=== PATIENT | female | born 1940 | race Caucasian/White ===

== ENCOUNTER 2016-05-02 15:01 | Outpatient (CLI) | payer MEDICARE, OTHER | END 2016-05-02 15:02 | disposition home or self-care (01) | DX: I73.9 Peripheral vascular disease, unspecified (principal); Z72.0 Tobacco use ==

== ENCOUNTER 2016-10-08 11:02 | Outpatient (CLI) | payer MEDICARE, OTHER | END 2016-10-08 11:03 | disposition critical access hospital (66) | LOC: EMS 11:02 | PROVIDERS: ATTEND Surgery | DX: S79.911A Unspecified injury of right hip, initial encounter (principal); W06.XXXA Fall from bed, initial encounter | CPT/HCPCS: A0425; A0429 ==

== ENCOUNTER 2016-10-08 11:20 | Inpatient (IN) | payer MEDICARE, OTHER ==
[2016-10-08] MEDS ORDERED: ACETAMINOPHEN 325 MG TABLET PO STA (11:45)
[2016-10-08] MEDS ORDERED: ACETAMINOPHEN 325 MG TABLET PO ONE (11:54)
--- NOTE | 2016-10-08 12:51 | CT Preliminary Report ---
Exam: CT Cervical Spine W/O IMPRESSION cervical spine CT: 1. No cervical spine fracture. 2. Moderate degenerative changes. 3. Stable 1.1 cm dense densely calcified left thyroid nodule. Impression head CT: No intracranial hemorrhage or depressed calvarial fracture. Age-related cortical atrophy. Prominent chronic white matter microangiopathy. [facility] SITE ID: [id number]
--- NOTE | 2016-10-08 12:54 | CT Report ---
REVISED: THIS REPORT WAS ORIGINALLY SIGNED ON 09/29/2016 @ 1047. ORDERS LINKED ON 10/19/2016. EXAM: CT HEAD EXAM DATE: 10/08/2016 12:18 PM. CLINICAL HISTORY: Fall. Confused. Hip injury cannot clear. COMPARISON: None. TECHNIQUE: Multiaxial CT images were obtained from the foramen magnum to the vertex. IV contrast: None. Reformats: Coronal. Asymmetric positioning within scanning gantry. In accordance with CT protocol optimization, one or more of the following dose reduction techniques were utilized for this exam: automated exposure control, adjustment of mA and/or KV based on patient size, or use of iterative reconstructive technique. FINDINGS: Parenchyma: No intraparenchymal hemorrhage. No evidence of mass, midline shift, or CT findings of acute infarction. Gatica-white differentiation is distinct. Extraaxial Spaces: Normal for age. No subdural or epidural collections identified. Ventricles: The ventricles and cortical sulci are enlarged, consistent with age- related tissue loss. Sinuses: Imaged paranasal sinuses, orbits, and mastoids show no significant abnormality. Bones: No evidence of fracture or calvarial defect. Other: Diffuse prominent chronic microangiopathic white matter changes are evident. IMPRESSION Head CT: 1. Generalized age-related cortical atrophic changes without evidence of acute intracranial abnormality. 2. No evidence for intracranial hemorrhage or depressed calvarial fracture. CT CERVICAL SPINE WITHOUT CONTRAST COMPARISONS: Cervical spine CT 09/10/2015. TECHNIQUE: Thin-section axial images were acquired of the cervical spine without contrast. Post-processing: Coronal and sagittal reformats. Other: None. In accordance with CT protocol optimization, one or more of the following dose reduction techniques were utilized for this exam: automated exposure control, adjustment of mA and/or KV based on patient size, or use of iterative reconstructive technique. FINDINGS: Alignment: Normal. No scoliosis or spondylolisthesis. Bones: No fracture or bone lesion. Interspace Levels/Facets: C1-C2: Narrowing of C1 and C2 reticulation with ossified formation from degenerative change. C2-C3: Unremarkable. C3-C4: Right facet hypertrophy. C4-C5: Moderate loss of disk space height. Moderate bilateral neural foraminal narrowing due to bilateral uncovertebral joint hypertrophy and right-sided facet hypertrophy. Congenitally narrow spinal canal. Effacement of ventral thecal sac by a broad posterior disk osteophyte complex. AP dimension of spinal canal is approximate 7 mm on sagittal series. C5-C6: Mild to moderate right neural foraminal narrowing due to uncovertebral joint hypertrophy. C6-C7: Moderate left and mild right neural foraminal narrowing due to uncovertebral joint hypertrophy. C7-T1: Unremarkable. Musculature: Normal. No fatty atrophy. Other: The paravertebral and prevertebral soft tissues are normal. The lung apices demonstrate probable biapical pleural-parenchymal scarring. 1.1 cm densely calcified left thyroid nodule, stable. IMPRESSION cervical spine CT: 1. No cervical spine fracture. 2. Moderate degenerative changes. 3. Stable 1.1 cm dense densely calcified left thyroid nodule. [facility] Referring Provider Line: [phone] SITE ID: [id number]
--- NOTE | 2016-10-08 12:59 | XRAY Preliminary Report ---
Exam: XR Hip w/Pelvis 2-3V RT IMPRESSION: Acute right femoral neck fracture with questionable intertrochanteric extension. No displ acement. [facility] SITE ID: [id number]
--- NOTE | 2016-10-08 13:00 | XRAY Preliminary Report ---
Exam: XR Femur 2V RT IMPRESSION: Nondisplaced right femoral neck fracture. [facility] SITE ID: [id number]
--- NOTE | 2016-10-08 13:01 | XRAY Report ---
EXAM: RIGHT HIP AND PELVIS RADIOGRAPHY EXAM DATE: 10/08/2016 12:29 PM. HISTORY: Fall, hip pain. COMPARISONS: 09/10/2015. TECHNIQUE: 1 view of the pelvis and 1 view of the hip. FINDINGS: Bones: Acute right femoral neck fracture with questionable intertrochanteric extension. No displacem ent. Joints: Mild bilateral hip joint space narrowing. Soft Tissues: Normal. No soft tissue swelling. IMPRESSION: Acute right femoral neck fracture with questionable intertrochanteric extension. No displ acement. [facility] Referring Provider Line: [phone] SITE ID: [id number]
--- NOTE | 2016-10-08 13:02 | XRAY Report ---
EXAM: RIGHT FEMUR RADIOGRAPHY EXAM DATE: 10/08/2016 12:29 PM. CLINICAL HISTORY: Fall femur. COMPARISON: Correlation with right hip series same day. TECHNIQUE: 2 views. FINDINGS: Bones: Nondisplaced right femoral neck fracture. Joints: The visualized hip and knee joints are normal. No effusions. Soft Tissues: Normal. No soft tissue swelling. IMPRESSION: Nondisplaced right femoral neck fracture. [facility] Referring Provider Line: [phone] SITE ID: [id number]
[2016-10-08] MEDS ORDERED: MORPHINE 2 MG/ML SYRINGE IVP STA (13:26)
--- NOTE | 2016-10-08 13:34 | ED Physician Documentation ---
History of Present Illness - Stated complaint Stated Complaint: FALL - Chief complaint Chief Complaint: General - Additonal information Additional information: hx from pt and EMS 76 female slipped out of bed onto bottom / right hip not sure if hit head but some mild neck pain and confused (hx dementia per EMR) per pt and EMS report no recent fever cough NVD urinary sx Review of Systems Constitutional: denies: Fever, Chills Cardiac: denies: Chest pain / pressure Respiratory: denies: Dyspnea, Cough GI: denies: Abdominal Pain, Vomiting, Diarrhea : denies: Dysuria Musculoskeletal: reports: Neck pain, Extremity pain, Joint pain Neurologic: denies: Headache Endocrine: denies: Easy bruising / bleeding Immunocompromised: denies: Immunocompromised PD PAST MEDICAL HISTORY - Past Medical History Past Medical History: Yes Cardiovascular: Hypertension Respiratory: COPD Neuro: Alzhiemer's, Dementia, Headache/migraine Endocrine/Autoimmune: None GI: GERD : None HEENT: None Psych: None Musculoskeletal: Osteoarthritis Derm: None - Past Surgical History Past Surgical History: Yes /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: Hysterectomy HEENT: Cataracts - Present Medications Home Medications: Ambulatory Orders Medication Instructions Recorded Confirmed Amitriptyline HCl 50 mg PO HS 03/13/13 10/08/16 Bupropion HCl [Wellbutrin Sr] 150 mg PO BID 03/13/13 10/08/16 Carbidopa/Levodopa [Carbidopa-Levo 1 each PO TID 03/14/13 10/08/16 ER 25-100 Tab] Donepezil [Aricept] 10 mg PO DAILY 03/14/13 10/08/16 Simvastatin 40 mg PO DAILY 03/14/13 09/10/15 Ibuprofen [Motrin] 1 tab PO TID PRN 09/10/15 10/08/16 Metoprolol Tartrate 1 tab PO DAILY 09/10/15 10/08/16 - Allergies Allergies/Adverse Reactions: Allergies Allergy/AdvReac Type Severity Reaction Status Date / Time No Known Drug Allergies Allergy Verified 09/10/15 12:17 - Social History Does the pt smoke?: Yes Smoking Status: Current every day smoker Does the pt drink ETOH?: No Does the pt have substance abuse?: No - Immunizations Immunizations are current?: Yes - POLST Patient has POLST: Yes PD ED PE NORMAL - Vitals Vital signs reviewed: Yes - General General: No: Alert and oriented X 3 (mldly confused A&O x 2) - HEENT HEENT: Atraumatic - Neck Neck: No bony TTP (mild diffuse no step off) - Cardiac Cardiac: RRR - Respiratory Respiratory: No respiratory distress, Clear bilaterally - Abdomen Abdomen: Soft, Non tender - Extremities Extremities: Other (RLE not short or roated but pain to hip and thigh with any ROM, MSV intact, skin intact) - Neuro Neuro: No motor deficit, No sensory deficit. No: Alert and oriented X 3 Results - Vitals Vitals: Vital Signs - 24 hr 10/08/16 10/08/16 10/08/16 11:10 13:10 16:37 Temperature 36.9 C 36.8 C Heart Rate 81 72 76 Respiratory 18 16 18 Rate Blood Pressure 213/108 H 187/93 H O2 Saturation 94 95 94 Oxygen O2 Source [] Nasal cannula O2 Source Room air - Labs Labs: Laboratory Tests 10/08/16 10/08/16 10/08/16 13:25 13:25 14:25 WBC 9.6 RBC 5.02 Hgb 15.5 Hct 45.5 MCV 90.5 MCH 30.8 MCHC 34.0 RDW 14.1 Plt Count 295 MPV 8.2 Neut # 6.4 Lymph # 1.6 [place] # 1.0 Eos # 0.4 Baso # 0.1 Absolute Nucleated RBC 0.01 Nucleated RBCs 0.1 Sodium 142 Potassium 3.9 Chloride 104 Carbon Dioxide 30 Anion Gap 8.0 BUN 15 Creatinine 0.8 Estimated GFR (MDRD) 69 L Glucose 98 Calcium 9.3 Urine Color YELLOW Urine Clarity HAZY Urine pH 6.0 Ur Specific [place] 1.020 Urine Protein TRACE Urine Glucose (UA) NEGATIVE Urine Ketones NEGATIVE Urine Occult Blood NEGATIVE Urine Nitrite POSITIVE H Urine Bilirubin NEGATIVE Urine Urobilinogen 1 (NORMAL) Ur Leukocyte Esterase NEGATIVE Urine RBC 0-5 Urine WBC 0-3 Ur Squamous Epith Cells RARE Squamous Urine Bacteria Many H Urine Casts 11-25 Hyaline Casts Ur Microscopic Review INDICATED Urine Culture Comments INDICATED - Rads (name of study) [facility]CS Radiology: See rad report (no fx, degen changes, 1.1 cm L thyroid nodule) CTH Radiology: See rad report (no skull fx or ICH, age related atrophy and chronic white matter microangiopathy) hip / femur Radiology: See rad report (acute right femoral neck fx with questionable intertrock extension) PD MEDICAL DECISION MAKING - ED course ED course: last ate 7 AM david bai Departure - Departure Disposition: ED Transfer to [facility] Clinical Impression: Thyroid nodule Hip fracture Qualifiers: Encounter type: initial encounter Fracture type: closed Laterality: right Qualified Code(s): S72.001A - Fracture of unspecified part of neck of right femur, initial encounter for closed fracture Condition: Fair
[2016-10-08] MEDS ORDERED: MORPHINE 2 MG/ML SYRINGE ONE (13:35)
[2016-10-08 13:41] LABS: BASOPHILS # (AUTO) 0.1 10^3/uL (0.0-0.1); BASOPHILS % (AUTO) 1.3 %; EOSINOPHILS # (AUTO) 0.4 10^3/uL (0.0-0.7); EOSINOPHILS % (AUTO) 4.6 %; HCT - HEMATOCRIT 45.5 % (37.0-47.0); HGB - HEMOGLOBIN 15.5 g/dL (12.0-16.0); LYMPHOCYTES # (AUTO) 1.6 10^3/uL (1.5-3.5); LYMPHOCYTES % (AUTO) 16.9 %; MEAN CORPUSCULAR HEMOGLOBIN 30.8 pg (27.0-31.0); MEAN CORPUSCULAR VOLUME 90.5 fL (81.0-99.0); MEAN PLATELET VOLUME 8.2 fL (7.9-10.8); MONOCYTES % (AUTO) 10.4 %; NEUTROPHILS # (AUTO) 6.4 10^3/uL (1.5-6.6); NEUTROPHILS % (AUTO) 66.8 %; NUCLEATED RED BLOOD CELLS AUTO 0.1 /100WBC; RED BLOOD COUNT 5.02 10^6/uL (4.20-5.40); RED CELL DISTRIBUTION WIDTH 14.1 % (12.0-15.0); UNCORRECTED WHITE BLOOD COUNT 9.6 x10^3/uL; WHITE BLOOD COUNT 9.6 x10^3/uL (4.8-10.8)
[2016-10-08 13:52] LABS: CALCIUM 9.3 mg/dL (8.5-10.3); CREATININE 0.8 mg/dL (0.4-1.0); POTASSIUM 3.9 mmol/L (3.5-5.0)
[2016-10-08 14:40] LABS: BILIRUBIN,URINE NEGATIVE (NEGATIVE)
[2016-10-08 14:41] LABS: UA w/ MICROSCOPIC CHARGE YES
[2016-10-08 14:50] LABS: UR CULTURE IF IND INDICATED; WBC,URINE 0-3 /HPF (0-5)
--- NOTE | 2016-10-08 15:04 | HISTORY & PHYSICAL EXAMINATION ---
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 Of note she was in the ED 09/10/2015 for a ground level fall. She denies any prodrome prior to this, specifically no SOB, CP, lightheadedness , diaphoresis or nausea. She does not use an assistive device at this time per . She did not really hit her head but had some neck pain. She could not get up and on presenting to the ED with hip pain was found on hip film to have a Right femoral neck fracture with possible Intertrochanteric extension, but no displacement. ED contacted Dr. Hernandez who plans to take her to the OR ~ 4:30 today and requests medical consultation for risk assessment. Mary confimred this med list: metoprolol (unclear if succinate or tatrtrate 25 mg po daily, carbidopa/levodopa 25/100 tid w/ meals. donezipil 10 mg po daily, simvastatin 40 mg po daily, amitryptilline 25 mg 1-3 qhs for headache prn, nexium 20 mg po q am, vitamid D 2000 u/ po daily Review of Systems - Constitutional Constitutional: reports: Other (Does not normally use cane/walker/nor other assistive device). denies: Fatigue, Fever, Malaise, Weakness - Eyes Eyes: denies: Blurred vision, Field loss, Vision loss - Ears, Nose & Throat Ears, Nose & Throat: reports: Dentures (upper and lower) - Cardiovascular Cariovascular: reports: Syncope (history of syncope years ago when she grabbed the bathroom handle of the shower which fell off and she fell, non recent). denies: Irregular heart rate, Palpitations, Chest pain, Edema, Lightheadedness, Decr. exercise tolerance - Respiratory Respiratory: reports: Wheezing (she denies wheezing, cough or shortness of breath, denies being on inhalers or nebulizers). denies: Cough - Gastrointestinal Gastrointestinal: denies: Abdominal pain, Abdominal distention, Constipation, Diarrhea, Change in bowel habits, Rectal bleeding, Bloody stools, Nausea, Vomiting - Genitourinary Genitourinary: denies: Dysuria, Frequency, Urgency, Incontinence - Musculoskeletal Musculoskeletal: reports: Other (hip pain currently not bad). denies: Muscle pain - Integumentary Integumentary: denies: Rash - Neurological Neurological: reports: Memory problems, Other (She denies Parkinsons tremor, rigiditiy per he manages her medications she no longer drives says she gets "tingling in her right foot to her knee" sometimes.) - Psychiatric Psychiatric: reports: Depression ("used to have depression") - Endocrine Endocrine: denies: Polyuria, Polydypsia, Intolerance to cold - Hematologic/Lymphatic Hematologic/Lymphatic: denies: Bruising History - Past Medical History Cardiovascular: reports: Hypertension Respiratory: reports: COPD (listed in her medical history; she denies (is not on inhalers, no home 02. Has had PFTs) Neuro: reports: Alzhiemer's, Dementia (baseline ; can feed, dress herself, attends [employer] luncheon, manages pills, doesnt drive), Headache/migraine , Parkinson's (3 yrs ago was told she had Parkinsons and was on Sinemet, but that was stopped by another Dr that told her she did NOT have parkinsons), Other ([place] Palsy, left facial droop) Endocrine/Autoimmune: reports: None GI: reports: GERD : reports: None HEENT: reports: None Psych: reports: Depression (history of per patient but controlled) Musculoskeletal: reports: Osteoarthritis Derm: reports: None MRSA Hx?: No - Past Surgical History Ortho: reports: Other (hx of broken arm 10-15 yrs ago) /[employer]: reports: Hysterectomy Cardiovascular: reports: Other (Denies CAD, dysrhthmia, valvular probelsm) HEENT: reports: Cataracts - Family & Social History Family History: Mother: CAD (mom of [place] age 94/ dad [place] at 78), Father: CAD Living arrangement: At home, Other (with ) Living Situation: With spouse/s.o. - Substance History Use: Uses substance without health or social issues: Tobacco (smokes 6-7 cigarettes / day "smokes if I can"), Alcohol (rare drink of alcohol "at the club" every 2-3 wks) - POLST Patient has POLST: Yes Meds/Allgy - Home Medications Home Medications: Ambulatory Orders Medication Instructions Recorded Confirmed Amitriptyline HCl 25 mg PO HS 03/13/13 10/08/16 Bupropion HCl [Wellbutrin Sr] 150 mg PO BID 03/13/13 09/10/15 Carbidopa/Levodopa [Carbidopa-Levo 1 each PO TID 03/14/13 10/08/16 ER 25-100 Tab] Donepezil [Aricept] 10 mg PO DAILY 03/14/13 10/08/16 Simvastatin 40 mg PO DAILY 03/14/13 09/10/15 Ibuprofen [Motrin] 1 tab PO TID PRN 09/10/15 10/08/16 Metoprolol Tartrate 1 tab PO DAILY 09/10/15 10/08/16 - Allergies Allergies/Adverse Reactions: Allergies Allergy/AdvReac Type Severity Reaction Status Date / Time No Known Drug Allergies Allergy Verified 09/10/15 12:17 Exam - Vital Signs Reviewed Vital Signs: Yes Vital Signs: Vital Signs x48h Temp Pulse Resp BP Pulse Ox 10/08/16 13:10 72 16 187/93 H 95 10/08/16 11:10 36.9 C 81 18 213/108 H 94 - Physical Exam General Appearance: positive: No acute distress, Other (Lying on stretcher in ED , alert, in no apparent pain, surprisingly lying with affected R leg crossed over the left. Not oriented to year (1976), but oriented to Month, time of the month, situation, and president. cant recall name of PCP but recalls when tells her) Eyes Bilateral: positive: PERRL, EOMI, Other (very slight droop of left eye lid) ENT: positive: No signs of dehydration (slightly dry tongue), Other (slight droop left mouth (old hx [place] Palsy upper and lower dentures) Neck: positive: Nml inspection. negative: Thyroid nml (not felt on exam, but thyroid nodule on) Cardiovascular: positive: Regular rate & rhythm, No murmur, No gallop. negative : Extrasystoles, Tachycardia Peripheral Pulses: positive: 2+ (radial) Abdomen: positive: Non-tender, No organomegaly, Nml bowel sounds, No distention , Tenderness Skin: positive: No rash, Warm Extremities: positive: No pedal edema (R lower ext not externally rotated, non shortened, no echymosis, no edema), Other Neurologic/Psychiatric: positive: CN's nml (2-12) (x slight left mouth corner droop and left eye lid ptosis minor (old bells)), Disoriented to person, Disoriented to place, Disoriented to time (keeps getting the year wrong), Other (no tremor). negative: Depressed mood/affect (animated in conversation) Conclusion/Plan - Problem List (1) Hip fracture Conclusion/Plan: 1) L Femoral Neck Fracture s/p Mechanical Fall no prodrome prior to fall requiring work up looking comfortable right now (even crossing legs) Post op management, VTE prophylaxis an mobility/PT per Dr. Hernandez 2) Perioperative Risk assessment No Hx of CAD, AK, CHF, valvular dysfunction, no Hx of activity intolerance, SOB, Chest pain, no hx stroke (patient initially called a syncopal event /fall a stroke, then corrects self and adamantly denies she had a sttroke. . No hx of renal disease , CR not over 2 (normal at 0.8) and no DM nor insulin use. EKG with no ischemic changes, By RCRI risk score 0.04% risk of major cardiac event (AK, PE, Vfib, heart block ) Not on anticoagulation (does take up to 2 excedrin per day no chronic wheeze, 02 use, Re pulmonary risk, 2013 there are records of acute hypoxemic respiratory failure w/ a COPD exacerbation; at that time she was on 02 no longer on 02, rare scattered wheeze currently, unlabored resps lying flat, no shortness of breath with activity (does continue to smoke 6-7 cigs / day) HC03 sl elevated 30; ? chronic compensation no PFT's available, no indication for ABG currently do not suspect difficult extubation given current exam and recent hx Will add post op duonebs prn SOB or wheeze Qualifiers: Encounter type: initial encounter Fracture type: closed Laterality: right Qualified Code(s): S72.001A - Fracture of unspecified part of neck of right femur, initial encounter for closed fracture (2) Hypertension Conclusion/Plan: 213/108 on presentation, 187/93 1pm will call me with her med list Likely elevated currently She denies being on metoprolol currently (as does he but he will call w/ list) Anesthesia aware, expect BP will not be problem will resume home meds as bp warrants post op (3) COPD (chronic obstructive pulmonary disease) Conclusion/Plan: 04/2013 d/c summary notes acute respiratory failure, 1-2 L home 02 and C02 retainer She is no longer on 02, satting 95% on RA lying flat, no recent exacerbation, no on inhalers continues to smoke, CT chest 2013 notable only for apical scarring, No indication for CXR given current resp exam will add duonebs prn post op Advise smoking cessation (4) Dementia Conclusion/Plan: early dementia, still quite functional, relatively low risk for post op delerium continue donzepil if she is on ( will bring med list (5) Thyroid nodule Conclusion/Plan: calcified outpatient f/u will check TSH (6) Migraine Conclusion/Plan: none currently w/ daily excedrine use, will monitor for rebound TOMAS CODE status; will confirm post op (if intraoperative complication would do intervention) She states full cor at the moment (7) Parkinsons disease Conclusion/Plan: Patient denies that she has PD, howeverhas been on Sinemet (confirmed when called re: home meds PD could contribute to delerium afer anesthesia (although she does not have significantly advanced disease) REsume Sinemet post op - Lab Results Lab results reviewed: Yes Fish Bones: 10/08/16 19:09 10/08/16 13:25 - Diagnostic Imaging Results Diagnostic Imaging Results: positive: Final report reviewed Diagnostic Imaging Results Comments: C spine; no Cspine Fx, incidental calcified L thyroid nodule Hip film R ; fem neck Fx, ? IT extension, nondisplaced Echo 04/2013; NL LV size an fxn, w/ mild concentric LVH, grade II diastolic dysfunction, hperdynamic LV. 70% EF no WMA. Tr-mild MR, mild TR, small pericardial effusion - EKG Results EKG Interpreted Independently: Yes EKG Comparison: Other (no comparison nsr, low amplitude, normal axis, Sl flat t' s) Issues/Core Measures - Anticipated LOS Anticipated Stay Length: 2 or more midnights - DVT/VTE - Prophylaxis VTE/DVT Device ordered at admit?: No Not Ordered - Medical Reason: Not indicated (patient will be taken to OR in a few hours; VTE prophylaxis s/p hip repair to be ordered post op) VTE/DVT Prophylaxis med ordered at admit?: No Not Ordered - Medical Reason: Not indicated (see above)
--- NOTE | 2016-10-08 16:32 | PROVIDER PROGRESS NOTE ---
Subjective - Prog Note Date Prog Note Date: 10/08/16 Prog Note Time: 16:30 - Subjective Subjective: Painful right hip after a fall at home this AM Objective - Vital Signs/Intake & Output Vital Signs: Vital Signs x48h Temp Pulse Resp BP Pulse Ox 10/08/16 13:10 72 16 187/93 H 95 10/08/16 11:10 36.9 C 81 18 213/108 H 94 - Lab Results Fish Bones: 10/08/16 13:25 10/08/16 13:25 Other Labs: Lab Results x24hrs 10/08/16 10/08/16 10/08/16 Range/Units 14:25 13:25 13:25 WBC 9.6 (4.8-10.8) x10^3/uL RBC 5.02 (4.20-5.40) 10^6/uL Hgb 15.5 (12.0-16.0) g/dL Hct 45.5 (37.0-47.0) % MCV 90.5 (81.0-99.0) fL MCH 30.8 (27.0-31.0) pg MCHC 34.0 (32.0-36.0) g/dL RDW 14.1 (12.0-15.0) % Plt Count 295 (130-450) 10^3/uL MPV 8.2 (7.9-10.8) fL Neut # 6.4 (1.5-6.6) 10^3/uL Lymph # 1.6 (1.5-3.5) 10^3/uL [place] # 1.0 (0.0-1.0) 10^3/uL Eos # 0.4 (0.0-0.7) 10^3/uL Baso # 0.1 (0.0-0.1) 10^3/uL Absolute Nucleated RBC 0.01 x10^3/uL Nucleated RBCs 0.1 /100WBC Sodium 142 (135-145) mmol/L Potassium 3.9 (3.5-5.0) mmol/L Chloride 104 (101-111) mmol/L Carbon Dioxide 30 (21-32) mmol/L Anion Gap 8.0 (6-13) BUN 15 (6-20) mg/dL Creatinine 0.8 (0.4-1.0) mg/dL Estimated GFR (MDRD) 69 L (>89) Glucose 98 (70-100) mg/dL Calcium 9.3 (8.5-10.3) mg/dL Urine Color YELLOW Urine Clarity HAZY (CLEAR) Urine pH 6.0 (5.0-7.5) PH Ur Specific [place] 1.020 (1.002-1.030) Urine Protein TRACE (NEGATIVE) mg/dL Urine Glucose (UA) NEGATIVE (NEGATIVE) mg/dL Urine Ketones NEGATIVE (NEGATIVE) mg/dL Urine Occult Blood NEGATIVE (NEGATIVE) Urine Nitrite POSITIVE H (NEGATIVE) Urine Bilirubin NEGATIVE (NEGATIVE) Urine Urobilinogen 1 (NORMAL) (NORMAL) E.U./dL Ur Leukocyte Esterase NEGATIVE (NEGATIVE) Urine RBC 0-5 (0-5) /HPF Urine WBC 0-3 (0-5) /HPF Ur Squamous Epith Cells RARE Squamous (<= Few) Urine Bacteria Many H (None Seen) /HPF Urine Casts 11-25 Hyaline Casts /LPF Ur Microscopic Review INDICATED Urine Culture Comments INDICATED - Diagnostic Imaging Diagnostic Imaging Comments: XR show an impacted, valgus oriented right subcapital hip fracture - Other Results/Comments Other Results/Comments: EXAM: painful right hip rotation. Minimal leg shortening. Moves toes well. Sensation intact. Good cap filling Assessment/Plan - Problem List (1) Hip fracture Impression: Closed right subcapital hip fracture - ompacted and valgus orientation Qualifiers: Encounter type: initial encounter Fracture type: closed Laterality: right Qualified Code(s): S72.001A - Fracture of unspecified part of neck of right femur, initial encounter for closed fracture
[2016-10-08] MEDS ORDERED: ceFAZolin 2 GM/50 ML 50 ML IV SCH (17:00)
--- NOTE | 2016-10-08 17:29 | CONSULTATION NOTE ---
DATE OF CONSULTATION: 10/08/2016 00:00:00 REQUESTING PROVIDER: Emergency room physician, Daphnie Diallo M.D. of the emergency room [facility]. CHIEF COMPLAINT: "My right hip hurts.". HISTORY OF PRESENT ILLNESS: The patient is a 76-year-old female, mildly demented with a his tory of COPD and hypertension who apparently slipped off her 's bed this morning and landed on her right side on the floor in their bedroom. Noted immediate pain in her hip, was unable to stand o r weightbear on her leg. She was taken to the emergency room here at [facility], where x-ray showed an impacted valgus oriented subcapital hip fracture on the right side. She had no prior hip fractures. Denied any distal weakness or numbness in the lower extremity. No loss of consciousnes s or other injuries. Last ate food at about 7:30 this morning. PHYSICAL EXAMINATION GENERAL: An elderly woman lying in bed in mild amount of distress. VITAL SIGNS: Blood pressure was 187/93, pulse of 72, respirations 16, afebrile. EXTREMITIES: The patient has minimal shortening of her right leg. Does have some mild pain with hip r otation. Moves her toes and ankles on command without much problem. Sensation is grossly intact and s ymmetrical in the lower extremity. Good capillary filling noted of the toes. X-RAYS: X-rays show an impacted right subcapital hip fracture. There is a valgus orientation of the f racture. ASSESSMENT AND PLAN 1. Closed impacted valgus oriented right subcapital hip fracture. 2. Dementia. 3. History of chronic obstructive pulmonary disease. 4. History of hypertension. PLAN: The patient would do best if we can surgically stabilize her fracture and try to mobilize her a s best we can. This was discussed with the by the emergency room staff. He was in favor of pr oceeding with surgery. I attempted to contact him by phone, but he was not available at his home. Has no cell phone. Because of his wish to have the surgery done and this is my recommendation, we have p roceeded to have the consent form signed by the emergency room attending physician, Dr. Diallo, who h ad heard the and his willingness to have his proceed with surgery later today. Will atte mpt to contact the patient's prior to surgery, but we should proceed as planned. JOB #: [id number] EXT JOB #:[id number]
[2016-10-08] MEDS ORDERED: ceFAZolin 1 GM VIAL IV ONE (18:00)
[2016-10-08] MEDS ORDERED: LIDOCAINE-MPF 2% 5 ML VIAL IM ONE (18:00)
[2016-10-08] MEDS ORDERED: fentaNYL 100 MCG/2 ML VIAL IVP ONE (18:00)
[2016-10-08] MEDS ORDERED: PROPOFOL 200 MG/20 ML VIAL IVP ONE (18:00)
[2016-10-08] MEDS ORDERED: LACTATED RINGERS 1,000 ML IV ONE (18:08)
[2016-10-08] MEDS ORDERED: BUPIVACAINE 0.25%-EPI 1:200000 PF 30 ML VIAL SUBQ ONE (18:08)
[2016-10-08] MEDS ORDERED: PROCHLORPERAZINE 10 MG/2 ML VIAL IVP PRN (18:42)
[2016-10-08] MEDS ORDERED: ONDANSETRON 4 MG/2 ML VIAL IVP PRN (18:42)
[2016-10-08] MEDS ORDERED: SODIUM CHLORIDE FLUSH 0.9% 10 ML SYRINGE IVP PRN (18:42)
[2016-10-08] MEDS ORDERED: ACETAMINOPHEN 1,000 MG/100 ML 100 ML IV PRN (18:42)
--- NOTE | 2016-10-08 18:50 | OPERATIVE REPORT ---
Operative Report - General Procedure Date: 10/08/16 Planned Procedure: Closed reduction and multiple cannulated screw fixation right hip fracture Pre-Op Diagnosis: Right subcapital hip fracture Post Op Diagnosis: Same - Procedure Note Primary Surgeon: Artur Hernandez Anesthesia Provider: Kimi Uriarte Anesthesia Technique: Spinal Estimated Blood Loss (in cc): 50 Complications: None
[2016-10-08 19:16] LABS: HGB - HEMOGLOBIN 14.7 g/dL (12.0-16.0)
--- NOTE | 2016-10-08 19:31 | OPERATIVE REPORT ---
DATE OF SURGERY: 10/08/2016 00:00:00 PREOPERATIVE DIAGNOSIS: Right subcapital hip fracture. POSTOPERATIVE DIAGNOSIS: Right subcapital hip fracture. NAME OF PROCEDURE: Closed reduction and multiple cannulated screw fixation of right hip fracture. SURGEON: Artur Hernandez MD BAKER DOUGHNUT: None. ANESTHESIA: Spinal. NURSE MAINTENANCE SUPERVISOR: Kimi Uriarte DESCRIPTION OF PROCEDURE: The patient was taken to the operating room the September where she was placed under spinal anesthetic without any complications. She was then positioned supine on the fracture table. Her left un-fractured extremity was then flexed at the hip and widely abducted and he ld in a well leg clifton. Her right fractured extremity was then placed in a longitudinal traction wit h the leg internally rotated about 30 degrees. Fluoroscopic images of the right hip showed a good red uction of the fracture in both AP and lateral projection. We then prepped and draped the lateral aspe ct of the right hip in the usual fashion for our procedure. A small skin incision measuring about 2 c m was then made over the lateral aspect of the hip. This is extended down to the lateral femoral pradeep ex of the proximal femur. We then proceeded to insert 3 parallel threaded tipped guide pins from the [employer]ynthes 7.3 mm cannulated screw set up through the proximal femur through the femoral neck and into t he femoral head to within a few millimeters of the subchondral bone in both AP and lateral projection s. Satisfied with the placement of pins were then used the direct measuring guide and determined we w ould use one 90 mm and two 95 mm short threaded 7.3 mm cannulated screws. We then used the cannulated drill to perforate the lateral femoral cortex. We then inserted our selected cannulated screws over our guide pins. The most inferior anterior screw, we also applied a washer prior to inserting the scr ew. Fluoroscopic views in AP and lateral projections showed good position of our hardware as well as a good reduction of our fracture. We obtained a good inner fragmental compression from our screws as well. We then removed our guide pins. We irrigated the wound out thoroughly with saline. I then close d the wound in layers using several simple interrupted stitches of 0 Vicryl to close the fascia scott layer; several interrupted simple stitches of 2-0 Vicryl to close the subcutaneous tissues. Finally, skin amadou used to approximate the skin edge. We then dressed the wound and transferred the patient off the fracture table and onto her bed. She was taken to recovery room in satisfactory condition. ESTIMATED BLOOD LOSS: 50 mL. REPLACEMENT: 800 mL crystalloid. INTRAOPERATIVE COMPLICATIONS: None. PLAN: The patient may be weightbearing as tolerated on this extremity. We will be ambulatory with a w alker if her mental status allows. JOB #: [id number] EXT JOB #:[id number]
--- NOTE | 2016-10-08 19:59 | XRAY Preliminary Report ---
Exam: XR Hip w/Pelvis 2-3V RT IMPRESSION: Femoral neck fracture fixation. Fluoroscopy time 29 seconds. RADIA SITE ID: [id number]
--- NOTE | 2016-10-08 20:02 | XRAY Report ---
EXAM: RIGHT HIP RADIOGRAPHY EXAM DATE: 10/08/2016 04:18 PM. CLINICAL HISTORY: RIGHT HIP PINNING IN OR. COMPARISON: Today at 1151. TECHNIQUE: 1 spot view. FINDINGS: Single spot view documents placement of screws across a femoral neck fracture. IMPRESSION: Femoral neck fracture fixation. Fluoroscopy time 29 seconds. CLARITZA Referring Provider Line: [phone] SITE ID: [id number]
[2016-10-08] MEDS ORDERED: AMITRIPTYLINE 25 MG TABLET PO PRN (21:00)
[2016-10-08] MEDS: ceFAZolin 2 GM/50 ML 50 ML IV SCH (21:29)
[2016-10-08] MEDS: MORPHINE 2 MG/ML SYRINGE IVP PRN (21:30)
[2016-10-08] MEDS: SODIUM CHLORIDE 0.9% 1,000 ML IV SCH (21:33)
[2016-10-08] MEDS: SODIUM CHLORIDE FLUSH 0.9% 10 ML SYRINGE IVP SCH (21:34)
[2016-10-08] MEDS: CARBIDOPA/LEVODOPA ER 25 MG/100 MG TABLET PO SCH (22:08)
[2016-10-08] MEDS: DONEPEZIL 5 MG TABLET PO SCH (22:48)
[2016-10-08] MEDS: oxyCOD/ACETAMIN 5 MG/325 MG TABLET PO PRN (22:53)
[2016-10-09] MEDS: MORPHINE 2 MG/ML SYRINGE IVP PRN ×2 (01:25→04:58)
[2016-10-09] MEDS: SODIUM CHLORIDE 0.9% 1,000 ML IV SCH (05:13)
[2016-10-09] MEDS: ceFAZolin 2 GM/50 ML 50 ML IV SCH (05:25)
[2016-10-09] MEDS: CARBIDOPA/LEVODOPA ER 25 MG/100 MG TABLET PO SCH ×3 (06:51→22:09)
[2016-10-09] MEDS: PANTOPRAZOLE 40 MG TABLET PO SCH (06:51)
[2016-10-09] MEDS: SODIUM CHLORIDE FLUSH 0.9% 10 ML SYRINGE IVP SCH ×3 (06:51→22:11)
--- NOTE | 2016-10-09 08:54 | PROVIDER PROGRESS NOTE ---
Subjective - Prog Note Date Prog Note Date: 10/09/16 Prog Note Time: 08:54 - Subjective Subjective: Doesnt really remember me from yesterday, doesnt recall why here (still confused from anesthesia, surgery) Denies pain, no shortness of breath, in in afternoon w/ son, she recognizes them, still cant say who I am or why here Current Medications - Current Medications Current Medications: Active Medications Generic Name Dose Route Start Last Admin Trade Name Freq PRN Reason Stop Dose Admin Acetaminophen 650 - 975 mg 10/08/16 18:42 Tylenol PO Q4HR PRN PAIN Amitriptyline HCl 25 mg 10/08/16 21:00 Elavil PO QPM PRN HEADACHE Aspirin 325 mg 10/09/16 08:00 Kate PO BIDWM ALLIE Carbidopa/Levodopa 1 tab 10/08/16 22:00 10/09/16 06:51 Sinemet Cr 25 Mg/100 Mg PO 1 tab TID ALLIE Administration Docusate Sodium 100 mg 10/08/16 18:42 Colace 100mg Capsule PO BID PRN Constipation Donepezil HCl 10 mg 10/08/16 21:00 10/08/16 22:48 Aricept PO 10 mg QPM ALLIE Administration Sodium Chloride 1,000 mls @ 100 mls/hr 10/08/16 19:00 10/09/16 05:13 Normal Saline 0.9% IV 100 mls/hr .Q10H ALLIE Administration Acetaminophen 100 mls @ 400 mls/hr 10/08/16 18:42 Ofirmev IV Q6HR PRN PAIN Metoprolol Succinate 25 mg 10/09/16 09:00 Toprol Xl PO DAILY ALLIE Morphine Sulfate 2 mg 10/08/16 18:42 10/09/16 04:58 Morphine IVP 2 mg Q2HR PRN Administration Breakthrough Pain Ondansetron HCl 4 mg 10/08/16 18:42 10/09/16 04:58 Zofran Inj IVP 4 mg Q6HR PRN Administration Nausea / Vomiting Oxycodone/Acetaminophen 1 tab 10/08/16 18:42 10/08/16 22:53 Percocet 5 Mg/325 Mg PO 1 tab Q4HR PRN Administration PAIN Pantoprazole Sodium 40 mg 10/09/16 07:00 10/09/16 06:51 Protonix PO 40 mg QDAC ALLIE Administration Prochlorperazine Edisylate 10 mg 10/08/16 18:42 Compazine Inj IVP Q6HR PRN Nausea / Vomiting Senna 17.2 mg 10/08/16 18:42 Senokot PO Q12H PRN Constipation Sodium Chloride 10 ml 10/08/16 18:42 Normal Saline Flush 0.9% IVP PRN PRN NEEDED PER PROVIDER ORDERS Sodium Chloride 10 ml 10/08/16 22:00 10/09/16 06:51 Normal Saline Flush 0.9% IVP Not Given Q8HR ALLIE Amitriptyline HCl 25 mg PO HS 03/13/13 Bupropion HCl [Wellbutrin Sr] 150 mg PO BID 03/13/13 Carbidopa/Levodopa [Carbidopa-Levo ER 25-100 Tab] 1 each PO TID 03/14/13 Donepezil [Aricept] 10 mg PO DAILY 03/14/13 Simvastatin 40 mg PO DAILY 03/14/13 Ibuprofen [Motrin] 1 tab PO TID PRN 09/10/15 Metoprolol Tartrate 1 tab PO DAILY 09/10/15 Objective - Vital Signs/Intake & Output Reviewed Vital Signs: Yes Vital Signs: Vital Signs x48h Temp Pulse Resp BP Pulse Ox 10/09/16 05:32 37.4 C 84 18 170/96 H 96 10/09/16 01:52 37.2 C 75 20 170/90 H 92 Intake & Output: Intake & Output 10/06/16 10/07/16 10/08/16 10/09/16 23:59 23:59 23:59 23:59 Intake Total 775 Output Total 100 450 Balance -100 325 - Objective General Appearance: positive: No acute distress, Other (pleasantly confused, very drowsy this morning, alert later in day, but not oriented to time or situation. knows family) Eyes Bilateral: positive: PERRL, EOMI, Other (sl ptosis on L, sl droop left ( old [place])) Respiratory: positive: No respiratory distress, Breath sounds nml, Other ( unlabred resps low 02 requirement (havent checked off yet 2 L 94-97%) Cardiovascular: positive: Regular rate & rhythm, No murmur Abdomen: positive: Nml bowel sounds, No distention, Other (no escalante). negative : Tenderness Skin: positive: Warm, Dry Extremities: positive: Other (no significant swelling Left hip or distal to operative site. I didnot appreciate significant hematoma). negative: Pedal edema Neurologic/Psychiatric: positive: Disoriented to person. negative: Disoriented to place, Disoriented to time - Lab Results Fish Bones: 10/08/16 19:09 10/08/16 13:25 Other Labs: Lab Results x24hrs 10/08/16 Range/Units 19:09 Hgb 14.7 (12.0-16.0) g/dL Hct 45.0 (37.0-47.0) % Assessment/Plan - Problem List (1) Hip fracture Impression: Day 1 s/p pinning w/ cannulated screws, EBL [address] Hernandez mild post op hematoma (he had Dr. Murrieta look at it last night, and no increase today Per Dr. Hernandez, up with WBAT VTE prophylaxis w/ foot pumps/plexipulses PT/OT already ordered recheck hgb in am Qualifiers: Encounter type: initial encounter Fracture type: closed Laterality: right Qualified Code(s): S72.001A - Fracture of unspecified part of neck of right femur, initial encounter for closed fracture (2) Hypertension Impression: has been elevated since presentation I suspect this represents more than pain - is getting her home toprol, still getting IVFat 100/hr if still elevated w/ dc ivf, if still elevated after d/c of ivf will consider start low dose amlodipine w/ further titration as outpt (3) COPD (chronic obstructive pulmonary disease) Impression: stable, not on inhalers at home wean off 02, start IS (4) Postoperative delirium Impression: mild, no entirely unexpected with dementia and early PD (patient denies PD but on sinemet) supportive management; boris already out reorient. will d/c IVF/d/c tehter to IVpole (hasnt eaten yet, but has gotten adequate volume and hemodynamically stable d/c'd prn compazine to avoid sedation if she gets manage pain (she didnt have much pre op) (offer tylenol first frather than the oxycodone0 (5) Dementia Impression: fairly functional at home, STM deficit on donzepil manages pills continue Donzepil hopefully her mild post op delerum clears quickly (6) Thyroid nodule Impression: outpatient work up will include on d/c summary (7) Migraine Impression: no c/o barroso, takes amitrypityline at HS per for prevention prn aspirin (8) Tobacco abuse Impression: smokes 6-7 cigs/day sabino does not need patch will ask her when alert advise cessation given COPD hx (used to have home 02)
[2016-10-09] MEDS: oxyCOD/ACETAMIN 5 MG/325 MG TABLET PO PRN ×3 (10:15→19:20)
[2016-10-09] MEDS: ASPIRIN 325 MG TABLET PO SCH ×2 (10:15→17:04)
[2016-10-09] MEDS: METOPROLOL SUCCINATE 25 MG TABLET PO SCH (10:15)
--- NOTE | 2016-10-09 12:45 | PROVIDER PROGRESS NOTE ---
Subjective - Prog Note Date Prog Note Date: 10/09/16 Prog Note Time: 12:43 - Subjective Pt reports feeling: Improved (Less right hip pain) Objective - Vital Signs/Intake & Output Vital Signs: Vital Signs x48h Temp Pulse Resp BP Pulse Ox 10/09/16 10:00 37.3 C 75 20 174/80 H 97 10/09/16 05:32 37.4 C 84 18 170/96 H 96 Intake & Output: Intake & Output 10/06/16 10/07/16 10/08/16 10/09/16 23:59 23:59 23:59 23:59 Intake Total 775 Output Total 100 450 Balance -100 325 - Lab Results Fish Bones: 10/08/16 19:09 10/08/16 13:25 Other Labs: Lab Results x24hrs 10/08/16 Range/Units 19:09 Hgb 14.7 (12.0-16.0) g/dL Hct 45.0 (37.0-47.0) % - Other Results/Comments Other Results/Comments: Exam: Hematoma about incision site-stable. Nontender hip. Less pain with hip motion. N/V ok distally. Assessment/Plan - Problem List (1) Hip fracture Impression: Satisfactory postop PLAN: UP ad saqib. Walker ambulate - WBAT on right. To [facility] Mon or Tues for rehab Qualifiers: Qualified Code(s): S72.001A - Fracture of unspecified part of neck of right femur, initial encounter for closed fracture
[2016-10-09] MEDS ORDERED: amLODIPine 5 MG TABLET PO SCH (13:00)
[2016-10-09] MEDS: DONEPEZIL 5 MG TABLET PO SCH (20:26)
[2016-10-10] MEDS: oxyCOD/ACETAMIN 5 MG/325 MG TABLET PO PRN ×4 (02:36→16:53)
[2016-10-10] MEDS: MORPHINE 2 MG/ML SYRINGE IVP PRN ×2 (04:05→19:56)
[2016-10-10 04:53] LABS: HCT - HEMATOCRIT 33.4 % (37.0-47.0); HGB - HEMOGLOBIN 11.4 g/dL (12.0-16.0); MEAN CORPUSCULAR HEMOGLOBIN 30.7 pg (27.0-31.0); MEAN CORPUSCULAR HGB CONC 34.1 g/dL (32.0-36.0); MEAN PLATELET VOLUME 7.9 fL (7.9-10.8); RED BLOOD COUNT 3.71 10^6/uL (4.20-5.40); RED CELL DISTRIBUTION WIDTH 13.7 % (12.0-15.0); WHITE BLOOD COUNT 9.9 x10^3/uL (4.8-10.8)
[2016-10-10 05:01] LABS: CALCIUM 8.8 mg/dL (8.5-10.3); CREATININE 0.7 mg/dL (0.4-1.0); POTASSIUM 3.7 mmol/L (3.5-5.0)
[2016-10-10] MEDS: SODIUM CHLORIDE FLUSH 0.9% 10 ML SYRINGE IVP SCH ×3 (05:55→22:54)
[2016-10-10] MEDS: ACETAMINOPHEN 325 MG TABLET PO PRN (05:55)
[2016-10-10] MEDS: PANTOPRAZOLE 40 MG TABLET PO SCH (05:55)
[2016-10-10] MEDS: CARBIDOPA/LEVODOPA ER 25 MG/100 MG TABLET PO SCH ×3 (05:55→21:01)
--- NOTE | 2016-10-10 07:20 | PROVIDER PROGRESS NOTE ---
Subjective - Prog Note Date Prog Note Date: 10/10/16 Prog Note Time: 07:19 - Subjective Subjective: What I have is a headache I dont eat eggs, I wouldnt eat oatmeal The hip is sore (first said it doesnt hurt) later in day was able to say she fell off the bed and is in the hospital TOMAS resolved Current Medications - Current Medications Current Medications: Active Medications Generic Name Dose Route Start Last Admin Trade Name Freq PRN Reason Stop Dose Admin Acetaminophen 650 - 975 mg 10/08/16 18:42 10/10/16 05:55 Tylenol PO 650 mg Q4HR PRN Administration PAIN Amitriptyline HCl 25 mg 10/08/16 21:00 Elavil PO QPM PRN HEADACHE Aspirin 325 mg 10/09/16 08:00 10/09/16 17:04 Kate PO 325 mg BIDWM ALLIE Administration Carbidopa/Levodopa 1 tab 10/08/16 22:00 10/10/16 05:55 Sinemet Cr 25 Mg/100 Mg PO 1 tab TID ALLIE Administration Docusate Sodium 100 mg 10/08/16 18:42 Colace 100mg Capsule PO BID PRN Constipation Donepezil HCl 10 mg 10/08/16 21:00 10/09/16 20:26 Aricept PO 10 mg QPM ALLIE Administration Acetaminophen 100 mls @ 400 mls/hr 10/08/16 18:42 Ofirmev IV Q6HR PRN PAIN Metoprolol Succinate 25 mg 10/09/16 09:00 10/09/16 10:15 Toprol Xl PO 25 mg DAILY ALLIE Administration Morphine Sulfate 2 mg 10/08/16 18:42 10/10/16 04:05 Morphine IVP 2 mg Q2HR PRN Administration Breakthrough Pain Ondansetron HCl 4 mg 10/08/16 18:42 10/09/16 04:58 Zofran Inj IVP 4 mg Q6HR PRN Administration Nausea / Vomiting Oxycodone/Acetaminophen 1 tab 10/08/16 18:42 10/10/16 02:36 Percocet 5 Mg/325 Mg PO 1 tab Q4HR PRN Administration PAIN Pantoprazole Sodium 40 mg 10/09/16 07:00 10/10/16 05:55 Protonix PO 40 mg QDAC ALLIE Administration Senna 17.2 mg 10/08/16 18:42 Senokot PO Q12H PRN Constipation Sodium Chloride 10 ml 10/08/16 18:42 10/10/16 04:06 Normal Saline Flush 0.9% IVP 10 ml PRN PRN Administration NEEDED PER PROVIDER ORDERS Sodium Chloride 10 ml 10/08/16 22:00 10/10/16 05:55 Normal Saline Flush 0.9% IVP 10 ml Q8HR ALLIE Administration Amitriptyline HCl 25 mg PO HS 03/13/13 Bupropion HCl [Wellbutrin Sr] 150 mg PO BID 03/13/13 Carbidopa/Levodopa [Carbidopa-Levo ER 25-100 Tab] 1 each PO TID 03/14/13 Donepezil [Aricept] 10 mg PO DAILY 03/14/13 Simvastatin 40 mg PO DAILY 03/14/13 Ibuprofen [Motrin] 1 tab PO TID PRN 09/10/15 Metoprolol Tartrate 1 tab PO DAILY 09/10/15 Objective - Vital Signs/Intake & Output Reviewed Vital Signs: Yes Vital Signs: Vital Signs x48h Temp Pulse Resp BP Pulse Ox 10/10/16 02:49 140/70 H 10/10/16 01:13 36.3 C L 75 16 184/91 H 97 Intake & Output: Intake & Output 10/07/16 10/08/16 10/09/16 10/10/16 23:59 23:59 23:59 23:59 Intake Total 1992 Output Total 100 450 Balance -100 1543 - Objective General Appearance: positive: No acute distress, Other (sitting in bed somewhat drowsy, does not feed self, no acute distress) Eyes Bilateral: positive: EOMI, Other (L ptosis (old [place])) Respiratory: positive: No respiratory distress, Breath sounds nml Cardiovascular: positive: Regular rate & rhythm, No murmur Abdomen: positive: Nml bowel sounds, No distention, Other (did not feed self this am). negative: Tenderness Skin: positive: Dry, Cyanosis, Other (splotchy ecchymosis around hip wound ~ hand sized , "sore " this morning) Extremities: positive: Other (plexipulses Bilat, no LE edema) Neurologic/Psychiatric: positive: Disoriented to person. negative: Disoriented to place (in the after noon she was oriented to hospital and situation, not to month), Disoriented to time - Lab Results Fish Bones: 10/10/16 04:39 10/10/16 04:39 Other Labs: Lab Results x24hrs 10/10/16 10/10/16 Range/Units 04:39 04:39 WBC 9.9 (4.8-10.8) x10^3/uL RBC 3.71 L (4.20-5.40) 10^6/uL Hgb 11.4 L (12.0-16.0) g/dL Hct 33.4 L (37.0-47.0) % MCV 90.0 (81.0-99.0) fL MCH 30.7 (27.0-31.0) pg MCHC 34.1 (32.0-36.0) g/dL RDW 13.7 (12.0-15.0) % Plt Count 243 (130-450) 10^3/uL MPV 7.9 (7.9-10.8) fL Sodium 138 (135-145) mmol/L Potassium 3.7 (3.5-5.0) mmol/L Chloride 103 (101-111) mmol/L Carbon Dioxide 29 (21-32) mmol/L Anion Gap 6.0 (6-13) BUN 13 (6-20) mg/dL Creatinine 0.7 (0.4-1.0) mg/dL Estimated GFR (MDRD) 81 L (>89) Glucose 107 H (70-100) mg/dL Calcium 8.8 (8.5-10.3) mg/dL Assessment/Plan - Problem List (1) Hip fracture Impression: Day 2 s/p pinning w/ cannulated screws, EBL [address] Hernandez mild post op hematoma , Hgb/Hct only mild decrease post op Per Dr. Hernandez note today: >>"PLAN: Mobilize as tolerated. Walker ambulate - WBAT on right. May go to SNF for post op rehab. Follow up in orthopedic clinic in 2 weeks for staple removal and XR. ASA bid per DR Hernandez for vTE prophylaxis VTE prophylaxis w/ foot pumps/plexipulses PT/OT : I had spoken w/ PT yesterday am that could wait for later in day since patient very somnulent still first thing in am; appears to have been misconstrued as instruction not to see patient; PT eval today has gotten up to chair likely CAReage tomorrow (2) Hypertension Impression: improved w/ d/c IVF continue home metoprolol/ no indication to add new agent or increase dose (3) COPD (chronic obstructive pulmonary disease) Impression: stable, not on inhalers at home wean off 02, IS (4) Postoperative delirium Impression: slowly improving this afternoon she can say she is in the hospital since slid off the bed (better than this AM already) Still a little slow 18mild, no entirely unexpected with dementia and early PD (patient denies PD but on sinemet) supportive management; escalante already out reorient. will d/c IVF/d/c tehter to IVpole (hasnt eaten yet, but has gotten adequate volume and hemodynamically stable d/c'd prn compazine to avoid sedation if she gets manage pain (she didnt have much pre op) (offer tylenol first frather than the oxycodone0 (5) Dementia Impression: fairly functional at home, STM deficit on donzepil manages pills continue Donzepil (6) Thyroid nodule Impression: outpatient work up will include on d/c summary (7) Migraine Impression: takes amitryp qhs for prevention takes excedrine TOMAS ~ 2x / day had TOMAS this am; gave sumatriptan dose in case the TOMAS was contributing to her delerium; better this afternoon (8) Tobacco abuse Impression: smokes 6-7 cigs/day sabino does not need patch will ask her when alert advise cessation given COPD hx (used to have home 02) Qualifiers: Encounter type: initial encounter Fracture type: closed Laterality: right Qualified Code(s): S72.001A - Fracture of unspecified part of neck of right femur, initial encounter for closed fracture
[2016-10-10] MEDS: ASPIRIN 325 MG TABLET PO SCH ×2 (08:22→16:51)
[2016-10-10] MEDS: METOPROLOL SUCCINATE 25 MG TABLET PO SCH (08:23)
[2016-10-10] MEDS ORDERED: SUMAtriptan 25 MG TABLET PO ONE (08:30)
--- NOTE | 2016-10-10 10:26 | PROVIDER PROGRESS NOTE ---
Subjective - Prog Note Date Prog Note Date: 10/10/16 Prog Note Time: 10:22 - Subjective Pt reports feeling: Improved (Seems less confused. Sitting in chair in no distress) Objective - Vital Signs/Intake & Output Vital Signs: Vital Signs x48h Temp Pulse Resp BP Pulse Ox 10/10/16 08:00 37.2 C 74 18 142/76 H 94 10/10/16 04:00 36.8 C 72 18 138/67 H 92 10/10/16 02:49 140/70 H Intake & Output: Intake & Output 10/07/16 10/08/16 10/09/16 10/10/16 23:59 23:59 23:59 23:59 Intake Total 1993 610 Output Total 100 450 Balance -100 1543 610 - Lab Results Fish Bones: 10/10/16 04:39 10/10/16 04:39 Other Labs: Lab Results x24hrs 10/10/16 10/10/16 Range/Units 04:39 04:39 WBC 9.9 (4.8-10.8) x10^3/uL RBC 3.71 L (4.20-5.40) 10^6/uL Hgb 11.4 L (12.0-16.0) g/dL Hct 33.4 L (37.0-47.0) % MCV 90.0 (81.0-99.0) fL MCH 30.7 (27.0-31.0) pg MCHC 34.1 (32.0-36.0) g/dL RDW 13.7 (12.0-15.0) % Plt Count 243 (130-450) 10^3/uL MPV 7.9 (7.9-10.8) fL Sodium 138 (135-145) mmol/L Potassium 3.7 (3.5-5.0) mmol/L Chloride 103 (101-111) mmol/L Carbon Dioxide 29 (21-32) mmol/L Anion Gap 6.0 (6-13) BUN 13 (6-20) mg/dL Creatinine 0.7 (0.4-1.0) mg/dL Estimated GFR (MDRD) 81 L (>89) Glucose 107 H (70-100) mg/dL Calcium 8.8 (8.5-10.3) mg/dL - Other Results/Comments Other Results/Comments: EXAM: Sitting in chair in no distress. Dressing intact. Minimally tender over incision. Minimal pain with hip motion. N/V ok distally Assessment/Plan - Problem List (1) Hip fracture Impression: Satisfactory post op PLAN: Mobilize as tolerated. Walker ambulate - WBAT on right. May go to SNF for post op rehab. Follow up in orthopedic clinic in 2 weeks for staple removal and XR. Qualifiers: Encounter type: initial encounter Fracture type: closed Laterality: right Qualified Code(s): S72.001A - Fracture of unspecified part of neck of right femur, initial encounter for closed fracture
[2016-10-10] MEDS: KETOROLAC 30 MG/ML VIAL IVP PRN ×2 (13:14→20:04)
[2016-10-10] MEDS: DONEPEZIL 5 MG TABLET PO SCH (20:52)
[2016-10-10] MEDS: DOCUSATE SODIUM 100 MG CAPSULE PO PRN (20:53)
[2016-10-10] MEDS: SENNA 8.6 MG TABLET PO PRN (20:53)
[2016-10-10] MEDS: ATORVASTATIN 10 MG TABLET PO SCH (21:06)
[2016-10-11] MEDS: SODIUM CHLORIDE FLUSH 0.9% 10 ML SYRINGE IVP SCH ×3 (06:21→23:33)
[2016-10-11] MEDS: PANTOPRAZOLE 40 MG TABLET PO SCH (09:54)
[2016-10-11] MEDS: ASPIRIN 325 MG TABLET PO SCH ×2 (09:54→17:01)
[2016-10-11] MEDS: CARBIDOPA/LEVODOPA ER 25 MG/100 MG TABLET PO SCH ×3 (09:55→21:23)
[2016-10-11] MEDS: METOPROLOL SUCCINATE 25 MG TABLET PO SCH (09:55)
[2016-10-11] MEDS ORDERED: cefTRIAXone 1 GM in SODIUM CHLORIDE 0.9% MINIBAG 100 ML IV SCH (10:00)
[2016-10-11 10:30] LABS: BILIRUBIN,URINE NEGATIVE (NEGATIVE)
[2016-10-11 10:37] LABS: UR CULTURE IF IND NOT INDICATED; WBC,URINE 0-3 /HPF (0-5)
--- NOTE | 2016-10-11 11:18 | PROVIDER PROGRESS NOTE ---
Subjective - Prog Note Date Prog Note Date: 10/11/16 Prog Note Time: 11:15 - Subjective Subjective: pt is alert, oriented herself only Current Medications - Current Medications Current Medications: pt had slight elevated BP, and put back her home BP meds Norvasc 10 mg daily Objective - Vital Signs/Intake & Output Vital Signs: Vital Signs x48h Temp Pulse Resp BP Pulse Ox 10/11/16 09:00 37.0 C 70 19 160/88 H 100 10/11/16 04:00 36.8 C 70 16 165/84 H 100 Intake & Output: Intake & Output 10/08/16 10/09/16 10/10/16 10/11/16 23:59 23:59 23:59 23:59 Intake Total 1992 1170 Output Total 100 450 Balance -100 1543 1170 - Objective General Appearance: positive: No acute distress, Alert Eyes Bilateral: positive: Normal inspection, PERRL ENT: positive: ENT inspection nml Neck: positive: Nml inspection Respiratory: positive: Chest non-tender, Breath sounds nml Cardiovascular: positive: Regular rate & rhythm, No murmur Peripheral Pulses: 2+ Radial (R), 2+ Radial (L), 2+ Dorsalis pedis (R), 2+ Dorsalis pedis (L) Abdomen: positive: Non-tender, Nml bowel sounds, No distention Back: positive: Nml inspection Skin: positive: Color nml, Warm Extremities: positive: Non-tender Neurologic/Psychiatric: positive: Disoriented to place, Disoriented to time Reflexes: Knee (R): 2+, Knee (L): 2+ - Lab Results Fish Bones: 10/12/16 05:33 10/12/16 05:33 Other Labs: Lab Results x24hrs 10/11/16 Range/Units 10:27 Urine Color DARK YELLOW Urine Clarity CLEAR (CLEAR) Urine pH 6.0 (5.0-7.5) PH Ur Specific [place] 1.010 (1.002-1.030) Urine Protein NEGATIVE (NEGATIVE) mg/dL Urine Glucose (UA) NEGATIVE (NEGATIVE) mg/dL Urine Ketones NEGATIVE (NEGATIVE) mg/dL Urine Occult Blood NEGATIVE (NEGATIVE) Urine Nitrite NEGATIVE (NEGATIVE) Urine Bilirubin NEGATIVE (NEGATIVE) Urine Urobilinogen 0.2 (NORMAL) (NORMAL) E.U./dL Ur Leukocyte Esterase NEGATIVE (NEGATIVE) Urine RBC 0-5 (0-5) /HPF Urine WBC 0-3 (0-5) /HPF Ur Squamous Epith Cells RARE Squamous (<= Few) Urine Bacteria Rare (None Seen) /HPF Urine Culture Comments NOT INDICATED Assessment/Plan - Problem List (1) Confused Impression: acute confuse/delirium: put home BP meds norvasc, as pt had elevated BP straight cath came out 400 ml urine, sent for UA. UA back negative UTI, hold rocephin. IVF NS75. per nurse report pt did not drink much fluid and urine is mild to moderate dark yellowish. would CT of head if pt continue confused/delirium after procedure, to R/O lesion /stroke urinate incontinence. Nurse report pt's urine output was small. Straight cath in the morning was 400 ml, will continue closely monitoring (1) Hip fracture Impression: Day 2 s/p pinning w/ cannulated screws, EBL [address] Hernandez mild post op hematoma , Hgb/Hct only mild decrease post op Per Dr. Hernandez note today: >>"PLAN: Mobilize as tolerated. Walker ambulate - WBAT on right. May go to SNF for post op rehab. Follow up in orthopedic clinic in 2 weeks for staple removal and XR. ASA bid per DR Hernandez for vTE prophylaxis VTE prophylaxis w/ foot pumps/plexipulses PT/OT : I had spoken w/ PT yesterday am that could wait for later in day since patient very somnulent still first thing in am; appears to have been misconstrued as instruction not to see patient; PT eval today has gotten up to chair likely CAReage tomorrow (2) Hypertension Impression: improved w/ d/c IVF continue home metoprolol/ no indication to add new agent or increase dose (3) COPD (chronic obstructive pulmonary disease) Impression: stable, not on inhalers at home wean off , IS (4) Postoperative delirium Impression: slowly improving this afternoon she can say she is in the hospital since slid off the bed (better than this AM already) Still a little slow 18mild, no entirely unexpected with dementia and early PD (patient denies PD but on sinemet) supportive management; escalante already out reorient. will d/c IVF/d/c tehter to IVpole (hasnt eaten yet, but has gotten adequate volume and hemodynamically stable d/c'd prn compazine to avoid sedation if she gets manage pain (she didnt have much pre op) (offer tylenol first frather than the oxycodone0 (5) Dementia Impression: fairly functional at home, STM deficit on donzepil manages pills continue Donzepil (6) Thyroid nodule Impression: outpatient work up will include on d/c summary (7) Migraine Impression: takes amitryp qhs for prevention takes excedrine TOMAS ~ 2x / day had TOMAS this am; gave sumatriptan dose in case the TOMAS was contributing to her delerium; better this afternoon (8) Tobacco abuse Impression: smokes 6-7 cigs/day johndeirdre does not need patch will ask her when alert advise cessation given COPD hx (used to have home 02)
[2016-10-11] MEDS: SODIUM CHLORIDE 0.9% 1,000 ML IV SCH (12:12)
[2016-10-11] MEDS: amLODIPine 5 MG TABLET PO SCH (13:16)
--- NOTE | 2016-10-11 15:23 | PROVIDER PROGRESS NOTE ---
Subjective - Prog Note Date Prog Note Date: 10/11/16 Prog Note Time: 15:21 - Subjective Pt reports feeling: Improved (No new complaints) Objective - Vital Signs/Intake & Output Vital Signs: Vital Signs x48h Temp Pulse Resp BP Pulse Ox 10/11/16 11:39 37.7 C H 71 18 145/77 H 97 10/11/16 09:00 37.0 C 70 19 160/88 H 100 Intake & Output: Intake & Output 10/08/16 10/09/16 10/10/16 10/11/16 23:59 23:59 23:59 23:59 Intake Total 1992 1170 Output Total 100 450 400 Balance -100 1543 1170 -400 - Lab Results Fish Bones: 10/10/16 04:39 10/10/16 04:39 Other Labs: Lab Results x24hrs 10/11/16 Range/Units 10:27 Urine Color DARK YELLOW Urine Clarity CLEAR (CLEAR) Urine pH 6.0 (5.0-7.5) PH Ur Specific [place] 1.010 (1.002-1.030) Urine Protein NEGATIVE (NEGATIVE) mg/dL Urine Glucose (UA) NEGATIVE (NEGATIVE) mg/dL Urine Ketones NEGATIVE (NEGATIVE) mg/dL Urine Occult Blood NEGATIVE (NEGATIVE) Urine Nitrite NEGATIVE (NEGATIVE) Urine Bilirubin NEGATIVE (NEGATIVE) Urine Urobilinogen 0.2 (NORMAL) (NORMAL) E.U./dL Ur Leukocyte Esterase NEGATIVE (NEGATIVE) Urine RBC 0-5 (0-5) /HPF Urine WBC 0-3 (0-5) /HPF Ur Squamous Epith Cells RARE Squamous (<= Few) Urine Bacteria Rare (None Seen) /HPF Urine Culture Comments NOT INDICATED - Other Results/Comments Other Results/Comments: EXAM: Non tender right hip. Incision ok with some ecchymosis. Minimal pain with hip motion. N/V ok distally Assessment/Plan - Problem List (1) Hip fracture Impression: Satis post op PLAN: Mobilize as tolerate. Walker ambulate - WBAT on right. Follow up in Orthopedic clinic in 2 weeks for staple removal and new XR. Qualifiers: Encounter type: initial encounter Fracture type: closed Laterality: right Qualified Code(s): S72.001A - Fracture of unspecified part of neck of right femur, initial encounter for closed fracture
[2016-10-11] MEDS: DONEPEZIL 5 MG TABLET PO SCH (20:56)
[2016-10-11] MEDS: ATORVASTATIN 10 MG TABLET PO SCH (20:58)
--- NOTE | 2016-10-11 21:43 | CT Preliminary Report ---
Exam: CT Head W/O IMPRESSION: Generalized age-related cortical atrophic changes without evidence of acute intracranial abnormality. [facility] SITE ID: [id number]
--- NOTE | 2016-10-11 21:46 | CT Report ---
EXAM: CT HEAD EXAM DATE: 10/11/2016 09:21 PM. CLINICAL HISTORY: Right facial droop. Stroke. COMPARISON: 09/10/2015. TECHNIQUE: Multiaxial CT images were obtained from the foramen magnum to the vertex. IV contrast: Non e. Reformats: Coronal. In accordance with CT protocol optimization, one or more of the following dose reduction techniques w ere utilized for this exam: automated exposure control, adjustment of mA and/or KV based on patient s ize, or use of iterative reconstructive technique. FINDINGS: Parenchyma: No intraparenchymal hemorrhage. Resolution of previous intracranial hemorrhage. No eviden ce of mass, midline shift, or CT findings of acute infarction. Gatica-white differentiation is distinct . Extraaxial Spaces: Normal for age. No subdural or epidural collections identified. Ventricles: The ventricles and cortical sulci are prominent, consistent with age-related tissue loss. Sinuses: Imaged paranasal sinuses, orbits, and mastoids show no significant abnormality. Bones: No evidence of fracture or calvarial defect. Other: Stable chronic microangiopathic white matter changes are evident. IMPRESSION: Generalized age-related cortical atrophic changes without evidence of acute intracranial abnormality. [facility] Referring Provider Line: [phone] SITE ID: [id number]
[2016-10-11] MEDS: ACETAMINOPHEN 325 MG TABLET PO PRN (22:14)
[2016-10-12] MEDS: SODIUM CHLORIDE FLUSH 0.9% 10 ML SYRINGE IVP SCH ×2 (05:46→14:38)
[2016-10-12] MEDS: SODIUM CHLORIDE 0.9% 1,000 ML IV SCH (05:46)
[2016-10-12] MEDS: CARBIDOPA/LEVODOPA ER 25 MG/100 MG TABLET PO SCH ×2 (05:54→14:42)
[2016-10-12] MEDS: PANTOPRAZOLE 40 MG TABLET PO SCH (05:54)
[2016-10-12 05:59] LABS: HCT - HEMATOCRIT 32.6 % (37.0-47.0); MEAN CORPUSCULAR HEMOGLOBIN 31.4 pg (27.0-31.0); MEAN CORPUSCULAR HGB CONC 33.9 g/dL (32.0-36.0); MEAN CORPUSCULAR VOLUME 92.6 fL (81.0-99.0); MEAN PLATELET VOLUME 8.2 fL (7.9-10.8); RED BLOOD COUNT 3.51 10^6/uL (4.20-5.40); RED CELL DISTRIBUTION WIDTH 13.7 % (12.0-15.0); WHITE BLOOD COUNT 7.3 x10^3/uL (4.8-10.8)
[2016-10-12 06:16] LABS: ALBUMIN/GLOBULIN RATIO 1.1 (1.0-2.2); BILIRUBIN,TOTAL 0.8 mg/dL (0.2-1.0); BUN - BLOOD UREA NITROGEN 18 mg/dL (6-20); CALCIUM 8.8 mg/dL (8.5-10.3); CARBON DIOXIDE - CO2 31 mmol/L (21-32); CHLORIDE 106 mmol/L (101-111); CREATININE 0.7 mg/dL (0.4-1.0); GFR - MDRD 81 (>89); GLUCOSE 95 mg/dL (70-100); POTASSIUM 3.8 mmol/L (3.5-5.0); SODIUM 142 mmol/L (135-145); TOTAL PROTEIN 5.3 g/dL (6.7-8.2)
[2016-10-12] MEDS: oxyCOD/ACETAMIN 5 MG/325 MG TABLET PO PRN (08:40)
[2016-10-12] MEDS: SENNA 8.6 MG TABLET PO PRN (08:40)
[2016-10-12] MEDS: METOPROLOL SUCCINATE 25 MG TABLET PO SCH (08:41)
[2016-10-12] MEDS: ASPIRIN 325 MG TABLET PO SCH (08:41)
[2016-10-12] MEDS: DOCUSATE SODIUM 100 MG CAPSULE PO PRN (08:41)
[2016-10-12] MEDS: amLODIPine 5 MG TABLET PO SCH (08:41)
--- NOTE | 2016-10-12 14:54 | Discharge Plan ---
Discharge Plan Disposition: 01 Home, Self Care Condition: Fair Diet: Regular Activity Restrictions: Wt Bearing as Tolerated Shower Restrictions: No Driving Restrictions: Yes Weight Bearing: Partial Weight Instruction Topics: Aspirin ASA oral tablets, Hip Safety Master Daily Tasks, Hip Safety Into and Out Bed, Fx Hip Surg Home Recovery Additional Instructions or Follow Up instructions: On the CT scans a nodule was seen in your thyroid - please follow up with your PCP for further evaluation follow up your PCP and Orthopedics Dr Artur Hernandez's office in one week Follow-Up Care: Home Health - PT (home health RN with out Pt PT) No Smoking: If you smoke, Please STOP! Call for help. Follow-up with: Layne Godinez DO [Primary Care Provider] -
[2016-10-12 17:09] VITALS: BP 123/74
--- NOTE | 2016-10-18 05:29 | DISCHARGE SUMMARY ---
DATE OF ADMISSION: 10/08/2016 DATE OF DISCHARGE: 10/12/2016 PRIMARY CARE PHYSICIAN: Layne Godinez D.O. CHIEF COMPLAINT: Hip fracture. ADMISSION DIAGNOSES 1. Hip fracture. History of: 2. Hypertension. 3. Chronic obstructive pulmonary disease. 4. Dementia. 5. Parkinson's. 6. Thyroid nodule. 7. Migraine. DISCHARGE DIAGNOSES 1. Patient's hip fracture, surgery by Dr. Hernandez. Patient's chronic conditions of 2. Hypertension. 3. Chronic obstructive pulmonary disease. 4. Dementia. 5. Thyroid nodule. 6. Migraine. 7. Parkinson's, will be controlled with medications and home medications. CONSULTATIONS: With Dr. James Hernandez, Orthopedics. SURGERY/PROCEDURE: On 10/08/2016, closed right subcapital hip fracture. IMAGING: Patient also followed up, had a CT of the head, showed generalized age related cortical atro phic changes without acute intracranial abnormalities. DISCHARGE PLANNING: Will be followed up by PCP, Dr Godinez, and surgeon, Dr. Hernandez, in 1 week. Also, nichole huff will be followed up by PCP for monitoring of her thyroid nodule shown on the CT. DISCHARGE DISPOSITION: To home, with home health RN with PT. HOSPITAL COURSE: In discharge, patient expressed she wanted to go home. On discharge patient was more orientated, clearly expressing she wanted to be discharged and go home. Patient with [facility], , agreeing with discharge planning and understand all discharge planning and followup plann ing. No further questions at discharge at the time. ALLERGIES: NO KNOWN ALLERGIES. DISCHARGE MEDICATIONS: Please refer home medications. Patient reported she did not want to take any p ain medications, did not have any pain at the end of the discharge time. Also, patient was reviewed m edications in the hospital, she did not take pain medications, she does not have pain. DISCHARGE ACTIVITY: Will be referral and continue education plan. DISCHARGE DIET: Regular diet. DISCHARGE TIME SPENT: 50 minutes JOB #: [id number] EXT JOB #:[id number]
--- NOTE | 2016-11-10 14:23 | XRAY Report ---
[facility]: Fluoroscopy time only, no images submitted for interpretation. Fluoroscopy time 0 minutes, 29 seconds. HAWKD
== END 2016-10-12 16:10 | disposition home or self-care (01) | DRG 481 ==
LOC: EDUNIT# → ED 11:20 → MS 16:20 → SDS 16:20 → UNDOADMIN 18:42 → MS 18:42 → UNDODISIN 10-12 16:10
PROVIDERS: ADMIT Nurse Practitioner; ATTEND Nurse Practitioner Gerontology
PROC: 0QS634Z Reposition Right Upper Femur with Internal Fixation Device, Percutaneous Approach (ICD-10-PCS; principal; 2016-10-08 17:00)
DX: S72.001A Fracture of unspecified part of neck of right femur, initial encounter for closed fracture (principal); S72.011A Unspecified intracapsular fracture of right femur, initial encounter for closed fracture; L76.32 Postprocedural hematoma of skin and subcutaneous tissue following other procedure; I10 Essential (primary) hypertension; F05 Delirium due to known physiological condition; W06.XXXA Fall from bed, initial encounter; Y92.003 Bedroom of unspecified non-institutional (private) residence as the place of occurrence of the external cause; Y83.8 Other surgical procedures as the cause of abnormal reaction of the patient, or of later complication, without mention of misadventure at the time of the procedure; F17.200 Nicotine dependence, unspecified, uncomplicated; Y92.234 Operating room of hospital as the place of occurrence of the external cause; Z91.81 History of falling; I11.9 Hypertensive heart disease without heart failure; J44.9 Chronic obstructive pulmonary disease, unspecified; G20 Parkinson's disease; G30.9 Alzheimer's disease, unspecified; F02.80 Dementia in other diseases classified elsewhere, unspecified severity, without behavioral disturbance, psychotic disturbance, mood disturbance, and anxiety; E04.1 Nontoxic single thyroid nodule; G43.909 Migraine, unspecified, not intractable, without status migrainosus; K21.9 Gastro-esophageal reflux disease without esophagitis; Z86.59 Personal history of other mental and behavioral disorders; Z72.0 Tobacco use; Z79.1 Long term (current) use of non-steroidal anti-inflammatories (NSAID)
CPT/HCPCS: 36415; 51701; 51702; 70450; 72125; 80048; 80053; 81001; 81003; 85014; 85018; 85025; 87077; 87086; 93005; 93010; 96374; 99284

== ENCOUNTER 2016-11-04 14:11 | Emergency (ER) | payer MEDICARE, OTHER ==
[2016-11-04 14:20] VITALS: BP 179/94
--- NOTE | 2016-11-04 16:56 | Ultrasound Preliminary Report ---
Exam: US Duplex Ext Veins Right IMPRESSION: No evidence for deep venous thrombosis. [facility] SITE ID: [id number]
--- NOTE | 2016-11-04 17:04 | ED Physician Documentation ---
PD HPI LOWER EXT INJURY - Stated complaint Stated Complaint: RT SWOLLEN FOOT - Chief complaint Chief Complaint: Ext Problem - History obtained from History obtained from: Patient, Family - History of Present Illness PD HPI LOW EXT INJURY LOCATION: Left, Lower leg Type of injury: Other (More walking than usual) Where injury occurred: Home Timing - onset: Yesterday Timing - duration: Days (1) Timing - details: Gradual onset, Still present Improved by: Rest Worsened by: Moving, Palpating Associated symptoms: Swelling, Discolored Contributing factors: No: Anticoagulated Similar symptoms before: Has not had sx before Recently seen: Surgery - Additional information Additional information: 76-year-old female had a hip replacement for hip fracture done about 4 weeks ago. She is at home using a walker and she has been walking a little bit more than usual and has now developed some swelling in the right foot. She also sits most of the day with the foot in the dependant position. She is concerned about the possibility of DVT and is come to the emergency department for evaluation. She has some pain and swelling to the right lower extremity. Review of Systems Constitutional: denies: Fever, Chills Eyes: denies: Decreased vision Ears: denies: Ear pain Nose: denies: Congestion Throat: denies: Sore throat Cardiac: denies: Chest pain / pressure, Palpitations Respiratory: denies: Dyspnea, Cough GI: denies: Vomiting Musculoskeletal: reports: Extremity pain, Joint pain, Extremity swelling, Joint swelling, Pain with weight bearing. 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 Cardiovascular: Other HEENT: Cataracts - Present Medications Home Medications: Ambulatory Orders Medication Instructions Recorded Confirmed Amitriptyline HCl 25 - 75 mg PO QPM PRN 03/13/13 10/12/16 Simvastatin 40 mg PO QPM 03/14/13 10/10/16 Carbidopa/Levodopa 1 tab PO TIDWM 10/12/16 10/12/16 [Carbidopa-Levodopa 25-100 Tab] Cholecalciferol (Vitamin D3) 2,000 units PO DAILY 10/12/16 10/12/16 [Vitamin D3] Donepezil HCl 10 mg PO DAILY 10/12/16 10/12/16 Esomeprazole Magnesium [Nexium] 20 mg PO DAILY 10/12/16 10/12/16 Metoprolol Succinate 25 mg PO DAILY 10/12/16 10/12/16 - Allergies Allergies/Adverse Reactions: Allergies Allergy/AdvReac Type Severity Reaction Status Date / Time No Known Drug Allergies Allergy Verified 11/04/16 14:20 - Social History Does the pt smoke?: Yes Smoking Status: Never smoker Does the pt drink ETOH?: No Does the pt have substance abuse?: No - Immunizations Immunizations are current?: Yes - POLST Patient has POLST: Yes PD ED PE NORMAL - Vitals Vital signs reviewed: Yes (hypesrtensive) - General General: No acute distress, Well developed/nourished - HEENT HEENT: Atraumatic, PERRL - Respiratory Respiratory: No respiratory distress - Derm Derm: Normal color, Warm and dry, No rash - Extremities Extremities: No deformity, Other (There is swelling and point tenderness to the right foot and ankle with some tenderness to the posterior calf as well. The swelling is present but not dramatic. ) - Neuro Neuro: No motor deficit, No sensory deficit - Psych Psych: Normal mood, Normal affect Results - Vitals Vitals: Vital Signs - 24 hr 11/04/16 14:14 Temperature 36.6 C Heart Rate 84 Respiratory 16 Rate Blood Pressure 179/94 H O2 Saturation 100 Oxygen O2 Source [Without Activity] Nasal cannula O2 Source Room air - Rads (name of study) duplex ultrasound Radiology: Prelim report reviewed (Impression: No evidence for deep venous thrombosis.), EMP read indepedently, See rad report PD MEDICAL DECISION MAKING - ED course Complexity details: reviewed results, re-evaluated patient, considered differential, d/w patient, d/w family ED course: 76-year-old female with recent hip replacement has increased swelling on the right lower extremity this is apparently dependent edema she has some pain associated with this but no evidence of DVT. She is reassured. Departure - Departure Disposition: 01 Home, Self Care Clinical Impression: Dependent edema Pain in extremity Qualifiers: Extremity pain location: lower extremity Laterality: right Qualified Code(s): M79.604 - Pain in right leg Condition: Stable Instructions: ED Leg Swelling Unilateral Follow-Up: Layne Godinez DO [Primary Care Provider] - Comments: Today the swelling in her ankle does not appear to be related to DVT. This is likely related to using it more than usual. It is important to put your feet up at the end of the day to allow the edema to resolve.Do not sleep with your leg in the down position.
--- NOTE | 2016-11-04 18:09 | Ultrasound Report ---
EXAM: RIGHT LOWER EXTREMITY VENOUS ULTRASOUND EXAM DATE: 11/04/2016 04:07 PM. CLINICAL HISTORY: Right hip pain 2 weeks ago. Right foot edema and right leg tenderness since that ti me. No history of prior deep venous thrombosis. COMPARISON: None. TECHNIQUE: Real-time sonographic vascular imaging was performed by the back pad inspector through the lower extremity utilizing both color-flow and Doppler spectral analysis. Multiple dairy supplies sales representative static ravin ges were saved for review. FINDINGS: Common Femoral Vein (CFV): Normal. CFV-GSV Junction: Normal. Profunda Femoral Vein (PFV): Normal. Femoral Vein (FV) Prox: Normal. Femoral Vein (FV) Mid: Normal. Femoral Vein (FV) Dist: Normal. Popliteal Vein: Normal. Posterior Tibial Veins: Normal. Peroneal Veins: Normal. Contralateral Side CFV: Normal. Other: None. IMPRESSION: No evidence for deep venous thrombosis. [facility] Referring Provider Line: [phone] SITE ID: [id number]
== END 2016-11-04 17:13 | disposition home or self-care (01) ==
LOC: ED 14:11
DX: R60.9 Edema, unspecified (principal); M79.604 Pain in right leg; Z96.649 Presence of unspecified artificial hip joint; I10 Essential (primary) hypertension; J44.9 Chronic obstructive pulmonary disease, unspecified; F03.90 Unspecified dementia, unspecified severity, without behavioral disturbance, psychotic disturbance, mood disturbance, and anxiety; K21.9 Gastro-esophageal reflux disease without esophagitis; M19.90 Unspecified osteoarthritis, unspecified site
CPT/HCPCS: 99282; 99283

== ENCOUNTER 2016-11-06 22:55 | Outpatient (CLI) | payer MEDICARE, OTHER | END 2016-11-06 22:56 | disposition critical access hospital (66) | LOC: EMS 22:55 | PROVIDERS: ATTEND Surgery | DX: M25.551 Pain in right hip (principal) | CPT/HCPCS: A0425; A0429 ==

== ENCOUNTER 2016-11-06 23:13 | Emergency (ER) | payer MEDICARE, OTHER ==
--- NOTE | 2016-11-07 01:55 | XRAY Preliminary Report ---
Exam: XR Hip w/Pelvis 2-3V RT IMPRESSION: Status post pinning of a prior right femoral fracture. No acute bony abnormality. [facility] SITE ID: [id number]
--- NOTE | 2016-11-07 01:58 | XRAY Report ---
EXAM: RIGHT HIP AND PELVIS RADIOGRAPHY EXAM DATE: 11/07/2016 01:26 AM. HISTORY: Right hip pain, COMPARISONS: 10/08/2016 TECHNIQUE: 1 view of the pelvis and 2 view of the hip. FINDINGS: Bones: No displaced fracture. There are 3 cannulated screws within the right femur, utilized for fixa tion of a prior right femoral fracture. No definite acute bony abnormality. Joints: Moderate left-sided degenerative joint disease. Moderate to severe multilevel degenerative ch anges within the spine. Multiple bilateral pelvic calcifications, most suggestive of phleboliths. Soft Tissues: Skin amadou project over the right lateral upper thigh. IMPRESSION: Status post pinning of a prior right femoral fracture. No acute bony abnormality. [facility] Referring Provider Line: [phone] SITE ID: [id number]
--- NOTE | 2016-11-07 02:07 | ED Physician Documentation ---
History of Present Illness - Stated complaint Stated Complaint: HIP PN - Chief complaint Chief Complaint: Back Pain - History obtained from History obtained from: Patient - Additonal information Additional information: The patient is a 76-year-old female who is 6 weeks status post ORIF of right femoral neck fracture, and who presents tonight after she experienced a sharp pain in her right hip just prior to arrival. It was a fleeting pain that occurred while she was standing at her bedside. She reports having pain in her hip ever since the operation, and her current pain is at baseline. She was seen here 2 days ago with swelling of her right foot. An ultrasound of her right lower extremity at that time was negative for DVT. She has a history of CVAs, and uses a walker when ambulating. Review of Systems Constitutional: denies: Fever Ears: denies: Tinnitus/ringing Nose: denies: Congestion Throat: denies: Sore throat Cardiac: denies: Chest pain / pressure Respiratory: denies: Dyspnea, Cough GI: denies: Abdominal Pain, Nausea, Vomiting : reports: Frequency. denies: Dysuria Skin: denies: Rash Musculoskeletal: reports: Joint pain (right hip), Extremity swelling (right lower extremity more than left) Neurologic: reports: Generalized weakness. 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 Cardiovascular: Other HEENT: Cataracts - Present Medications Home Medications: Ambulatory Orders Medication Instructions Recorded Confirmed Amitriptyline HCl 25 - 75 mg PO QPM PRN 03/13/13 10/12/16 Simvastatin 40 mg PO QPM 03/14/13 10/10/16 Carbidopa/Levodopa 1 tab PO TIDWM 10/12/16 10/12/16 [Carbidopa-Levodopa 25-100 Tab] Cholecalciferol (Vitamin D3) 2,000 units PO DAILY 10/12/16 10/12/16 [Vitamin D3] Donepezil HCl 10 mg PO DAILY 10/12/16 10/12/16 Esomeprazole Magnesium [Nexium] 20 mg PO DAILY 10/12/16 10/12/16 Metoprolol Succinate 25 mg PO DAILY 10/12/16 10/12/16 Nitrofurantoin [Macrobid] 100 mg PO BID #10 capsule 11/07/16 - Allergies Allergies/Adverse Reactions: Allergies Allergy/AdvReac Type Severity Reaction Status Date / Time No Known Drug Allergies Allergy Unverified 11/06/16 23:18 - Social History Does the pt smoke?: Yes Smoking Status: Current every day smoker Does the pt drink ETOH?: Yes Does the pt have substance abuse?: No - Immunizations Immunizations are current?: Yes - POLST Patient has POLST: Yes PD ED PE NORMAL - Vitals Vital signs reviewed: Yes (hypertensive) - General General: Alert and oriented X 3, Well developed/nourished - HEENT HEENT: Atraumatic - Neck Neck: No bony TTP - Cardiac Cardiac: RRR, No murmur - Respiratory Respiratory: No respiratory distress, Clear bilaterally - Abdomen Abdomen: Soft, Non tender - Back Back: No spinal TTP - Derm Derm: No rash - Extremities Extremities: No tenderness to palpate (Surgical wound over the lateral aspect of the right hip, intact with amadou. There is no warmth or erythema, and no drainage from the wound. The patient tolerates flexion and extension of the hip as well as internal and external rotation, without significant discomfort. Distal neurovascular is intact.), No calf tenderness / cord, Other (Trace pedal edema bilaterally, without calf tenderness.) - Neuro Neuro: Alert and oriented X 3, No motor deficit, No sensory deficit Results - Vitals Vitals: Vital Signs - 24 hr 11/06/16 11/07/16 11/07/16 23:13 03:54 06:20 Temperature 36.8 C Heart Rate 74 75 100 Respiratory 18 14 15 Rate Blood Pressure 193/83 H 197/98 H 173/93 H O2 Saturation 99 95 94 Oxygen O2 Source [] Nasal cannula O2 Source Room air - Labs Labs: Microbiology 11/07/16 03:20 Urine Culture - Preliminary Urine,Random Laboratory Tests 11/07/16 03:20 Urine Color YELLOW Urine Clarity HAZY Urine pH 7.0 Ur Specific [place] 1.010 Urine Protein NEGATIVE Urine Glucose (UA) NEGATIVE Urine Ketones NEGATIVE Urine Occult Blood NEGATIVE Urine Nitrite POSITIVE H Urine Bilirubin NEGATIVE Urine Urobilinogen 0.2 (NORMAL) Ur Leukocyte Esterase MODERATE H Urine RBC 0-5 Urine WBC 11-25 H Ur Epithelial Cells RARE Renal Tubular Ur Squamous Epith Cells FEW Squamous Urine Bacteria Moderate H Ur Microscopic Review INDICATED Urine Culture Comments INDICATED - Rads (name of study) right hip Radiology: Prelim report reviewed, EMP read contemporaneously, See rad report ( Status post pinning of a prior right femoral fracture. No acute bony abnormality.) PD MEDICAL DECISION MAKING - ED course Complexity details: reviewed old records, reviewed results, re-evaluated patient , considered differential, d/w patient ED course: The patient's presentation is significant for urinary tract infection, with pyuria and bacteriuria. Her presentation does not suggest pyelonephritis or sepsis. The pain in her right hip is consistent with postoperative hip pain. There is no evidence of recurrent acute bony abnormality, wound infection, or hip dislocation. Treatment in the emergency department included administration of Macrobid 100 mg orally. I discussed with her antibiotic treatment, outpatient follow-up, as well as potentially worrisome signs or symptoms that should prompt reevaluation in the emergency department. Departure - Departure Disposition: 01 Home, Self Care Clinical Impression: Postoperative pain, acute, hip Qualifiers: Laterality: right Qualified Code(s): M25.551 - Pain in right hip UTI (urinary tract infection) Qualifiers: Urinary tract infection type: acute cystitis Hematuria presence: without hematuria Qualified Code(s): N30.00 - Acute cystitis without hematuria Condition: Stable Instructions: ED UTI Cystitis Female, ED Post Op Pain Follow-Up: Layne Godinez DO [Primary Care Provider] - Prescriptions: Nitrofurantoin [Macrobid] 100 mg PO BID #10 capsule Comments: Drink plenty of fluids, including cranberry juice. Take Macrobid twice daily as prescribed. You can use Tylenol or ibuprofen as needed for discomfort. Follow up with your primary physician within one to 2 weeks. Call to schedule an appointment. Return to the emergency department if you develop increasing pain, fever with shaking chills, persistent vomiting, or otherwise worsening symptoms. Discharge Date/Time: 11/07/16 06:20
[2016-11-07 03:38] LABS: BILIRUBIN,URINE NEGATIVE (NEGATIVE)
[2016-11-07 03:50] LABS: UA w/ MICROSCOPIC CHARGE YES; UR CULTURE IF IND INDICATED
[2016-11-07] MEDS ORDERED: NITROFURANTOIN MACRO 100 MG CAPSULE PO STA (04:05)
[2016-11-07] MEDS ORDERED: NITROFURANTOIN MACRO 100 MG CAPSULE PO ONE (04:14)
[2016-11-07 06:25] VITALS: BP 173/93
== END 2016-11-07 06:20 | disposition home or self-care (01) ==
LOC: EDUNIT# → SUPCPDRO 23:13 → ED 23:13
DX: M25.551 Pain in right hip (principal); N30.00 Acute cystitis without hematuria; I10 Essential (primary) hypertension; K21.9 Gastro-esophageal reflux disease without esophagitis; F03.90 Unspecified dementia, unspecified severity, without behavioral disturbance, psychotic disturbance, mood disturbance, and anxiety; F17.200 Nicotine dependence, unspecified, uncomplicated; Z86.73 Personal history of transient ischemic attack (TIA), and cerebral infarction without residual deficits; Z90.710 Acquired absence of both cervix and uterus
CPT/HCPCS: 73502; 81001; 87077; 87086; 87181; 99283; A9270; 81003

== ENCOUNTER 2017-05-01 13:02 | Emergency (ER) | payer MEDICARE, OTHER ==
--- NOTE | 2017-05-01 14:42 | ED Physician Documentation ---
PD HPI Fall - Stated complaint Stated Complaint: GLF/R HIP PX - Chief complaint Chief Complaint: General - History obtained from History obtained from: Patient - History of Present Illness Mechanism of injury: Other (fell from bed, awoke when she landed onto the floor. Denies striking head.) Fall distance: From bed Where injury occurred: Home Timing - onset: Last night Injury(ies) location: Right Lower Extremity (lateral hip.). No: Head, Neck, Chest, Abdomen Worsens with: Palpation. No: Movement Contributing factors: No: Anticoagulated, Intoxicated Recently seen: Not recently seen Review of Systems Constitutional: denies: Fever, Chills Throat: denies: Sore throat Cardiac: denies: Chest pain / pressure Respiratory: denies: Cough GI: denies: Abdominal Pain, Nausea, Vomiting, Diarrhea Skin: denies: Abrasion (s), Laceration (s) Neurologic: denies: Focal weakness, Numbness PD PAST MEDICAL HISTORY - Past Medical History Cardiovascular: Hypertension Respiratory: COPD Neuro: Dementia, CVA Endocrine/Autoimmune: None GI: GERD : None HEENT: None Psych: Depression Musculoskeletal: Osteoarthritis Derm: None - Past Surgical History Past Surgical History: Yes 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 Cardiovascular: Other HEENT: Cataracts - Present Medications Home Medications: Ambulatory Orders Medication Instructions Recorded Confirmed Amitriptyline HCl 25 - 75 mg PO QPM PRN 03/13/13 10/12/16 Simvastatin 40 mg PO QPM 03/14/13 10/10/16 Carbidopa/Levodopa 1 tab PO TIDWM 10/12/16 10/12/16 [Carbidopa-Levodopa 25-100 Tab] Cholecalciferol (Vitamin D3) 2,000 units PO DAILY 10/12/16 10/12/16 [Vitamin D3] Donepezil HCl 10 mg PO DAILY 10/12/16 10/12/16 Esomeprazole Magnesium [Nexium] 20 mg PO DAILY 10/12/16 10/12/16 Metoprolol Succinate 25 mg PO DAILY 10/12/16 10/12/16 Nitrofurantoin [Macrobid] 100 mg PO BID #10 capsule 11/07/16 Naproxen 375 mg PO BID #20 tablet 05/01/17 - Allergies Allergies/Adverse Reactions: Allergies Allergy/AdvReac Type Severity Reaction Status Date / Time No Known Drug Allergies Allergy Unverified 05/01/17 13:40 - Social History Does the pt smoke?: Yes Smoking Status: Current every day smoker Does the pt drink ETOH?: Yes Does the pt have substance abuse?: No - Immunizations Immunizations are current?: Yes - POLST Patient has POLST: Yes PD ED PE NORMAL - Vitals Vital signs reviewed: Yes - General General: Alert and oriented X 3, No acute distress, Well developed/nourished - HEENT HEENT: Atraumatic - Neck Neck: Supple, no meningeal sign, No bony TTP, No adenopathy - Respiratory Respiratory: Clear bilaterally, Other (no chestwall tenderness) - Abdomen Abdomen: Soft, Non tender - Back Back: No CVA TTP, No spinal TTP - Derm Derm: Normal color, Warm and dry - Extremities Extremities: Other (right lateral hip with some mild tenderness. No pain with passive ROM. Old scar noted lateral trochanteric area. ) - Neuro Neuro: Alert and oriented X 3, No motor deficit, No sensory deficit Results - Vitals Vitals: Oxygen O2 Source [Without Activity] Nasal cannula O2 Source Room air - Rads (name of study) hip Radiology: Prelim report reviewed (no fractures. Prior surgical screws noted. ) PD MEDICAL DECISION MAKING - ED course Complexity details: reviewed results, considered differential (able to walk with her walker, but friends encouraged her to get checked. ), d/w patient Departure - Departure Disposition: 01 Home, Self Care Clinical Impression: Fall from bed Qualifiers: Encounter type: initial encounter Qualified Code(s): W06.XXXA - Fall from bed, initial encounter Contusion, hip Qualifiers: Encounter type: initial encounter Laterality: right Qualified Code(s): S70.01XA - Contusion of right hip, initial encounter Condition: Stable Record reviewed to determine appropriate education?: Yes Instructions: ED Contusion Lower Ext Follow-Up: Layne Godinez DO [Primary Care Provider] - Prescriptions: Naproxen 375 mg PO BID #20 tablet Comments: Your x-ray appears okay with normal position of the prior fracture repair. He will be sore likely for several days and then hopefully back to the baseline. Use naproxen twice daily for the next 7-10 days with food. Add Tylenol if needed for pains. Follow-up with your primary care if not better over the next week. Discharge Date/Time: 05/01/17 15:58
--- NOTE | 2017-05-01 15:04 | XRAY Preliminary Report ---
Exam: XR HIP W/PELVIS 2-3V RT IMPRESSION: 1. No acute bony abnormality. 2. Increasing bony reactive changes along the ischium suggesting chronic mechanical stress versus int erval healing of an occult acetabular fracture. [facility] SITE ID: [id number]
[2017-05-01] MEDS ORDERED: NAPROXEN 250 MG TABLET PO STA (15:10)
[2017-05-01] MEDS ORDERED: traMADol 50 MG TABLET PO STA (15:10)
--- NOTE | 2017-05-01 15:16 | XRAY Report ---
EXAM: RIGHT HIP AND PELVIS RADIOGRAPHY EXAM DATE: 05/01/2017 02:36 PM. HISTORY: Remote right hip surgery. Right hip pain since a fall last night. COMPARISONS: 12/08/2016. TECHNIQUE: 1 view of the pelvis and 1 view of the hip. FINDINGS: Bones: Trabecular and cortical patterns are intact. Increasing uniform bony or periosteal thickening right ischium/acetabulum. Remote ORIF right intertro chanteric fracture. Joints: The bilateral hip, pubis symphysis, and sacroiliac joints are preserved. Soft Tissues: Normal. No soft tissue swelling. IMPRESSION: 1. No acute bony abnormality. 2. Increasing bony reactive changes along the ischium suggesting chronic mechanical stress versus int erval healing of an occult acetabular fracture. [facility] Referring Provider Line: [phone] SITE ID: [id number]
[2017-05-01 15:38] VITALS: BP 209/108
== END 2017-05-01 15:58 | disposition home or self-care (01) ==
LOC: ED 13:02
DX: S70.01XA Contusion of right hip, initial encounter (principal); W06.XXXA Fall from bed, initial encounter; Y92.009 Unspecified place in unspecified non-institutional (private) residence as the place of occurrence of the external cause; I10 Essential (primary) hypertension; Z86.73 Personal history of transient ischemic attack (TIA), and cerebral infarction without residual deficits; F17.200 Nicotine dependence, unspecified, uncomplicated
CPT/HCPCS: 73502; 99283; A9270

== ENCOUNTER 2017-07-15 08:38 | Outpatient (CLI) | payer MEDICARE, OTHER | END 2017-07-15 08:39 | disposition home or self-care (01) | LOC: EMS 08:38 | PROVIDERS: ATTEND Surgery | DX: Z03.89 Encounter for observation for other suspected diseases and conditions ruled out (principal) ==

== ENCOUNTER 2018-04-12 12:27 | Outpatient (CLI) | payer MEDICARE, OTHER ==
[2018-04-12] MEDS ORDERED: IOVERSOL 320 100 ML VIAL IVP ONE ×2 (12:52→14:33)
[2018-04-12] MEDS ORDERED: IOVERSOL 320 50 ML VIAL ONE (12:52)
[2018-04-12] MEDS ORDERED: IOVERSOL 320 50 ML VIAL PO ONE (14:33)
--- NOTE | 2018-04-12 22:14 | CT Report ---
Reason: ABDOMINAL PAIN Procedure Date: 04/12/2018 Accession Number: [id number] / [id number] Procedure: CT - Abdomen/Pelvis W/ CPT Code: FULL RESULT: EXAM: CT ABDOMEN AND PELVIS WITH CONTRAST. EXAM DATE: 04/12/2018 02:27 PM. CLINICAL HISTORY: Abdominal pain. COMPARISONS: Abdomen and pelvis without 05/03/2013 1:18 AM. TECHNIQUE: Routine helical CT imaging was performed through the abdomen and pelvis. IV contrast: Yes . Enteric contrast: Yes. Reconstructions: Coronal and sagittal. In accordance with CT protocol optimization, one or more of the following dose reduction techniques were utilized for this exam: automated exposure control, adjustment of mA and/or KV based on patient size, or use of iterative reconstructive technique. FINDINGS: Lung Bases: Unremarkable. Liver: Unremarkable. No suspicious masses. Gallbladder/Bile Ducts: Unremarkable. Spleen: Unremarkable. Pancreas: Unremarkable. Adrenal Glands: Unremarkable. Kidneys: Unremarkable. No suspicious masses or hydronephrosis. Peritoneal Cavity/Bowel: No bowel obstruction or inflammatory process seen. No free air or significant free fluid. No masses or adenopathy. The appendix is normal. Moderate stool burden and colonic diverticulosis. Pelvic Organs: Post hysterectomy with no adnexal masses seen. The bladder appears within normal limits. Vasculature: Moderate atherosclerotic disease of the aorta and branches. No aneurysm seen. Bones: No significant abnormality with note of proximal right femur previous surgery. Other: None. IMPRESSION: 1. No acute inflammatory or obstructive process seen in the abdomen or pelvis. 2. Moderate stool burden and colonic diverticulosis. 3. Post hysterectomy. 4. Moderate atherosclerotic disease of the aorta and branches. [facility]
== END 2018-04-12 12:28 | disposition home or self-care (01) ==
LOC: DI 12:27
PROVIDERS: ATTEND Family Medicine
DX: R10.9 Unspecified abdominal pain (principal); K57.30 Diverticulosis of large intestine without perforation or abscess without bleeding; I70.0 Atherosclerosis of aorta
CPT/HCPCS: 74177; Q9967

== ENCOUNTER 2018-05-13 11:28 | Outpatient (CLI) | payer MEDICARE, OTHER | END 2018-05-13 11:29 | disposition critical access hospital (66) | LOC: EMS 11:28 | PROVIDERS: ATTEND Surgery | DX: R11.2 Nausea with vomiting, unspecified (principal); W01.0XXA Fall on same level from slipping, tripping and stumbling without subsequent striking against object, initial encounter; Y92.009 Unspecified place in unspecified non-institutional (private) residence as the place of occurrence of the external cause | CPT/HCPCS: A0425; A0427 ==

== ENCOUNTER 2018-05-13 11:46 | Emergency (ER) | payer MEDICARE, OTHER ==
[2018-05-13] MEDS ORDERED: MAGNESIUM CITRATE 296 ML BOTTLE PO STA (13:23)
[2018-05-13] MEDS ORDERED: ONDANSETRON 4 MG/2 ML VIAL IVP STA (13:23)
--- NOTE | 2018-05-13 13:25 | ED Physician Documentation ---
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 She vomited several times after breakfast today. She had some lower abdominal pain which is now gone. Then she slipped in the vomit and fell. She has a little scrape on the left elbow but it does not really hurt her. She denies any abdominal pain at this juncture. She has a history of chronic constipation and had a CT done about 3 weeks ago showing moderate stool load. For this the daughter gives her Colace and prune juice daily. 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 Cardiovascular: Other HEENT: Cataracts - Present Medications Home Medications: Ambulatory Orders Medication Instructions Recorded Confirmed Amitriptyline HCl 25 - 75 mg PO QPM PRN 03/13/13 10/12/16 Simvastatin 40 mg PO QPM 03/14/13 10/10/16 Carbidopa/Levodopa 1 tab PO TIDWM 10/12/16 10/12/16 [Carbidopa-Levodopa 25-100 Tab] Cholecalciferol (Vitamin D3) 2,000 units PO DAILY 10/12/16 10/12/16 [Vitamin D3] Donepezil HCl 10 mg PO DAILY 10/12/16 10/12/16 Esomeprazole Magnesium [Nexium] 20 mg PO DAILY 10/12/16 10/12/16 Metoprolol Succinate 25 mg PO DAILY 10/12/16 10/12/16 Nitrofurantoin [Macrobid] 100 mg PO BID #10 capsule 11/07/16 Naproxen 375 mg PO BID #20 tablet 05/01/17 Ondansetron Odt [Zofran] 4 mg TL Q6H PRN #10 tablet 05/13/18 - Allergies Allergies/Adverse Reactions: Allergies Allergy/AdvReac Type Severity Reaction Status Date / Time No Known Drug Allergies Allergy Verified 05/13/18 11:52 - Social History Does the pt smoke?: Yes Smoking Status: Current every day smoker Does the pt drink ETOH?: Yes Does the pt have substance abuse?: No - Immunizations Immunizations are current?: Yes - POLST Patient has POLST: Yes PD ED PE NORMAL - Vitals Vital signs reviewed: Yes - General General: Other (She is alert and oriented to person and place but not time) - HEENT HEENT: Other (Mild left facial droop from old CVA) - Neck Neck: Supple, no meningeal sign, No bony TTP - Cardiac Cardiac: RRR, No murmur - Respiratory Respiratory: No respiratory distress, Clear bilaterally - Abdomen Abdomen: Normal bowel sounds, Soft, Non tender - Back Back: No CVA TTP, No spinal TTP - Derm Derm: Normal color, Warm and dry - Extremities Extremities: No edema, No calf tenderness / cord - Neuro Neuro: corsetier 2-12 intact Eye Opening: Spontaneous Motor: Obeys Commands Verbal: Confused (slight, poor short term memory) GCS Score: 14 - Psych Psych: Normal mood, Normal affect Results - Vitals Vitals: Vital Signs - 24 hr 05/13/18 05/13/18 11:48 14:17 Temperature 35.8 C L Heart Rate 91 68 Respiratory 14 16 Rate Blood Pressure 112/68 111/57 L O2 Saturation 100 98 Oxygen O2 Source [Without Activity] Nasal cannula O2 Source Room air - Labs Labs: Laboratory Tests 05/13/18 05/13/18 05/13/18 13:22 13:22 13:22 WBC 6.9 RBC 4.26 Hgb 13.9 Hct 39.8 MCV 93.3 MCH 32.6 H MCHC 35.0 RDW 14.3 Plt Count 316 MPV 7.3 L Neut # (Auto) 5.1 Lymph # (Auto) 0.8 L Riley # (Auto) 0.7 Eos # (Auto) 0.2 Baso # (Auto) 0.1 Absolute Nucleated RBC 0.00 Nucleated RBC % 0.0 Sodium 137 Potassium 4.0 Chloride 103 Carbon Dioxide 29 Anion Gap 5.0 L BUN 15 Creatinine 0.8 Estimated GFR (MDRD) 69 L Glucose 91 Calcium 8.9 Total Bilirubin 0.6 AST 15 ALT < 10 L Alkaline Phosphatase 66 Troponin I < 0.04 Total Protein 6.3 L Albumin 3.9 Globulin 2.4 Albumin/Globulin Ratio 1.6 Lipase 52 H Urine Color Urine Clarity Urine pH Ur Specific [place] Urine Protein Urine Glucose (UA) Urine Ketones Urine Occult Blood Urine Nitrite Urine Bilirubin Urine Urobilinogen Ur Leukocyte Esterase Urine RBC Urine WBC Ur Squamous Epith Cells Amorphous Sediment Urine Bacteria Urine Casts Ur Microscopic Review Urine Culture Comments 05/13/18 13:40 WBC RBC Hgb Hct MCV MCH MCHC RDW Plt Count MPV Neut # (Auto) Lymph # (Auto) Riley # (Auto) Eos # (Auto) Baso # (Auto) Absolute Nucleated RBC Nucleated RBC % Sodium Potassium Chloride Carbon Dioxide Anion Gap BUN Creatinine Estimated GFR (MDRD) Glucose Calcium Total Bilirubin AST ALT Alkaline Phosphatase Troponin I Total Protein Albumin Globulin Albumin/Globulin Ratio Lipase Urine Color YELLOW Urine Clarity HAZY Urine pH 6.0 Ur Specific [place] 1.025 Urine Protein NEGATIVE Urine Glucose (UA) NEGATIVE Urine Ketones TRACE Urine Occult Blood NEGATIVE Urine Nitrite NEGATIVE Urine Bilirubin NEGATIVE Urine Urobilinogen 0.2 (NORMAL) Ur Leukocyte Esterase TRACE H Urine RBC 0-5 Urine WBC 4-5 Ur Squamous Epith Cells MANY Squamous H Amorphous Sediment Moderate Urine Bacteria Many H Urine Casts 6-10 Hyaline Casts Ur Microscopic Review INDICATED Urine Culture Comments NOT INDICATED PD MEDICAL DECISION MAKING - ED course ED course: Is an 78-year-old woman who presents with a few episodes of vomiting, now with a fall because she slipped in the vomit. Her exam is benign as are her labs. Suspect this is an exacerbation of chronic constipation but clinically she is not obstructed. She did well after IV fluids and Zofran here. Departure - Departure Disposition: 01 Home, Self Care Clinical Impression: Vomiting Qualifiers: Vomiting type: unspecified Vomiting Intractability: non-intractable Nausea presence: with nausea Qualified Code(s): R11.2 - Nausea with vomiting, unspecified Dementia Qualifiers: Dementia type: Alzheimer's disease Alzheimer's disease onset: unspecified onset Dementia behavioral disturbance: without behavioral disturbance Qualified Code(s): G30.9 - Alzheimer's disease, unspecified; F02.80 - Dementia in other diseases classified elsewhere without behavioral disturbance Fall Qualifiers: Encounter type: initial encounter Qualified Code(s): W19.XXXA - Unspecified fall, initial encounter Condition: Good Record reviewed to determine appropriate education?: Yes Instructions: ED Nausea Vomiting Prescriptions: Ondansetron Odt [Zofran] 4 mg TL Q6H PRN #10 tablet PRN Reason: Nausea / Vomiting Comments: Return in 12 hours if not better, anytime if worse or if new symptoms develop.
[2018-05-13 14:03] LABS: BASOPHILS # (AUTO) 0.1 10^3/uL (0.0-0.1); BASOPHILS % (AUTO) 0.9 %; EOSINOPHILS # (AUTO) 0.2 10^3/uL (0.0-0.7); EOSINOPHILS % (AUTO) 3.3 %; HGB - HEMOGLOBIN 13.9 g/dL (12.0-16.0); LYMPHOCYTES # (AUTO) 0.8 10^3/uL (1.5-3.5); LYMPHOCYTES % (AUTO) 11.8 %; MEAN CORPUSCULAR HEMOGLOBIN 32.6 pg (27.0-31.0); MEAN CORPUSCULAR VOLUME 93.3 fL (81.0-99.0); MEAN PLATELET VOLUME 7.3 fL (7.9-10.8); MONOCYTES # (AUTO) 0.7 10^3/uL (0.0-1.0); MONOCYTES % (AUTO) 9.9 %; NEUTROPHILS # (AUTO) 5.1 10^3/uL (1.5-6.6); NEUTROPHILS % (AUTO) 74.1 %; PLT - PLATELET COUNT 316 10^3/uL (130-450); RED BLOOD COUNT 4.26 10^6/uL (4.20-5.40); RED CELL DISTRIBUTION WIDTH 14.3 % (12.0-15.0); WHITE BLOOD COUNT 6.9 x10^3/uL (4.8-10.8)
[2018-05-13 14:03] LABS: BILIRUBIN,URINE NEGATIVE (NEGATIVE); GLUCOSE, URINE (UA) NEGATIVE (NEGATIVE); KETONES,URINE (UA) TRACE mg/dL (NEGATIVE); LEUKOCYTE ESTERASE, URINE TRACE (NEGATIVE); NITRITE,URINE NEGATIVE (NEGATIVE); OCCULT BLOOD,URINE NEGATIVE (NEGATIVE); PROTEIN,URINE NEGATIVE (NEGATIVE); UROBILINOGEN,URINE 0.2 (NORMAL) E.U./dL (NORMAL)
[2018-05-13 14:04] LABS: CLARITY,URINE HAZY (CLEAR)
[2018-05-13 14:11] LABS: ALBUMIN 3.9 g/dL (3.2-5.5); ALBUMIN/GLOBULIN RATIO 1.6 (1.0-2.2); ALKALINE PHOSPHATASE 66 IU/L (42-121); ALT ALANINE AMINOTRANSFERASE < 10 IU/L (10-60); AST ASPARTATE AMINOTRANSFERASE 15 IU/L (10-42); BILIRUBIN,TOTAL 0.6 mg/dL (0.2-1.0); BUN - BLOOD UREA NITROGEN 15 mg/dL (6-20); CALCIUM 8.9 mg/dL (8.5-10.3); CARBON DIOXIDE - CO2 29 mmol/L (21-32); CHLORIDE 103 mmol/L (101-111); CREATININE 0.8 mg/dL (0.4-1.0); GFR - MDRD 69 (>89); GLUCOSE 91 mg/dL (70-100); LIPASE 52 U/L (22-51); SODIUM 137 mmol/L (135-145); TOTAL PROTEIN 6.3 g/dL (6.7-8.2)
[2018-05-13 14:14] LABS: BACTERIA,URINE Many /HPF (None Seen); RBC,URINE 0-5 /HPF (0-5); SQUAMOUS EPITHELIAL CELL,UR MANY Squamous (<= Few)
[2018-05-13 14:15] LABS: AMORPHOUS SEDIMENT,UR Moderate /LPF
[2018-05-13 14:18] VITALS: BP 111/57
== END 2018-05-13 14:54 | disposition home or self-care (01) ==
LOC: EDUNIT# → ED 11:46
DX: R11.2 Nausea with vomiting, unspecified (principal); G20 Parkinson's disease; G30.9 Alzheimer's disease, unspecified; F02.80 Dementia in other diseases classified elsewhere, unspecified severity, without behavioral disturbance, psychotic disturbance, mood disturbance, and anxiety; I10 Essential (primary) hypertension; S50.312A Abrasion of left elbow, initial encounter; W01.0XXA Fall on same level from slipping, tripping and stumbling without subsequent striking against object, initial encounter; Y93.01 Activity, walking, marching and hiking; Z91.81 History of falling; I69.392 Facial weakness following cerebral infarction; K59.00 Constipation, unspecified; F17.200 Nicotine dependence, unspecified, uncomplicated
CPT/HCPCS: 36415; 80053; 81001; 83690; 84484; 85025; 96374; 99283; A9270; 81003; 87086

== ENCOUNTER 2018-05-31 17:47 | Emergency (ER) | payer MEDICARE, OTHER ==
--- NOTE | 2018-05-31 18:20 | CT Report ---
Reason: headache, AMS Procedure Date: 05/31/2018 Accession Number: [id number] / [id number] Procedure: CT - Head W/O CPT Code: FULL RESULT: EXAM: CT HEAD EXAM DATE: 05/31/2018 CLINICAL HISTORY: Headache. Altered mental status COMPARISON: CT head 10/11/2016. TECHNIQUE: Multiaxial CT images were obtained from the foramen magnum to the vertex. Reformats: Coronal. IV contrast: None. In accordance with CT protocol optimization, one or more of the following dose reduction techniques were utilized for this exam: automated exposure control, adjustment of mA and/or KV based on patient size, or use of iterative reconstructive technique. FINDINGS: The degree of ventricular prominence, particularly in the lateral ventricle bilaterally, is at the upper limits of normal relative to sulcal prominence No extra-axial fluid collection is seen. [place] white matter differentiation is preserved. Confluent low attenuation are seen throughout the cerebral hemisphere white matter. This is stable A remote lacunar infarct is again seen in the left thalamus and is stable No intracranial mass or hemorrhage is present. The calvarium is intact. IMPRESSION: 1. No acute intracranial process is identified by noncontrast head CT. 2. Areas of low attenuation in the cerebral hemisphere white matter are nonspecific. Commonly, these are secondary to small vessel ischemic change. A remote lacunar infarct is again seen in the left thalamus 3. Ventricles are at the upper limits of normal relative to sulcal prominence. This could be due to central volume loss or NPH.
[2018-05-31 18:37] LABS: BASOPHILS % (AUTO) 0.5 %; EOSINOPHILS % (AUTO) 1.8 %; HGB - HEMOGLOBIN 14.5 g/dL (12.0-16.0); LYMPHOCYTES % (AUTO) 3.1 %; MEAN CORPUSCULAR HEMOGLOBIN 32.4 pg (27.0-31.0); MEAN CORPUSCULAR HGB CONC 33.7 g/dL (32.0-36.0); MEAN CORPUSCULAR VOLUME 96.1 fL (81.0-99.0); MEAN PLATELET VOLUME 7.9 fL (7.9-10.8); MONOCYTES % (AUTO) 9.4 %; NEUTROPHILS % (AUTO) 85.2 %; PLT - PLATELET COUNT 330 10^3/uL (130-450); RED BLOOD COUNT 4.48 10^6/uL (4.20-5.40); RED CELL DISTRIBUTION WIDTH 14.3 % (12.0-15.0); WHITE BLOOD COUNT 19.1 x10^3/uL (4.8-10.8)
[2018-05-31] MEDS ORDERED: SUMAtriptan 6 MG/0.5 ML VIAL SUBQ STA (18:38)
[2018-05-31 18:39] LABS: ABNORMAL LYMPHS % (MANUAL) 0 %
[2018-05-31] MEDS ORDERED: diphenhydrAMINE INJ 50 MG/ML VIAL IVP STA (18:39)
[2018-05-31] MEDS ORDERED: PROCHLORPERAZINE 10 MG/2 ML VIAL IVP STA (18:39)
[2018-05-31] MEDS ORDERED: IPRATROPIUM/ALBUTEROL 3 ML NEB INH STA (18:40)
--- NOTE | 2018-05-31 18:41 | ED Physician Documentation ---
PD HPI ALTERED MENTAL STATUS - Stated complaint Stated Complaint: AMS - Chief complaint Chief Complaint: Neuro - History obtained from History obtained from: Patient - History of Present Illness Timing - onset: How many days ago (3) Timing - duration: Days (3) Timing - details: Gradual onset Quality / character: Confused, Disoriented, Other (has dementia, not significantly different from baseline) Associated symptoms: Headache (chronic headaches, not relieved with tylenol) Contributing factors: Known dementia. 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 Cardiovascular: Other HEENT: Cataracts - Present Medications Home Medications: Ambulatory Orders Medication Instructions Recorded Confirmed Amitriptyline HCl 25 - 75 mg PO QPM PRN 03/13/13 10/12/16 Simvastatin 40 mg PO QPM 03/14/13 10/10/16 Carbidopa/Levodopa 1 tab PO TIDWM 10/12/16 10/12/16 [Carbidopa-Levodopa 25-100 Tab] Cholecalciferol (Vitamin D3) 2,000 units PO DAILY 10/12/16 10/12/16 [Vitamin D3] Donepezil HCl 10 mg PO DAILY 10/12/16 10/12/16 Esomeprazole Magnesium [Nexium] 20 mg PO DAILY 10/12/16 10/12/16 Metoprolol Succinate 25 mg PO DAILY 10/12/16 10/12/16 Nitrofurantoin [Macrobid] 100 mg PO BID #10 capsule 11/07/16 Naproxen 375 mg PO BID #20 tablet 05/01/17 Ondansetron Odt [Zofran] 4 mg TL Q6H PRN #10 tablet 05/13/18 - Allergies Allergies/Adverse Reactions: Allergies Allergy/AdvReac Type Severity Reaction Status Date / Time No Known Drug Allergies Allergy Verified 05/31/18 17:54 - Social History Does the pt smoke?: Yes Smoking Status: Current every day smoker Does the pt drink ETOH?: Yes Does the pt have substance abuse?: No - Immunizations Immunizations are current?: Yes - POLST Patient has POLST: Yes PD ED PE NORMAL - Vitals Vital signs reviewed: Yes - General General: No acute distress, Well developed/nourished, Other (alert, oriented to person and place.) - HEENT HEENT: Atraumatic, PERRL, Ears normal, Moist mucous membranes, Pharynx benign - Neck Neck: Supple, no meningeal sign, No bony TTP - Cardiac Cardiac: RRR - Respiratory Respiratory: Other (Wheezing and rhonchi bilaterally) - Abdomen Abdomen: Soft, Non tender, Non distended - Back Back: No CVA TTP, No spinal TTP - Derm Derm: Warm and dry, No rash - Extremities Extremities: No calf tenderness / cord - Neuro Neuro: settlement agent 2-12 intact, Other (Alert) Results - Vitals Vitals: Vital Signs - 24 hr 05/31/18 05/31/18 05/31/18 17:51 18:24 18:30 Temperature 36.7 C Heart Rate 91 81 78 Respiratory 30 H 20 20 Rate Blood Pressure 112/55 L 135/73 H 136/76 H O2 Saturation 85 L 96 96 05/31/18 05/31/18 05/31/18 18:58 19:00 19:30 Temperature Heart Rate 79 88 84 Respiratory 18 21 21 Rate Blood Pressure 108/57 L 110/88 H O2 Saturation 95 94 05/31/18 05/31/18 05/31/18 20:00 20:30 21:00 Temperature Heart Rate 82 74 76 Respiratory 22 16 15 Rate Blood Pressure 122/64 91/57 L 91/57 L O2 Saturation 100 96 98 05/31/18 05/31/18 05/31/18 21:30 22:00 22:30 Temperature 37.2 C Heart Rate 78 77 78 Respiratory 20 17 16 Rate Blood Pressure 129/56 L 119/66 120/63 O2 Saturation 98 98 98 05/31/18 23:21 Temperature Heart Rate 76 Respiratory 16 Rate Blood Pressure 102/60 O2 Saturation 94 Oxygen O2 Source [Without Activity] Nasal cannula O2 Source Room air Oxygen Flow Rate 3 - EKG (time done) 1817 Rate: Rate (enter#) (80) Rhythm: NSR [place]: Normal Intervals: Normal DC QRS: Normal Ischemia: Normal ST segments (limited by artifact.) - Labs Labs: Laboratory Tests 05/31/18 05/31/18 05/31/18 17:58 18:17 18:17 WBC 19.1 H RBC 4.48 Hgb 14.5 Hct 43.1 MCV 96.1 MCH 32.4 H MCHC 33.7 RDW 14.3 Plt Count 330 MPV 7.9 Neut # (Auto) Not Reportable Lymph # (Auto) Not Reportable [place] # (Auto) Not Reportable Eos # (Auto) Not Reportable Baso # (Auto) Not Reportable Absolute Nucleated RBC Not Reportable Total Counted 100 Band Neuts % (Manual) 4 Abnorm Lymph % (Manual) 0 Nucleated RBC % Not Reportable Neutrophils # (Manual) 17.0 H Lymphocytes # (Manual) 0.4 L Monocytes # (Manual) 1.3 H Eosinophils # (Manual) 0.4 Basophils # (Manual) 0.0 Differential Comment MANUAL DIFFERENTIAL Manual Slide Review Indicated WBC Morphology NORMAL APPEARANCE Platelet Estimate NORMAL (130-450,000) Platelet Morphology NORMAL APPEARANCE RBC Morph Micro Appear NORMAL APPEARANCE Sodium 141 Potassium 4.0 Chloride 105 Carbon Dioxide 26 Anion Gap 10.0 BUN 19 Creatinine 0.8 Estimated GFR (MDRD) 69 L Glucose 131 H POC Whole Bld Glucose 133 H Calcium 9.9 Total Bilirubin 0.8 AST 17 ALT < 10 L Alkaline Phosphatase 78 Troponin I Total Protein 7.2 Albumin 4.2 Globulin 3.0 Albumin/Globulin Ratio 1.4 Lipase 40 Urine Color Urine Clarity Urine pH Ur Specific [place] Urine Protein Urine Glucose (UA) Urine Ketones Urine Occult Blood Urine Nitrite Urine Bilirubin Urine Urobilinogen Ur Leukocyte Esterase Ur Microscopic Review Urine Culture Comments 05/31/18 05/31/18 05/31/18 18:17 18:30 22:45 WBC RBC Hgb Hct MCV MCH MCHC RDW Plt Count MPV Neut # (Auto) Lymph # (Auto) [place] # (Auto) Eos # (Auto) Baso # (Auto) Absolute Nucleated RBC Total Counted Band Neuts % (Manual) Abnorm Lymph % (Manual) Nucleated RBC % Neutrophils # (Manual) Lymphocytes # (Manual) Monocytes # (Manual) Eosinophils # (Manual) Basophils # (Manual) Differential Comment Manual Slide Review WBC Morphology Platelet Estimate Platelet Morphology RBC Morph Micro Appear Sodium Potassium Chloride Carbon Dioxide Anion Gap BUN Creatinine Estimated GFR (MDRD) Glucose POC Whole Bld Glucose 128 H Calcium Total Bilirubin AST ALT Alkaline Phosphatase Troponin I < 0.04 Total Protein Albumin Globulin Albumin/Globulin Ratio Lipase Urine Color YELLOW Urine Clarity CLEAR Urine pH 5.0 Ur Specific [place] >=1.030 H Urine Protein NEGATIVE Urine Glucose (UA) NEGATIVE Urine Ketones NEGATIVE Urine Occult Blood NEGATIVE Urine Nitrite NEGATIVE Urine Bilirubin NEGATIVE Urine Urobilinogen 0.2 (NORMAL) Ur Leukocyte Esterase NEGATIVE Ur Microscopic Review NOT INDICATED Urine Culture Comments NOT INDICATED - Rads (name of study) cxr Radiology: Prelim report reviewed, EMP read contemporaneously, See rad report (no acute disease) head CT Radiology: Prelim report reviewed, EMP read contemporaneously, See rad report (No acute intracranial process is identified by noncontrast head CT. 2. Areas of low attenuation in the cerebral hemisphere white matter are nonspecific. Commonly, these are secondary to small vessel ischemic change. A remote lacunar infarct is again seen in the left thalamus 3. Ventricles are at the upper limits of normal relative to sulcal prominence. This could be due to central volume loss or NPH. ) PD MEDICAL DECISION MAKING - ED course Complexity details: reviewed results, re-evaluated patient, considered diff erential, d/w patient, d/w family ED course: 78-year-old female presents with an ongoing headache. Her mental status is not significantly different from normal but does seem to be having significant pain. Was given Imitrex, Compazine and Benadryl. Symptoms resolved. Feels much better. She did have a leukocytosis, possibly secondary to pain? Possibly secondary to vomiting earlier? No evidence of acute bacterial infection that would necessitate antibiotics. We will have her recheck this with her doctor. No further hypoxia after nebulizer treatment. Patient requesting to go home at this time. Patient and family counseled regarding signs and symptoms for which I believe and urgent re-evaluation would be necessary. Patient with good understanding of and agreement to plan and is comfortable going home at this time This document was made in part using voice recognition software. While efforts are made to proofread this document, sound alike and grammatical errors may occur. Departure - Departure Disposition: 01 Home, Self Care Clinical Impression: Headache COPD (chronic obstructive pulmonary disease) Qualifiers: COPD type: unspecified COPD Qualified Code(s): J44.9 - Chronic obstructive pulmonary disease, unspecified Leukocytosis Qualifiers: Leukocytosis type: unspecified Qualified Code(s): D72.829 - Elevated white blood cell count, unspecified Condition: Good Instructions: ED Cephalgia Unspecified Follow-Up: Layne Godinez DO [Primary Care Provider] - Within 1 week Comments: Return if you worsen. Drink plenty of fluids at home. you should have your white blood cell count rechecked with your doctor in 1 week. Discharge Date/Time: 05/31/18 23:45
[2018-05-31 18:52] LABS: ALBUMIN 4.2 g/dL (3.2-5.5); ALBUMIN/GLOBULIN RATIO 1.4 (1.0-2.2); ALKALINE PHOSPHATASE 78 IU/L (42-121); ALT ALANINE AMINOTRANSFERASE < 10 IU/L (10-60); AST ASPARTATE AMINOTRANSFERASE 17 IU/L (10-42); BAND NEUTROPHILS % (MANUAL) 4 %; BILIRUBIN,TOTAL 0.8 mg/dL (0.2-1.0); BUN - BLOOD UREA NITROGEN 19 mg/dL (6-20); CALCIUM 9.9 mg/dL (8.5-10.3); CARBON DIOXIDE - CO2 26 mmol/L (21-32); CHLORIDE 105 mmol/L (101-111); CREATININE 0.8 mg/dL (0.4-1.0); DIFFERENTIAL COMMENT MANUAL DIFFERENTIAL; EOSINOPHILS # (MANUAL) 0.4 10^3/uL (0-0.7); GFR - MDRD 69 (>89); GLUCOSE 131 mg/dL (70-100); LIPASE 40 U/L (22-51); LYMPHOCYTES # (MANUAL) 0.4 10^3/uL (1.5-3.5); LYMPHOCYTES % (MANUAL) 2 %; MONOCYTES # (MANUAL) 1.3 10^3/uL (0.0-1.0); NEUTROPHILS % (MANUAL) 85 %; PLATELET ESTIMATE, MANUAL NORMAL (130-450,000) (NORMAL); PLATELET MORPHOLOGY NORMAL APPEARANCE (NORMAL); RBC MORPHOLOGY (MULTIPLE) NORMAL APPEARANCE (NORMAL); SODIUM 141 mmol/L (135-145); TOTAL PROTEIN 7.2 g/dL (6.7-8.2)
--- NOTE | 2018-05-31 19:17 | XRAY Report ---
Reason: Chest Pain Procedure Date: 05/31/2018 Accession Number: [id number] / [id number] Procedure: XR - Chest 1 View X-Ray CPT Code: 63579 FULL RESULT: EXAM: CHEST RADIOGRAPHY EXAM DATE: 05/31/2018 06:50 PM. CLINICAL HISTORY: Chest Pain. COMPARISON: 05/03/2013. TECHNIQUE: 1 view. FINDINGS: Lungs/Pleura: No focal opacities evident. No pleural effusion. No pneumothorax. Mediastinum: Within exam limitations, the cardiomediastinal contour is normal. Other: None. IMPRESSION: Normal single view chest. RADIA
[2018-05-31 23:10] LABS: BILIRUBIN,URINE NEGATIVE (NEGATIVE); GLUCOSE, URINE (UA) NEGATIVE (NEGATIVE); KETONES,URINE (UA) NEGATIVE (NEGATIVE); LEUKOCYTE ESTERASE, URINE NEGATIVE (NEGATIVE); NITRITE,URINE NEGATIVE (NEGATIVE); OCCULT BLOOD,URINE NEGATIVE (NEGATIVE); PROTEIN,URINE NEGATIVE (NEGATIVE); UROBILINOGEN,URINE 0.2 (NORMAL) E.U./dL (NORMAL)
[2018-05-31 23:11] LABS: CLARITY,URINE CLEAR (CLEAR)
[2018-05-31 23:22] VITALS: BP 102/60
== END 2018-05-31 23:45 | disposition home or self-care (01) ==
LOC: ED 17:47
DX: R51 Headache (principal); J44.9 Chronic obstructive pulmonary disease, unspecified; I10 Essential (primary) hypertension; Z86.73 Personal history of transient ischemic attack (TIA), and cerebral infarction without residual deficits; F17.200 Nicotine dependence, unspecified, uncomplicated
CPT/HCPCS: 36415; 70450; 71045; 80053; 81003; 83690; 84484; 85025; 93005; 94640; 96372; 96374; 96375; 99283; 99285; J1200; 81001; 87086

== ENCOUNTER 2018-06-12 13:30 | Outpatient (CLI) | payer MEDICARE, OTHER ==
[2018-06-12 19:32] LABS: BASOPHILS # (AUTO) 0.3 10^3/uL (0.0-0.1); BASOPHILS % (AUTO) 4.5 %; EOSINOPHILS # (AUTO) 0.3 10^3/uL (0.0-0.7); EOSINOPHILS % (AUTO) 3.5 %; LYMPHOCYTES # (AUTO) 0.9 10^3/uL (1.5-3.5); LYMPHOCYTES % (AUTO) 11.6 %; MEAN CORPUSCULAR HEMOGLOBIN 32.1 pg (27.0-31.0); MEAN CORPUSCULAR HGB CONC 30.9 g/dL (32.0-36.0); MEAN CORPUSCULAR VOLUME 103.9 fL (81.0-99.0); MONOCYTES # (AUTO) 0.7 10^3/uL (0.0-1.0); MONOCYTES % (AUTO) 8.7 %; NEUTROPHILS # (AUTO) 5.4 10^3/uL (1.5-6.6); NEUTROPHILS % (AUTO) 71.7 %; PLT - PLATELET COUNT 481 10^3/uL (130-450); RED BLOOD COUNT 4.36 10^6/uL (4.20-5.40); RED CELL DISTRIBUTION WIDTH 14.9 % (12.0-15.0); WHITE BLOOD COUNT 7.6 x10^3/uL (4.8-10.8)
== END 2018-06-12 13:31 | disposition home or self-care (01) ==
LOC: LAB.WCP 13:30
PROVIDERS: ATTEND Family Medicine
DX: D72.829 Elevated white blood cell count, unspecified (principal)
CPT/HCPCS: 36415; 85025

== ENCOUNTER 2018-06-17 22:14 | Outpatient (CLI) | payer MEDICARE, OTHER | END 2018-06-17 22:15 | disposition critical access hospital (66) | LOC: EMS 22:14 | PROVIDERS: ATTEND Surgery | DX: R51 Headache (principal); R53.1 Weakness | CPT/HCPCS: A0425; A0429 ==

== ENCOUNTER 2018-06-17 22:28 | Observation (INO) | payer MEDICARE, OTHER ==
--- NOTE | 2018-06-17 22:43 | ED Physician Documentation ---
PD HPI FOCAL NEURO - Stated complaint Stated Complaint: L SIDE WEAKNESS - Chief complaint Chief Complaint: Neuro - History obtained from History obtained from: Patient, Family, EMS - History of Present Illness Timing - onset: Enter time (2129), Today Timing - duration: Hours Timing - details: Abrupt onset, Still present Severity of deficit: Severe Weakness: Face, Left Associated symptoms: Headache Contributing factors: negative: Anticoagulated Baseline status: positive: Walker Similar symptoms before: Diagnosis (CVA) Recently seen: Emergency Dept - Additional information Additional information: 78-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 The patient complained of a headache and complained of her brain buzzing. She is transported to the hospital with altered level of consciousness able only to speak 1-2 words. She has a baseline left facial droop and symmetric upper extremity strength and an antalgic gait. She requires a walker for ambulation. The patient has had a headache and similar incident 3 weeks ago. She recovered from this with treatment of the headache. 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 Cardiovascular: Other HEENT: Cataracts - Present Medications Home Medications: Ambulatory Orders Medication Instructions Recorded Confirmed Carbidopa/Levodopa 1 tab PO TIDWM 10/12/16 10/12/16 [Carbidopa-Levodopa 25-100 Tab] Donepezil HCl 10 mg PO DAILY 10/12/16 10/12/16 Acetaminophen 1 - 2 tab PO PRN PRN MDD 3000mg 06/17/18 06/17/18 Lisinopril 20 mg PO DAILY 06/17/18 06/17/18 Melatonin 10 mg PO DAILY PM 06/17/18 06/17/18 amLODIPine [Norvasc] 10 mg PO DAILY 06/17/18 06/17/18 - Allergies Allergies/Adverse Reactions: Allergies Allergy/AdvReac Type Severity Reaction Status Date / Time No Known Drug Allergies Allergy Verified 06/17/18 22:36 - Social History Does the pt smoke?: Yes Smoking Status: Current every day smoker Does the pt drink ETOH?: Yes Does the pt have substance abuse?: No - Immunizations Immunizations are current?: Yes - POLST Patient has POLST: Yes PD ED PE NORMAL - Vitals Vital signs reviewed: Yes (hypertensive ) - General General: No acute distress, Well developed/nourished, Other (78 y/o female with a mild left facial droop is able to get out one word at a time with a lot of effort. Masked facies of parkinsons is present.) - HEENT HEENT: Atraumatic, PERRL, EOMI - Neck Neck: Supple, no meningeal sign, No bony TTP - Cardiac Cardiac: RRR, No murmur - Respiratory Respiratory: No respiratory distress, Clear bilaterally - Abdomen Abdomen: Soft, Non tender - Back Back: No CVA TTP, No spinal TTP - Derm Derm: Normal color, Warm and dry, No rash - Extremities Extremities: No deformity, No edema - Neuro Neuro: Other (There is an obvious aphasia with dysarthria as well and a mild left facial droop. There is general weakness to both upper and lower ext. ) Eye Opening: Spontaneous Motor: Obeys Commands Verbal: Confused GCS Score: 14 - Psych Psych: Normal mood, Other (affect is flat) NIHSS - Time Time: 22:35 - Level of Consciousness Level of consciousness: (0) Alert, Keenly responsive LOC Questions: (1) Answers one Q correctly LOC Commands: (0) Performs both correctly - Gaze Best Gaze: (0) Normal - Visual Visual: (0) No loss - Facial Palsy Facial Palsy: (1) Minor paralysis - Motor Arms (both separate) Motor Arm (right): (0) No drift Motor Arm (left): (0) No drift - Motor Legs (both separate) Motor Leg (right): (2) Some effort against gravity Motor Leg (left): (2) Some effort against gravity - Limb Ataxia Limb Ataxia: (2) Present in 2 limbs - Sensory Sensory: (0) Normal - Best Language Best Language: (2) Severe aphasia - Dysarthria Dysarthria: (2) Severe dysarthria - Extinction and Inattention (formally neg Extinction and inattention: (1) Visual,tactile,auditory,spatial, or personal inattention - Total Score/Results Total Score/Result: 13 Results - Vitals Vitals: Vital Signs - 24 hr 06/17/18 06/17/18 06/17/18 22:31 22:36 23:06 Temperature 36 C L Heart Rate 74 73 71 Respiratory 13 17 19 Rate Blood Pressure 152/87 H 153/87 H 114/65 O2 Saturation 99 100 97 06/17/18 06/18/18 06/18/18 23:30 00:00 00:30 Temperature Heart Rate 70 72 76 Respiratory 18 19 15 Rate Blood Pressure 125/62 132/74 H 124/68 O2 Saturation 96 100 98 06/18/18 06/18/18 06/18/18 01:06 01:30 02:00 Temperature Heart Rate 72 66 70 Respiratory 19 15 17 Rate Blood Pressure 122/68 119/60 130/72 O2 Saturation 96 95 95 06/18/18 06/18/18 02:30 03:00 Temperature Heart Rate 71 69 Respiratory 18 14 Rate Blood Pressure 117/63 126/80 O2 Saturation 95 95 Oxygen O2 Source [] Nasal cannula O2 Source Room air - Labs Labs: Laboratory Tests 06/17/18 06/17/18 06/17/18 22:57 22:57 22:57 WBC 9.5 RBC 4.24 Hgb 13.9 Hct 40.0 MCV 94.5 MCH 32.8 H MCHC 34.7 RDW 13.6 Plt Count 437 MPV 7.5 L Neut # (Auto) 6.8 H Lymph # (Auto) 1.3 L [place] # (Auto) 1.0 Eos # (Auto) 0.3 Baso # (Auto) 0.1 Absolute Nucleated RBC 0.00 Nucleated RBC % 0.0 Sodium 141 Potassium 3.9 Chloride 104 Carbon Dioxide 29 Anion Gap 8.0 BUN 24 H Creatinine 0.7 Estimated GFR (MDRD) 81 L Glucose 112 H Lactic Acid Calcium 9.4 Total Bilirubin 0.8 AST 13 ALT < 10 L Alkaline Phosphatase 70 Troponin I < 0.04 Total Protein 6.6 L Albumin 3.7 Globulin 2.9 Albumin/Globulin Ratio 1.3 Lipase 44 Urine Color Urine Clarity Urine pH Ur Specific [place] Urine Protein Urine Glucose (UA) Urine Ketones Urine Occult Blood Urine Nitrite Urine Bilirubin Urine Urobilinogen Ur Leukocyte Esterase Urine RBC Urine WBC Ur Epithelial Cells Ur Squamous Epith Cells Urine Bacteria Ur Microscopic Review Urine Culture Comments 06/17/18 06/18/18 22:57 02:20 WBC RBC Hgb Hct MCV MCH MCHC RDW Plt Count MPV Neut # (Auto) Lymph # (Auto) [place] # (Auto) Eos # (Auto) Baso # (Auto) Absolute Nucleated RBC Nucleated RBC % Sodium Potassium Chloride Carbon Dioxide Anion Gap BUN Creatinine Estimated GFR (MDRD) Glucose Lactic Acid 1.0 Calcium Total Bilirubin AST ALT Alkaline Phosphatase Troponin I Total Protein Albumin Globulin Albumin/Globulin Ratio Lipase Urine Color YELLOW Urine Clarity HAZY Urine pH 6.0 Ur Specific [place] 1.025 Urine Protein NEGATIVE Urine Glucose (UA) NEGATIVE Urine Ketones NEGATIVE Urine Occult Blood TRACE-INTA Urine Nitrite POSITIVE H Urine Bilirubin NEGATIVE Urine Urobilinogen 0.2 (NORMAL) Ur Leukocyte Esterase TRACE H Urine RBC 6-10 H Urine WBC 11-25 H Ur Epithelial Cells FEW Transitional Ur Squamous Epith Cells FEW Squamous Urine Bacteria Many H Ur Microscopic Review INDICATED Urine Culture Comments INDICATED - Rads (name of study) CT head without Radiology: Prelim report reviewed (Impression: Unchanged head CT with severe white matter changes.), EMP read indepedently, See rad report PD MEDICAL DECISION MAKING - ED course Complexity details: reviewed results, re-evaluated patient, considered differential, d/w patient, d/w family ED course: 78-year-old female arrives to the emergency department unable to speak with a known prior history of hemorrhagic CVA and a chief complaint of headache. CT scan of the head is without of evidence of hemorrhage and on return from the CT scan the patient appears to have recovered some of her speech. She is administered saline and recovers fully. She is found to have urinary tract infection. Dr. Yen is consulted in the case and will evaluate the patient in the emergency department and admit to the hospital for treatment. Departure - Departure Disposition: [facility] DC/Xfer Clinical Impression: TIA (transient ischemic attack), Dehydration UTI (urinary tract infection) Qualifiers: Urinary tract infection type: acute cystitis Hematuria presence: without hematuria Qualified Code(s): N30.00 - Acute cystitis without hematuria Condition: Stable
[2018-06-17 23:11] LABS: BASOPHILS # (AUTO) 0.1 10^3/uL (0.0-0.1); BASOPHILS % (AUTO) 1.1 %; EOSINOPHILS # (AUTO) 0.3 10^3/uL (0.0-0.7); EOSINOPHILS % (AUTO) 3.6 %; HGB - HEMOGLOBIN 13.9 g/dL (12.0-16.0); LYMPHOCYTES # (AUTO) 1.3 10^3/uL (1.5-3.5); LYMPHOCYTES % (AUTO) 13.3 %; MEAN CORPUSCULAR HEMOGLOBIN 32.8 pg (27.0-31.0); MEAN CORPUSCULAR HGB CONC 34.7 g/dL (32.0-36.0); MEAN CORPUSCULAR VOLUME 94.5 fL (81.0-99.0); MEAN PLATELET VOLUME 7.5 fL (7.9-10.8); MONOCYTES % (AUTO) 10.4 %; NEUTROPHILS # (AUTO) 6.8 10^3/uL (1.5-6.6); NEUTROPHILS % (AUTO) 71.6 %; PLT - PLATELET COUNT 437 10^3/uL (130-450); RED BLOOD COUNT 4.24 10^6/uL (4.20-5.40); RED CELL DISTRIBUTION WIDTH 13.6 % (12.0-15.0); WHITE BLOOD COUNT 9.5 x10^3/uL (4.8-10.8)
--- NOTE | 2018-06-17 23:19 | CT Report ---
Reason: Left sided weakness aphasia Procedure Date: 06/17/2018 Accession Number: [id number] / [id number] Procedure: CT - HEAD WO CPT Code: FULL RESULT: EXAM: CT HEAD EXAM DATE: 06/17/2018 10:53 PM. CLINICAL HISTORY: Left sided weakness aphasia. COMPARISON: Head CT 05/31/2018. TECHNIQUE: Multiaxial CT images were obtained from the foramen magnum to the vertex. Reformats: Sagittal and coronal. IV contrast: None. In accordance with CT protocol optimization, one or more of the following dose reduction techniques were utilized for this exam: automated exposure control, adjustment of mA and/or KV based on patient size, or use of iterative reconstructive technique. FINDINGS: Parenchyma: No intraparenchymal hemorrhage. No evidence of mass, midline shift, or CT findings of infarction. No confluent areas of low density involving white matter bilateral cerebral hemispheres. There is a remote left thalamic lacunar infarct. Extraaxial Spaces: Normal for age. No subdural or epidural collections identified. Ventricles: Normal in size and position. Sinuses and Orbits: Imaged paranasal sinuses, orbits, and mastoids show no significant abnormality. Bones: No evidence of fracture or calvarial defect. Other: None. IMPRESSION: Unchanged head CT with severe white matter changes. RADIA
[2018-06-17 23:26] LABS: ALBUMIN 3.7 g/dL (3.2-5.5); ALBUMIN/GLOBULIN RATIO 1.3 (1.0-2.2); ALKALINE PHOSPHATASE 70 IU/L (42-121); ALT ALANINE AMINOTRANSFERASE < 10 IU/L (10-60); AST ASPARTATE AMINOTRANSFERASE 13 IU/L (10-42); BILIRUBIN,TOTAL 0.8 mg/dL (0.2-1.0); BUN - BLOOD UREA NITROGEN 24 mg/dL (6-20); CALCIUM 9.4 mg/dL (8.5-10.3); CARBON DIOXIDE - CO2 29 mmol/L (21-32); CHLORIDE 104 mmol/L (101-111); CREATININE 0.7 mg/dL (0.4-1.0); GFR - MDRD 81 (>89); GLUCOSE 112 mg/dL (70-100); LIPASE 44 U/L (22-51); SODIUM 141 mmol/L (135-145); TOTAL PROTEIN 6.6 g/dL (6.7-8.2)
[2018-06-18] MEDS ORDERED: SODIUM CHLORIDE 0.9% 1,000 ML IV ONE (01:03)
[2018-06-18 02:30] LABS: BILIRUBIN,URINE NEGATIVE (NEGATIVE); GLUCOSE, URINE (UA) NEGATIVE (NEGATIVE); KETONES,URINE (UA) NEGATIVE (NEGATIVE); LEUKOCYTE ESTERASE, URINE TRACE (NEGATIVE); NITRITE,URINE POSITIVE (NEGATIVE); OCCULT BLOOD,URINE TRACE-INTA (NEGATIVE); PROTEIN,URINE NEGATIVE (NEGATIVE); UROBILINOGEN,URINE 0.2 (NORMAL) E.U./dL (NORMAL)
[2018-06-18 02:37] LABS: CLARITY,URINE HAZY (CLEAR)
[2018-06-18 02:38] LABS: BACTERIA,URINE Many /HPF (None Seen); EPITHELIAL CELLS,UR FEW Transitional /HPF (<= Few); SQUAMOUS EPITHELIAL CELL,UR FEW Squamous (<= Few)
[2018-06-18] MEDS ORDERED: HYDROcod/ACETAM 5/325 MG TABLET PO PRN (03:33)
[2018-06-18] MEDS ORDERED: SODIUM CHLORIDE FLUSH 0.9% 10 ML SYRINGE IVP PRN (03:33)
[2018-06-18] MEDS ORDERED: ONDANSETRON 4 MG/2 ML VIAL IVP PRN (03:33)
[2018-06-18] MEDS ORDERED: ONDANSETRON ODT 4 MG TABLET TL PRN (03:33)
--- NOTE | 2018-06-18 03:50 | HISTORY & PHYSICAL EXAMINATION ---
Chief Complaint - Chief Complaint Chief Complaint: Speech difficulties with BLLE weakness L>R Stroke/TIA/Neuro Template - Admitted From Admitted from: ED - History Obtained From Records Reviewed: RN notes reviewed, Old records reviewed History obtained from: Patient, Family Exam limitations: Other (dementia with Parkinsons/Alzheimers prior stroke) - History of Present Illness Symptom Quality: reports: Facial droop, Slurred speech, Expressive aphasia Context- Symptoms started w/: reports: Unknown Timing: reports: Gradual onset Worsened by: reports: Nothing Associated symptoms: reports: General Weakness HPI Comment/Other: 78-year-old female with a 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 The patient complained of a headache and complained of her brain buzzing. She is transported to the hospital with altered level of consciousness able only to speak 1-2 words. She has a baseline left facial droop (hx brunner's palsy) and symmetric upper extremity strength and an antalgic gait with some residual left sided weakness from prior presumed right hemorrhagic stroke for which she is not on any anti-platelet tx. She requires a walker for ambulation. The patient has had a headache and similar incident 3 weeks ago. She recovered from this with treatment of the headache. On the initial exam patient had imporved word finding and expressive aphasia with almost complete resolution with existing left sided weakness. VSS with no fevers and labs showed CBC and BMP normal with prior ecg on 05/31 showing NSR withlateral ischemia and T-wave abn, trop x1 neg, CT head showed severe encephalomalacia with BL small vessel ischemia along with a remote "old" left thalamic stroke. Patient's initial GCS was 14. Patient's UA showed pyuria with LE+/Nit+ w/o any other symptoms. PMH/PSH - Past Medical History Cardiovascular: positive: Hypertension Respiratory: positive: COPD Neuro: positive: Alzhiemer's, Dementia, CVA, Headaches, Migraines, Parkinson's Endocrine/Autoimmune: positive: None GI: positive: GERD : positive: None HEENT: positive: None Psych: positive: Depression Musculoskeletal: positive: Osteoarthritis Derm: positive: None MRSA Hx?: No - Past Surgical History Ortho: positive: Other /SUTURE WINDER HAND: positive: Hysterectomy Cardiovascular: positive: Other HEENT: positive: Cataracts Social & Family Hx - Social History Does the pt smoke?: Yes Smoking Status: Current every day smoker Does the pt drink ETOH?: Yes Does the pt have substance abuse?: No - POLST Patient has POLST: Yes POLST Status: Full Code (POLST was updated in [place] when she had hemorrhagic CVA in 09/06) Meds/Allgy - Home Medications Home Medications: Ambulatory Orders Medication Instructions Recorded Confirmed Carbidopa/Levodopa 1 tab PO TIDWM 10/12/16 10/12/16 [Carbidopa-Levodopa 25-100 Tab] Donepezil HCl 10 mg PO DAILY 10/12/16 10/12/16 Acetaminophen 1 - 2 tab PO PRN PRN MDD 3000mg 06/17/18 06/17/18 Lisinopril 20 mg PO DAILY 06/17/18 06/17/18 Melatonin 10 mg PO DAILY PM 06/17/18 06/17/18 amLODIPine [Norvasc] 10 mg PO DAILY 06/17/18 06/17/18 - Allergies Allergies/Adverse Reactions: Allergies Allergy/AdvReac Type Severity Reaction Status Date / Time No Known Drug Allergies Allergy Verified 06/17/18 22:36 Review of Systems - Constitutional Constitutional: reports: Weakness - Eyes Eyes: denies: Blurred vision - Ears, Nose & Throat Ears, Nose & Throat: denies: Tinnitus, Vertigo - Cardiovascular Cariovascular: reports: Lightheadedness, Syncope, Decr. exercise tolerance. denies: Irregular heart rate, Palpitations, Chest pain, Edema, Exertional dyspnea, Orthopnea - Respiratory Respiratory: denies: Cough, Sputum production, SOB at rest, SOB with exertion - Gastrointestinal Gastrointestinal: denies: Abdominal pain, Abdominal distention, Constipation, Diarrhea, Nausea, Vomiting, Rogelio blood emesis, Coffee grounds emesis, Reflux/h eartburn, Poor appetite - Genitourinary Genitourinary: reports: Frequency, Urgency, Nocturia. denies: Dysuria, Incontinence, Flank pain - Musculoskeletal Musculoskeletal: denies: Muscle pain, Back pain, Stiffness, Muscle weakness, Gout, Joint swelling - Integumentary Integumentary: denies: Rash, Lesions - Neurological Neurological: reports: Focal weakness, Headache, Memory problems, Pre-existing deficit, Abnormal gait, Incoordination, Slurred speech. denies: Dizziness, Seizures - Psychiatric Psychiatric: reports: Depression - Endocrine Endocrine: reports: Polyuria. denies: Polydypsia, Polyphagia, Intolerance to cold, Intolerance to heat - Hematologic/Lymphatic Hematologic/Lymphatic: reports: Recurrent infections. denies: Blood clots - All Other Systems All Other Systems: reports: Reviewed and negative Prior Level of Functionality: Patient ambulates by way of walker with antalgic gait prior left sided weakness Exam - Vital Signs Reviewed Vital Signs: Yes Vital Signs: Vital Signs x48h Temp Pulse Resp BP Pulse Ox 06/18/18 03:30 84 17 136/70 H 93 06/18/18 03:00 69 14 126/80 95 06/18/18 02:30 71 18 117/63 95 06/18/18 02:00 70 17 130/72 95 06/18/18 01:30 66 15 119/60 95 06/18/18 01:06 72 19 122/68 96 06/18/18 00:30 76 15 124/68 98 06/18/18 00:00 72 19 132/74 H 100 06/17/18 23:30 70 18 125/62 96 06/17/18 23:06 71 19 114/65 97 06/17/18 22:36 73 17 153/87 H 100 06/17/18 22:31 36 C L 74 13 152/87 H 99 - Physical Exam General Appearance: positive: No acute distress, Alert, Other (baseline dementia with some memory deficits) Eyes Bilateral: positive: Normal inspection, PERRL, EOMI, Conjunctivae nml ENT: positive: ENT inspection nml, Pharynx nml, Dry mucous membranes Neck: positive: Nml inspection, Thyroid nml, No JVD, Trachea midline. negative: Thyromegaly Respiratory: positive: Chest non-tender, No respiratory distress, Breath sounds nml Cardiovascular: positive: Regular rate & rhythm, No murmur, No gallop. negative: Irregularly irregular, JVD present, Systolic murmur, Gallop/S4, Friction rub Peripheral Pulses: positive: 2+ Abdomen: positive: Non-tender, No organomegaly, Nml bowel sounds, No distention Back: positive: Nml inspection Skin: positive: Color nml, No rash, Warm Extremities: positive: Non-tender, Full ROM, Nml appearance, No pedal edema Neurologic/Psychiatric: positive: Oriented x3, CN's nml (2-12), Sensation nml, Mood/affect nml, Weakness (Left LE decreased strength on PROM/AROM compared to RLE. Decreased dorsi/plantar flexion LLE>RLE. Bilateral low pressure firer strength to BUE good.), Facial droop, Slurred/abnml speech, Other (minimal dysarthria) Reflexes: Bicep (R): 2+, Bicep (L): 2+, Knee (R): 2+, Knee (L): 2+, Ankle (R): 2+, Ankle (L): 2+ Babinski Reflex: Right: Absent, Left: Absent Results - Lab Results Lab results reviewed: Yes Fish Bones: 06/17/18 22:57 06/17/18 22:57 Other Lab Results: Lab Results x24hrs 06/18/18 06/17/18 06/17/18 Range/Units 02:20 22:57 22:57 WBC (4.8-10.8) x10^3/uL RBC (4.20-5.40) 10^6/uL Hgb (12.0-16.0) g/dL Hct (37.0-47.0) % MCV (81.0-99.0) fL MCH (27.0-31.0) pg MCHC (32.0-36.0) g/dL RDW (12.0-15.0) % Plt Count (130-450) 10^3/uL MPV (7.9-10.8) fL Neut # (Auto) (1.5-6.6) 10^3/uL Lymph # (Auto) (1.5-3.5) 10^3/uL [place] # (Auto) (0.0-1.0) 10^3/uL Eos # (Auto) (0.0-0.7) 10^3/uL Baso # (Auto) (0.0-0.1) 10^3/uL Absolute Nucleated RBC x10^3/uL Nucleated RBC % /100WBC Sodium (135-145) mmol/L Potassium (3.5-5.0) mmol/L Chloride (101-111) mmol/L Carbon Dioxide (21-32) mmol/L Anion Gap (6-13) BUN (6-20) mg/dL Creatinine (0.4-1.0) mg/dL Estimated GFR (MDRD) (>89) Glucose (70-100) mg/dL Lactic Acid 1.0 (0.5-2.2) mmol/L Calcium (8.5-10.3) mg/dL Total Bilirubin (0.2-1.0) mg/dL AST (10-42) IU/L ALT (10-60) IU/L Alkaline Phosphatase (42-121) IU/L Troponin I < 0.04 (<0.49) ng/mL Total Protein (6.7-8.2) g/dL Albumin (3.2-5.5) g/dL Globulin (2.1-4.2) g/dL Albumin/Globulin Ratio (1.0-2.2) Lipase (22-51) U/L Urine Color YELLOW Urine Clarity HAZY (CLEAR) Urine pH 6.0 (5.0-7.5) PH Ur Specific [place] 1.025 (1.002-1.030) Urine Protein NEGATIVE (NEGATIVE) mg/dL Urine Glucose (UA) NEGATIVE (NEGATIVE) mg/dL Urine Ketones NEGATIVE (NEGATIVE) mg/dL Urine Occult Blood TRACE-INTA (NEGATIVE) Urine Nitrite POSITIVE H (NEGATIVE) Urine Bilirubin NEGATIVE (NEGATIVE) Urine Urobilinogen 0.2 (NORMAL) (NORMAL) E.U./dL Ur Leukocyte Esterase TRACE H (NEGATIVE) Urine RBC 6-10 H (0-5) /HPF Urine WBC 11-25 H (0-5) /HPF Ur Epithelial Cells FEW Transitional (<= Few) /HPF Ur Squamous Epith Cells FEW Squamous (<= Few) Urine Bacteria Many H (None Seen) /HPF Ur Microscopic Review INDICATED Urine Culture Comments INDICATED 06/17/18 06/17/18 Range/Units 22:57 22:57 WBC 9.5 (4.8-10.8) x10^3/uL RBC 4.24 (4.20-5.40) 10^6/uL Hgb 13.9 (12.0-16.0) g/dL Hct 40.0 (37.0-47.0) % MCV 94.5 (81.0-99.0) fL MCH 32.8 H (27.0-31.0) pg MCHC 34.7 (32.0-36.0) g/dL RDW 13.6 (12.0-15.0) % Plt Count 437 (130-450) 10^3/uL MPV 7.5 L (7.9-10.8) fL Neut # (Auto) 6.8 H (1.5-6.6) 10^3/uL Lymph # (Auto) 1.3 L (1.5-3.5) 10^3/uL [place] # (Auto) 1.0 (0.0-1.0) 10^3/uL Eos # (Auto) 0.3 (0.0-0.7) 10^3/uL Baso # (Auto) 0.1 (0.0-0.1) 10^3/uL Absolute Nucleated RBC 0.00 x10^3/uL Nucleated RBC % 0.0 /100WBC Sodium 141 (135-145) mmol/L Potassium 3.9 (3.5-5.0) mmol/L Chloride 104 (101-111) mmol/L Carbon Dioxide 29 (21-32) mmol/L Anion Gap 8.0 (6-13) BUN 24 H (6-20) mg/dL Creatinine 0.7 (0.4-1.0) mg/dL Estimated GFR (MDRD) 81 L (>89) Glucose 112 H (70-100) mg/dL Lactic Acid (0.5-2.2) mmol/L Calcium 9.4 (8.5-10.3) mg/dL Total Bilirubin 0.8 (0.2-1.0) mg/dL AST 13 (10-42) IU/L ALT < 10 L (10-60) IU/L Alkaline Phosphatase 70 (42-121) IU/L Troponin I (<0.49) ng/mL Total Protein 6.6 L (6.7-8.2) g/dL Albumin 3.7 (3.2-5.5) g/dL Globulin 2.9 (2.1-4.2) g/dL Albumin/Globulin Ratio 1.3 (1.0-2.2) Lipase 44 (22-51) U/L Urine Color Urine Clarity (CLEAR) Urine pH (5.0-7.5) PH Ur Specific [place] (1.002-1.030) Urine Protein (NEGATIVE) mg/dL Urine Glucose (UA) (NEGATIVE) mg/dL Urine Ketones (NEGATIVE) mg/dL Urine Occult Blood (NEGATIVE) Urine Nitrite (NEGATIVE) Urine Bilirubin (NEGATIVE) Urine Urobilinogen (NORMAL) E.U./dL Ur Leukocyte Esterase (NEGATIVE) Urine RBC (0-5) /HPF Urine WBC (0-5) /HPF Ur Epithelial Cells (<= Few) /HPF Ur Squamous Epith Cells (<= Few) Urine Bacteria (None Seen) /HPF Ur Microscopic Review Urine Culture Comments - Diagnostic Imaging Results Diagnostic Imaging Results: positive: Final report reviewed (CT head reviewed) - EKG Results EKG Interpreted Independently: Yes EKG Comparison: positive: Other (prior ECG shows t-wave abn with lateral ischemia NSR.) Impression/Plan - Problem List Problem List: 1. TIA 2. Hx hemorrhagic CVA with left sided residual deficits 3. Dysarthria sec to ischemic CVA vs TIA; resolving 4. Asymptomatic UTI 5. Acute mild dehydration 6. Parkisons associated autonomic dysfunction vs orthostatic (drug-induced?) hypotension 7. Generalized weakness secondary to above 8. Advanced care planning and counseling Plan: Admit to obs/tele. Neurochecks q shift. BP parameters in the setting of an ischemic CVA with coverage with IV labetalol to tx only if SBP>220 or DBP>120 to HOLD off on BP meds for now; lisinopril/norvasc to avoid precipitous drops or "watershed" infarcts. Concern for patient's possible drug-induced orthostatic hypotension vs autonomic dysfunction associated with her PD for which review of her VS previously show some "labile" BP's. Would perform orhtostats to evaluate for this. ST for eval on food consistency and possible oropharyngeal dysphasia, however no mention of coughing or choking on food, elevate bed and aspiration precautions. Hx prior UTI's with a positive ESBL positive UTI in past, would place on contact precautions for now, however no treatment indicated for a symptomatic UTI. Would obtain UCx ID and sensitivities prior to initiating abx treatment. Aricept and sinemet to continue. Check TSH, mag levels. Blood cultures drawn in ED. Lipid panel in am. Initiate mod-high intensity statin if indicated. No ASA/plavix due to hx of hemorrhagic CVA. Prior ECHO shows a grade 2 Diastolic dysfunction with p-EF of 65% om 05/04/13. MRI in am. Nicotine replacement tx, encourage smoking cessation. DVT ppx with SCD's only to avoid lovenox/heparin. GI ppx with H2 dana. Advanced Care planning and counseling: Patient's medical conditions have been discussed to include symptoms mgmt, complications and trajectory of illness with focus on plan of care. POLST in [employer] shows a DNR in 2013 however, the patient reverted her POLST when she had her hemorrhagic CVA 2015 for which she is now a FULL code. Would need to update POLST on [employer] on this admission. Patient was educated and counseled on the delirious effects to her health with continued tobacco use as this directly impacts her COPD/prior hx CVA's (hemorrhagic and ischemic). Code status: Full code Core Measures - Anticipated LOS I expect patient to be DC'd or transferred within 96 hours.: Yes - Issues Hospital Issues and Management Plan: Neurological monitoring, PT/ST, medical mgmt - DVT/VTE - Prophylaxis VTE/DVT Device ordered at admit?: Yes VTE/DVT Prophylaxis med ordered at admit?: No Not Ordered - Medical Reason: Contraindicated (hx hemorrhagic CVA) - Stroke - Rehab Assessment Rehab services assessment to be ordered?: Yes - AMI - Statin at Admit Aspirin Prescribed on Admit: No Not Ordered - Medical Reason: Contraindicated (Hx hemorrhagic CVA. Statin indicated)
[2018-06-18] MEDS ORDERED: LABETALOL 20 MG/4 ML SYRINGE IVP PRN (03:52)
[2018-06-18] MEDS ORDERED: SODIUM CHLORIDE 0.9% 1,000 ML IV SCH (04:00)
[2018-06-18] MEDS: NICOTINE 14 MG PATCH TOP STA ×2 (05:05→10:40)
[2018-06-18 06:03] LABS: CHOL/HDL RATIO 3.2 (<4.4); CHOLESTEROL 167 mg/dL; HDL CHOLESTEROL 52 mg/dL; LDL CHOLESTEROL,CALCULATED 97 mg/dL; LDL/HDL RATIO 1.9 (<4.4); VLDL CHOLESTEROL 18 mg/dL
[2018-06-18] MEDS: CARBIDOPA/LEVODOPA 25 MG/100 MG TABLET PO SCH ×2 (08:46→12:36)
[2018-06-18] MEDS ORDERED: POLYETHYLENE GLYCOL 3350 17 GM PACKET PO SCH (09:00)
[2018-06-18] MEDS ORDERED: SODIUM CHLORIDE FLUSH 0.9% 10 ML SYRINGE IVP SCH (09:00)
[2018-06-18] MEDS ORDERED: DONEPEZIL 5 MG TABLET PO SCH (09:00)
[2018-06-18] MEDS ORDERED: FAMOTIDINE 20 MG TABLET PO SCH (09:00)
--- NOTE | 2018-06-18 13:33 | MRI Report ---
Reason: aphasia with weakness to left Procedure Date: 06/18/2018 Accession Number: [id number] / [id number] Procedure: MRI - Brain W/O CPT Code: FULL RESULT: EXAM: MRI BRAIN WITHOUT CONTRAST EXAM DATE: 06/18/2018 11:18 AM. CLINICAL HISTORY: Aphasia with weakness to left. COMPARISON: MRI of the brain 05/10/2013. TECHNIQUE: Multiplanar, multisequence T1-weighted and fluid-sensitive MR sequences of the brain were performed. Sequences optimized for routine evaluation. Other: None. IV Contrast: None. FINDINGS: Significantly motion limited study. Nondiagnostic fat-suppressed coronal T2-weighted sequence. Moderate to severe motion artifact on the axial T2-weighted sequence and axial T2 FLAIR sequence. Moderately prominent motion artifact also on the axial gradient echo sequence. Mild to moderate diffuse atrophy. Again seen are findings of severe and extensive bilateral cerebral white matter disease. Allowing for considerable motion artifact, these findings are similar to prior. There is no clearly defined restricted diffusion with ADC map hypointensity. There are a few regions of amorphous white matter diffusion hyperintensity that may represent T2 shine-through from post-ischemic gliosis. Again seen are findings of chronic right temporal lobe encephalomalacia and gliosis with chronic hemosiderin staining from previous hemorrhage or hemorrhagic infarct. There is also a smaller region of gradient echo hypointensity in the inferior medial right cerebellum and in the brainstem, also consistent with findings of previous hemorrhage. Chronic-appearing micro hemorrhages are also suggested in the left posterior parietal region. These foci of gradient echo hypointensity are new, but more likely chronic than acute, though evaluation of the brain is limited by motion artifact on this study. Probably improved sinusitis. IMPRESSION: 1. Significantly motion limited. 2. No definite evidence for acute intracranial abnormality. 3. Extensive chronic-appearing changes of ischemic brain disease. 4. Multiple chronic-appearing foci of gradient echo hypointensity consistent with multiple foci of chronic hemorrhage. 5. If there is additional concern for new or progressive ischemic brain disease, brain MRI follow-up could be considered, preferably when the patient is able to remain still and cooperate with the study. RADIA
--- NOTE | 2018-06-18 16:10 | Discharge Plan ---
Discharge Plan Disposition: Home Health Service Condition: Stable Prescriptions: Atorvastatin [Lipitor] 10 mg PO DAILY #30 tablet Diet: Low Sodium Activity Restrictions: Activity as Tolerated Shower Restrictions: No Driving Restrictions: Yes (no driving) Assistance Devices: Walker Instruction Topics: TIA Additional Instructions or Follow Up instructions: You were admitted to the hospital because, while sitting on the toilet, you slumped forward and were unable to speak. Her speech was garbled, you were only able to say 1 or 2 words. You already have a baseline loss of neurologic function because of your Brunner's palsy, and her history of hemorrhagic stroke. Your daughter wanted to make sure you are not having another stroke. Repeat CAT scan shows the same severe loss of brain tissue from your previous strokes, blocked blood vessels from aging, but no new stroke. You also continue to have chronic changes of white cells and bacteria in your urine but no other symptoms. For instance you did not have a fever or a white cell count. After observation overnight, your blood pressure remained stable. Your exam remained stable. We were hoping to do an MRI of your head but unfortunately that was not able to be done. Since you are back to baseline, we feel that you can be safely discharged home. The only new medicine we are starting is something called atorvastatin. In people who are at risk for stroke it reduces the risk of stroke. The only other medicine we can give you is a blood thinner but that is contraindicated because of previous history of hemorrhagic stroke. Please make an appointment to see your primary care provider, Paty Godinez in the next 1-2 weeks. No Smoking: If you smoke, Please STOP! Call for help. Follow-up with: Layne Godinez DO [Primary Care Provider] -
--- NOTE | 2018-06-18 16:18 | ADVANCE CARE PLANNING NOTE ---
Advance Care Planning - Date/Time Date: 06/18/18 Time: 16:16 - Purpose of encounter Text: To establish goals of care in a patient with known residual from stroke, Parkinson's disease, and depression - Parties in attendance Parties in attendance: Patient, daughter, and hospitalist - Decisional capacity Decisional capacity of: Patient is impaired. She is reliving things that happened to her in her college/sorority days. She is also reliving infidelities on her part and transitions from 40 years ago to today an instant - Subjective/Patient's story Subjective/Patient's story: As far she is concerned she is a very healthy person who has had the unfortunate circumstances of having a stroke. She said that the last time she was happy with when she was in her sorority. But again, she confuses events from her sorority days where there was the normal happenstance as of dating, girlfriend fights, with something that happened a year ago. The patient describes betrayal. People not being friends with her anymore and being "fake". Daughter says she is does that often. She really of things that happened in college as if they just happen last week we will get very emotional and tearful. In describing her life as she deals with her stroke, and Parkinson's, and being dependent on her daughter for all of her activities of daily living, she says that she is never really thought about her deterioration, or what the future may bring. At this time she does live with her daughter. Daughter states that as long as mom can stand to transfer, and walk a few steps, she can take care of her. But if mom were ever to become bedbound, not be able to get out of bed and require 24/7 care, she could not do it. She would have to be placed in a prison facility. Ms. Joseph then states that she would never want to live in a prison facility. She also states that she does not want to live beyond which she is already experiencing. She wants to be made as comfortable as possible if the end is, and not to be resuscitated. 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 The patient complained of a headache and complained of her brain buzzing. She is transported to the hospital with altered level of consciousness able only to speak 1-2 words. She has a baseline left facial droop (hx brunner's palsy) and symmetric upper extremity strength and an antalgic gait with some residual left sided weakness from prior presumed right hemorrhagic stroke for which she is not on any anti-platelet tx. She requires a walker for ambulation. The patient has had a headache and similar incident 3 weeks ago. She recovered from this with treatment of the headache. On the initial exam patient had imporved word finding and expressive aphasia with almost complete resolution with existing left sided weakness. VSS with no fevers and labs showed CBC and BMP normal with prior ecg on 05/31 showing NSR withlateral ischemia and T-wave abn, trop x1 neg, CT head showed severe encephalomalacia with BL small vessel ischemia along with a remote "old" left thalamic stroke. Patient's initial GCS was 14. Patient's UA showed pyuria with LE+/Nit+ w/o any other symptoms. PMH/PSH - Past Medical History Cardiovascular: positive: Hypertension Respiratory: positive: COPD Neuro: positive: Alzhiemer's, Dementia, CVA, Headaches, Migraines, Parkinson's Endocrine/Autoimmune: positive: None GI: positive: GERD : positive: None HEENT: positive: None Psych: positive: Depression Musculoskeletal: positive: Osteoarthritis Derm: positive: None MRSA Hx?: No - Past Surgical History Ortho: positive: Other /[employer]: positive: Hysterectomy Cardiovascular: positive: Other HEENT: positive: Cataracts She has been in normal sinus rhythm on telemetry. Blood pressure has been stable. CT of the head is negative as a CT angiograms for acute intracranial event. She has chronic encephalomalacia, chronic ischemic changes from previous strokes and events. Nothing acute. She was unable to do the MRI because of body movement. - Goals of Care Goals of care determinations: While she wants everything done if there is a reversible treatable problem (hip fracture, GI bleed, urinary tract infection, pneumonia, etc., etc., she does not want to be kept alive if she is completely bedbound, and having to go live in a fdc. - Plan Plan: Return to home to live with her daughter. DO NOT RESUSCITATE status established Home health to improve some of her endurance and strength Recommend palliative care consultation - Time Spent on Advance Care Planning Time spent on advance care plannin minutes
[2018-06-18 16:26] VITALS: BP 123/70
--- NOTE | 2018-06-22 11:51 | DISCHARGE SUMMARY ---
Physician: Laquita Pérez MD DATE OF ADMISSION: 06/18/2018 DATE OF DISCHARGE: 06/18/2018 DISCHARGE DIAGNOSES 1. Transient ischemic attack. 2. 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 3. 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 4. Asymptomatic urinary tract infection. 5. Chronic kidney insufficiency secondary to #6. 6. Dehydration. 7. 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 8. Generalized weakness. DISCHARGE MEDICATIONS 1. Acetaminophen 500 mg 1-2 tablets daily as needed for headache or pain. 2. Amlodipine 10 mg daily. 3. Carbidopa/levodopa 25/10, one p.o. t.i.d. with meals. 4. Donepezil 10 mg daily. 5. Lisinopril 20 mg daily. 6. Melatonin 10 mg daily. 7. Lipitor 10 mg daily. HISTORY OF PRESENT ILLNESS: The patient is an unfortunate female who has dementia, and residuals of Brunner's palsy, previous hemorrhagic and previous acute ischemic strokes. This has left her with resid ual aphasia, dysarthria, left-sided weakness, left facial droop. Her daughter lives with her, helps take care of her. She was sitting on the toilet when she suddenly lost consciousness, and when she a woke was more confused than usual, with only one or two word sentences. She was brought to the emergency room where she was afebrile, mildly hypertensive at 152/87. Otherwi se normal vital signs. She did have the word finding difficulty and dysarthria, the left facial droo p, the left body weakness. She was found to have normal labs other than acute kidney insufficiency w ith dehydration, and an asymptomatic UTI where she has a history of chronic UTIs. The patient was placed in observation. Overnight monitored. No telemetry arrhythmias. Echocardiogr am was not repeated because she had a recent echocardiogram in the last year. MRI was attempted to b e done from the head CT in the ER, but could not be completed because of motion artifact. By the roxane e all of this was done, the patient was felt to be back at baseline. Advanced care planning conversation was held with the family. This patient wished to be a FULL CODE. After discussing her quality of life, deficits, she wanted everything done if there was a reversibl e or treatable problems such as a hip fracture, GI bleed, UTI, pneumonia, etc., but if the event that she was coming in for was going to result in significant deficit to which her current status was, viral cunningham did not want to be kept alive. In other words, she still has the ability to get out of bed sometim es, interact with family and be taken out for lunch, but if her illness resulted in permanent bedboun d status, she does not want us to keep her alive, and does not want to be resuscitated or treated. S he never wants to go to a usp. Since she was back to baseline, MRI was equivocal, the patient was treated as possible TIA with ische phylicia. Started on a statin. She is not a candidate for antiplatelet because of previous history of he morrhage. PHYSICAL EXAMINATION VITAL SIGNS: At discharge, temperature was 36.5, pulse 67, blood pressure 123/70, respirations 18, 9 8% on room air. HEENT: A left facial droop, dysarthria. NECK: No carotid bruits. CARDIAC: Soft systolic murmur was regular rate and rhythm, and a left body weakness was present at d ischarge. She is a 1-person assist to be able to sit up to transfer and walk 1 to 2 steps with a walker, but viral cunningham is able to feed herself, and with help, dress herself. She is asked to follow up with her primary care provider in followup. TD: 06/22/2018 11:34
== END 2018-06-18 16:45 | disposition home health service (06) ==
LOC: EDUNIT# → ED 22:28 → OBS 06-18 03:33
PROVIDERS: ADMIT Family Medicine; ATTEND Family Medicine
DX: G45.9 Transient cerebral ischemic attack, unspecified (principal); R29.810 Facial weakness; N39.0 Urinary tract infection, site not specified; G20 Parkinson's disease; G30.9 Alzheimer's disease, unspecified; F02.80 Dementia in other diseases classified elsewhere, unspecified severity, without behavioral disturbance, psychotic disturbance, mood disturbance, and anxiety; I95.89 Other hypotension; R53.1 Weakness; E86.0 Dehydration; N28.9 Disorder of kidney and ureter, unspecified; I10 Essential (primary) hypertension; K21.9 Gastro-esophageal reflux disease without esophagitis; J44.9 Chronic obstructive pulmonary disease, unspecified; F32.9 Major depressive disorder, single episode, unspecified; F17.200 Nicotine dependence, unspecified, uncomplicated; I69.398 Other sequelae of cerebral infarction; G93.89 Other specified disorders of brain; G43.909 Migraine, unspecified, not intractable, without status migrainosus; R35.0 Frequency of micturition; R39.15 Urgency of urination; R35.1 Nocturia; R35.8 Other polyuria; M19.90 Unspecified osteoarthritis, unspecified site; R29.713 NIHSS score 13; Z87.440 Personal history of urinary (tract) infections; Z86.69 Personal history of other diseases of the nervous system and sense organs
CPT/HCPCS: 36415; 51798; 70450; 70551; 80053; 80061; 81001; 83605; 83690; 84443; 84484; 85025; 87040; 87086; 87181; 93005; 96360; 96361; 97116; 97161; 99285; A9270; G0378; 80320; 81003; 83721

== ENCOUNTER 2018-08-22 11:54 | Outpatient (CLI) | payer MEDICARE, OTHER | END 2018-08-22 11:55 | disposition critical access hospital (66) | LOC: EMS 11:54 | PROVIDERS: ATTEND Surgery | DX: R11.2 Nausea with vomiting, unspecified (principal); R53.1 Weakness | CPT/HCPCS: A0425; A0427 ==

== ENCOUNTER 2018-08-22 12:30 | Emergency (ER) | payer MEDICARE, OTHER ==
[2018-08-22 13:13] LABS: BASOPHILS # (AUTO) 0.1 10^3/uL (0.0-0.1); BASOPHILS % (AUTO) 1.1 %; EOSINOPHILS # (AUTO) 0.5 10^3/uL (0.0-0.7); EOSINOPHILS % (AUTO) 5.6 %; HGB - HEMOGLOBIN 14.3 g/dL (12.0-16.0); LYMPHOCYTES # (AUTO) 1.6 10^3/uL (1.5-3.5); MEAN CORPUSCULAR HEMOGLOBIN 31.6 pg (27.0-31.0); MEAN CORPUSCULAR HGB CONC 33.5 g/dL (32.0-36.0); MEAN CORPUSCULAR VOLUME 94.2 fL (81.0-99.0); MEAN PLATELET VOLUME 7.6 fL (7.9-10.8); MONOCYTES # (AUTO) 1.1 10^3/uL (0.0-1.0); MONOCYTES % (AUTO) 13.3 %; NEUTROPHILS # (AUTO) 5.2 10^3/uL (1.5-6.6); PLT - PLATELET COUNT 349 10^3/uL (130-450); RED BLOOD COUNT 4.53 10^6/uL (4.20-5.40); RED CELL DISTRIBUTION WIDTH 13.4 % (12.0-15.0); WHITE BLOOD COUNT 8.6 x10^3/uL (4.8-10.8)
[2018-08-22 13:16] LABS: ALBUMIN 3.7 g/dL (3.2-5.5); ALBUMIN/GLOBULIN RATIO 1.5 (1.0-2.2); ALKALINE PHOSPHATASE 68 IU/L (42-121); ALT ALANINE AMINOTRANSFERASE < 10 IU/L (10-60); AST ASPARTATE AMINOTRANSFERASE 14 IU/L (10-42); BILIRUBIN,TOTAL 0.5 mg/dL (0.2-1.0); BUN - BLOOD UREA NITROGEN 16 mg/dL (6-20); CARBON DIOXIDE - CO2 29 mmol/L (21-32); CHLORIDE 101 mmol/L (101-111); CREATININE 0.6 mg/dL (0.4-1.0); GFR - MDRD 96 (>89); GLUCOSE 96 mg/dL (70-100); LIPASE 42 U/L (22-51); SODIUM 139 mmol/L (135-145); TOTAL PROTEIN 6.1 g/dL (6.7-8.2)
--- NOTE | 2018-08-22 13:38 | ED Physician Documentation ---
PD HPI NVD - Stated complaint Stated Complaint: N/V/WEAK - Chief complaint Chief Complaint: Abd Pain - History obtained from History obtained from: Patient, Family, EMS - History of Present Illness Timing - onset: Today Timing - duration: Hours Timing - details: Abrupt onset, Now resolved Associated symptoms: Abdominal pain, Other (headache head injury) Improved by: Laying still Similar symptoms before: Diagnosis (TIA, dehydration, UTI) Recently seen: Admitted - Additonal information Additional information: 78-year-old female with a prior history of CVA has developed some nausea today and she was sitting in her wheelchair and fell backwards striking the back of her head against the wall. She began vomiting following that. The family has brought her here to the emergency department now for evaluation. She does have a history of Parkinson's disease she has taken her medications this morning and her [place] is improved after receiving zofran en-route. She feels that she does not need to be here now. Review of Systems Constitutional: denies: Fever, Chills, Myalgias Eyes: denies: Decreased vision Ears: denies: Loss of hearing, Ear pain Nose: denies: Rhinorrhea / runny nose, Congestion Throat: denies: Sore throat Cardiac: denies: Chest pain / pressure, Palpitations Respiratory: denies: Dyspnea, Cough GI: reports: Abdominal Pain, Nausea, Vomiting : denies: Dysuria, Frequency Skin: denies: Rash Musculoskeletal: denies: Neck pain, Back pain, Extremity pain Neurologic: reports: Headache, Head injury. 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 Cardiovascular: Other HEENT: Cataracts - Present Medications Home Medications: Ambulatory Orders Medication Instructions Recorded Confirmed Carbidopa/Levodopa 1 tab PO TIDWM 10/12/16 06/18/18 [Carbidopa-Levodopa 25-100 Tab] Donepezil HCl 10 mg PO DAILY 10/12/16 06/18/18 Acetaminophen 1 - 2 tab PO PRN PRN MDD 3000mg 06/17/18 06/17/18 Lisinopril 20 mg PO DAILY 06/17/18 06/17/18 Melatonin 10 mg PO DAILY PM 06/17/18 06/17/18 amLODIPine [Norvasc] 10 mg PO DAILY 06/17/18 06/17/18 Atorvastatin [Lipitor] 10 mg PO DAILY #30 tablet 06/18/18 Nitrofurantoin Monohyd/M-Cryst 100 mg PO BID #14 capsule 08/22/18 [Macrobid 100 mg Capsule] - Allergies Allergies/Adverse Reactions: Allergies Allergy/AdvReac Type Severity Reaction Status Date / Time No Known Drug Allergies Allergy Verified 08/22/18 12:42 - Social History Does the pt smoke?: Yes Smoking Status: Current every day smoker Does the pt drink ETOH?: Yes Does the pt have substance abuse?: No - Immunizations Immunizations are current?: Yes - POLST Patient has POLST: Yes POLST Status: Full Code (POLST was updated in [place] when she had hemorrhagic CVA in 09/06) PD ED PE NORMAL - Vitals Vital signs reviewed: Yes (normal ) - General General: No acute distress, Well developed/nourished, Other (masked facies of Parkinsons is present) - HEENT HEENT: Atraumatic, PERRL, EOMI - Neck Neck: Supple, no meningeal sign - Cardiac Cardiac: No murmur, Other (irregularly irregular with distant heart sounds ) - Respiratory Respiratory: No respiratory distress, Clear bilaterally - Abdomen Abdomen: Soft, Non tender - Back Back: No CVA TTP, No spinal TTP - Derm Derm: Normal color, Warm and dry, No rash - Extremities Extremities: No deformity, No edema - Neuro Neuro: Normal speech, Other (speech is quite but appropriate) Eye Opening: Spontaneous Motor: Obeys Commands Verbal: Oriented GCS Score: 15 - Psych Psych: Normal mood, Normal affect Results - Vitals Vitals: Vital Signs - 24 hr 08/22/18 08/22/18 12:25 14:25 Temperature 36.1 C L Heart Rate 56 L 64 Respiratory 17 14 Rate Blood Pressure 116/68 116/70 O2 Saturation 97 94 Oxygen O2 Source [] Nasal cannula O2 Source Room air - Labs Labs: Laboratory Tests 08/22/18 08/22/18 08/22/18 12:55 12:55 13:50 WBC 8.6 RBC 4.53 Hgb 14.3 Hct 42.7 MCV 94.2 MCH 31.6 H MCHC 33.5 RDW 13.4 Plt Count 349 MPV 7.6 L Neut # (Auto) 5.2 Lymph # (Auto) 1.6 [place] # (Auto) 1.1 H Eos # (Auto) 0.5 Baso # (Auto) 0.1 Absolute Nucleated RBC 0.00 Nucleated RBC % 0.0 Sodium 139 Potassium 3.7 Chloride 101 Carbon Dioxide 29 Anion Gap 9.0 BUN 16 Creatinine 0.6 Estimated GFR (MDRD) 96 Glucose 96 Calcium 9.0 Total Bilirubin 0.5 AST 14 ALT < 10 L Alkaline Phosphatase 68 Total Protein 6.1 L Albumin 3.7 Globulin 2.4 Albumin/Globulin Ratio 1.5 Lipase 42 Urine Color YELLOW Urine Clarity CLOUDY Urine pH 6.0 Ur Specific [place] 1.020 Urine Protein NEGATIVE Urine Glucose (UA) NEGATIVE Urine Ketones TRACE Urine Occult Blood NEGATIVE Urine Nitrite POSITIVE H Urine Bilirubin NEGATIVE Urine Urobilinogen 0.2 (NORMAL) Ur Leukocyte Esterase TRACE H Urine RBC 0-5 Urine WBC >25 H Ur Squamous Epith Cells RARE Squamous Urine Bacteria Many H Urine Mucus Few Strands Ur Microscopic Review INDICATED Urine Culture Comments INDICATED - Rads (name of study) CT head without Radiology: Prelim report reviewed (Impression: Generalized age-related cortical atrophic changes without evidence of acute intracranial abnormality.), EMP read indepedently, See rad report Procedures - IVC sono (time) 1330 Bedside IVC sono: IVC measures (cm) (2.19), IVC collapsed c insp (cm) (1.06), Euvolemia PD MEDICAL DECISION MAKING - ED course Complexity details: reviewed old records, reviewed results, re-evaluated patient, considered differential, d/w patient, d/w family ED course: 78-year-old female with history of Parkinson's disease of prior intracranial hemorrhage and CVA as well as TIA has had an episode of nausea this morning followed by a collapse and striking her head and vomiting. She is found to be euvolemic on interrogation of the inferior vena cava she does have a prior history of hemorrhage and a CT scan of the head is obtained as well as a urine specimen for evaluation as she has had urinary tract infection as well. The head is negative for any evidence of hemorrhage the urinary tract is positive for infection she is administered Rocephin a gram intravenously. She has ESBL with resistance except to macrobid. Departure - Departure Disposition: 01 Home, Self Care Clinical Impression: UTI (urinary tract infection) Qualifiers: Urinary tract infection type: acute cystitis Hematuria presence: without hematuria Qualified Code(s): N30.00 - Acute cystitis without hematuria Instructions: ED UTI Cystitis Female Follow-Up: Layne Godinez DO [Primary Care Provider] - Prescriptions: Nitrofurantoin Monohyd/M-Cryst [Macrobid 100 mg Capsule] 100 mg PO BID #14 capsule
[2018-08-22 14:06] LABS: BILIRUBIN,URINE NEGATIVE (NEGATIVE); GLUCOSE, URINE (UA) NEGATIVE (NEGATIVE); KETONES,URINE (UA) TRACE mg/dL (NEGATIVE); LEUKOCYTE ESTERASE, URINE TRACE (NEGATIVE); NITRITE,URINE POSITIVE (NEGATIVE); OCCULT BLOOD,URINE NEGATIVE (NEGATIVE); PROTEIN,URINE NEGATIVE (NEGATIVE); UROBILINOGEN,URINE 0.2 (NORMAL) E.U./dL (NORMAL)
--- NOTE | 2018-08-22 14:29 | CT Report ---
Reason: head injury vomiting prior ICH Procedure Date: 08/22/2018 Accession Number: [id number] / [id number] Procedure: CT - HEAD WO CPT Code: FULL RESULT: EXAM: CT HEAD EXAM DATE: 08/22/2018 02:11 PM. CLINICAL HISTORY: Fall, pain. COMPARISON: HEAD W/O 06/17/2018 10:47 PM. TECHNIQUE: Multiaxial CT images were obtained from the foramen magnum to the vertex. Reformats: Sagittal and coronal. IV contrast: None. In accordance with CT protocol optimization, one or more of the following dose reduction techniques were utilized for this exam: automated exposure control, adjustment of mA and/or KV based on patient size, or use of iterative reconstructive technique. FINDINGS: Parenchyma: No intraparenchymal hemorrhage. No evidence of mass, midline shift, or CT findings of acute infarction. [place]a-white differentiation is distinct. Diffuse chronic microangiopathic white matter changes. Extraaxial Spaces: Normal for age. No subdural or epidural collections. Ventricles: The ventricles and cortical sulci are enlarged, consistent with age-related tissue loss. Sinuses and orbits: Imaged paranasal sinuses, orbits, and mastoids show no significant abnormality. Bones: Unremarkable. Other: None. IMPRESSION: Generalized age-related cortical atrophic changes without evidence of acute intracranial abnormality. RADIA
[2018-08-22 14:45] LABS: CLARITY,URINE CLOUDY (CLEAR)
[2018-08-22 14:46] LABS: BACTERIA,URINE Many /HPF (None Seen); MUCUS,URINE Few Strands; RBC,URINE 0-5 /HPF (0-5); SQUAMOUS EPITHELIAL CELL,UR RARE Squamous (<= Few)
[2018-08-22] MEDS ORDERED: cefTRIAXone 1 GM in SODIUM CHLORIDE 0.9% MINIBAG 100 ML IV STA (14:54)
[2018-08-22 15:54] VITALS: BP 115/66
== END 2018-08-22 15:55 | disposition home or self-care (01) ==
LOC: EDUNIT# → ED 12:30
DX: N30.00 Acute cystitis without hematuria (principal); G30.9 Alzheimer's disease, unspecified; F02.80 Dementia in other diseases classified elsewhere, unspecified severity, without behavioral disturbance, psychotic disturbance, mood disturbance, and anxiety; G20 Parkinson's disease; F17.200 Nicotine dependence, unspecified, uncomplicated; Z86.73 Personal history of transient ischemic attack (TIA), and cerebral infarction without residual deficits
CPT/HCPCS: 36415; 51701; 70450; 80053; 81001; 81003; 83690; 85025; 87086; 87181; 96365; 99283

== ENCOUNTER 2018-08-24 10:55 | Outpatient (CLI) | payer MEDICARE, OTHER | END 2018-08-24 10:56 | disposition critical access hospital (66) | LOC: EMS 10:55 | PROVIDERS: ATTEND Surgery | DX: R50.9 Fever, unspecified (principal); R51 Headache; R10.9 Unspecified abdominal pain; R53.1 Weakness; R11.0 Nausea | CPT/HCPCS: A0425; A0427 ==

== ENCOUNTER 2018-08-24 11:10 | Emergency (ER) | payer MEDICARE, OTHER ==
[2018-08-24 11:59] LABS: BASOPHILS # (AUTO) 0.1 10^3/uL (0.0-0.1); BASOPHILS % (AUTO) 0.8 %; EOSINOPHILS # (AUTO) 0.3 10^3/uL (0.0-0.7); EOSINOPHILS % (AUTO) 3.2 %; LYMPHOCYTES # (AUTO) 0.2 10^3/uL (1.5-3.5); LYMPHOCYTES % (AUTO) 1.7 %; MEAN CORPUSCULAR HEMOGLOBIN 31.5 pg (27.0-31.0); MEAN CORPUSCULAR HGB CONC 33.8 g/dL (32.0-36.0); MEAN CORPUSCULAR VOLUME 93.2 fL (81.0-99.0); MEAN PLATELET VOLUME 7.2 fL (7.9-10.8); MONOCYTES # (AUTO) 0.6 10^3/uL (0.0-1.0); MONOCYTES % (AUTO) 5.7 %; NEUTROPHILS # (AUTO) 9.6 10^3/uL (1.5-6.6); NEUTROPHILS % (AUTO) 88.6 %; PLT - PLATELET COUNT 306 10^3/uL (130-450); RED BLOOD COUNT 4.45 10^6/uL (4.20-5.40); RED CELL DISTRIBUTION WIDTH 13.3 % (12.0-15.0); WHITE BLOOD COUNT 10.8 x10^3/uL (4.8-10.8)
[2018-08-24 12:18] LABS: ALBUMIN 3.6 g/dL (3.2-5.5); ALBUMIN/GLOBULIN RATIO 1.6 (1.0-2.2); ALKALINE PHOSPHATASE 72 IU/L (42-121); ALT ALANINE AMINOTRANSFERASE < 10 IU/L (10-60); AST ASPARTATE AMINOTRANSFERASE 13 IU/L (10-42); BILIRUBIN,TOTAL 0.8 mg/dL (0.2-1.0); BUN - BLOOD UREA NITROGEN 15 mg/dL (6-20); CARBON DIOXIDE - CO2 27 mmol/L (21-32); CHLORIDE 103 mmol/L (101-111); CREATININE 0.7 mg/dL (0.4-1.0); GFR - MDRD 81 (>89); GLUCOSE 115 mg/dL (70-100); LIPASE 37 U/L (22-51); SODIUM 140 mmol/L (135-145); TOTAL PROTEIN 5.9 g/dL (6.7-8.2)
[2018-08-24 12:48] LABS: BILIRUBIN,URINE NEGATIVE (NEGATIVE); GLUCOSE, URINE (UA) NEGATIVE (NEGATIVE); KETONES,URINE (UA) TRACE mg/dL (NEGATIVE); LEUKOCYTE ESTERASE, URINE NEGATIVE (NEGATIVE); NITRITE,URINE NEGATIVE (NEGATIVE); OCCULT BLOOD,URINE NEGATIVE (NEGATIVE); PH,URINE 5.5 PH (5.0-7.5); PROTEIN,URINE TRACE mg/dL (NEGATIVE); UROBILINOGEN,URINE 0.2 (NORMAL) E.U./dL (NORMAL)
[2018-08-24 12:49] LABS: CLARITY,URINE CLEAR (CLEAR)
[2018-08-24] MEDS ORDERED: SODIUM CHLORIDE 0.9% 1,000 ML IV ONE (12:53)
--- NOTE | 2018-08-24 13:00 | ED Physician Documentation ---
History of Present Illness - Stated complaint Stated Complaint: WEAKNESS/ FEVER - Chief complaint Chief Complaint: Abd Pain - History obtained from History obtained from: Patient, Family (daughter) - Additonal information Additional information: The patient is an 78-year-old female with history of hemorrhagic CVA with left- sided weakness and Parkinson's disease, with dementia, who presents after her daughter noticed fever this morning she measured her temperature at 101 degrees axillary. The patient was weaker than usual and had nausea. She did not have vomiting, abdominal pain, cough or chest pain. She was seen in the emergency department 2 days ago after falling from her wheelchair, hitting her head. Head CT at that time was negative for acute injury, but her urinalysis was positive. She was treated with IV ceftriaxone, and was prescribed Macrobid which she has been taking. Review of Systems Constitutional: reports: Fever, Fatigue Ears: denies: Tinnitus/ringing Nose: denies: Congestion Throat: denies: Sore throat Cardiac: denies: Chest pain / pressure Respiratory: denies: Dyspnea, Cough GI: reports: Nausea. denies: Abdominal Pain, Vomiting, Diarrhea : denies: Dysuria Skin: denies: Rash Musculoskeletal: denies: Neck pain, Back pain, Extremity swelling Neurologic: reports: Generalized weakness. 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 Cardiovascular: Other HEENT: Cataracts - Present Medications Home Medications: Ambulatory Orders Medication Instructions Recorded Confirmed Carbidopa/Levodopa 1 tab PO TIDWM 10/12/16 06/18/18 [Carbidopa-Levodopa 25-100 Tab] Donepezil HCl 10 mg PO DAILY 10/12/16 06/18/18 Acetaminophen 1 - 2 tab PO PRN PRN MDD 3000mg 06/17/18 06/17/18 Lisinopril 20 mg PO DAILY 06/17/18 06/17/18 Melatonin 10 mg PO DAILY PM 06/17/18 06/17/18 amLODIPine [Norvasc] 10 mg PO DAILY 06/17/18 06/17/18 Atorvastatin [Lipitor] 10 mg PO DAILY #30 tablet 06/18/18 Nitrofurantoin Monohyd/M-Cryst 100 mg PO BID #14 capsule 08/22/18 [Macrobid 100 mg Capsule] - Allergies Allergies/Adverse Reactions: Allergies Allergy/AdvReac Type Severity Reaction Status Date / Time divalproex sodium AdvReac Unknown Verified 08/24/18 11:31 [From Depakote] - Social History Does the pt smoke?: Yes Smoking Status: Current every day smoker Does the pt drink ETOH?: Yes Does the pt have substance abuse?: No - Immunizations Immunizations are current?: Yes - POLST Patient has POLST: Yes POLST Status: Full Code (POLST was updated in [place] when she had hemorrhagic CVA in 09/06) PD ED PE NORMAL - Vitals Vital signs reviewed: Yes (normal) - General General: Other (Alert, but confused, consistent with dementia.) - HEENT HEENT: Atraumatic, PERRL, EOMI, Pharynx benign, Other (Dry mucous membranes.) - Neck Neck: Supple, no meningeal sign, No bony TTP, No adenopathy, No JVD - Cardiac Cardiac: RRR, No murmur - Respiratory Respiratory: No respiratory distress, Clear bilaterally - Abdomen Abdomen: Soft, Non tender - Back Back: No CVA TTP, No spinal TTP - Derm Derm: No rash - Extremities Extremities: No edema, No calf tenderness / cord - Neuro Neuro: Other (Alert but confused, consistent with dementia. There is left-sided facial droop and left-sided weakness.) Eye Opening: Spontaneous Motor: Obeys Commands Verbal: Confused GCS Score: 14 Results - Vitals Vitals: Oxygen O2 Source [] Nasal cannula O2 Source Room air - EKG (time done) 13:08 Rate: Rate (enter#) (79) Rhythm: NSR [place]: Normal Intervals: Normal NV QRS: Normal Ischemia: Other (Minimal ST elevation in inferior leads II and aVF, less than 1 mm.) Compare to prior EKG: Changed from prior EKG (Minimal inferior ST elevation is new compared to prior EKG of 06/18/2018.) Computer interpretation: Agree with computer - Labs Labs: Laboratory Tests 08/24/18 08/24/18 08/24/18 11:49 11:49 11:49 WBC 10.8 RBC 4.45 Hgb 14.0 Hct 41.4 MCV 93.2 MCH 31.5 H MCHC 33.8 RDW 13.3 Plt Count 306 MPV 7.2 L Neut # (Auto) 9.6 H Lymph # (Auto) 0.2 L [place] # (Auto) 0.6 Eos # (Auto) 0.3 Baso # (Auto) 0.1 Absolute Nucleated RBC 0.00 Nucleated RBC % 0.0 Sodium 140 Potassium 3.9 Chloride 103 Carbon Dioxide 27 Anion Gap 10.0 BUN 15 Creatinine 0.7 Estimated GFR (MDRD) 81 L Glucose 115 H Lactic Acid 0.9 Calcium 9.0 Total Bilirubin 0.8 AST 13 ALT < 10 L Alkaline Phosphatase 72 Troponin I Total Protein 5.9 L Albumin 3.6 Globulin 2.3 Albumin/Globulin Ratio 1.6 Lipase 37 Urine Color Urine Clarity Urine pH Ur Specific [place] Urine Protein Urine Glucose (UA) Urine Ketones Urine Occult Blood Urine Nitrite Urine Bilirubin Urine Urobilinogen Ur Leukocyte Esterase Ur Microscopic Review Urine Culture Comments 08/24/18 08/24/18 11:49 12:41 WBC RBC Hgb Hct MCV MCH MCHC RDW Plt Count MPV Neut # (Auto) Lymph # (Auto) [place] # (Auto) Eos # (Auto) Baso # (Auto) Absolute Nucleated RBC Nucleated RBC % Sodium Potassium Chloride Carbon Dioxide Anion Gap BUN Creatinine Estimated GFR (MDRD) Glucose Lactic Acid Calcium Total Bilirubin AST ALT Alkaline Phosphatase Troponin I < 0.04 Total Protein Albumin Globulin Albumin/Globulin Ratio Lipase Urine Color YELLOW Urine Clarity CLEAR Urine pH 5.5 Ur Specific [place] 1.020 Urine Protein TRACE Urine Glucose (UA) NEGATIVE Urine Ketones TRACE Urine Occult Blood NEGATIVE Urine Nitrite NEGATIVE Urine Bilirubin NEGATIVE Urine Urobilinogen 0.2 (NORMAL) Ur Leukocyte Esterase NEGATIVE Ur Microscopic Review NOT INDICATED Urine Culture Comments NOT INDICATED PD MEDICAL DECISION MAKING - ED course Complexity details: reviewed old records, reviewed results, re-evaluated patient, considered differential, d/w patient, d/w family ED course: Patient's presentation is most consistent with dehydration. She does not appear septic, and her white blood cell count is normal. Her presentation does not suggest a new CVA, pneumonia, or cardiac event. Her urinalysis today is negative after 2 days of antibiotic therapy for urinary tract infection. Treatment in the emergency department included administration of normal saline 1 L IV. Symptomatically she appeared much improved after this treatment, and subsequently demonstrated ability to ambulate with her walker. I discussed with her and her daughter the diagnosis, symptomatic treatment and outpatient follow-up, as well as potentially worrisome signs or symptoms that should prompt reevaluation in the emergency department. Departure - Departure Disposition: 01 Home, Self Care Clinical Impression: Dehydration Condition: Stable Instructions: ED Dehydration Follow-Up: Layne Godinez MD [Provider Admit Priv/Credential] - Comments: Drink plenty of fluids, including cranberry juice. Finish the treatment course of antibiotic therapy for the urinary tract infection that was diagnosed 2 days ago. Follow-up with your primary physician next week. Call to schedule appointment. Return to the emergency department if progressive weakness, fever with shaking chills, or otherwise worsening symptoms. Discharge Date/Time: 08/24/18 15:26
[2018-08-24 14:27] VITALS: BP 114/76
== END 2018-08-24 15:26 | disposition home or self-care (01) ==
LOC: EDUNIT# → ED 11:10
DX: E86.0 Dehydration (principal); R94.31 Abnormal electrocardiogram [ECG] [EKG]; G30.9 Alzheimer's disease, unspecified; F02.80 Dementia in other diseases classified elsewhere, unspecified severity, without behavioral disturbance, psychotic disturbance, mood disturbance, and anxiety; G20 Parkinson's disease; I10 Essential (primary) hypertension; F17.200 Nicotine dependence, unspecified, uncomplicated; I69.354 Hemiplegia and hemiparesis following cerebral infarction affecting left non-dominant side; I69.392 Facial weakness following cerebral infarction
CPT/HCPCS: 36415; 80053; 81001; 81003; 83605; 83690; 84484; 85025; 87086; 93005; 96360; 99283; 99284

== ENCOUNTER 2018-09-02 13:21 | Emergency (ER) | payer MEDICARE, OTHER ==
[2018-09-02 14:02] LABS: BILIRUBIN,URINE NEGATIVE (NEGATIVE); GLUCOSE, URINE (UA) NEGATIVE (NEGATIVE); KETONES,URINE (UA) NEGATIVE (NEGATIVE); LEUKOCYTE ESTERASE, URINE NEGATIVE (NEGATIVE); NITRITE,URINE NEGATIVE (NEGATIVE); OCCULT BLOOD,URINE NEGATIVE (NEGATIVE); PROTEIN,URINE NEGATIVE (NEGATIVE); UROBILINOGEN,URINE 0.2 (NORMAL) E.U./dL (NORMAL)
[2018-09-02 14:04] LABS: CLARITY,URINE CLEAR (CLEAR)
[2018-09-02] MEDS ORDERED: PHENAZOPYRIDINE 100 MG TABLET PO STA (14:24)
--- NOTE | 2018-09-02 14:26 | ED Physician Documentation ---
History of Present Illness - Stated complaint Stated Complaint: FEMALE - Chief complaint Chief Complaint: General - History obtained from History obtained from: Patient, Family (daughter) - History of Present Illness Timing: Chronic (She is been dealing with lower abdominal pain since last year. She had a CT done before which was unremarkable. More recently she had a UTI and was treated and this was about 2 weeks ago. Has persistent constant lower abdominal pain that is sharp. It is not related with eating. She is been moving her bowels well. She denies specific urinary complaints.) Review of Systems Constitutional: denies: Fever, Chills, Fatigue Nose: denies: Rhinorrhea / runny nose, Congestion Respiratory: denies: Wheezing GI: reports: Abdominal Pain. 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: Hysterectomy Cardiovascular: Other HEENT: Cataracts - Present Medications Home Medications: Ambulatory Orders Medication Instructions Recorded Confirmed Carbidopa/Levodopa 1 tab PO TIDWM 10/12/16 09/02/18 [Carbidopa-Levodopa 25-100 Tab] Donepezil HCl 10 mg PO DAILY 10/12/16 09/02/18 Acetaminophen 1 - 2 tab PO PRN PRN MDD 3000mg 06/17/18 09/02/18 Lisinopril 20 mg PO DAILY 06/17/18 09/02/18 Melatonin 10 mg PO DAILY PM 06/17/18 09/02/18 amLODIPine [Norvasc] 10 mg PO DAILY 06/17/18 09/02/18 Atorvastatin [Lipitor] 10 mg PO DAILY #30 tablet 06/18/18 09/02/18 Phenazopyridine HCl [Pyridium] 200 mg PO TID PRN #6 tablet 09/02/18 - Allergies Allergies/Adverse Reactions: Allergies Allergy/AdvReac Type Severity Reaction Status Date / Time divalproex sodium AdvReac Unknown Verified 09/02/18 13:35 [From Depakote] - Social History Does the pt smoke?: Yes Smoking Status: Current every day smoker Does the pt drink ETOH?: Yes Does the pt have substance abuse?: No - Immunizations Immunizations are current?: Yes - POLST Patient has POLST: Yes POLST Status: Full Code (POLST was updated in [place] when she had hemorrhagic CVA in 09/06) PD ED PE NORMAL - Vitals Vital signs reviewed: Yes - General General: Alert and oriented X 3, No acute distress - Abdomen Abdomen: Soft, Non tender, Non distended - Back Back: No CVA TTP, No spinal TTP - Derm Derm: Normal color, Warm and dry - Neuro Neuro: Alert and oriented X 3, Normal speech Results - Vitals Vitals: Vital Signs - 24 hr 09/02/18 13:29 Temperature 36.8 C Heart Rate 74 Respiratory 16 Rate Blood Pressure 126/67 O2 Saturation 96 Oxygen O2 Source [Without Activity] Nasal cannula O2 Source Room air - Labs Labs: Laboratory Tests 09/02/18 14:00 Urine Color YELLOW Urine Clarity CLEAR Urine pH 6.0 Ur Specific [place] 1.015 Urine Protein NEGATIVE Urine Glucose (UA) NEGATIVE Urine Ketones NEGATIVE Urine Occult Blood NEGATIVE Urine Nitrite NEGATIVE Urine Bilirubin NEGATIVE Urine Urobilinogen 0.2 (NORMAL) Ur Leukocyte Esterase NEGATIVE Ur Microscopic Review NOT INDICATED Urine Culture Comments NOT INDICATED - Rads (name of study) CT KUB Radiology: EMP read contemporaneously (Nonobstructing nephroliths, vascular calcification, diverticulosis without diverticulitis.) PD MEDICAL DECISION MAKING - ED course ED course: 78-year-old woman with persistent lower abdominal pain. Recent UTI but no evidence of this now. She appears nontoxic and has a normal exam. She had a CAT scan about 5 months ago and given her advanced age this was repeated without pertinent positive findings. She was administered Pyridium thinking that it might be persistent bladder inflammation without actual infection. Departure - Departure Disposition: 01 Home, Self Care Clinical Impression: Chronic bilateral lower abdominal pain Condition: Good Record reviewed to determine appropriate education?: Yes Instructions: ED Abdominal Pain Unkn Cause Follow-Up: Layne Godinez DO [Provider Admit Priv/Credential] - Prescriptions: Phenazopyridine HCl [Pyridium] 200 mg PO TID PRN #6 tablet PRN Reason: dysuria Comments: Your urinalysis today is normal. The CAT scan shows no cause for pain, you do have kidney stones but these are in the kidney, not the ureters, they do not hurt when they are up in the kidneys. You also have some diverticula but no evidence of infection. Return for new or worsening symptoms. Follow-up with your primary care physician for further evaluation and treatment.
--- NOTE | 2018-09-02 15:16 | CT Report ---
Reason: low abd pain Procedure Date: 09/02/2018 Accession Number: [id number] / [id number] Procedure: CT - Abdomen/Pelvis WO CPT Code: FULL RESULT: EXAM: CT ABDOMEN AND PELVIS EXAM DATE: 09/02/2018 02:39 PM. CLINICAL HISTORY: Low abd pain. COMPARISONS: ABDOMEN/PELVIS W/ 04/12/2018 2:04 PM. TECHNIQUE: Routine helical CT imaging was performed through the abdomen and pelvis. IV contrast: No. Enteric contrast: No. Reconstructions: Coronal and sagittal. In accordance with CT protocol optimization, one or more of the following dose reduction techniques were utilized for this exam: automated exposure control, adjustment of mA and/or KV based on patient size, or use of iterative reconstructive technique. FINDINGS: Lung Bases: Unremarkable. Liver: The liver is normal in size and contour. Gallbladder/Bile Ducts: Unremarkable. Spleen: Normal in size and contour. Pancreas: Normal in size and contour. Adrenal Glands: Normal. Kidneys: There are 2 stones in the right kidney measuring 2 mm in diameter. There is a lateral exophytic cortical cyst measuring 12 mm. There is no hydronephrosis. No left kidney stone. No ureteral calculus. Peritoneal Cavity/Bowel: There are mild to moderate number of scattered diverticula within the colon. No mechanical bowel obstruction or bowel dilation. No free air or abscess. The appendix is well visualized and normal. Pelvic Organs: Urinary bladder is unremarkable. Uterus is not visualized. Vasculature: There is moderate atherosclerotic vascular calcification. Bones: There is scoliotic curvature apex to the right of the lumbar spine. There are surgical screws traversing across the right femoral neck which appear without significant change in position. Other: None. IMPRESSION: 1. Colonic diverticulosis without acute diverticulitis. 2. 2 small nonobstructing 2 mm right kidney stones. 3. Moderate atherosclerotic vascular disease without aneurysm. RADIA
[2018-09-02 15:25] VITALS: BP 117/74
== END 2018-09-02 15:28 | disposition home or self-care (01) ==
LOC: ED 13:21
DX: R10.30 Lower abdominal pain, unspecified (principal); K57.30 Diverticulosis of large intestine without perforation or abscess without bleeding; N20.0 Calculus of kidney; I10 Essential (primary) hypertension; J44.9 Chronic obstructive pulmonary disease, unspecified; G30.9 Alzheimer's disease, unspecified; F02.80 Dementia in other diseases classified elsewhere, unspecified severity, without behavioral disturbance, psychotic disturbance, mood disturbance, and anxiety; G20 Parkinson's disease; F17.200 Nicotine dependence, unspecified, uncomplicated; Z86.73 Personal history of transient ischemic attack (TIA), and cerebral infarction without residual deficits; Z87.440 Personal history of urinary (tract) infections
CPT/HCPCS: 74176; 81003; 99283; A9270; 81001; 87086

== ENCOUNTER 2019-04-04 15:04 | Emergency (ER) | payer MEDICARE, OTHER ==
[2019-04-04] MEDS ORDERED: SODIUM CHLORIDE 0.9% 1,000 ML IV ONE (15:34)
--- NOTE | 2019-04-04 15:36 | ED Physician Documentation ---
History of Present Illness - Stated complaint Stated Complaint: CONFUSION - Chief complaint Chief Complaint: General - History obtained from History obtained from: Family - History of Present Illness Timing: Today (This is an 79-year-old woman who has a history of Parkinson's and dementia who presents by private vehicle with her for an acute worsening of altered mental status. At baseline, the does not think she would know the day or the year. She seems worse than it started today. 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 Cardiovascular: Other HEENT: Cataracts - Present Medications Home Medications: Ambulatory Orders Medication Instructions Recorded Confirmed Carbidopa/Levodopa 1 tab PO TIDWM 10/12/16 09/02/18 [Carbidopa-Levodopa 25-100 Tab] Donepezil HCl 10 mg PO DAILY 10/12/16 09/02/18 Acetaminophen 1 - 2 tab PO PRN PRN MDD 3000mg 06/17/18 09/02/18 Lisinopril 20 mg PO DAILY 06/17/18 09/02/18 Melatonin 10 mg PO DAILY PM 06/17/18 09/02/18 amLODIPine [Norvasc] 10 mg PO DAILY 06/17/18 09/02/18 Atorvastatin [Lipitor] 10 mg PO DAILY #30 tablet 06/18/18 09/02/18 Phenazopyridine HCl [Pyridium] 200 mg PO TID PRN #6 tablet 09/02/18 Cefdinir 300 mg PO BID #20 capsule 04/04/19 - Allergies Allergies/Adverse Reactions: Allergies Allergy/AdvReac Type Severity Reaction Status Date / Time divalproex sodium AdvReac Unknown Verified 04/04/19 15:18 [From Depakote] - Social History Does the pt smoke?: Yes Smoking Status: Current every day smoker Does the pt drink ETOH?: Yes Does the pt have substance abuse?: No - Immunizations Immunizations are current?: Yes - POLST Patient has POLST: Yes POLST Status: Full Code (POLST was updated in [place] when she had hemorrhagic CVA in 09/06) PD ED PE NORMAL - Vitals Vital signs reviewed: Yes - General General: Other (She is alert, oriented to person only. Cannot state she is in the hospital or the date. Does not know why she is here.) - HEENT HEENT: PERRL, EOMI, Other (She does have a left facial droop of unknown chronicity. 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 She is not following commands well enough to assess pronator drift in the upper extremities but there is nothing obvious. She did ambulate in.) - Neuro Neuro: Normal speech Eye Opening: Spontaneous Motor: Obeys Commands Verbal: Confused GCS Score: 14 Results - Vitals Vitals: Vital Signs - 24 hr 04/04/19 04/04/19 04/04/19 15:07 16:18 17:22 Temperature 36.8 C Heart Rate 86 63 73 Respiratory 16 18 18 Rate Blood Pressure 148/85 H 144/78 H 158/85 H O2 Saturation 100 98 97 Oxygen O2 Source [Without Activity] Nasal cannula O2 Source Room air - Labs Labs: Laboratory Tests 04/04/19 04/04/19 04/04/19 15:35 15:35 15:48 WBC 7.5 RBC 4.86 Hgb 15.2 Hct 45.9 MCV 94.4 MCH 31.3 H MCHC 33.1 RDW 13.3 Plt Count 358 MPV 10.2 Neut # (Auto) 3.6 Lymph # (Auto) 2.1 Castro # (Auto) 0.8 Eos # (Auto) 0.9 H Baso # (Auto) 0.1 Absolute Nucleated RBC 0.00 Nucleated RBC % 0.0 Sodium 140 Potassium 4.0 Chloride 102 Carbon Dioxide 29 Anion Gap 9.0 BUN 18 Creatinine 0.8 Estimated GFR (MDRD) 69 L Glucose 98 Lactic Acid 0.6 Calcium 9.4 Total Bilirubin 0.9 AST 13 ALT < 10 L Alkaline Phosphatase 72 Total Protein 6.7 Albumin 3.8 Globulin 2.9 Albumin/Globulin Ratio 1.3 Lipase 67 H Urine Color Urine Clarity Urine pH Ur Specific [place] Urine Protein Urine Glucose (UA) Urine Ketones Urine Occult Blood Urine Nitrite Urine Bilirubin Urine Urobilinogen Ur Leukocyte Esterase Urine RBC Urine WBC Ur Squamous Epith Cells Urine Bacteria Ur Microscopic Review Urine Culture Comments 04/04/19 16:15 WBC RBC Hgb Hct MCV MCH MCHC RDW Plt Count MPV Neut # (Auto) Lymph # (Auto) Castro # (Auto) Eos # (Auto) Baso # (Auto) Absolute Nucleated RBC Nucleated RBC % Sodium Potassium Chloride Carbon Dioxide Anion Gap BUN Creatinine Estimated GFR (MDRD) Glucose Lactic Acid Calcium Total Bilirubin AST ALT Alkaline Phosphatase Total Protein Albumin Globulin Albumin/Globulin Ratio Lipase Urine Color YELLOW Urine Clarity HAZY Urine pH 6.0 Ur Specific [place] <=1.005 Urine Protein NEGATIVE Urine Glucose (UA) NEGATIVE Urine Ketones NEGATIVE Urine Occult Blood NEGATIVE Urine Nitrite POSITIVE H Urine Bilirubin NEGATIVE Urine Urobilinogen 0.2 (NORMAL) Ur Leukocyte Esterase TRACE H Urine RBC 0-5 Urine WBC 6-10 H Ur Squamous Epith Cells FEW Squamous Urine Bacteria Many H Ur Microscopic Review INDICATED Urine Culture Comments INDICATED PD MEDICAL DECISION MAKING - ED course Complexity details: reviewed old records (Review of prior chart shows that the left facial droop is probably from old stroke, it was mentioned in previous histories and physicals.) ED course: 79-year-old woman who is demented with mild worsening of her baseline mental status. Found to have UTI, otherwise her labs and work-up were reassuring. Spoke with Dr. Pérez for potential admission at 5:30 PM. She does not fit criteria per her and we would need to try outpatient treatment. Patient's is agreeable though. though was quite disheveled and we did asked social work to see them. They did. Departure - Departure Disposition: 01 Home, Self Care Clinical Impression: UTI (urinary tract infection) Qualifiers: Urinary tract infection type: site unspecified Hematuria presence: without hematuria Qualified Code(s): N39.0 - Urinary tract infection, site not specified Condition: Fair Instructions: ED UTI Cystitis Female Prescriptions: Cefdinir 300 mg PO BID #20 capsule Comments: We will culture your urine, the results should be done in 48-72 hours. If an antibiotic change is necessary we will call you. Return if worse in the meantime, especially if you develop increasing flank pain, fevers, or cannot keep down the medication. Recheck with your doctor in 3 days.
[2019-04-04 16:02] LABS: BASOPHILS # (AUTO) 0.1 10^3/uL (0.0-0.1); BASOPHILS % (AUTO) 1.5 %; EOSINOPHILS # (AUTO) 0.9 10^3/uL (0.0-0.7); EOSINOPHILS % (AUTO) 12.3 %; HGB - HEMOGLOBIN 15.2 g/dL (12.0-16.0); LYMPHOCYTES # (AUTO) 2.1 10^3/uL (1.5-3.5); LYMPHOCYTES % (AUTO) 27.4 %; MEAN CORPUSCULAR HEMOGLOBIN 31.3 pg (27.0-31.0); MEAN CORPUSCULAR HGB CONC 33.1 g/dL (32.0-36.0); MEAN CORPUSCULAR VOLUME 94.4 fL (81.0-99.0); MEAN PLATELET VOLUME 10.2 fL (7.9-10.8); MONOCYTES # (AUTO) 0.8 10^3/uL (0.0-1.0); MONOCYTES % (AUTO) 10.7 %; NEUTROPHILS # (AUTO) 3.6 10^3/uL (1.5-6.6); NEUTROPHILS % (AUTO) 47.8 %; PLT - PLATELET COUNT 358 10^3/uL (130-450); RED BLOOD COUNT 4.86 10^6/uL (4.20-5.40); RED CELL DISTRIBUTION WIDTH 13.3 % (12.0-15.0); WHITE BLOOD COUNT 7.5 x10^3/uL (4.8-10.8)
[2019-04-04 16:14] LABS: ALBUMIN 3.8 g/dL (3.2-5.5); ALBUMIN/GLOBULIN RATIO 1.3 (1.0-2.2); ALKALINE PHOSPHATASE 72 IU/L (42-121); ALT ALANINE AMINOTRANSFERASE < 10 IU/L (10-60); AST ASPARTATE AMINOTRANSFERASE 13 IU/L (10-42); BILIRUBIN,TOTAL 0.9 mg/dL (0.2-1.0); BUN - BLOOD UREA NITROGEN 18 mg/dL (6-20); CALCIUM 9.4 mg/dL (8.5-10.3); CARBON DIOXIDE - CO2 29 mmol/L (21-32); CHLORIDE 102 mmol/L (101-111); CREATININE 0.8 mg/dL (0.4-1.0); GFR - MDRD 69 (>89); GLUCOSE 98 mg/dL (70-100); LIPASE 67 U/L (22-51); SODIUM 140 mmol/L (135-145); TOTAL PROTEIN 6.7 g/dL (6.7-8.2)
--- NOTE | 2019-04-04 16:22 | XRAY Report ---
Reason: altered, cough Procedure Date: 04/04/2019 Accession Number: [id number] / [id number] Procedure: XR - Chest 1 View X-Ray CPT Code: 80902 Final Report FULL RESULT: EXAM: CHEST RADIOGRAPHY EXAM DATE: 04/04/2019 03:43 PM. CLINICAL HISTORY: Altered, cough. COMPARISON: CHEST 1 VIEW 05/31/2018 6:34 PM. TECHNIQUE: 1 view. FINDINGS: Lungs/Pleura: No focal opacities evident. No pleural effusion. No pneumothorax. Mediastinum: Within exam limitations, the cardiomediastinal contour is normal. Prominent right cardiophrenic sulcus. Other: None. IMPRESSION: Normal single view chest. RADIA
[2019-04-04 16:24] LABS: BILIRUBIN,URINE NEGATIVE (NEGATIVE); GLUCOSE, URINE (UA) NEGATIVE (NEGATIVE); KETONES,URINE (UA) NEGATIVE (NEGATIVE); LEUKOCYTE ESTERASE, URINE TRACE (NEGATIVE); NITRITE,URINE POSITIVE (NEGATIVE); OCCULT BLOOD,URINE NEGATIVE (NEGATIVE); PROTEIN,URINE NEGATIVE (NEGATIVE); UROBILINOGEN,URINE 0.2 (NORMAL) E.U./dL (NORMAL)
[2019-04-04 16:25] LABS: CLARITY,URINE HAZY (CLEAR)
[2019-04-04 16:36] LABS: RBC,URINE 0-5 /HPF (0-5); SQUAMOUS EPITHELIAL CELL,UR FEW Squamous (<= Few)
[2019-04-04 16:37] LABS: BACTERIA,URINE Many /HPF (None Seen)
[2019-04-04] MEDS ORDERED: MEROPENEM 1 GM in SODIUM CHLORIDE 0.9% MINIBAG 100 ML IV STA (17:05)
--- NOTE | 2019-04-04 17:24 | CT Report ---
Reason: altered Procedure Date: 04/04/2019 Accession Number: [id number] / [id number] Procedure: CT - HEAD WO CPT Code: Final Report FULL RESULT: EXAM: CT HEAD EXAM DATE: 04/04/2019 04:55 PM. CLINICAL HISTORY: Altered. COMPARISON: HEAD W/O 08/22/2018 2:02 PM. TECHNIQUE: Multiaxial CT images were obtained from the foramen magnum to the vertex. Reformats: Sagittal and coronal. IV contrast: None. In accordance with CT protocol optimization, one or more of the following dose reduction techniques were utilized for this exam: automated exposure control, adjustment of mA and/or KV based on patient size, or use of iterative reconstructive technique. FINDINGS: Parenchyma: No intraparenchymal hemorrhage. No evidence of mass, midline shift, or CT findings of acute infarction. Gatica-white differentiation is distinct. Diffuse chronic microangiopathic white matter changes are evident. Extraaxial Spaces: Normal for age. No subdural or epidural collections identified. Ventricles: The ventricles and cortical sulci are enlarged, consistent with age-related tissue loss. Sinuses and orbits: Imaged paranasal sinuses, orbits, and mastoids show no significant abnormality. Bones: No evidence of fracture or calvarial defect. Other: Status post bilateral cataract procedures. Extensive calcifications are present in the cavernous carotid and vertebral arteries. IMPRESSION: Generalized age-related cortical atrophic changes without evidence of acute intracranial abnormality. RADIA
[2019-04-04 18:10] VITALS: BP 174/101
== END 2019-04-04 18:14 | disposition home or self-care (01) ==
LOC: ED 15:04
DX: N39.0 Urinary tract infection, site not specified (principal); G20 Parkinson's disease; G30.9 Alzheimer's disease, unspecified; F02.80 Dementia in other diseases classified elsewhere, unspecified severity, without behavioral disturbance, psychotic disturbance, mood disturbance, and anxiety; I10 Essential (primary) hypertension; F17.200 Nicotine dependence, unspecified, uncomplicated
CPT/HCPCS: 36415; 70450; 71045; 80053; 81001; 83605; 83690; 85025; 87040; 87086; 87181; 96361; 96365; 99281; 99284; J2185; 81003

== ENCOUNTER 2019-05-25 07:57 | Outpatient (CLI) | payer MEDICARE, OTHER | END 2019-05-25 07:58 | disposition critical access hospital (66) | LOC: EMS 07:57 | PROVIDERS: ATTEND Surgery | DX: M54.5 Low back pain (principal); W01.0XXA Fall on same level from slipping, tripping and stumbling without subsequent striking against object, initial encounter; Y93.01 Activity, walking, marching and hiking; Y92.009 Unspecified place in unspecified non-institutional (private) residence as the place of occurrence of the external cause | CPT/HCPCS: A0425; A0429 ==

== ENCOUNTER 2019-05-25 08:12 | Emergency (ER) | payer MEDICARE, OTHER ==
--- NOTE | 2019-05-25 08:41 | ED Physician Documentation ---
PD HPI Fall - Stated complaint Stated Complaint: GLF - Chief complaint Chief Complaint: Trauma Ch/Bk - History obtained from History obtained from: Patient, Family - History of Present Illness Mechanism of injury: Lost balance (report from EMS is patient tripped on slippers while walking back from bathroom, landed onto buttock then back. Complained of back pain. No apparent LOC. Has dementia so poor recent memory but otherwise conversnat and seems not in distress.) Fall distance: Standing position Where injury occurred: Home Timing - onset: Today Injury(ies) location: Back. No: Head, Chest, Abdomen Quality of pain: Aching Worsens with: Movement Contributing factors: No: Anticoagulated, Intoxicated Similar symptoms before: Diagnosis Review of Systems Unable to obtain: Dementia Cardiac: denies: Chest pain / pressure Respiratory: denies: Dyspnea, Cough GI: denies: Abdominal Pain, Nausea Skin: denies: Laceration (s) Neurologic: denies: Headache PD PAST MEDICAL HISTORY - Past Medical History Cardiovascular: Hypertension Respiratory: COPD Neuro: Alzhiemer's, Dementia, CVA, Headaches, Migraines, Parkinson's Endocrine/Autoimmune: None GI: GERD : None HEENT: None Psych: Depression Musculoskeletal: Osteoarthritis Derm: None - Past Surgical History Past Surgical History: Yes 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 Cardiovascular: Other HEENT: Cataracts - Present Medications Home Medications: Ambulatory Orders Medication Instructions Recorded Confirmed Carbidopa/Levodopa 1 tab PO TIDWM 10/12/16 09/02/18 [Carbidopa-Levodopa 25-100 Tab] Donepezil HCl 10 mg PO DAILY 10/12/16 09/02/18 Acetaminophen 1 - 2 tab PO PRN PRN MDD 3000mg 06/17/18 09/02/18 Melatonin 10 mg PO DAILY PM 06/17/18 09/02/18 amLODIPine [Norvasc] 10 mg PO DAILY 06/17/18 09/02/18 lisinopriL [Lisinopril] 20 mg PO DAILY 06/17/18 09/02/18 Atorvastatin [Lipitor] 10 mg PO DAILY #30 tablet 06/18/18 09/02/18 Phenazopyridine HCl [Pyridium] 200 mg PO TID PRN #6 tablet 09/02/18 Cefdinir 300 mg PO BID #20 capsule 04/04/19 Cephalexin [Keflex] 500 mg PO TID #18 capsule 05/25/19 Naproxen 375 mg PO BID #20 tablet 05/25/19 - Allergies Allergies/Adverse Reactions: Allergies Allergy/AdvReac Type Severity Reaction Status Date / Time divalproex sodium AdvReac Unknown Verified 05/25/19 08:34 [From Depakote] - Social History Does the pt smoke?: Yes Smoking Status: Current every day smoker Does the pt drink ETOH?: Yes Does the pt have substance abuse?: No - Immunizations Immunizations are current?: Yes - POLST Patient has POLST: Yes POLST Status: Full Code (POLST was updated in [place] when she had hemorrhagic CVA in 09/06) PD ED PE NORMAL - Vitals Vital signs reviewed: Yes - General General: No acute distress, Well developed/nourished. No: Alert and oriented X 3 (alert and knows person, not place nor time. ) - HEENT HEENT: Atraumatic - Neck Neck: Supple, no meningeal sign, No bony TTP - Cardiac Cardiac: RRR, No murmur - Respiratory Respiratory: Clear bilaterally - Abdomen Abdomen: Soft, Non tender - Back Back: No CVA TTP, Other (some tender mid lumbar area without deformity. Tender also in right scapular area with some mild redness/early bruising. No deformity. No focal bony tenderness. The midline vertebrae are not tender in thoracic area. ) - Derm Derm: Normal color, Warm and dry Results - Vitals Vitals: Vital Signs - 24 hr 05/25/19 05/25/19 08:13 10:51 Temperature 36.4 C L Heart Rate 77 76 Respiratory 20 16 Rate Blood Pressure 189/102 H 146/102 H O2 Saturation 98 98 Oxygen O2 Source [Without Activity] Nasal cannula O2 Source Room air - Labs Labs: Laboratory Tests 05/25/19 09:15 Urine Color YELLOW Urine Clarity CLOUDY Urine pH 7.0 Ur Specific [place] 1.015 Urine Protein NEGATIVE Urine Glucose (UA) NEGATIVE Urine Ketones NEGATIVE Urine Occult Blood NEGATIVE Urine Nitrite POSITIVE H Urine Bilirubin NEGATIVE Urine Urobilinogen 1 (NORMAL) Ur Leukocyte Esterase NEGATIVE Urine RBC 0-5 Urine WBC 0-3 Ur Squamous Epith Cells RARE Squamous Urine Bacteria Moderate H Ur Microscopic Review INDICATED Urine Culture Comments INDICATED - Rads (name of study) chest CT Radiology: Prelim report reviewed (no fractures nor acute process. Prior lung scarring again noted. ), See rad report lumbar CT Radiology: Prelim report reviewed (arthritic changes; no fractures. ), See rad report PD MEDICAL DECISION MAKING - ED course Complexity details: considered differential, d/w patient (has poor memory due to dementia. complains only of mild back pain at this point. Mild bruising right scapula. ) Departure - Departure Disposition: 01 Home, Self Care Clinical Impression: Accidental fall Qualifiers: Encounter type: initial encounter Qualified Code(s): W19.XXXA - Unspecified fall, initial encounter Back contusion Qualifiers: Encounter type: initial encounter Laterality: right Qualified Code(s): S20.221A - Contusion of right back wall of thorax, initial encounter UTI (urinary tract infection) Qualifiers: Urinary tract infection type: acute cystitis Hematuria presence: without hematuria Qualified Code(s): N30.00 - Acute cystitis without hematuria Condition: Stable Record reviewed to determine appropriate education?: Yes Instructions: ED Contusion Back, ED UTI Cystitis Female Follow-Up: Layne Godinez DO [Primary Care Provider] - Prescriptions: Cephalexin [Keflex] 500 mg PO TID #18 capsule Naproxen 375 mg PO BID #20 tablet Comments: No fractures on back or ribs. Naproxen twice daily for pains, add Tylenol as needed. There is some UTI on urine test. Cephalexin antibiotic as directed. Discharge Date/Time: 05/25/19 12:13
[2019-05-25] MEDS ORDERED: ACETAMINOPHEN 325 MG TABLET PO STA (08:51)
[2019-05-25 09:27] LABS: BILIRUBIN,URINE NEGATIVE (NEGATIVE); GLUCOSE, URINE (UA) NEGATIVE (NEGATIVE); KETONES,URINE (UA) NEGATIVE (NEGATIVE); LEUKOCYTE ESTERASE, URINE NEGATIVE (NEGATIVE); NITRITE,URINE POSITIVE (NEGATIVE); OCCULT BLOOD,URINE NEGATIVE (NEGATIVE); PROTEIN,URINE NEGATIVE (NEGATIVE); UROBILINOGEN,URINE 1 (NORMAL) E.U./dL (NORMAL)
[2019-05-25 09:29] LABS: CLARITY,URINE CLOUDY (CLEAR)
[2019-05-25 09:37] LABS: BACTERIA,URINE Moderate /HPF (None Seen); RBC,URINE 0-5 /HPF (0-5); SQUAMOUS EPITHELIAL CELL,UR RARE Squamous (<= Few)
--- NOTE | 2019-05-25 09:59 | CT Report ---
Reason: fall with back pain; lumbar and also across thorac Procedure Date: 05/25/2019 Accession Number: [id number] / [id number] Procedure: CT - LUMBAR SPINE WO CPT Code: Final Report FULL RESULT: EXAM: CT LUMBAR SPINE WITHOUT CONTRAST EXAM DATE: 05/25/2019 09:41 AM. CLINICAL HISTORY: Fall with back pain; lumbar and also across thorac. COMPARISONS: CHEST W/O 05/25/2019 9:32 AM ABDOMEN/PELVIS W/O 09/02/2018 2:32 PM. TECHNIQUE: Thin-section axial images were acquired of the lumbar spine from T10-T11 to S4 without contrast. Post-processing: Coronal and sagittal reformats. Other: None. In accordance with CT protocol optimization, one or more of the following dose reduction techniques were utilized for this exam: automated exposure control, adjustment of mA and/or KV based on patient size, or use of iterative reconstructive technique. FINDINGS: Alignment: Mild dextroconvex lumbar curvature. No listhesis. Bones: Five [id number] lumbar vertebral bodies are present. No fractures or bone lesions. Disk Levels/Facets: Mild multilevel disk space narrowing and mild vertebral body spurring. Moderate bilateral L5-S1 and right L4-L5 facet degenerative disease with mild disease at other levels. No high-grade canal or neural foraminal stenosis. Moderate right L4-L5 and mild to moderate bilateral L3-L4 and left L4-L5 bony neural foraminal narrowing. Musculature: Normal. No fatty atrophy. Other: Mild left hemidiaphragm elevation redemonstrated. Coronary artery calcifications. Distended bladder. Moderate to severe aortic and arterial calcifications. No definite acute abnormalities demonstrated within the visualized abdomen and pelvis. IMPRESSION: 1. No fracture or definite acute abnormality of the lumbar spine. 2. Degenerative and chronic findings, as detailed above. RADIA
--- NOTE | 2019-05-25 10:21 | CT Report ---
Reason: fall with back pain; lumbar and also across thorac Procedure Date: 05/25/2019 Accession Number: [id number] / [id number] Procedure: CT - CHEST WO CPT Code: Final Report FULL RESULT: EXAM: CT CHEST EXAM DATE: 05/25/2019 09:42 AM. CLINICAL HISTORY: Fall with back pain; lumbar and also across thoracic. COMPARISONS: CHEST W/ 02/18/2014 2:16 PM. TECHNIQUE: Routine helical CT imaging was performed through the chest. IV contrast: None. Reconstructions: Coronal and sagittal. A portion of left lung apex was not included on region scanned. In accordance with CT protocol optimization, one or more of the following dose reduction techniques were utilized for this exam: automated exposure control, adjustment of mA and/or KV based on patient size, or use of iterative reconstructive technique. FINDINGS: Lungs/Pleura: Right greater than left apical pleural and parenchymal opacities compatible with scarring appear similar to prior CT. Elongated subpleural opacities involving the posterior right lower lobe on sagittal images 76 and 77 and along the superior aspect of right major fissure posteriorly on image 77 appear similar to slightly more pronounced than on prior CT 02/18/2014 sagittal series 7 images 47, 49 and 50. The posterior right lower lobe opacity has mixed density on present exam series 6 image 7 measuring 10 x 8 mm, previously 9 x 7 mm. Mediastinum: Coarse left thyroid calcifications. Moderate coronary arterial calcifications. No adenopathy or masses. The heart and great vessels are normal. Bones: Old, healed lateral left ninth and 10th rib fractures. No acute displaced fracture. Visualized Abdomen: Unremarkable. Other: None. IMPRESSION: 1. Biapical scarring. 2. Probable posterior right lower lobe subpleural scarring is slightly more pronounced compared to 02/18/2014. This may be in part related to thinner slice thickness ( 3 mm on today's exam compared to 5 mm previously.) Consider follow-up noncontrast chest CT in 1 year. 3. Old left rib fractures. 4. No acute traumatic injury demonstrated. RADIA
[2019-05-25] MEDS ORDERED: cephALEXin 250 MG CAPSULE PO STA (10:31)
[2019-05-25 10:55] VITALS: BP 146/102
== END 2019-05-25 12:13 | disposition home or self-care (01) ==
LOC: EDUNIT# → ED 08:12
DX: S20.221A Contusion of right back wall of thorax, initial encounter (principal); S40.011A Contusion of right shoulder, initial encounter; W01.0XXA Fall on same level from slipping, tripping and stumbling without subsequent striking against object, initial encounter; Y93.01 Activity, walking, marching and hiking; Y92.009 Unspecified place in unspecified non-institutional (private) residence as the place of occurrence of the external cause; N30.00 Acute cystitis without hematuria; M51.37 Other intervertebral disc degeneration, lumbosacral region; G30.9 Alzheimer's disease, unspecified; G31.83 Neurocognitive disorder with Lewy bodies; F02.80 Dementia in other diseases classified elsewhere, unspecified severity, without behavioral disturbance, psychotic disturbance, mood disturbance, and anxiety; I10 Essential (primary) hypertension; F17.200 Nicotine dependence, unspecified, uncomplicated
CPT/HCPCS: 51701; 71250; 72131; 81001; 87086; 87181; 99284; A9270; 81003

== ENCOUNTER 2019-06-09 00:57 | Outpatient (CLI) | payer MEDICARE, OTHER | END 2019-06-09 00:58 | disposition critical access hospital (66) | LOC: EMS 00:57 | PROVIDERS: ATTEND Surgery | DX: R53.1 Weakness (principal) | CPT/HCPCS: A0425; A0429 ==

== ENCOUNTER 2019-06-09 01:10 | Emergency (ER) | payer MEDICARE, OTHER ==
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
[2019-06-09 02:49] LABS: BASOPHILS # (AUTO) 0.1 10^3/uL (0.0-0.1); BASOPHILS % (AUTO) 1.5 %; EOSINOPHILS # (AUTO) 0.5 10^3/uL (0.0-0.7); EOSINOPHILS % (AUTO) 9.5 %; LYMPHOCYTES % (AUTO) 18.6 %; MEAN CORPUSCULAR HEMOGLOBIN 30.7 pg (27.0-31.0); MEAN CORPUSCULAR HGB CONC 32.8 g/dL (32.0-36.0); MEAN CORPUSCULAR VOLUME 93.5 fL (81.0-99.0); MEAN PLATELET VOLUME 9.7 fL (7.9-10.8); MONOCYTES # (AUTO) 0.6 10^3/uL (0.0-1.0); MONOCYTES % (AUTO) 11.7 %; NEUTROPHILS # (AUTO) 3.2 10^3/uL (1.5-6.6); NEUTROPHILS % (AUTO) 58.5 %; PLT - PLATELET COUNT 366 10^3/uL (130-450); RED BLOOD COUNT 4.89 10^6/uL (4.20-5.40); RED CELL DISTRIBUTION WIDTH 13.3 % (12.0-15.0); WHITE BLOOD COUNT 5.5 x10^3/uL (4.8-10.8)
[2019-06-09 02:55] LABS: INR 1.1 (0.8-1.2); PT - PROTHROMBIN TIME 12.3 secs (9.9-12.6)
[2019-06-09 02:57] LABS: CALCIUM 9.5 mg/dL (8.5-10.3); CREATININE 0.8 mg/dL (0.4-1.0)
[2019-06-09 03:03] LABS: PARTIAL THROMBOPLASTIN TIME 29.9 secs (24.9-33.3)
--- NOTE | 2019-06-09 03:04 | CT Report ---
Reason: AMS Procedure Date: 06/09/2019 Accession Number: [id number] / [id number] Procedure: CT - HEAD WO CPT Code: Final Report FULL RESULT: EXAM: CT HEAD EXAM DATE: 06/09/2019 02:47 AM. CLINICAL HISTORY: AMS. COMPARISON: HEAD W/O 04/04/2019 4:54 PM. TECHNIQUE: Multiaxial CT images were obtained from the foramen magnum to the vertex. Reformats: Sagittal and coronal. IV contrast: None. In accordance with CT protocol optimization, one or more of the following dose reduction techniques were utilized for this exam: automated exposure control, adjustment of mA and/or KV based on patient size, or use of iterative reconstructive technique. FINDINGS: Parenchyma: No intraparenchymal hemorrhage. No evidence of mass, midline shift, or CT findings of acute infarction. Gatica-white differentiation is distinct. Diffuse chronic microangiopathic white matter changes are evident. Extraaxial Spaces: Normal for age. No subdural or epidural collections identified. Ventricles: The ventricles and cortical sulci are enlarged, consistent with age-related tissue loss. Sinuses and orbits: Imaged paranasal sinuses, orbits, and mastoids show no significant abnormality. Bones: No evidence of fracture or calvarial defect. Other: None. IMPRESSION: Generalized age-related cortical atrophic changes and chronic ischemic changes without evidence of acute intracranial abnormality. RADIA
--- NOTE | 2019-06-09 03:09 | XRAY Report ---
Reason: AMS Procedure Date: 06/09/2019 Accession Number: [id number] / [id number] Procedure: XR - Chest 1 View X-Ray CPT Code: 99541 Final Report FULL RESULT: EXAM: CHEST RADIOGRAPHY EXAM DATE: 06/09/2019 02:37 AM CLINICAL HISTORY: AMS. Shaky and crying. Unable to move. COMPARISON: CHEST 1 VIEW 04/04/2019 3:43 PM. TECHNIQUE: 1 view. FINDINGS: Lungs/Pleura: Clear lungs. No pleural effusion. No pneumothorax. Mediastinum: Within exam limitations, the cardiomediastinal contour is normal. Other: None. IMPRESSION: No acute cardiopulmonary process. RADIA
[2019-06-09 06:20] LABS: BILIRUBIN,URINE NEGATIVE (NEGATIVE); GLUCOSE, URINE (UA) NEGATIVE (NEGATIVE); KETONES,URINE (UA) NEGATIVE (NEGATIVE); LEUKOCYTE ESTERASE, URINE SMALL (NEGATIVE); NITRITE,URINE POSITIVE (NEGATIVE); OCCULT BLOOD,URINE NEGATIVE (NEGATIVE); PROTEIN,URINE NEGATIVE (NEGATIVE); UROBILINOGEN,URINE 1 (NORMAL) E.U./dL (NORMAL)
[2019-06-09 06:25] LABS: CLARITY,URINE SL. CLOUDY (CLEAR)
[2019-06-09 06:44] LABS: BACTERIA,URINE Many /HPF (None Seen); RBC,URINE None Seen /HPF (0-5); SQUAMOUS EPITHELIAL CELL,UR FEW Squamous (<= Few)
[2019-06-09] MEDS ORDERED: cefTRIAXone 1 GM in SODIUM CHLORIDE 0.9% MINIBAG 100 ML IV STA (06:59)
[2019-06-09 13:06] VITALS: BP 159/84
== END 2019-06-09 13:04 | disposition home or self-care (01) ==
LOC: EDUNIT# → ED 01:10
DX: T76.01XA Adult neglect or abandonment, suspected, initial encounter (principal); N30.00 Acute cystitis without hematuria; F03.90 Unspecified dementia, unspecified severity, without behavioral disturbance, psychotic disturbance, mood disturbance, and anxiety; G20 Parkinson's disease; R53.1 Weakness; Z91.89 Other specified personal risk factors, not elsewhere classified
CPT/HCPCS: 36415; 70450; 71045; 80048; 81001; 81003; 82140; 82550; 83880; 84484; 85025; 85610; 85730; 87086; 87181; 93005; 96365; 99281

== ENCOUNTER 2019-06-20 06:08 | Outpatient (CLI) | payer MEDICARE, OTHER | END 2019-06-20 06:09 | disposition critical access hospital (66) | LOC: EMS 06:08 | PROVIDERS: ATTEND Surgery | DX: R03.0 Elevated blood-pressure reading, without diagnosis of hypertension (principal); W08.XXXA Fall from other furniture, initial encounter; Y92.009 Unspecified place in unspecified non-institutional (private) residence as the place of occurrence of the external cause | CPT/HCPCS: A0425; A0429 ==

== ENCOUNTER 2019-06-20 06:29 | Emergency (ER) | payer MEDICARE, OTHER ==
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
[2019-06-20] MEDS ORDERED: SODIUM CHLORIDE 0.9% 1,000 ML IV ONE (07:36)
--- NOTE | 2019-06-20 08:16 | CT Report ---
Reason: FALL, HEAD INJURY Procedure Date: 06/20/2019 Accession Number: [id number] / [id number] Procedure: CT - HEAD WO CPT Code: Final Report FULL RESULT: EXAM: CT HEAD EXAM DATE: 06/20/2019 08:00 AM. CLINICAL HISTORY: FALL, HEAD INJURY. COMPARISON: HEAD W/O 06/09/2019 2:47 AM. TECHNIQUE: Multiaxial CT images were obtained from the foramen magnum to the vertex. Reformats: Sagittal and coronal. IV contrast: None. In accordance with CT protocol optimization, one or more of the following dose reduction techniques were utilized for this exam: automated exposure control, adjustment of mA and/or KV based on patient size, or use of iterative reconstructive technique. FINDINGS: Parenchyma: No intraparenchymal hemorrhage. No evidence of mass, midline shift, or CT findings of infarction. Gatica-white differentiation is distinct. Subcortical and periventricular white matter changes consistent with small vessel ischemic disease in the appropriate clinical setting. Extraaxial Spaces: Normal for age. No subdural or epidural collections identified. Ventricles: Normal in size and position. Sinuses and Orbits: Imaged paranasal sinuses, orbits, and mastoids show no significant abnormality. Bones: No evidence of fracture or calvarial defect. Other: None. IMPRESSION: 1. No acute intracranial abnormality. 2. Small vessel ischemic disease in the appropriate clinical setting. RADIA
--- NOTE | 2019-06-20 08:18 | CT Report ---
Reason: FALL, NECK PAIN Procedure Date: 06/20/2019 Accession Number: [id number] / [id number] Procedure: CT - CERVICAL SPINE WO CPT Code: Final Report FULL RESULT: EXAM: CT CERVICAL SPINE WITHOUT CONTRAST DATE: 06/20/2019 08:00 AM. HISTORY: Acute pain due to trauma. COMPARISONS: HEAD W/O 06/09/2019 2:47 AM. TECHNIQUE: Thin-section axial images were acquired of the cervical spine without contrast. Post-processing: Coronal and sagittal reformats. Other: None. In accordance with CT protocol optimization, one or more of the following dose reduction techniques were utilized for this exam: automated exposure control, adjustment of mA and/or KV based on patient size, or use of iterative reconstructive technique. FINDINGS: Alignment: No scoliosis or spondylolisthesis. Bones: No fracture or bone lesion. Interspace Levels/Facets: There is moderate diffuse degenerative disk and facet disease seen throughout the mid and lower aspects of the cervical spine. The bony central canal demonstrates multilevel mild to moderate central canal narrowing, worse at the C4-C5 level. Musculature: Normal. No fatty atrophy. Other: The paravertebral and prevertebral soft tissues are unremarkable. Mild biapical scarring is seen. Mild carotid bulb calcification is seen. Scattered calcified small nodules are suggested in the thyroid gland region. IMPRESSION: 1. No acute osseous abnormality demonstrated. 2. Moderate degenerative spondylosis changes of the mid and lower cervical spine. RADIA
[2019-06-20 08:42] LABS: BASOPHILS # (AUTO) 0.1 10^3/uL (0.0-0.1); EOSINOPHILS # (AUTO) 0.3 10^3/uL (0.0-0.7); HGB - HEMOGLOBIN 14.1 g/dL (12.0-16.0); LYMPHOCYTES # (AUTO) 1.2 10^3/uL (1.5-3.5); LYMPHOCYTES % (AUTO) 22.1 %; MEAN CORPUSCULAR HGB CONC 33.2 g/dL (32.0-36.0); MEAN CORPUSCULAR VOLUME 93.4 fL (81.0-99.0); MEAN PLATELET VOLUME 9.7 fL (7.9-10.8); MONOCYTES # (AUTO) 0.6 10^3/uL (0.0-1.0); MONOCYTES % (AUTO) 12.3 %; NEUTROPHILS # (AUTO) 3.1 10^3/uL (1.5-6.6); NEUTROPHILS % (AUTO) 58.4 %; PLT - PLATELET COUNT 341 10^3/uL (130-450); RED BLOOD COUNT 4.55 10^6/uL (4.20-5.40); RED CELL DISTRIBUTION WIDTH 13.5 % (12.0-15.0); WHITE BLOOD COUNT 5.2 x10^3/uL (4.8-10.8)
[2019-06-20 08:59] LABS: ALBUMIN 3.5 g/dL (3.2-5.5); ALBUMIN/GLOBULIN RATIO 1.3 (1.0-2.2); BILIRUBIN,TOTAL 0.9 mg/dL (0.2-1.0); CALCIUM 9.3 mg/dL (8.5-10.3); CREATININE 0.5 mg/dL (0.4-1.0); TOTAL PROTEIN 6.1 g/dL (6.7-8.2)
[2019-06-20 10:40] LABS: BILIRUBIN,URINE NEGATIVE (NEGATIVE); GLUCOSE, URINE (UA) NEGATIVE (NEGATIVE); KETONES,URINE (UA) NEGATIVE (NEGATIVE); LEUKOCYTE ESTERASE, URINE NEGATIVE (NEGATIVE); NITRITE,URINE NEGATIVE (NEGATIVE); OCCULT BLOOD,URINE NEGATIVE (NEGATIVE); PROTEIN,URINE NEGATIVE (NEGATIVE); UROBILINOGEN,URINE 0.2 (NORMAL) E.U./dL (NORMAL)
[2019-06-20 10:44] LABS: CLARITY,URINE CLEAR (CLEAR)
[2019-06-20 19:06] VITALS: BP 174/116
== END 2019-06-20 21:30 | disposition home or self-care (01) ==
LOC: EDUNIT# → ED 06:29
DX: Z04.3 Encounter for examination and observation following other accident (principal); I10 Essential (primary) hypertension; G30.9 Alzheimer's disease, unspecified; G20 Parkinson's disease; F02.80 Dementia in other diseases classified elsewhere, unspecified severity, without behavioral disturbance, psychotic disturbance, mood disturbance, and anxiety; F17.200 Nicotine dependence, unspecified, uncomplicated
CPT/HCPCS: 36415; 70450; 72125; 80053; 81001; 81003; 83690; 85025; 87086; 96360; 99281

== ENCOUNTER 2019-06-20 21:33 | Outpatient (CLI) | payer MEDICARE, OTHER | END 2019-06-20 21:34 | disposition home or self-care (01) | LOC: EMS 21:33 | PROVIDERS: ATTEND Surgery | DX: F03.90 Unspecified dementia, unspecified severity, without behavioral disturbance, psychotic disturbance, mood disturbance, and anxiety (principal) | CPT/HCPCS: A0425; A0428 ==

== ENCOUNTER 2019-06-28 13:29 | Outpatient (CLI) | payer MEDICARE, OTHER | END 2019-06-28 13:30 | disposition EMS.NT | LOC: EMS 13:29 | PROVIDERS: ATTEND Surgery | DX: R53.1 Weakness (principal) | CPT/HCPCS: A0425; A0429 ==

== ENCOUNTER 2019-06-28 13:48 | Emergency (ER) | payer MEDICARE, OTHER ==
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
[2019-06-28 15:05] LABS: BASOPHILS # (AUTO) 0.1 10^3/uL (0.0-0.1); EOSINOPHILS # (AUTO) 0.4 10^3/uL (0.0-0.7); EOSINOPHILS % (AUTO) 6.3 %; HGB - HEMOGLOBIN 13.9 g/dL (12.0-16.0); LYMPHOCYTES # (AUTO) 1.2 10^3/uL (1.5-3.5); LYMPHOCYTES % (AUTO) 17.3 %; MEAN CORPUSCULAR HEMOGLOBIN 29.8 pg (27.0-31.0); MEAN CORPUSCULAR HGB CONC 32.3 g/dL (32.0-36.0); MEAN CORPUSCULAR VOLUME 92.1 fL (81.0-99.0); MEAN PLATELET VOLUME 9.2 fL (7.9-10.8); MONOCYTES # (AUTO) 0.7 10^3/uL (0.0-1.0); MONOCYTES % (AUTO) 10.2 %; NEUTROPHILS # (AUTO) 4.5 10^3/uL (1.5-6.6); NEUTROPHILS % (AUTO) 64.9 %; PLT - PLATELET COUNT 326 10^3/uL (130-450); RED BLOOD COUNT 4.67 10^6/uL (4.20-5.40); RED CELL DISTRIBUTION WIDTH 13.4 % (12.0-15.0); WHITE BLOOD COUNT 6.9 x10^3/uL (4.8-10.8)
[2019-06-28 15:21] LABS: ALBUMIN 3.6 g/dL (3.2-5.5); ALBUMIN/GLOBULIN RATIO 1.4 (1.0-2.2); BILIRUBIN,TOTAL 0.8 mg/dL (0.2-1.0); CALCIUM 9.1 mg/dL (8.5-10.3); CREATININE 0.6 mg/dL (0.4-1.0); TOTAL PROTEIN 6.1 g/dL (6.7-8.2)
--- NOTE | 2019-06-28 15:29 | XRAY Report ---
Reason: wheeze Procedure Date: 06/28/2019 Accession Number: [id number] / [id number] Procedure: XR - Chest 1 View X-Ray CPT Code: 70198 Final Report FULL RESULT: EXAM: CHEST RADIOGRAPHY EXAM DATE: 06/28/2019 03:20 PM. CLINICAL HISTORY: Wheeze. COMPARISON: CHEST 1 VIEW 06/09/2019 2:37 AM. TECHNIQUE: 1 view. FINDINGS: Lungs/Pleura: No focal opacities evident. No pleural effusion. No pneumothorax. Mediastinum: Normal heart size. There is thoracic aortic tortuosity. Other: None. IMPRESSION: No acute intrathoracic plain film abnormality. RADIA
[2019-06-28] MEDS ORDERED: cefTRIAXone 1 GM VIAL IM STA (16:38)
[2019-06-28] MEDS ORDERED: LIDOCAINE 1% 2 ML VIAL MC ONE (16:38)
[2019-06-28 16:40] LABS: MUDS CUTOFF CONCENTRATIONS CUTOFF CONC BELOW:
[2019-06-28 16:43] LABS: BILIRUBIN,URINE NEGATIVE (NEGATIVE); GLUCOSE, URINE (UA) NEGATIVE (NEGATIVE); KETONES,URINE (UA) NEGATIVE (NEGATIVE); LEUKOCYTE ESTERASE, URINE NEGATIVE (NEGATIVE); NITRITE,URINE POSITIVE (NEGATIVE); OCCULT BLOOD,URINE NEGATIVE (NEGATIVE); PH,URINE 6.5 PH (5.0-7.5); PROTEIN,URINE NEGATIVE (NEGATIVE); UROBILINOGEN,URINE 0.2 (NORMAL) E.U./dL (NORMAL)
[2019-06-28 16:44] LABS: CLARITY,URINE HAZY (CLEAR)
[2019-06-28 16:56] LABS: BACTERIA,URINE Moderate /HPF (None Seen); MUCUS,URINE Few Strands; RBC,URINE 0-5 /HPF (0-5); SQUAMOUS EPITHELIAL CELL,UR FEW Squamous (<= Few)
[2019-06-28 16:58] LABS: AMPHETAMINE SCREEN,URINE NEGATIVE (NEGATIVE); BENZODIAZEPINES SCREEN, URINE NEGATIVE (NEGATIVE); COCAINE SCREEN URINE NEGATIVE (NEGATIVE); METHADONE SCREEN, URINE NEGATIVE (NEGATIVE); METHAMPHETAMINES SCREEN, URINE NEGATIVE (NEGATIVE); OPIATE SCREEN, URINE NEGATIVE (NEGATIVE); OXYCODONE SCREEN, URINE NEGATIVE (NEGATIVE); PROPOXYPHENE SCREEN, URINE NEGATIVE (NEGATIVE); TRICYCLIC ANTIDEPRESSANT,URINE NEGATIVE (NEGATIVE)
[2019-06-28 17:43] VITALS: BP 181/94
== END 2019-06-28 18:00 | disposition home or self-care (01) ==
LOC: EDUNIT# → ED 13:48
DX: T76.01XA Adult neglect or abandonment, suspected, initial encounter (principal); G20 Parkinson's disease; G30.9 Alzheimer's disease, unspecified; F02.80 Dementia in other diseases classified elsewhere, unspecified severity, without behavioral disturbance, psychotic disturbance, mood disturbance, and anxiety; L89.302 Pressure ulcer of unspecified buttock, stage 2; L89.303 Pressure ulcer of unspecified buttock, stage 3; N30.00 Acute cystitis without hematuria; R06.2 Wheezing; I10 Essential (primary) hypertension; Z86.73 Personal history of transient ischemic attack (TIA), and cerebral infarction without residual deficits; F17.200 Nicotine dependence, unspecified, uncomplicated
CPT/HCPCS: 36415; 71045; 80053; 80306; 81001; 81003; 83605; 83690; 85025; 87077; 87086; 87181; 96372; 99281; 99284

== ENCOUNTER 2019-06-29 20:34 | Outpatient (CLI) | payer MEDICARE, OTHER | END 2019-06-29 20:35 | disposition critical access hospital (66) | LOC: EMS 20:34 | PROVIDERS: ATTEND Surgery | DX: M54.5 Low back pain (principal); W08.XXXA Fall from other furniture, initial encounter; Y92.009 Unspecified place in unspecified non-institutional (private) residence as the place of occurrence of the external cause | CPT/HCPCS: A0425; A0429 ==

== ENCOUNTER 2019-06-29 20:36 | Emergency (ER) | payer MEDICARE, OTHER ==
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
[2019-06-29 21:08] LABS: BILIRUBIN,URINE NEGATIVE (NEGATIVE); CLARITY,URINE CLOUDY (CLEAR); GLUCOSE, URINE (UA) NEGATIVE (NEGATIVE); KETONES,URINE (UA) NEGATIVE (NEGATIVE); LEUKOCYTE ESTERASE, URINE SMALL (NEGATIVE); NITRITE,URINE POSITIVE (NEGATIVE); OCCULT BLOOD,URINE NEGATIVE (NEGATIVE); PROTEIN,URINE NEGATIVE (NEGATIVE); UROBILINOGEN,URINE 0.2 (NORMAL) E.U./dL (NORMAL)
[2019-06-29 21:18] LABS: BASOPHILS # (AUTO) 0.1 10^3/uL (0.0-0.1); BASOPHILS % (AUTO) 0.7 %; EOSINOPHILS # (AUTO) 0.2 10^3/uL (0.0-0.7); HGB - HEMOGLOBIN 15.1 g/dL (12.0-16.0); LYMPHOCYTES % (AUTO) 12.8 %; MEAN CORPUSCULAR HEMOGLOBIN 29.5 pg (27.0-31.0); MEAN CORPUSCULAR HGB CONC 32.3 g/dL (32.0-36.0); MEAN CORPUSCULAR VOLUME 91.4 fL (81.0-99.0); MEAN PLATELET VOLUME 9.4 fL (7.9-10.8); MONOCYTES # (AUTO) 0.6 10^3/uL (0.0-1.0); MONOCYTES % (AUTO) 8.3 %; NEUTROPHILS # (AUTO) 5.7 10^3/uL (1.5-6.6); NEUTROPHILS % (AUTO) 74.8 %; PLT - PLATELET COUNT 356 10^3/uL (130-450); RED BLOOD COUNT 5.11 10^6/uL (4.20-5.40); RED CELL DISTRIBUTION WIDTH 13.2 % (12.0-15.0); WHITE BLOOD COUNT 7.7 x10^3/uL (4.8-10.8)
[2019-06-29 21:19] LABS: BACTERIA,URINE Many /HPF (None Seen); MUCUS,URINE Few Strands; RBC,URINE 0-5 /HPF (0-5); SQUAMOUS EPITHELIAL CELL,UR RARE Squamous (<= Few)
[2019-06-29 21:32] LABS: ALBUMIN 3.8 g/dL (3.2-5.5); ALBUMIN/GLOBULIN RATIO 1.4 (1.0-2.2); BILIRUBIN,TOTAL 1.3 mg/dL (0.2-1.0); CALCIUM 9.3 mg/dL (8.5-10.3); CREATININE 0.6 mg/dL (0.4-1.0); TOTAL PROTEIN 6.5 g/dL (6.7-8.2)
--- NOTE | 2019-06-29 21:45 | CT Report ---
Reason: fall, AMS Procedure Date: 06/29/2019 Accession Number: [id number] / [id number] Procedure: CT - HEAD WO CPT Code: Final Report FULL RESULT: EXAM: CT HEAD EXAM DATE: 06/29/2019 09:37 PM. CLINICAL HISTORY: 79-year-old female. Fall, AMS. COMPARISON: CT head 06/20/2019 TECHNIQUE: Multiaxial CT images were obtained from the foramen magnum to the vertex. Reformats: Sagittal and coronal. IV contrast: None. In accordance with CT protocol optimization, one or more of the following dose reduction techniques were utilized for this exam: automated exposure control, adjustment of mA and/or KV based on patient size, or use of iterative reconstructive technique. FINDINGS: Parenchyma: No intraparenchymal hemorrhage. No evidence of mass, midline shift, or CT findings of acute infarction. [place]a-white differentiation is distinct. Diffuse chronic microangiopathic white matter changes are evident. Extraaxial Spaces: Normal for age. No subdural or epidural collections identified. Ventricles: The ventricles and cortical sulci are enlarged, consistent with age-related tissue loss. Sinuses and orbits: Status post bilateral lens replacement surgery. Imaged paranasal sinuses, orbits, and mastoids show no significant abnormality. Bones: No evidence of fracture or calvarial defect. Other: None. IMPRESSION: Generalized age-related cortical atrophic changes without evidence of acute intracranial abnormality. RADIA
--- NOTE | 2019-06-29 21:49 | CT Report ---
Reason: fall, crepitus, AMS Procedure Date: 06/29/2019 Accession Number: [id number] / [id number] Procedure: CT - CERVICAL SPINE WO CPT Code: Final Report FULL RESULT: EXAM: CT CERVICAL SPINE WITHOUT CONTRAST DATE: 06/29/2019 09:40 PM. HISTORY: 79-year-old female. Fall, crepitus, AMS. COMPARISONS: CERVICAL SPINE W/O 06/20/2019 7:56 AM. TECHNIQUE: Thin-section axial images were acquired of the cervical spine without contrast. Post-processing: Coronal and sagittal reformats. Other: None. In accordance with CT protocol optimization, one or more of the following dose reduction techniques were utilized for this exam: automated exposure control, adjustment of mA and/or KV based on patient size, or use of iterative reconstructive technique. FINDINGS: Alignment: No scoliosis or spondylolisthesis. Bones: No evidence of acute fracture or traumatic subluxation. The bones are diffusely osteopenic. Compared to prior study from 06/20/2019, stable moderate multilevel degenerative spondylosis. Musculature: Normal. No fatty atrophy. Other: Stable calcified lesion left thyroid lobe. The paravertebral and prevertebral soft tissues are otherwise unremarkable. Biapical pleural parenchymal scarring. The lung apices are otherwise clear. IMPRESSION: 1. No evidence of acute fracture or traumatic subluxation. No prevertebral soft tissue swelling. The bones are diffusely osteopenic. 2. Compared to prior study from 06/20/2019, stable moderate multilevel degenerative spondylosis. RADIA
--- NOTE | 2019-06-29 22:07 | XRAY Report ---
Reason: fall, tenderness Procedure Date: 06/29/2019 Accession Number: [id number] / [id number] Procedure: XR - Hips 2V BILAT CPT Code: Final Report FULL RESULT: EXAM: BILATERAL HIP RADIOGRAPHY EXAM DATE: 06/29/2019 09:34 PM. CLINICAL HISTORY: Fall, tenderness. COMPARISON: HIP BILAT 09/10/2015 12:28 PM. TECHNIQUE: 2 views each. FINDINGS: Bones: Interval screw fixation of a right femoral neck fracture. No definite acute fracture appreciated. Right Hip: Mild osteoarthritis. No dislocation. Left Hip: Mild osteoarthritis. No dislocation. Soft Tissues: Normal. No soft tissue swelling. IMPRESSION: Mild bilateral osteoarthritis. No evidence of acute fracture. Previous screw fixation of a right femoral neck fracture. RADIA
--- NOTE | 2019-06-29 22:09 | XRAY Report ---
Reason: chest pain Procedure Date: 06/29/2019 Accession Number: [id number] / [id number] Procedure: XR - Chest 1 View X-Ray CPT Code: 02078 Final Report FULL RESULT: EXAM: CHEST RADIOGRAPHY EXAM DATE: 06/29/2019 09:34 PM. CLINICAL HISTORY: Chest pain. COMPARISON: CHEST 1 VIEW 06/28/2019 2:52 PM. TECHNIQUE: 1 view. FINDINGS: Lungs/Pleura: Stable hyperinflation. No focal infiltrate, effusion, or pneumothorax. Mediastinum: Within exam limitations, the cardiomediastinal contour is normal. Other: Old, healed right humeral fracture. IMPRESSION: Stable hyperinflation. No evidence of acute cardiopulmonary disease. RADIA
[2019-06-29] MEDS ORDERED: cefTRIAXone 1 GM VIAL IM STA (22:43)
[2019-06-29] MEDS ORDERED: LIDOCAINE 1% 2 ML VIAL MC ONE (22:43)
[2019-06-30] MEDS ORDERED: NITROFURANTOIN MACRO 100 MG CAPSULE PO STA (07:39)
[2019-06-30 15:10] VITALS: BP 136/75
== END 2019-06-30 16:33 | disposition home or self-care (01) ==
LOC: EDUNIT# → ED 20:36
DX: N30.00 Acute cystitis without hematuria (principal); G30.9 Alzheimer's disease, unspecified; G20 Parkinson's disease; F02.81 Dementia in other diseases classified elsewhere, unspecified severity, with behavioral disturbance; Z91.81 History of falling; I10 Essential (primary) hypertension; M19.90 Unspecified osteoarthritis, unspecified site; F17.200 Nicotine dependence, unspecified, uncomplicated; L89.319 Pressure ulcer of right buttock, unspecified stage; Z86.73 Personal history of transient ischemic attack (TIA), and cerebral infarction without residual deficits
CPT/HCPCS: 36415; 51701; 70450; 71045; 72125; 73521; 80053; 81001; 83690; 85025; 87086; 87181; 99281; 99284; A9270; 81003

== ENCOUNTER 2019-07-10 21:00 | Outpatient (CLI) | payer MEDICARE, OTHER | END 2019-07-10 21:01 | disposition critical access hospital (66) | LOC: EMS 21:00 | PROVIDERS: ATTEND Surgery | DX: R50.9 Fever, unspecified (principal); R41.82 Altered mental status, unspecified | CPT/HCPCS: A0425; A0429 ==

== ENCOUNTER 2019-07-10 21:24 | Emergency (ER) | payer MEDICARE, OTHER ==
--- NOTE | 2019-07-10 21:38 | ED Physician Documentation ---
History of Present Illness - Stated complaint Stated Complaint: SOA/FEVER - Chief complaint Chief Complaint: Fever - History obtained from History obtained from: EMS (Patient is an 79-year-old female with baseline dementia presents tonight from fdc after they noted that she had a fever on arrival she is afebrile she is at her baseline of dementia according to EMS. No family currently available. The patient denies any complaints and is requesting to go back to her fdc. 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 : None HEENT: None Psych: Depression Musculoskeletal: Osteoarthritis Derm: None - Past Surgical History Past Surgical History: Yes Ortho: Other /PARACHUTE CUSHION INSTALLER: Hysterectomy Cardiovascular: Other HEENT: Cataracts - Present Medications Home Medications: Ambulatory Orders Medication Instructions Recorded Confirmed Carbidopa/Levodopa 1 tab PO TIDWM 10/12/16 09/02/18 [Carbidopa-Levodopa 25-100 Tab] Donepezil HCl 10 mg PO DAILY 10/12/16 09/02/18 Acetaminophen 1 - 2 tab PO PRN PRN MDD 3000mg 06/17/18 09/02/18 Melatonin 10 mg PO DAILY PM 06/17/18 09/02/18 amLODIPine [Norvasc] 10 mg PO DAILY 06/17/18 09/02/18 lisinopriL [Lisinopril] 20 mg PO DAILY 06/17/18 09/02/18 Atorvastatin [Lipitor] 10 mg PO DAILY #30 tablet 06/18/18 09/02/18 Phenazopyridine HCl [Pyridium] 200 mg PO TID PRN #6 tablet 09/02/18 Cefdinir 300 mg PO BID #20 capsule 04/04/19 Cephalexin [Keflex] 500 mg PO TID #18 capsule 05/25/19 Naproxen 375 mg PO BID #20 tablet 05/25/19 Ciprofloxacin HCl [Cipro] 500 mg PO BID #14 tablet 06/09/19 Cefdinir 300 mg PO BID #14 capsule 06/28/19 Nitrofurantoin Monohyd/M-Cryst 100 mg PO BID #20 capsule 03/08/20 [Macrobid 100 mg Capsule] - Allergies Allergies/Adverse Reactions: Allergies Allergy/AdvReac Type Severity Reaction Status Date / Time divalproex sodium AdvReac Unknown Verified 07/10/19 21:33 [From Depakote] - Social History Does the pt smoke?: Yes Smoking Status: Current every day smoker Does the pt drink ETOH?: Yes Does the pt have substance abuse?: No - Immunizations Immunizations are current?: Yes - POLST Patient has POLST: Yes POLST Status: Full Code (POLST was updated in [place] when she had hemorrhagic CVA in 09/06) PD ED PE NORMAL - Vitals Vital signs reviewed: Yes - General General: No acute distress - HEENT HEENT: Atraumatic, PERRL, Moist mucous membranes - Neck Neck: Supple, no meningeal sign, No JVD - Cardiac Cardiac: RRR, No murmur, Strong equal pulses - Respiratory Respiratory: No respiratory distress, Clear bilaterally - Abdomen Abdomen: Normal bowel sounds, Soft, Non tender, Non distended - Derm Derm: Normal color, Warm and dry, No rash - Extremities Extremities: No deformity - Neuro Neuro: Other (demented, no unilateral weakness, no facial droop, no acute neurological deficit.) - Psych Psych: Normal mood, Normal affect Results - Vitals Vitals: Vital Signs - 24 hr 07/10/19 07/10/19 21:30 21:50 Temperature 36.8 C Heart Rate 96 81 Respiratory 18 14 Rate Blood Pressure 120/64 116/62 O2 Saturation 100 99 Oxygen O2 Source [Without Activity] Nasal cannula O2 Source Room air PD MEDICAL DECISION MAKING - ED course Complexity details: re-evaluated patient (22:38 patient afebrile on exam, appearts to be at baseline. ) Departure - Departure Disposition: Home, Self Care Clinical Impression: Well adult health check Condition: Stable Instructions: ED Fever Control Follow-Up: YOUR, DOCTOR [Other] - Tomorrow
[2019-07-10 23:25] VITALS: BP 128/72
== END 2019-07-10 23:25 | disposition home or self-care (01) ==
LOC: EDUNIT# → ED 21:24
DX: R50.9 Fever, unspecified (principal); I10 Essential (primary) hypertension; G20 Parkinson's disease; G30.9 Alzheimer's disease, unspecified; F02.80 Dementia in other diseases classified elsewhere, unspecified severity, without behavioral disturbance, psychotic disturbance, mood disturbance, and anxiety; F17.210 Nicotine dependence, cigarettes, uncomplicated
CPT/HCPCS: 99281

== ENCOUNTER 2019-07-10 22:51 | Outpatient (CLI) | payer MEDICARE, OTHER | END 2019-07-10 22:52 | disposition home or self-care (01) | LOC: EMS 22:51 | PROVIDERS: ATTEND Surgery | DX: R50.9 Fever, unspecified (principal); R41.0 Disorientation, unspecified; Z74.01 Bed confinement status | CPT/HCPCS: A0425; A0428 ==

== ENCOUNTER 2019-08-21 11:00 | Outpatient (CLI) | payer MEDICARE, OTHER ==
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
== END 2019-08-21 11:01 | disposition home or self-care (01) ==
LOC: PC 11:00
PROVIDERS: ATTEND Nurse Practitioner Family
DX: Z51.5 Encounter for palliative care (principal); G20 Parkinson's disease; F02.81 Dementia in other diseases classified elsewhere, unspecified severity, with behavioral disturbance; L89.309 Pressure ulcer of unspecified buttock, unspecified stage; L89.159 Pressure ulcer of sacral region, unspecified stage; L89.629 Pressure ulcer of left heel, unspecified stage; L89.619 Pressure ulcer of right heel, unspecified stage; F41.9 Anxiety disorder, unspecified; R32 Unspecified urinary incontinence; R15.9 Full incontinence of feces; M19.90 Unspecified osteoarthritis, unspecified site; R53.1 Weakness; F17.210 Nicotine dependence, cigarettes, uncomplicated; Z79.899 Other long term (current) drug therapy; Z86.73 Personal history of transient ischemic attack (TIA), and cerebral infarction without residual deficits

== ENCOUNTER 2019-10-02 09:59 | Outpatient (CLI) | payer MEDICARE, OTHER | END 2019-10-02 10:00 | disposition critical access hospital (66) | LOC: EMS 09:59 | PROVIDERS: ATTEND Surgery | DX: R53.1 Weakness (principal); R11.0 Nausea; R41.82 Altered mental status, unspecified | CPT/HCPCS: A0425; A0427 ==

== ENCOUNTER 2019-10-02 10:25 | Emergency (ER) | payer MEDICARE, OTHER ==
--- NOTE | 2019-10-02 10:44 | ED Physician Documentation ---
PD HPI Fall - Stated complaint Stated Complaint: FALL - Chief complaint Chief Complaint: General - History obtained from History obtained from: EMS - History of Present Illness Mechanism of injury: Unknown Fall distance: Unknown Where injury occurred: Home Timing - onset: Today Injury(ies) location: Head, Neck Quality of pain: Pain Associated symptoms: AMS Symptoms improve with: Rest Worsens with: Movement, Palpation Contributing factors: No: Anticoagulated Similar symptoms before: Diagnosis (FALL UTI) Recently seen: Emergency Dept - Additional information Additional information: 79-year-old female with advanced dementia living in assisted living was found this morning on the ground up against the door of her room and she appears altered from her usual level of consciousness. There is no specific injury noted to the patient. She is able to acknowledge some neck pain and some head pain. 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), Headaches, Migraines, Parkinson's Endocrine/Autoimmune: None GI: GERD FLOW TRADER: None : None HEENT: None Psych: Depression Musculoskeletal: Osteoarthritis Derm: None - Past Surgical History Past Surgical History: Yes Ortho: Other /FLOW TRADER: Hysterectomy Cardiovascular: Other HEENT: Cataracts - Present Medications Home Medications: Ambulatory Orders Medication Instructions Recorded Confirmed Carbidopa/Levodopa 1 tab PO TIDWM 10/12/16 08/21/19 [Carbidopa-Levodopa 25-100 Tab] Donepezil HCl 10 mg PO DAILY 10/12/16 08/21/19 lisinopriL [Lisinopril] 20 mg PO DAILY 06/17/18 08/21/19 Atorvastatin [Lipitor] 10 mg PO DAILY #30 tablet 06/18/18 08/21/19 Acetaminophen 500 mg PO BID 08/21/19 08/21/19 Albuterol 3 ml IN QID PRN 08/21/19 08/21/19 Cavilon Barrier 1 applic TP BID PRN 08/21/19 Docusate Sodium 100 mg PO BID 08/21/19 08/21/19 Escitalopram [Lexapro] 10 mg PO DAILY 08/21/19 08/21/19 Hydrocodone/Acetaminophen 1 tab PO Q6H PRN 08/21/19 08/21/19 [Hydrocodone-Acetamin 5-325 mg] Ipratropium [Atrovent] 1 unit IN QID PRN 08/21/19 08/21/19 Melatonin 6 mg PO QPM 08/21/19 08/21/19 Naproxen 250 mg PO BID PRN 08/21/19 08/21/19 Senna [Senokot] 2 tab PO BID PRN 08/21/19 08/21/19 polyethylene glycoL 3350 [Miralax] 17 g PO DAILY 08/21/19 08/21/19 Nitrofurantoin Monohyd/M-Cryst 100 mg PO BID #10 capsule 10/02/19 [Macrobid 100 mg Capsule] - Allergies Allergies/Adverse Reactions: Allergies Allergy/AdvReac Type Severity Reaction Status Date / Time divalproex sodium AdvReac Unknown Verified 07/10/19 21:33 [From Depakote] - Social History Does the pt smoke?: Yes Smoking Status: Current every day smoker Does the pt drink ETOH?: Yes Does the pt have substance abuse?: No - Immunizations Immunizations are current?: Yes - POLST Patient has POLST: No POLST Status: Full Code (POLST was updated in [place] when she had hemorrhagic CVA in 09/06) PD ED PE NORMAL - Vitals Vital signs reviewed: Yes (Hypertensive and bradycardic) - General General: No acute distress, Well developed/nourished, Other (On a backboard in C-spine confused with little input from the patient) - HEENT HEENT: PERRL, EOMI, Other (There is tenderness to the posterior aspect of the scalp without hematoma) - Neck Neck: Supple, no meningeal sign, Other (There is minimal tenderness to the mid cervical spine.) - Cardiac Cardiac: RRR, No murmur - Respiratory Respiratory: No respiratory distress, Clear bilaterally - Abdomen Abdomen: Soft, Non tender - Back Back: No CVA TTP, No spinal TTP - Derm Derm: Normal color, Warm and dry, No rash - Extremities Extremities: No deformity, Normal ROM s pain, No edema - Neuro Neuro: biometrics consultant 2-12 intact, No motor deficit, No sensory deficit, Normal speech Eye Opening: Spontaneous Motor: Obeys Commands Verbal: Confused GCS Score: 14 - Psych Psych: Normal mood, Normal affect Results - Vitals Vitals: Vital Signs - 24 hr 06/10/20 06/10/20 10:27 10:41 Temperature 36.1 C L Heart Rate 52 L 56 L Respiratory 16 18 Rate Blood Pressure 131/67 H 130/68 O2 Saturation 96 95 Oxygen O2 Source [] Nasal cannula O2 Source Room air - Labs Labs: Laboratory Tests 10/02/19 10/02/19 10/02/19 10:53 10:53 12:07 WBC 8.1 RBC 4.24 Hgb 13.0 Hct 40.7 MCV 96.0 MCH 30.7 MCHC 31.9 L RDW 15.1 H Plt Count 292 MPV 9.2 Neut # (Auto) 6.1 Lymph # (Auto) 0.9 L [place] # (Auto) 0.9 Eos # (Auto) 0.2 Baso # (Auto) 0.1 Absolute Nucleated RBC 0.00 Nucleated RBC % 0.0 Sodium 141 Potassium 4.3 Chloride 103 Carbon Dioxide 30 Anion Gap 8.0 BUN 23 H Creatinine 0.6 Estimated GFR (MDRD) 96 Glucose 103 H Calcium 9.2 Total Bilirubin 0.6 AST 11 ALT < 10 L Alkaline Phosphatase 82 Total Protein 6.6 L Albumin 3.9 Globulin 2.7 Albumin/Globulin Ratio 1.4 Lipase 31 Urine Color YELLOW Urine Clarity SL. CLOUDY Urine pH 6.5 Ur Specific [place] 1.020 Urine Protein TRACE Urine Glucose (UA) NEGATIVE Urine Ketones NEGATIVE Urine Occult Blood NEGATIVE Urine Nitrite POSITIVE H Urine Bilirubin NEGATIVE Urine Urobilinogen 1 (NORMAL) Ur Leukocyte Esterase NEGATIVE Urine RBC 0-5 Urine WBC 0-3 Ur Squamous Epith Cells RARE Squamous Urine Bacteria Many H Urine Casts 0-2 Hyaline Casts Ur Microscopic Review INDICATED Urine Culture Comments INDICATED - Rads (name of study) CT cervical spine Radiology: Prelim report reviewed (Impression: No fracture. No acute osseous lesion. If there is continued clinical concern for pathology, then MRI should be considered for further evaluation.), EMP read indepedently, See rad report CT head Radiology: Prelim report reviewed (Impression: No acute intracranial disease process.), EMP read indepedently, See rad report Procedures - IVC sono (time) 2039 Bedside IVC sono: IVC measures (cm) (1.45), Euvolemia PD MEDICAL DECISION MAKING - ED course Complexity details: reviewed old records, reviewed results, re-evaluated patient, considered differential, d/w patient ED course: 79-year-old female with a prior history of subdural hematoma and some subarachnoid hemorrhage and prior CVA has had a fall this morning in her home Departure - Departure Disposition: 01 Home, Self Care Clinical Impression: Fall Qualifiers: Encounter type: initial encounter Qualified Code(s): W19.XXXA - Unspecified fall, initial encounter UTI (urinary tract infection) Qualifiers: Urinary tract infection type: acute cystitis Hematuria presence: without hematuria Qualified Code(s): N30.00 - Acute cystitis without hematuria Condition: Stable Instructions: ED UTI Cystitis Female, Falls Prevent Prepare What Do Follow-Up: Bry Gonzalez MD [Primary Care Provider] - Prescriptions: Nitrofurantoin Monohyd/M-Cryst [Macrobid 100 mg Capsule] 100 mg PO BID #10 capsule
[2019-10-02 11:04] LABS: BASOPHILS # (AUTO) 0.1 10^3/uL (0.0-0.1); BASOPHILS % (AUTO) 0.6 %; EOSINOPHILS # (AUTO) 0.2 10^3/uL (0.0-0.7); EOSINOPHILS % (AUTO) 2.5 %; LYMPHOCYTES # (AUTO) 0.9 10^3/uL (1.5-3.5); LYMPHOCYTES % (AUTO) 10.7 %; MEAN CORPUSCULAR HEMOGLOBIN 30.7 pg (27.0-31.0); MEAN CORPUSCULAR HGB CONC 31.9 g/dL (32.0-36.0); MEAN PLATELET VOLUME 9.2 fL (7.9-10.8); MONOCYTES # (AUTO) 0.9 10^3/uL (0.0-1.0); MONOCYTES % (AUTO) 10.6 %; NEUTROPHILS # (AUTO) 6.1 10^3/uL (1.5-6.6); NEUTROPHILS % (AUTO) 75.4 %; PLT - PLATELET COUNT 292 10^3/uL (130-450); RED BLOOD COUNT 4.24 10^6/uL (4.20-5.40); RED CELL DISTRIBUTION WIDTH 15.1 % (12.0-15.0); WHITE BLOOD COUNT 8.1 x10^3/uL (4.8-10.8)
[2019-10-02 11:18] LABS: ALBUMIN 3.9 g/dL (3.2-5.5); ALBUMIN/GLOBULIN RATIO 1.4 (1.0-2.2); ALKALINE PHOSPHATASE 82 IU/L (42-121); ALT ALANINE AMINOTRANSFERASE < 10 IU/L (10-60); AST ASPARTATE AMINOTRANSFERASE 11 IU/L (10-42); BILIRUBIN,TOTAL 0.6 mg/dL (0.2-1.0); BUN - BLOOD UREA NITROGEN 23 mg/dL (6-20); CALCIUM 9.2 mg/dL (8.5-10.3); CARBON DIOXIDE - CO2 30 mmol/L (21-32); CHLORIDE 103 mmol/L (101-111); CREATININE 0.6 mg/dL (0.4-1.0); GLUCOSE 103 mg/dL (70-100); LIPASE 31 U/L (22-51); SODIUM 141 mmol/L (135-145); TOTAL PROTEIN 6.6 g/dL (6.7-8.2)
--- NOTE | 2019-10-02 11:24 | CT Report ---
Reason: fall altered LOC Procedure Date: 10/02/2019 Accession Number: [id number] / [id number] Procedure: CT - HEAD WO CPT Code: Final Report FULL RESULT: PROCEDURE: HEAD WO INDICATIONS: fall altered LOC TECHNIQUE: Noncontrast 4.5 mm thick angled axial sections acquired from the foramen magnum to the vertex. For radiation dose reduction, the following was used: automated exposure control, adjustment of mA and/or kV according to patient size. COMPARISON: CT head 06/29/2019 FINDINGS: Image quality: Excellent. CSF spaces: Basal cisterns are patent. No extra-axial fluid collections. The ventricles are symmetric in size and shape. Brain: No intracranial bleeds or masses. There is mild cerebral volume loss for age, with resultant ventricular and sulcal prominence. There are moderate to severe periventricular and deep white matter chronic small vessel ischemic changes. There is intracranial internal carotid artery atherosclerosis. Skull and face: Calvarium and visualized facial bones appear intact, without suspicious lesions. Sinuses: Visualized sinuses and mastoids are clear. IMPRESSION: No acute intracranial disease process. Reviewed by: Rosa Turner MD, PhD on 10/02/2019 11:23 AM PDT Approved by: Rosa Turner MD, PhD on 10/02/2019 11:23 AM PDT Station ID: [id number]
--- NOTE | 2019-10-02 11:29 | CT Report ---
Reason: poly TRAUMA Procedure Date: 10/02/2019 Accession Number: [id number] / [id number] Procedure: CT - CERVICAL SPINE WO CPT Code: Final Report FULL RESULT: PROCEDURE: CERVICAL SPINE WO INDICATIONS: poly TRAUMA TECHNIQUE: Noncontrast 3 mm thick sections acquired from the skull base to the T4 level. Sagittal and coronal reformats were then constructed. For radiation dose reduction, the following was used: automated exposure control, adjustment of mA and/or kV according to patient size. COMPARISON: 06/29/2019 and 06/20/2019 FINDINGS: Image quality: Excellent. Bones: No fractures or dislocations. Visualized superior ribs are intact. Spine degenerative disc disease and facet arthropathy are noted. Soft tissues: Prevertebral soft tissues are normal in thickness. No paravertebral hematomas. No apical pneumothoraces. Biapical pleural-parenchymal scarring. Thyroid nodules are stable. IMPRESSION: No fracture. No acute osseous lesion. If there is continued clinical concern for pathology, then MRI should be considered for further evaluation. Reviewed by: Rosa Turner MD, PhD on 10/02/2019 11:28 AM PDT Approved by: Rosa Turner MD, PhD on 10/02/2019 11:28 AM PDT Station ID: [id number]
[2019-10-02 12:14] LABS: BILIRUBIN,URINE NEGATIVE (NEGATIVE); GLUCOSE, URINE (UA) NEGATIVE (NEGATIVE); KETONES,URINE (UA) NEGATIVE (NEGATIVE); LEUKOCYTE ESTERASE, URINE NEGATIVE (NEGATIVE); NITRITE,URINE POSITIVE (NEGATIVE); OCCULT BLOOD,URINE NEGATIVE (NEGATIVE); PH,URINE 6.5 PH (5.0-7.5); PROTEIN,URINE TRACE mg/dL (NEGATIVE); UROBILINOGEN,URINE 1 (NORMAL) E.U./dL (NORMAL)
[2019-10-02 12:15] LABS: CLARITY,URINE SL. CLOUDY (CLEAR)
[2019-10-02 12:23] LABS: BACTERIA,URINE Many /HPF (None Seen); CASTS, URINE 0-2 Hyaline Casts /LPF; RBC,URINE 0-5 /HPF (0-5); SQUAMOUS EPITHELIAL CELL,UR RARE Squamous (<= Few)
[2019-10-02 14:43] VITALS: BP 132/74
== END 2019-10-02 14:43 | disposition home or self-care (01) ==
LOC: EDUNIT# → ED 10:25
DX: Z04.3 Encounter for examination and observation following other accident (principal); N30.00 Acute cystitis without hematuria; I10 Essential (primary) hypertension; G30.9 Alzheimer's disease, unspecified; F02.80 Dementia in other diseases classified elsewhere, unspecified severity, without behavioral disturbance, psychotic disturbance, mood disturbance, and anxiety; G20 Parkinson's disease; F17.200 Nicotine dependence, unspecified, uncomplicated
CPT/HCPCS: 36415; 70450; 72125; 80053; 81001; 81003; 83690; 85025; 87086; 87181; 99281; 99284

== ENCOUNTER 2019-10-28 15:15 | Outpatient (CLI) | payer MEDICARE, OTHER | END 2019-10-28 23:59 | disposition short-term general hospital (02) | LOC: EMS 15:15 | PROVIDERS: ATTEND Surgery | DX: R11.0 Nausea (principal); R51 Headache; R47.81 Slurred speech; R53.1 Weakness | CPT/HCPCS: A0425; A0427 ==

== ENCOUNTER 2019-12-16 12:12 | Outpatient (CLI) | payer MEDICARE, OTHER | END 2019-12-16 12:13 | disposition short-term general hospital (02) | LOC: EMS 12:12 | PROVIDERS: ATTEND Surgery | DX: M25.552 Pain in left hip (principal); W01.0XXA Fall on same level from slipping, tripping and stumbling without subsequent striking against object, initial encounter; Y92.099 Unspecified place in other non-institutional residence as the place of occurrence of the external cause | CPT/HCPCS: A0425; A0427 ==

== ENCOUNTER 2020-03-04 22:40 | Outpatient (CLI) | payer MEDICARE, OTHER | END 2020-03-04 22:41 | disposition critical access hospital (66) | LOC: EMS 22:40 | PROVIDERS: ATTEND Surgery | DX: R55 Syncope and collapse (principal); R11.2 Nausea with vomiting, unspecified; R41.0 Disorientation, unspecified | CPT/HCPCS: A0425; A0427 ==

== ENCOUNTER 2020-03-04 23:05 | Emergency (ER) | payer MEDICARE, OTHER ==
--- NOTE | 2020-03-04 23:08 | ED Physician Documentation ---
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 patient unable to contribute to HPI/ROS due to AMS. per medic report, patients son (with whom patient lives) called 911 when patient had brief syncopal episode while walking to bathroom, although possibly near syncope (unclear if patient had LOC). she has left-sided weakness that is not new (h/o CVA) Review of Systems Unable to obtain: AMS, Confused, Dementia PD PAST MEDICAL HISTORY - Past Medical History Cardiovascular: Hypertension, High cholesterol Respiratory: COPD Neuro: Alzhiemer's, Dementia, CVA (2016 and 2018 of intraparenchymal hemorrhage), Headaches, Migraines, Parkinson's Endocrine/Autoimmune: None GI: GERD PSYCHOLOGICAL ASSISTANT: None : None HEENT: None Psych: Depression Musculoskeletal: Osteoarthritis Derm: None - Past Surgical History Past Surgical History: Yes Ortho: Other /PSYCHOLOGICAL ASSISTANT: Hysterectomy Cardiovascular: Other HEENT: Cataracts - Present Medications Home Medications: Ambulatory Orders Medication Instructions Recorded Confirmed Carbidopa/Levodopa 1 tab PO TIDWM 10/12/16 08/21/19 [Carbidopa-Levodopa 25-100 Tab] Donepezil HCl 10 mg PO DAILY 10/12/16 08/21/19 lisinopriL [Lisinopril] 20 mg PO DAILY 06/17/18 08/21/19 Atorvastatin [Lipitor] 10 mg PO DAILY #30 tablet 06/18/18 08/21/19 Acetaminophen 500 mg PO BID 08/21/19 08/21/19 Albuterol 3 ml IN QID PRN 08/21/19 08/21/19 Cavilon Barrier 1 applic TP BID PRN 08/21/19 Docusate Sodium 100 mg PO BID 08/21/19 08/21/19 Escitalopram [Lexapro] 10 mg PO DAILY 08/21/19 08/21/19 Hydrocodone/Acetaminophen 1 tab PO Q6H PRN 08/21/19 08/21/19 [Hydrocodone-Acetamin 5-325 mg] Ipratropium [Atrovent] 1 unit IN QID PRN 08/21/19 08/21/19 Melatonin 6 mg PO QPM 08/21/19 08/21/19 Naproxen 250 mg PO BID PRN 08/21/19 08/21/19 Senna [Senokot] 2 tab PO BID PRN 08/21/19 08/21/19 polyethylene glycoL 3350 [Miralax] 17 g PO DAILY 08/21/19 08/21/19 Nitrofurantoin Monohyd/M-Cryst 100 mg PO BID #10 capsule 10/02/19 [Macrobid 100 mg Capsule] Ondansetron Odt [Zofran Odt] 4 mg TL Q6H PRN #10 tablet 03/05/20 - Allergies Allergies/Adverse Reactions: Allergies Allergy/AdvReac Type Severity Reaction Status Date / Time divalproex sodium AdvReac Unknown Verified 03/04/20 23:17 [From Depakote] - Social History Does the pt smoke?: Yes Smoking Status: Current every day smoker Does the pt drink ETOH?: Yes Does the pt have substance abuse?: No - Immunizations Immunizations are current?: Yes - POLST Patient has POLST: No POLST Status: Full Code (POLST was updated in [place] when she had hemorrhagic CVA in 09/06) PD ED PE NORMAL - Vitals Vital signs reviewed: Yes - General General: No acute distress, Well developed/nourished, Other (awake, alert, confused. knows first name but not last. does not know year and cannot even guess, appears frightened as she tries to recall these answers) - HEENT HEENT: Atraumatic, PERRL, EOMI, Moist mucous membranes - Neck Neck: Supple, no meningeal sign, No bony TTP - Cardiac Cardiac: RRR - Respiratory Respiratory: No respiratory distress, Clear bilaterally - Abdomen Abdomen: Soft, Non tender - Back Back: No spinal TTP - Derm Derm: Normal color, Warm and dry - Extremities Extremities: No deformity, No tenderness to palpate, Normal ROM s pain, No edema - Neuro Neuro: Normal speech Eye Opening: Spontaneous Motor: Obeys Commands Verbal: Confused GCS Score: 14 PD ED PE EXPANDED - Neuro Neuro: Confused, Left face (facial weakness, mild) Results - Vitals Vitals: Vital Signs - 24 hr 03/04/20 03/04/20 03/05/20 23:07 23:25 01:40 Temperature 36.7 C 36.7 C Heart Rate 64 64 71 Respiratory 18 18 18 Rate Blood Pressure 115/54 L 115/54 L 121/67 O2 Saturation 95 95 96 03/05/20 03/05/20 03/05/20 03:46 05:01 07:00 Temperature Heart Rate 73 74 67 Respiratory 15 16 Rate Blood Pressure 116/62 115/82 H 117/64 O2 Saturation 99 98 03/05/20 08:24 Temperature 36.6 C Heart Rate 67 Respiratory 17 Rate Blood Pressure 112/63 O2 Saturation 99 Oxygen O2 Source [] Nasal cannula O2 Source Room air - EKG (time done) No standard instances Rate: Rate (enter#) (66) Rhythm: NSR [place]: Normal Intervals: Prolonged QT (borderline) QRS: Normal Ischemia: Normal ST segments - Labs Labs: Microbiology 03/05/20 00:04 Urine Culture - Preliminary Urine,Catheterized CULTURE IN PROGRESS. RESULTS TO FOLLOW. Laboratory Tests 03/04/20 03/04/20 01:56 01:56 WBC 13.3 H RBC 4.41 Hgb 13.4 Hct 42.2 MCV 95.7 MCH 30.4 MCHC 31.8 L RDW 13.1 Plt Count 298 MPV 9.3 Neut # (Auto) 12.0 H Lymph # (Auto) 0.2 L [place] # (Auto) 0.8 Eos # (Auto) 0.2 Baso # (Auto) 0.1 Absolute Nucleated RBC 0.00 Nucleated RBC % 0.0 Sodium 140 Potassium 4.7 Chloride 104 Carbon Dioxide 29 Anion Gap 7.0 BUN 23 H Creatinine 0.8 Estimated GFR (MDRD) 69 L Glucose 124 H Calcium 9.7 - Rads (name of study) CT head Radiology: Prelim report reviewed, See rad report PD MEDICAL DECISION MAKING - ED course Complexity details: reviewed old records, reviewed results, re-evaluated patient, considered differential, d/w patient, d/w family ED course: reassuring and nondiagnostic results including blood tests, EKG, and CTH. held in ED pending contact with son to coordinate plan to send her back to his house by ambulance. while in ED, she became more conversant and gave more appropriate answers to questions although still exhibited some confusion (but was able to give her full name and was asking some appropriate questions and making some appropriate statements such as needing to urinate, tells me her backside hurts from lying in the stretcher). eventually the son returned the call/message left for him and he was comfortable with having her return to his care Departure - Departure Disposition: 01 Home, Self Care Clinical Impression: Syncope Qualifiers: Syncope type: unspecified Qualified Code(s): R55 - Syncope and collapse Condition: Good Instructions: ED Fainting Unkn Cause Follow-Up: Bry Gonzalez MD [Primary Care Provider] - Prescriptions: Ondansetron Odt [Zofran Odt] 4 mg TL Q6H PRN #10 tablet PRN Reason: Nausea / Vomiting Discharge Date/Time: 03/05/20 08:43
[2020-03-05 02:01] LABS: BASOPHILS # (AUTO) 0.1 10^3/uL (0.0-0.1); BASOPHILS % (AUTO) 0.4 %; EOSINOPHILS # (AUTO) 0.2 10^3/uL (0.0-0.7); EOSINOPHILS % (AUTO) 1.6 %; HGB - HEMOGLOBIN 13.4 g/dL (12.0-16.0); LYMPHOCYTES # (AUTO) 0.2 10^3/uL (1.5-3.5); LYMPHOCYTES % (AUTO) 1.5 %; MEAN CORPUSCULAR HEMOGLOBIN 30.4 pg (27.0-31.0); MEAN CORPUSCULAR HGB CONC 31.8 g/dL (32.0-36.0); MEAN CORPUSCULAR VOLUME 95.7 fL (81.0-99.0); MEAN PLATELET VOLUME 9.3 fL (7.9-10.8); MONOCYTES # (AUTO) 0.8 10^3/uL (0.0-1.0); MONOCYTES % (AUTO) 6.3 %; NEUTROPHILS % (AUTO) 89.7 %; PLT - PLATELET COUNT 298 10^3/uL (130-450); RED BLOOD COUNT 4.41 10^6/uL (4.20-5.40); RED CELL DISTRIBUTION WIDTH 13.1 % (12.0-15.0); WHITE BLOOD COUNT 13.3 x10^3/uL (4.8-10.8)
[2020-03-05 02:10] LABS: CALCIUM 9.7 mg/dL (8.5-10.3); CREATININE 0.8 mg/dL (0.4-1.0)
[2020-03-05] MEDS ORDERED: SODIUM CHLORIDE 0.9% 500 ML IV STA (02:15)
[2020-03-05 08:25] VITALS: BP 112/63
--- NOTE | 2020-03-05 08:26 | CT Report ---
PROCEDURE: HEAD WO INDICATIONS: syncope TECHNIQUE: Noncontrast 4.5 mm thick angled axial sections acquired from the foramen magnum to the vertex. For r adiation dose reduction, the following was used: automated exposure control, adjustment of mA and/or kV according to patient size. COMPARISON: 10/02/2019 FINDINGS: Image quality: Excellent. CSF spaces: Basal cisterns are patent. No extra-axial fluid collections. Ventricles are normal in size and shape. Brain: No midline shift. No intracranial masses or hemorrhage. Prominent periventricular and subcor tical white matter hypodensity, similar compared to the prior study. Cerebral cortical volume loss of the expected degree. [place]-white matter interface is normal. Heavy intracranial atherosclerosis. Skull and face: Calvarium and visualized facial bones are intact, without suspicious lesions. Sinuses: Visualized sinuses and mastoids are clear. IMPRESSION: 1. No CT evidence of acute intracranial process. 2. Stable prominent white matter changes of chronic microvascular ischemia. 3. Concordant with preliminary report. Reviewed by: Ainsley Schaeffer MD on 03/05/2020 8:25 AM PST Approved by: Ainsley Schaeffer MD on 03/05/2020 8:25 AM PST Station ID: [id number]
== END 2020-03-05 08:43 | disposition home or self-care (01) ==
LOC: ED 23:05
DX: R55 Syncope and collapse (principal); R29.810 Facial weakness; I10 Essential (primary) hypertension; G20 Parkinson's disease; F02.80 Dementia in other diseases classified elsewhere, unspecified severity, without behavioral disturbance, psychotic disturbance, mood disturbance, and anxiety; Z86.73 Personal history of transient ischemic attack (TIA), and cerebral infarction without residual deficits; F17.200 Nicotine dependence, unspecified, uncomplicated
CPT/HCPCS: 36415; 51701; 70450; 80048; 81001; 81003; 85025; 87077; 87086; 87181; 93005; 99281; 99284

== ENCOUNTER 2020-03-05 08:42 | Outpatient (CLI) | payer MEDICARE, OTHER | END 2020-03-05 08:43 | disposition home or self-care (01) | LOC: EMS 08:42 | PROVIDERS: ATTEND Surgery | DX: F03.90 Unspecified dementia, unspecified severity, without behavioral disturbance, psychotic disturbance, mood disturbance, and anxiety (principal) | CPT/HCPCS: A0425; A0428 ==

== ENCOUNTER 2020-03-12 09:16 | Outpatient (CLI) | payer MEDICARE, OTHER | END 2020-03-12 09:17 | disposition critical access hospital (66) | LOC: EMS 09:16 | PROVIDERS: ATTEND Surgery | DX: R29.810 Facial weakness (principal); R11.2 Nausea with vomiting, unspecified; F03.90 Unspecified dementia, unspecified severity, without behavioral disturbance, psychotic disturbance, mood disturbance, and anxiety | CPT/HCPCS: A0425; A0427 ==

== ENCOUNTER 2020-03-12 09:30 | Observation (INO) | payer MEDICARE, OTHER ==
--- NOTE | 2020-03-12 09:36 | ED Physician Documentation ---
PD HPI FOCAL NEURO - Stated complaint Stated Complaint: CODE STROKE - History obtained from History obtained from: Patient, EMS - Additional information Additional information: 80-year-old woman with history of dementia, Parkinson's, history of intraparenchymal hemorrhages x2. At 837 this morning the caregiver noted a left facial droop and she was complaining of headache and vomiting. 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 : None HEENT: None Psych: Depression Musculoskeletal: Osteoarthritis Derm: None - Past Surgical History Past Surgical History: Yes Ortho: Other /SHOT TUBE MACHINE TENDER: Hysterectomy Cardiovascular: Other HEENT: Cataracts - Present Medications Home Medications: Ambulatory Orders Medication Instructions Recorded Confirmed Carbidopa/Levodopa 1 tab PO TIDWM 10/12/16 08/21/19 [Carbidopa-Levodopa 25-100 Tab] Donepezil HCl 10 mg PO DAILY 10/12/16 08/21/19 lisinopriL [Lisinopril] 20 mg PO DAILY 06/17/18 08/21/19 Atorvastatin [Lipitor] 10 mg PO DAILY #30 tablet 06/18/18 08/21/19 Acetaminophen 500 mg PO BID 08/21/19 08/21/19 Albuterol 3 ml IN QID PRN 08/21/19 08/21/19 Cavilon Barrier 1 applic TP BID PRN 08/21/19 Docusate Sodium 100 mg PO BID 08/21/19 08/21/19 Escitalopram [Lexapro] 10 mg PO DAILY 08/21/19 08/21/19 Hydrocodone/Acetaminophen 1 tab PO Q6H PRN 08/21/19 08/21/19 [Hydrocodone-Acetamin 5-325 mg] Ipratropium [Atrovent] 1 unit IN QID PRN 08/21/19 08/21/19 Melatonin 6 mg PO QPM 08/21/19 08/21/19 Naproxen 250 mg PO BID PRN 08/21/19 08/21/19 Senna [Senokot] 2 tab PO BID PRN 08/21/19 08/21/19 polyethylene glycoL 3350 [Miralax] 17 g PO DAILY 08/21/19 08/21/19 Nitrofurantoin Monohyd/M-Cryst 100 mg PO BID #10 capsule 10/02/19 [Macrobid 100 mg Capsule] Ondansetron Odt [Zofran Odt] 4 mg TL Q6H PRN #10 tablet 03/05/20 - Allergies Allergies/Adverse Reactions: Allergies Allergy/AdvReac Type Severity Reaction Status Date / Time divalproex sodium AdvReac Unknown Verified 03/12/20 09:58 [From Depakote] - Social History Does the pt smoke?: Yes Smoking Status: Current every day smoker Does the pt drink ETOH?: Yes Does the pt have substance abuse?: No - Immunizations Immunizations are current?: Yes - POLST Patient has POLST: No POLST Status: Full Code (POLST was updated in [place] when she had hemorrhagic CVA in 09/06) PD ED PE NORMAL - Vitals Vital signs reviewed: Yes - General General: Other (She is alert and oriented to person but not place or time) - HEENT HEENT: PERRL, EOMI - Neck Neck: Supple, no meningeal sign, No bony TTP - Cardiac Cardiac: RRR, No murmur - Respiratory Respiratory: No respiratory distress, Clear bilaterally - Abdomen Abdomen: Non tender - Back Back: No CVA TTP, No spinal TTP - Neuro Neuro: No: Alert and oriented X 3 NIHSS - Time Time: 09:30 - Level of Consciousness Level of consciousness: (0) Alert, Keenly responsive LOC Questions: (2) Answers neither correct LOC Commands: (0) Performs both correctly - Gaze Best Gaze: (0) Normal - Visual Visual: (0) No loss - Facial Palsy Facial Palsy: (2) Partial paralysis (Left) - Motor Arms (both separate) Motor Arm (right): (0) No drift Motor Arm (left): (0) No drift - Motor Legs (both separate) Motor Leg (right): (2) Some effort against gravity Motor Leg (left): (2) Some effort against gravity - Limb Ataxia Limb Ataxia: (0) Absent - Sensory Sensory: (0) Normal - Best Language Best Language: (1) [id number] - Dysarthria Dysarthria: (0) Normal - Extinction and Inattention (formally neg Extinction and inattention: (0) No abnormality - Total Score/Results Total Score/Result: 9 Results - Vitals Vitals: Vital Signs - 24 hr 03/12/20 09:30 Temperature 36.7 C Heart Rate 58 L Respiratory 18 Rate Blood Pressure 152/77 H O2 Saturation 100 Oxygen O2 Source [Without Activity] Nasal cannula O2 Source Room air - EKG (time done) 0949 Rate: Rate (enter#) (59) Rhythm: NSR [place]: Normal Intervals: Normal [place] QRS: Normal Ischemia: Normal ST segments - Labs Labs: Laboratory Tests 03/12/20 03/12/20 03/12/20 10:02 10:02 10:02 WBC 6.3 RBC 3.99 L Hgb 12.4 Hct 38.3 MCV 96.0 MCH 31.1 H MCHC 32.4 RDW 13.1 Plt Count 331 MPV 9.3 Neut # (Auto) 3.9 Lymph # (Auto) 0.9 L [place] # (Auto) 0.8 Eos # (Auto) 0.6 Baso # (Auto) 0.1 Absolute Nucleated RBC 0.00 Nucleated RBC % 0.0 PT 12.6 INR 1.1 Sodium 137 Potassium 3.8 Chloride 104 Carbon Dioxide 26 Anion Gap 7.0 BUN 17 Creatinine 0.7 Estimated GFR (MDRD) 80 L Glucose 101 H Calcium 8.8 Total Bilirubin 0.5 AST 10 ALT 20 Alkaline Phosphatase 94 Total Protein 6.1 L Albumin 3.2 Globulin 2.9 Albumin/Globulin Ratio 1.1 PD MEDICAL DECISION MAKING - ED course ED course: 80-year-old woman with underlying dementia presents with an acute strokelike syndrome. She has had 2 intraparenchymal hemorrhages in the past. She was taken to CT and during that time I discussed the case with her son and the telestroke neurologist. Telestroke neurologist felt that TPA was contraindicated given her history of 2 intraparenchymal hemorrhages in the past. Will recontact if there is a large vessel occlusion. Took call from radiologist, CT angiography negative for acute bleed or stroke. She has vascular disease but no tight stenoses or occlusions. Updated the son by phone he has no questions and understands the reasoning for not giving TPA. Departure - Departure Disposition: ED Place in Observation Clinical Impression: Stroke-like symptoms Altered mental status Qualifiers: Altered mental status type: unspecified Qualified Code(s): R41.82 - Altered mental status, unspecified Condition: Serious
[2020-03-12 10:04] LABS: BASOPHILS # (AUTO) 0.1 10^3/uL (0.0-0.1); EOSINOPHILS # (AUTO) 0.6 10^3/uL (0.0-0.7); EOSINOPHILS % (AUTO) 9.6 %; HGB - HEMOGLOBIN 12.4 g/dL (12.0-16.0); LYMPHOCYTES # (AUTO) 0.9 10^3/uL (1.5-3.5); LYMPHOCYTES % (AUTO) 13.9 %; MEAN CORPUSCULAR HEMOGLOBIN 31.1 pg (27.0-31.0); MEAN CORPUSCULAR HGB CONC 32.4 g/dL (32.0-36.0); MEAN PLATELET VOLUME 9.3 fL (7.9-10.8); MONOCYTES # (AUTO) 0.8 10^3/uL (0.0-1.0); MONOCYTES % (AUTO) 12.9 %; NEUTROPHILS # (AUTO) 3.9 10^3/uL (1.5-6.6); NEUTROPHILS % (AUTO) 62.1 %; PLT - PLATELET COUNT 331 10^3/uL (130-450); RED BLOOD COUNT 3.99 10^6/uL (4.20-5.40); RED CELL DISTRIBUTION WIDTH 13.1 % (12.0-15.0); WHITE BLOOD COUNT 6.3 x10^3/uL (4.8-10.8)
[2020-03-12 10:10] LABS: INR 1.1 (0.8-1.2); PT - PROTHROMBIN TIME 12.6 secs (9.9-12.6)
[2020-03-12 10:19] LABS: ALBUMIN 3.2 g/dL (3.2-5.5); ALBUMIN/GLOBULIN RATIO 1.1 (1.0-2.2); BILIRUBIN,TOTAL 0.5 mg/dL (0.2-1.0); CALCIUM 8.8 mg/dL (8.5-10.3); CREATININE 0.7 mg/dL (0.4-1.0); TOTAL PROTEIN 6.1 g/dL (6.7-8.2)
--- NOTE | 2020-03-12 10:24 | CT Report ---
PROCEDURE: ANGIO HEAD W/WO INDICATIONS: L facial droop, TOMAS CONTRAST: IV CONTRAST: Optiray 320 ml: 80 PO CONTRAST: *NO PO CONTRAST TECHNIQUE: Precontrast 4.5 mm thick angled axial sections acquired from the foramen magnum to the vertex. Afte r the administration of intravenous contrast, 1 mm thick sections acquired through the [place] of [place] is. Postcontrast 4.5 mm thick sections then re-acquired from the foramen magnum to the vertex. 3-di mensional pyocezi-ojlhwnvbh-ksndvgrxch (MIP) and/or volume rendering reformats were acquired of the c entral intracranial vasculature. For radiation dose reduction, the following was used: automated ex posure control, adjustment of mA and/or kV according to patient size. COMPARISON: 03/04/2020 FINDINGS: Image quality: Excellent. Anterior circulation: Scattered intracranial internal carotid atherosclerotic without high-grade sirena nosis. Intracranial internal carotid arteries are normal in size and flow. The flow within the paire d anterior cerebral arteries is normal and symmetric. The flow within the middle cerebral arteries i s normal and symmetric. The anterior communicating artery is seen. No aneurysms are seen. Posterior circulation: Visualized portions of the vertebral arteries demonstrate normal caliber, and join to form a normal appearing basilar artery. Flow within the posterior cerebral arteries is norm al and symmetric. No aneurysms are seen. CSF spaces: Ventricles are normal in size and shape. Basal cisterns are patent. No extra-axial flu id collections. Brain: No midline shift. No intracranial bleeds or masses. Stable senescent calcifications of the bilateral basal ganglia. Stable appearance of prominent periventricular and subcortical white matter hypoattenuation which is consistent with sequela of chronic small vessel ischemic disease. Stable dif fuse cortical volume loss. Gatica-white matter interface appears intact. Moderate intracranial interna l carotid artery atherosclerotic calcifications. Skull and face: Calvarium and facial bones appear intact, without suspicious lesions. Sinuses: Visualized sinuses and mastoids are clear. IMPRESSION: 1. CT head without acute intracranial abnormalities. No acute intracranial hemorrhage. No mass or mas s effect. Stable appearance of moderate age-related senescent changes and sequela of chronic small ve ssel ischemic disease. 2. Atherosclerotic calcifications of the intracranial internal carotid arteries without high-grade st enosis. Overall, negative CT angiogram of the intracranial arterial vasculature. Findings were discussed with Dr. Albert of the emergency department at 1020 hrs. Reviewed by: Cliff Dodson MD on 03/12/2020 10:22 AM PST Approved by: Cliff Dodson MD on 03/12/2020 10:22 AM PST Station ID: [id number]
--- NOTE | 2020-03-12 10:24 | CT Report ---
PROCEDURE: ANGIO NECK W INDICATIONS: L facial droop, TOMAS CONTRAST: IV CONTRAST: Optiray 320 ml: 80 PO CONTRAST: *NO PO CONTRAST TECHNIQUE: After the administration of intravenous contrast, 1.5 mm axial sections acquired from the aortic arch to the [place] of [place]. Coronal 3-D maximum intensity projection (MIP) and/or volume rendering ref ormats were then performed. For radiation dose reduction, the following was used: automated exposur e control, adjustment of mA and/or kV according to patient size. COMPARISON: None. FINDINGS: Image quality: Excellent. Carotid system: The great vessels demonstrate a conventional anatomy as they arise from the aortic a rch. The origins of the common carotid arteries appear patent. There is medialization in course of the right common carotid artery. The common carotid arteries demonstrate normal calibers and courses. There are dense atherosclerotic calcifications at the carotid bifurcation with less than 50% stenos is on the right and less than 70% stenosis on the left. The internal carotid arteries demonstrate nor mal caliber and course. Posterior circulation: The origins of the vertebral arteries appear patent. The more superior porti ons of the vertebral arteries demonstrate normal course and caliber. They join to form a normal appe aring basilar artery. Soft tissues: Visualized neck soft tissues demonstrate no suspicious abnormalities. There are numer ous nodules noted in the thyroid gland measuring up to 12 mm in size. Some demonstrate coarse periphe ral calcifications. Bones: No suspicious bony lesions. Straightening of cervical lordosis. No acute compression fracture s. Moderate multilevel cervical spondylosis. Craniocervical junction is intact. C1-C2 relationship is preserved. IMPRESSION: 1. Scattered atherosclerotic vascular disease of the extracranial carotid vasculature and vertebral a rtery system with less than 50% stenosis at the carotid bifurcation on the right and less than 70% st enosis at the left carotid bifurcation. The visualized extracranial internal carotid artery appear pa tent bilaterally. 2. No evidence for high-grade stenosis or occlusion. No dissection visualized. 3. Multilevel spondylosis of the imaged spine. 4. Straightening of cervical lordosis likely related to positioning and/or concurrent muscle spasms. 5. Multiple bilateral thyroid nodules measuring up to 1.2 cm in size. Consider further evaluation wit h dedicated thyroid ultrasound. Findings were discussed with Dr. Albert of the emergency department at 1020 hrs. The estimate of stenosis included in the report of the imaging study was calculated using the NASCET method Reviewed by: Cliff Dodson MD on 03/12/2020 10:22 AM PST Approved by: Cliff Dodson MD on 03/12/2020 10:22 AM PST Station ID: [id number]
[2020-03-12] MEDS ORDERED: SODIUM CHLORIDE FLUSH 0.9% 10 ML SYRINGE IVP PRN (10:47)
[2020-03-12] MEDS ORDERED: ACETAMINOPHEN 325 MG TABLET PO PRN (10:47)
--- NOTE | 2020-03-12 12:16 | PHARMACY PROGRESS NOTE ---
- Best Possible Medication History Admit Date and Time: 03/12/20 1042 Processed by: Pharmacy Medication History completed: Yes Patient Interview: Completed Secondary Source(s): Physician records, Pharmacy records, Insurance records (PATIENT'S MEDICATION RECONCILIATION COMPLETED USING MEDICATION LIST) As the person ultimately responsible for medication therapy, providers are able to order a medication from an existing home medication list in [facility] via the "Reconcile Routine" prior to Confirmation of that medication by security support analyst. Such practice is discouraged except when the physician, in their clinical judgment, deems that a medical need exists for a medication without regard to previous use.
[2020-03-12 12:49] LABS: C. PNEUMONIAE- RESP PCR PANEL NOT DETECTED
[2020-03-12] MEDS ORDERED: DOCUSATE SODIUM 100 MG CAPSULE PO PRN (12:50)
[2020-03-12] MEDS ORDERED: fentaNYL 12 MCG PATCH TOP SCH (13:00)
[2020-03-12] MEDS ORDERED: ALBUTEROL NEB 2.5 MG/3 ML INH PRN (13:49)
[2020-03-12] MEDS ORDERED: IOVERSOL 320 100 ML VIAL IVP ONE (14:24)
[2020-03-12] MEDS ORDERED: ALBUTEROL NEB 2.5 MG/3 ML INH SCH (15:00)
[2020-03-12] MEDS: IPRATROPIUM/ALBUTEROL 3 ML NEB INH SCH (15:32)
[2020-03-12] MEDS ORDERED: MIN OIL/DIMETHICON/COCONUT OIL 92 GM TUBE TOP PRN (16:13)
[2020-03-12] MEDS: SODIUM CHLORIDE FLUSH 0.9% 10 ML SYRINGE IVP SCH (16:19)
--- NOTE | 2020-03-12 17:03 | HISTORY & PHYSICAL EXAMINATION ---
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 The patient presented with her caregiver noticing that she had left facial droop at 0837 and she was brought to the emergency room within 90 min. She did have complaint of headache and vomiting initially. In the ER, her neuro exam was difficult because of unable to follow directions given her dementia. There was obvious left facial droop, but no other unequal neurologic findings. Telestroke Neurologist was called and spoke to the ER provider. The fact that she had 2 prior hemorrhagic strokes made any consideration for TPA not possible. She underwent a head CT, which was negative for acute findings. There were vascular changes consistent with vascular dementia. The patient is being placed in Observation status for stroke-like symptoms, which are a TIA versus CVA. PAST MEDICAL HISTORY: Dementia, Parkinson's, intracerebral hemorrhage x2, GERD, depression, DJD, hypertension, hyperlipidemia. ALLERGIES: Divalproex. MEDICATIONS: 1. Tylenol p.r.n. 2. Lisinopril 20 mg daily. 3. Polyethylene glycol p.r.n. constipation. 4. Senna b.i.d. p.r.n. constipation. 5. Colace 100 mg b.i.d. p.r.n. constipation. 6. Albuterol inhaler q.i.d. p.r.n. wheezing. 7. Celexa 10 mg daily. 8. Donepezil 10 mg daily. 9. Fentanyl patch topically every 72 hours, just stopped, per daughter. 10. Atrovent inhaler q.i.d. scheduled. 11. Magnesium 200 mg daily. 12. Multivitamin daily. FAMILY HISTORY: No family history of inherited diseases. SOCIAL HISTORY: This was obtained from chart review. The patient is a nonsmoker, drinks no alcohol. No illicit drug use history. She has a caregiver. REVIEW OF SYSTEMS: This was obtained from chart review and the pertinent positives are listed. The rest are negative with a comprehensive review of systems done. PHYSICAL EXAM: GENERAL: Elderly white female. She appears in no distress. She answers with the same response to every question, with "I'm not aware of that." VITAL SIGNS: Blood pressure 155/75, heart rate 58-60 in sinus rhythm, afebrile, room air saturation 100%. HEENT: Reveals left facial droop. Her tongue is midline. NECK: No JVD or carotid bruits. CHEST: Clear. HEART: Normal heart sounds were regular. No gallop. ABDOMEN: Soft, nontender. Normal bowel sounds. No tenderness. EXTREMITIES: Show no clubbing, cyanosis or edema. NEUROLOGIC: She is moving all extremities spontaneously and symmetrically and she has a left facial droop as well as difficulty closing the left eye. LABORATORY DATA: Normal electrolytes. Normal BUN and creatinine. Normal liver tests. Normal INR 1.1. Normal CBC. She had a COVID test, which was negative as well as negative for other viruses. EKG: Normal sinus rhythm, LVH voltage. There were no changes from her last EKG, which was about half a year ago. Head and neck CTA were done, which also looked at the brain parenchyma. The findings were have no evidence of high-grade stenosis or occlusion, scattered atherosclerotic vascular disease of both the carotid and vertebral artery systems, but less than 50% stenosis in the carotid on the right and less than 70% stenosis of the carotid on the left. No acute intracranial abnormality such as hemorrhage, mass effect. She has stable appearance of moderate age-related senescent changes and sequelae of chronic small vessel ischemic disease. The overall angiogram of the intracranial arteries was negative. IMPRESSION/DIAGNOSES 1. Stroke-like symptoms. 2. Prior hemorrhagic strokes. 3. Dementia. 4. Parkinson's. 5. History of hypertension. 6. History of COPD. PLAN: Place the patient in Observation status on telemetry watching for atrial fibrillation. Obtain an Echo to evaluate for structural abnormalities or an intracardiac clot or intracardiac shunt. Proceed to a brain MRI to evaluate the current ongoing stroke-like symptoms for evidence of subacute or completed stroke not yet seen on CT imaging. If there is evidence of a new completed stroke, then she will be placed in inpatient status. Begin PT and OT evaluation. Continue with her Parkinson's, dementia medication and the COPD inhalers that she uses mostly p.r.n. Hold her BP meds for now, allowing permissive hypertension because of the presumed stroke. Her BP meds will be resumed in several days. Will consider a daily baby aspirin. Check lipids and treat per guidelines. DEEP VENOUS PROPHYLAXIS: SCDs. Lovenox will be less likely to be used because of the prior intracerebral hemorrhages. CODE STATUS: FULL CODE. ATTESTATION: Patient is expected to be discharged or transferred to another facility within 96 hours: Yes. cc: Mariel Pedro DO TD: 03/12/2020 16:28 [facility]
[2020-03-12] MEDS ORDERED: IPRATROPIUM 0.2 MG/ML NEB INH SCH (19:00)
--- NOTE | 2020-03-12 19:49 | MRI Report ---
PROCEDURE: Brain W/O INDICATIONS: facial droop L TECHNIQUE: Noncontrast axial T1 spin echo, axial T2 fast spin echo, sagittal and axial FLAIR, coronal T2 fast sp in echo, axial gradient echo, axial diffusion and ADC through the brain. COMPARISON: Prior brain MRI, 06/18/2018 Correlation is made with head CT performed earlier in the day as well as head CT examinations dated 10/02/2019 and 03/04/2020. FINDINGS: Image quality: This study is degraded by motion artifact. CSF Spaces: Basal cisterns are patent. No extra-axial fluid collections. Ventricles are normal in size and shape. Brain: No intracranial masses are seen. Areas of chronic hemorrhage are again seen, which are most p rominent involving the left temporal lobe.. Gatica/white matter interface is normal. Brainstem appear s normal. Generalized brain parenchymal volume loss is seen. Chronic small vessel ischemic changes ar e seen. Diffusion-weighted images demonstrate no acute ischemic insult. No chronic ischemic insults. Normal intravascular flow voids are present. In this patient with this given history, scrutiny is given to the visualized course of the left facia l nerve. No echo abnormalities are seen to the limits of this study, including within the left parot id gland. Skull and face: Calvarium has normal marrow signal. Orbits appear normal. Incidental note is made of bilateral lens replacements. Sinuses: Sinuses and mastoids are clear. IMPRESSION: Motion limited study, without an imaging explanation found for the patient's presenting history of le ft-sided facial droop. No findings of acute or subacute infarction are seen. Age-appropriate brain parenchymal volume loss and chronic small vessel ischemic change can be seen. Reviewed by: Len Conrad MD on 03/12/2020 6:48 PM [place] Approved by: Len Conrad MD on 03/12/2020 6:48 PM [place] Station ID: [id number]
[2020-03-12] MEDS: FAMOTIDINE 20 MG TABLET PO SCH (20:40)
[2020-03-12] MEDS ORDERED: DONEPEZIL 5 MG TABLET PO SCH (21:00)
[2020-03-13] MEDS: IPRATROPIUM/ALBUTEROL 3 ML NEB INH SCH ×3 (00:14→10:54)
[2020-03-13] MEDS: SODIUM CHLORIDE FLUSH 0.9% 10 ML SYRINGE IVP SCH ×2 (01:00→08:29)
[2020-03-13] MEDS ORDERED: MULTIVITAMIN TABLET PO SCH (08:00)
[2020-03-13] MEDS ORDERED: MAGNESIUM OXIDE 400 MG TABLET PO SCH (08:00)
[2020-03-13] MEDS: FAMOTIDINE 20 MG TABLET PO SCH (08:29)
[2020-03-13] MEDS ORDERED: CITALOPRAM 10 MG TABLET PO SCH (09:00)
--- NOTE | 2020-03-13 11:34 | Discharge Plan ---
Discharge Plan Problem Reviewed?: Yes Disposition: 06 Home Health Service Condition: Fair Prescriptions: predniSONE [Deltasone] 60 mg PO DAILY 6 Days #18 tab Diet: Soft Activity Restrictions: Activity as Tolerated Shower Restrictions: No Instruction Topics: Palsy [facility] Concerns: Patient was admitted with new onset of left facial droop. CT of her head did not show a stroke or any hemorrhage, especially with prior history of 2 hemorrhagic strokes. 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 New Prednisone was started to take for 7 days (6 more days at home). A pured diet is tolerated by her, and she needs new Speech Therapy evaluation of swallowing to see if her diet can be advanced to her usual diet. Resume all other pre-hospital medications. The new prescription for Prednisone was electronically sent to her [facility] pharmacy in [place]. Plan of Treatment: As above. Care Goals: Improvement in symptoms and stabilization are the goals. Assessment: Written instructions are being sent home for her caregivers. Additional Instructions or Follow Up instructions: If there are new or worsening symptoms, call the Primary Care Provider for advice, or come to the ER. No Smoking: If you smoke, Please STOP! Call for help. Follow-up with: Mariel Pedro DO [Physician No Access] -
--- NOTE | 2020-03-13 11:40 | DISCHARGE SUMMARY ---
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 Her caregiver noticed that she had a left facial droop at 08 37 and she was brought into the emergency room within 2 hours. The ED doctor spoke to the telestroke neurologist who said that with the prior hemorrhagic strokes, the patient is not a candidate for TPA. She underwent a head CT which was negative for acute findings. There were vascular changes consistent with vascular dementia. Patient is being placed in Observation status for evaluating her stroke-like symptoms and to work-up TIA versus CVA. - HOSPITAL COURSE Hospital Course: 1) Brunner's Palsy. The neuro exam at admission revealed left lower facial droop but also inability to close her left eye and lack of muscle tone of the left forehead. She underwent a brain MRI which showed no evidence of stroke. She had an Echo that showed normal LV function, no intracardiac clot or intracardiac shunt. 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 She was started on Prednisone 60 mg p.o. daily, she got her first dose here and was discharged to take 6 more days of this. She was started empirically on a pured diet while here because of the facial muscle problems. At discharge, her previous home health services with RN, bath aide, PT and OT were requested to be resumed. It was ordered that she have (new) evaluation by Speech Therapy, with her [facility] service, to check if her diet can be advanced back to her baseline diet. 2) History of hemorrhagic CVA with subsequent neuro deficit Patient appears to have no focal motor deficits but presumably dementia was caused by these strokes. She has home caregivers. 3) Dementia. As per Hx. She needs to be fed, is disoriented to person place and time, but has no behavioral problems. 4) Parkinson's She carries the diagnosis of Parkinson's but she is currently no longer on carbidopa/levodopa, it was stopped sometime earlier this year. 5) Hx HTN She wa kept on her usual meds 6) Hx of COPD She was not in COPD exacerbation, her inhalers were ordered to use p.r.n. - ALLERGIES Allergies/Adverse Reactions: Allergies Allergy/AdvReac Type Severity Reaction Status Date / Time divalproex sodium AdvReac Unknown Verified 03/12/20 09:58 [From [facility]] - MEDICATIONS Home Medications: Ambulatory Orders Medication Instructions Recorded Confirmed Donepezil HCl 10 mg PO DAILY 10/12/16 03/12/20 lisinopriL [Lisinopril] 20 mg PO DAILY 06/17/18 03/12/20 Acetaminophen 500 mg PO BID PRN 08/21/19 03/12/20 Albuterol 3 ml IN QID PRN 08/21/19 03/12/20 Docusate Sodium 100 mg PO BID PRN 08/21/19 03/12/20 Citalopram [CeleXA] 10 mg PO DAILY 03/12/20 03/12/20 Ipratropium [Atrovent] 1 inh PO QID 03/12/20 03/12/20 Magnesium Citrate 100 mg PO DAILY 03/12/20 03/12/20 Multivitamin 1 tab PO DAILY 03/12/20 03/12/20 Senna [Senokot] 8.6 mg PO BID PRN 03/12/20 03/12/20 polyethylene glycoL 3350 17 gm PO DAILY PRN 03/12/20 03/12/20 [Polyethylene Glycol 3350] predniSONE [Deltasone] 60 mg PO DAILY 6 Days #18 tab 03/13/20 - PHYSICAL EXAM AT DISCHARGE General Appearance: positive: No acute distress, Alert Eyes Bilateral: positive: Other (Able to close both eyelids on the day of disc harge) ENT: positive: No signs of dehydration, Other (Lower L face had droop, compared to the right) Neck: positive: Nml inspection, No JVD Respiratory: positive: Breath sounds nml Cardiovascular: positive: Regular rate & rhythm, No murmur Abdomen: positive: Non-tender, No distention Skin: positive: Dry Neurologic/Psychiatric: positive: Motor nml (Except cranial nerves abnormal (see above). ), Disoriented to person, Disoriented to place, Disoriented to time - LABS Result Diagrams: 03/12/20 10:02 03/12/20 10:02 - DIAGNOSTIC IMAGING Diagnostic Imaging Results: Final report reviewed - FOLLOW UP Follow Up: See PCP in 5-10 days for hospital follow-up.
[2020-03-13] MEDS ORDERED: predniSONE 20 MG TABLET PO SCH (12:00)
[2020-03-13 12:06] VITALS: BP 140/61
== END 2020-03-13 13:31 | disposition home health service (06) ==
LOC: EDUNIT# → ED 09:30 → MS2 10:42
PROVIDERS: ADMIT Internal Medicine; ATTEND Internal Medicine
DX: G51.0 Bell's palsy (principal); G20 Parkinson's disease; F02.80 Dementia in other diseases classified elsewhere, unspecified severity, without behavioral disturbance, psychotic disturbance, mood disturbance, and anxiety; I10 Essential (primary) hypertension; E78.5 Hyperlipidemia, unspecified; I65.23 Occlusion and stenosis of bilateral carotid arteries; F32.9 Major depressive disorder, single episode, unspecified; J44.9 Chronic obstructive pulmonary disease, unspecified; K21.9 Gastro-esophageal reflux disease without esophagitis; M19.90 Unspecified osteoarthritis, unspecified site; Z79.51 Long term (current) use of inhaled steroids; Z79.899 Other long term (current) drug therapy; Z86.73 Personal history of transient ischemic attack (TIA), and cerebral infarction without residual deficits; Z20.828 Contact with and (suspected) exposure to other viral communicable diseases
CPT/HCPCS: 70496; 70498; 70551; 80053; 84484; 85025; 85610; 87631; 92610; 93005; 93306; 94640; 99285; A6250; A9270; G0378; J7512; Q9967; 0202U

== ENCOUNTER 2020-03-27 21:49 | Emergency (ER) | payer MEDICARE, OTHER ==
[2020-03-27 22:13] LABS: BILIRUBIN,URINE NEGATIVE (NEGATIVE); GLUCOSE, URINE (UA) NEGATIVE (NEGATIVE); KETONES,URINE (UA) NEGATIVE (NEGATIVE); LEUKOCYTE ESTERASE, URINE SMALL (NEGATIVE); NITRITE,URINE NEGATIVE (NEGATIVE); OCCULT BLOOD,URINE SMALL (NEGATIVE); PH,URINE 8.5 PH (5.0-7.5); PROTEIN,URINE 100 mg/dL (NEGATIVE); UROBILINOGEN,URINE 0.2 (NORMAL) E.U./dL (NORMAL)
[2020-03-27 22:23] LABS: AMORPHOUS SEDIMENT,UR Rare /LPF; BACTERIA,URINE Many /HPF (None Seen); CLARITY,URINE HAZY (CLEAR); SQUAMOUS EPITHELIAL CELL,UR RARE Squamous (<= Few)
[2020-03-27 22:24] LABS: CRYSTALS,URINE 11-25 Triple Phos /LPF
[2020-03-27] MEDS ORDERED: NITROFURANTOIN MACRO 100 MG CAPSULE PO STA (22:27)
--- NOTE | 2020-03-27 22:33 | ED Physician Documentation ---
PD HPI FEMALE - Stated complaint Stated Complaint: FEMALE - Chief complaint Chief Complaint: Abd Pain - History obtained from History obtained from: Patient - History of Present Illness Timing - onset: Unknown Timing - details: Gradual onset, Still present Associated symptoms: Dysuria, Urinary frequency Similar symptoms before: Diagnosis (UTI) Recently seen: Emergency Dept (for stroke like symptoms) - Additional information Additional information: 80-year-old female with a history of advanced dementia comes to the emerge department today complaining of urinary urgency and frequency similar to what she is had previously with urinary tract infection. In review of her chart she has had extended spectrum beta-lactamase E. coli that has been sensitive to nitrofurantoin. She denies any other specific symptoms specifically denies any nausea vomiting flank pain or fever. Review of Systems Constitutional: denies: Fever, Chills Eyes: denies: Decreased vision Ears: denies: Ear pain Nose: denies: Congestion Throat: denies: Sore throat Cardiac: denies: Chest pain / pressure, Palpitations Respiratory: denies: Dyspnea, Cough GI: denies: Abdominal Pain, Nausea, Vomiting, Constipation, Diarrhea : reports: Dysuria, Frequency PD PAST MEDICAL HISTORY - Past Medical History Past Medical History: Yes Cardiovascular: Hypertension, High cholesterol Respiratory: COPD Neuro: Alzhiemer's, Dementia, CVA, Headaches, Migraines, Parkinson's Endocrine/Autoimmune: None GI: GERD HOG COUNTER: None : None HEENT: None Psych: Depression Musculoskeletal: Osteoarthritis Derm: None - Past Surgical History Past Surgical History: Yes Ortho: Other /HOG COUNTER: Hysterectomy Cardiovascular: Other HEENT: Cataracts - Present Medications Home Medications: Ambulatory Orders Medication Instructions Recorded Confirmed Donepezil HCl 10 mg PO DAILY 10/12/16 03/12/20 lisinopriL [Lisinopril] 20 mg PO DAILY 06/17/18 03/12/20 Acetaminophen 500 mg PO BID PRN 08/21/19 03/12/20 Albuterol 3 ml IN QID PRN 08/21/19 03/12/20 Docusate Sodium 100 mg PO BID PRN 08/21/19 03/12/20 Citalopram [CeleXA] 10 mg PO DAILY 03/12/20 03/12/20 Ipratropium [Atrovent] 1 inh PO QID 03/12/20 03/12/20 Magnesium Citrate 100 mg PO DAILY 03/12/20 03/12/20 Multivitamin 1 tab PO DAILY 03/12/20 03/12/20 Senna [Senokot] 8.6 mg PO BID PRN 03/12/20 03/12/20 polyethylene glycoL 3350 17 gm PO DAILY PRN 03/12/20 03/12/20 [Polyethylene Glycol 3350] predniSONE [Deltasone] 60 mg PO DAILY 6 Days #18 tab 03/13/20 Nitrofurantoin [Macrobid] 100 mg PO BID #14 capsule 03/27/20 - Allergies Allergies/Adverse Reactions: Allergies Allergy/AdvReac Type Severity Reaction Status Date / Time divalproex sodium AdvReac Unknown Verified 03/27/20 21:58 [facility] - Social History Does the pt smoke?: Yes Smoking Status: Current every day smoker Does the pt drink ETOH?: Yes Does the pt have substance abuse?: No - Immunizations Immunizations are current?: Yes - POLST Patient has POLST: No POLST Status: Full Code (POLST was updated in [place] when she had hemorrhagic CVA in 09/06) PD ED PE NORMAL - Vitals Vital signs reviewed: Yes (hypretensive ) - General General: No acute distress, Well developed/nourished, Other (The patient today appears spry she is talkative and answers questions appropriately.) - HEENT HEENT: Atraumatic, PERRL, EOMI - Cardiac Cardiac: RRR, No murmur - Respiratory Respiratory: No respiratory distress, Clear bilaterally - Abdomen Abdomen: Normal bowel sounds, Soft, Non tender, Non distended, No organomegaly - Back Back: No CVA TTP, No spinal TTP - Derm Derm: Normal color, Warm and dry, No rash - Extremities Extremities: No deformity, No edema - Neuro Neuro: No motor deficit, No sensory deficit, Normal speech Eye Opening: Spontaneous Motor: Obeys Commands Verbal: Confused GCS Score: 14 - Psych Psych: Normal mood, Normal affect Results - Vitals Vitals: Vital Signs - 24 hr 03/27/20 21:54 Temperature 36.9 C Heart Rate 68 Respiratory 17 Rate Blood Pressure 126/94 H O2 Saturation 98 Oxygen O2 Source [Without Activity] Nasal cannula O2 Source Room air - Labs Labs: Laboratory Tests 03/27/20 22:05 Urine Color YELLOW Urine Clarity HAZY Urine pH 8.5 H Ur Specific [place] 1.020 Urine Protein 100 H Urine Glucose (UA) NEGATIVE Urine Ketones NEGATIVE Urine Occult Blood SMALL H Urine Nitrite NEGATIVE Urine Bilirubin NEGATIVE Urine Urobilinogen 0.2 (NORMAL) Ur Leukocyte Esterase SMALL H Urine RBC 6-10 H Urine WBC >25 H Ur Squamous Epith Cells RARE Squamous Urine Crystals 11-25 Triple Phos Amorphous Sediment Rare Urine Bacteria Many H Ur Microscopic Review INDICATED Urine Culture Comments INDICATED PD MEDICAL DECISION MAKING - ED course Complexity details: reviewed old records, reviewed results, re-evaluated patient, considered differential, d/w patient ED course: 80-year-old female with a history of urinary tract infection with extended spectrum beta-lactamase producing E. coli has symptoms again and treatment is indicated. She is administered nitrofurantoin orally we will place her on a course. Departure - Departure Disposition: 01 Home, Self Care Clinical Impression: UTI (urinary tract infection) Qualifiers: Urinary tract infection type: acute cystitis Hematuria presence: with hematuria Qualified Code(s): N30.01 - Acute cystitis with hematuria Instructions: ED UTI Cystitis Female Follow-Up: Mariana Hills PA-C [Primary Care Provider] - Prescriptions: Nitrofurantoin [Macrobid] 100 mg PO BID #14 capsule
[2020-03-27 22:52] VITALS: BP 142/75
== END 2020-03-27 22:52 | disposition home or self-care (01) ==
LOC: ED 21:49
DX: N30.01 Acute cystitis with hematuria (principal); F03.90 Unspecified dementia, unspecified severity, without behavioral disturbance, psychotic disturbance, mood disturbance, and anxiety; I10 Essential (primary) hypertension; F17.200 Nicotine dependence, unspecified, uncomplicated
CPT/HCPCS: 81001; 87077; 87086; 87181; 99283; A9270; 81003

== ENCOUNTER 2020-04-10 18:36 | Emergency (ER) | payer MEDICARE, OTHER ==
--- NOTE | 2020-04-10 19:37 | ED Physician Documentation ---
History of Present Illness - Stated complaint Stated Complaint: FEMALE - Chief complaint Chief Complaint: General - History obtained from History obtained from: Family - Additonal information Additional information: 80-year-old woman with dementia presents with caregiver. Recent UTI initially treated with Macrobid but changed to amoxicillin after a Macrobid resistant Proteus was grown. She finished that for about a week ago. Today she started complaining of lower abdominal pain. No reported back pain or fevers. History is limited because of the dementia. Review of Systems Unable to obtain: Dementia PD PAST MEDICAL HISTORY - Past Medical History Cardiovascular: Hypertension, High cholesterol Respiratory: COPD Neuro: Alzhiemer's, Dementia, CVA, Headaches, Migraines, Parkinson's Endocrine/Autoimmune: None GI: GERD SHIPPING CHECKER: None : None HEENT: None Psych: Depression Musculoskeletal: Osteoarthritis Derm: None - Past Surgical History Past Surgical History: Yes Ortho: Other /SHIPPING CHECKER: Hysterectomy Cardiovascular: Other HEENT: Cataracts - Present Medications Home Medications: Ambulatory Orders Medication Instructions Recorded Confirmed Donepezil HCl 10 mg PO DAILY 10/12/16 03/12/20 lisinopriL [Lisinopril] 20 mg PO DAILY 06/17/18 03/12/20 Acetaminophen 500 mg PO BID PRN 08/21/19 03/12/20 Albuterol 3 ml IN QID PRN 08/21/19 03/12/20 Docusate Sodium 100 mg PO BID PRN 08/21/19 03/12/20 Citalopram [CeleXA] 10 mg PO DAILY 03/12/20 03/12/20 Ipratropium [Atrovent] 1 inh PO QID 03/12/20 03/12/20 Magnesium Citrate 100 mg PO DAILY 03/12/20 03/12/20 Multivitamin 1 tab PO DAILY 03/12/20 03/12/20 Senna [Senokot] 8.6 mg PO BID PRN 03/12/20 03/12/20 polyethylene glycoL 3350 17 gm PO DAILY PRN 03/12/20 03/12/20 [Polyethylene Glycol 3350] predniSONE [Deltasone] 60 mg PO DAILY 6 Days #18 tab 03/13/20 Nitrofurantoin [Macrobid] 100 mg PO BID #14 capsule 03/27/20 Ciprofloxacin HCl [Cipro] 250 mg PO BID #20 tablet 04/10/20 - Allergies Allergies/Adverse Reactions: Allergies Allergy/AdvReac Type Severity Reaction Status Date / Time divalproex sodium AdvReac Unknown Verified 04/10/20 19:00 [From [facility]] - Social History Does the pt smoke?: Yes Smoking Status: Current every day smoker Does the pt drink ETOH?: Yes Does the pt have substance abuse?: No - Immunizations Immunizations are current?: Yes - POLST Patient has POLST: No POLST Status: Full Code (POLST was updated in [place] when she had hemorrhagic CVA in 09/06) PD ED PE NORMAL - Vitals Vital signs reviewed: Yes - General General: Other (Alert and oriented to person, cooperative, no distress) - Abdomen Abdomen: Normal bowel sounds, Soft, Other (Mild lower abdominal tenderness without surgical signs) - Extremities Extremities: No edema, No calf tenderness / cord - Neuro Verbal: Confused Results - Vitals Vitals: Vital Signs - 24 hr 04/10/20 04/10/20 04/10/20 18:45 19:34 20:49 Temperature 37.1 C 37.1 C Heart Rate 66 66 59 L Respiratory 16 16 16 Rate Blood Pressure 113/63 113/63 147/91 H O2 Saturation 95 95 96 Oxygen O2 Source [Without Activity] Nasal cannula O2 Source Room air - Labs Labs: Laboratory Tests 04/10/20 20:30 Urine Color YELLOW Urine Clarity HAZY Urine pH 5.5 Ur Specific [place] >=1.030 H Urine Protein NEGATIVE Urine Glucose (UA) NEGATIVE Urine Ketones NEGATIVE Urine Occult Blood SMALL H Urine Nitrite POSITIVE H Urine Bilirubin NEGATIVE Urine Urobilinogen 0.2 (NORMAL) Ur Leukocyte Esterase NEGATIVE Urine RBC 6-10 H Urine WBC 11-25 H Ur Squamous Epith Cells MOD Squamous H Urine Bacteria Moderate H Ur Microscopic Review INDICATED Urine Culture Comments NOT INDICATED PD MEDICAL DECISION MAKING - ED course ED course: 80-year-old woman with suprapubic pain found to have recurrent UTI. She is treated with Cipro, a longer course than usual given the rapidly recurrent nature. Departure - Departure Disposition: 01 Home, Self Care Clinical Impression: UTI (urinary tract infection) Qualifiers: Urinary tract infection type: acute cystitis Hematuria presence: with hematuria Qualified Code(s): N30.01 - Acute cystitis with hematuria Condition: Good Record reviewed to determine appropriate education?: Yes Instructions: ED UTI Cystitis Female Prescriptions: Ciprofloxacin HCl [Cipro] 250 mg PO BID #20 tablet Comments: We will culture your urine, the results should be done in 48-72 hours. If an antibiotic change is necessary we will call you. Return if worse in the meantime, especially if you develop increasing flank pain, fevers, or cannot keep down the medication. Discharge Date/Time: 04/10/20 20:50
[2020-04-10 20:37] LABS: BILIRUBIN,URINE NEGATIVE (NEGATIVE); CLARITY,URINE HAZY (CLEAR); GLUCOSE, URINE (UA) NEGATIVE (NEGATIVE); KETONES,URINE (UA) NEGATIVE (NEGATIVE); LEUKOCYTE ESTERASE, URINE NEGATIVE (NEGATIVE); NITRITE,URINE POSITIVE (NEGATIVE); OCCULT BLOOD,URINE SMALL (NEGATIVE); PH,URINE 5.5 PH (5.0-7.5); PROTEIN,URINE NEGATIVE (NEGATIVE); UROBILINOGEN,URINE 0.2 (NORMAL) E.U./dL (NORMAL)
[2020-04-10] MEDS ORDERED: CIPROFLOXACIN 250 MG TABLET PO STA (20:40)
[2020-04-10 20:50] VITALS: BP 147/91
[2020-04-10 21:00] LABS: BACTERIA,URINE Moderate /HPF (None Seen); SQUAMOUS EPITHELIAL CELL,UR MOD Squamous (<= Few)
--- OUTSIDE RECORDS SUMMARY | 2020-04-13 14:14 | EXTERNAL MEDICAL SUMMARY RPT | Continuity of Care Document ---
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 Scheidt Unavailable Unavailable DO Unavailable Unavailable Sisu Unavailable Unavailable Sisu Unavailable Unavailable Rochier Unavailable Unavailable Alonzo Unavailable Unavailable Rochier Unavailable Unavailable Scheidt Unavailable Unavailable Sri Unavailable Unavailable Monarch Unavailable Unavailable Sonali Unavailable Unavailable Problems Allergies date description facility [facility] No Known Drug Allergies [facility] No Known Drug Allergies [facility] pneumococcal 13-valent conjugate vaccin e formerly [facility] AD[facility]ESIVE \T\ TAPE [facility] AMOXICILLIN [facility] ASPIRIN [facility] CEFACLOR [facility] CEFUROXIME AXETIL [facility] CEPHALEXIN [facility] CHLORTHALIDONE [facility] CIPROFLOXACIN [facility] CLINDAMYCIN [facility] CODEINE SULFATE [facility] CODEINE [facility] DOXYCYCLINE [facility] EXENATIDE [facility] EZETIMIBE [facility] FLUOCINOLONE [facility] HYDROCODONE [facility] HYDROMORPHONE [facility] IBUPROFEN [facility] IOVERSOL [facility] LISINOPRIL [facility] LOSARTAN [facility] METFORMIN [facility] METRONIDAZ[facility]LE [facility] MORPHINE [facility] MOXIFLOXACIN [facility] ONDANSETRON [facility] OXYCODONE HCL [facility] OXYCODONE [facility] PHENOBARBITAL [facility] PHENYLEPHRINE HCL [facility] PNEUMOCOCCAL VACCINE [facility] PRAVASTATIN [facility] PREGABALIN [facility] PROMETHAZINE [facility] SIMVASTATIN [facility] SULFASALAZINE [facility] TETRACYCLINE [facility] TOLMETIN [facility] TRAMADOL [facility] TRETINOIN [facility] VENLAFAXINE [facility] BACTRIM [facility] FLUTICASONE-SALMETEROL [facility] Center OXYCODONE-ACETAMINOPHEN formerly [facility] IODINATED DIAGNOSTIC AGENTS [facility] [place] MACROLIDES AND KETOLIDES formerly [facility] NO KNOWN ENVIRONMENTAL ALLERGIES [facility]IDS [facility] PENICILLINS [facility] STATINS [facility] SULFA ANTIBIOTICS [facility] TETANUS TO[facility]OIDS [facility] No Known Allergies [facility] ADHESIVE \T\ TAPE [facility] OTHER [facility] bandaid [facility] ADHESIVE TAPE [facility] PENICILLIN [facility] SULFA (SULFONAMIDE ANTIBIOTICS) [facility] TETANUS ANTITOXIN [facility] VENOM-HONEY BEE [facility] NO KNOWN ALLERGIES [facility] NO ALLERGY INFORMATION AVAILABLE [facility] [place] PENICILLINS [facility] SULFA (SULFONAMIDE ANTIBIOTICS) [facility] NO KNOWN ALLERGIES [facility] ASPARTAME [facility] IODIDES [facility] IODINE [facility] LATEX [facility] ONION [facility] TOMATO [facility] YEAST-RELATED PRODUCTS [facility] LITHIUM CARBONATE [facility] CODEINE [facility] PROPOXYPHENE [facility] ASPIRIN [facility] CAT DANDER [facility] NAPROXEN SODIUM [facility] DICLOFENAC SODIUM [facility] CEPHALEXIN [facility] TRAMADOL [facility] METFORMIN [facility] BUSPIRONE [facility] HYDROXYCHLOROQUINE [facility] OL[facility]ZAPINE [facility] LISINOPRIL [facility] QUETIAPINE [facility] PEACH [facility] IODINE [facility] ARIPIPRAZOLE [facility] POLLENS EXTRACT [facility] OXYCODONE-ACETAMINOPHEN [facility] ADHESIVE TAPE-SILICONES [facility] pramoxine HCl * [facility] neomycin sulfate * [facility] bacitracin zinc * [facility] polymyxin B sulfate * [facility] No Known Drug Allergies [facility] [place] lidocaine [facility] divalproex sodium [facility] bacitracin [facility] pramoxine [facility] polymyxin B [facility] shellfish derived [facility] Divalproex Sodium [facility] ADHESIVE \T\ TAPE [facility] ASPIRIN [facility] CIPROFLOXACIN [facility] CODEINE SULFATE [facility] LISINOPRIL [facility] MANNOSE [facility] MEMANTINE [facility] PIPERACILLIN [facility] RIVASTIGMINE [facility] TRAMADOL [facility] WARFARIN [facility] COLCHICINE [facility] MEMANTINE HCL [facility] TROSPIUM CHLORIDE ER [facility] BARBITURATES [facility] SULFA ANTIBIOTICS [facility] ADHESIVE \T\ TAPE [facility] LATEX [facility] NO KNOWN ALLERGIES [facility] divalproex sodium [facility] AMOXICILLIN [facility] PENICILLINS [facility] NO KNOWN ALLERGIES [facility] CODEINE [facility] lisinopril [facility] divalproex sodium [facility] AMLODIPINE [facility] AMOXICILLIN [facility] ASPIRIN [facility] BEE VENOM [facility] BUPROPION [facility] CARBIDOPA W-LEVODOPA [facility] CAT HAIR EXTRACT [facility] CELECOXIB [facility] CLINDAMYCIN [facility] CODEINE [facility] DOXYCYCLINE [facility] HYDROMORPHONE HCL [facility] IBUPROFEN [facility] LISINOPRIL [facility] MUPIROCIN [facility] NICKEL [facility] PROCHLORPERAZINE [facility] SIMVASTATIN [facility] CEPHALEXIN [facility] HYDROCODONE-ACETAMINOPHEN [facility] OXYCODONE-ACETAMINOPHEN [facility] [place] SULFAMETHOXAZOLE-TRIMETHOPRIM [facility] NO KNOWN ENVIRONMENTAL ALLERGIES [facility] PENICILLINS [facility] STATINS [facility] SULFA ANTIBIOTICS [facility] ADHESIVE \T\ TAPE [facility] MAE INHIBITORS [facility] AMOXICILLIN [facility] ASPIRIN [facility] [id number] [facility] CEPHALEXIN [facility] CODEINE [facility] DOXYCYCLINE [facility] FLU VAC 2012 ([id number])(PF) [facility] [place] HYDROCODONE BITARTRATE [facility] KETOROLAC [facility] LISINOPRIL [facility] METHIMAZOLE [facility] PENICILLINS [facility] PROPRANOLOL [facility] SULFAMETHOXAZOLE [facility] SUMATRIPTAN [facility] TRAMADOL [facility] TRIMETHOPRIM [facility] NO KNOWN ALLERGIES [facility] NO ALLERGY INFORMATION AVAILABLE [facility] IODINE AND IODIDE CONTAINING PRODUCTS formerly [facility] BARBITURATES [facility] TRICYCLIC COMPOUNDS [facility] PENICILLINS [facility] MACROLIDE ANTIBIOTICS [facility] SULFA (SULFONAMIDE ANTIBIOTICS) [facility] NO KNOWN ALLERGIES [facility] ASPARTAME [facility] IODINE [facility] LACTOSE [facility] LATEX [facility] NIACIN [facility] USTEKINUMAB [facility] MORPHINE [facility] CODEINE [facility] SALICYLATES [facility] COCONUT [facility] BENZOYL PEROXIDE [facility] OCTREOTIDE [facility] ACETAZOLAMIDE [facility] IBUPROFEN [facility] ERYTHROMYCIN BASE [facility] SULFASALAZINE [facility] CIPROFLOXACIN HCL [facility] AMLODIPINE [facility] AMOXICILLIN [facility] GABAPENTIN [facility] VERAPAMIL [facility] CEFTRIAXONE [facility] PENICILLIN G [facility] PEANUT [facility] OLANZAPINE [facility] MELOXICAM [facility] BEE VENOM PROTEIN (HONEY BEE) [facility] PINEAPPLE [facility] NIFEDIPINE [facility] MILK [facility] EZETIMIBE [facility] ROSUVASTATIN [facility] ERYTHROMYCIN [facility] ADHESIVE TAPE-SILICONES formerly [facility] No Known Drug Allergies formerly [facility] divalproex sodium [facility] NO KNOWN ENVIRONMENTAL ALLERGIES [facility] divalproex sodium [facility] NO ALLERGY INFORMATION AVAILABLE [facility] NO KNOWN ALLERGIES [facility] divalproex sodium [facility] Divalproex Sodium [facility] Divalproex Sodium [facility] date description facility FLUOXETINE HCL [facility] [address] RANITIDINE HCL [facility] [address] LANSOPRAZOLE [facility] [address] ATENOLOL [facility] [address] CALCITONIN (SALMON) [facility] [address] AMITRIPTYLINE HCL [facility] [address] HYDROCHLOROTHIAZIDE [facility] [address] LANSOPRAZOLE [facility] [address] BUPROPION HCL [facility] [address] ATENOLOL [facility] [address] RANITIDINE HCL [facility] [address] LANSOPRAZOLE [facility] [address] CALCITONIN (SALMON) [facility] [address] FLUOXETINE HCL [facility] [address] HYDROCHLOROTHIAZIDE [facility] [address] LANSOPRAZOLE [facility] [address] AMITRIPTYLINE HCL [facility] [address] BUPROPION HCL [facility] [address] 2008-06-06 00:00:00 null [facility] [address] 2008-06-06 00:00:00 null [facility] [address] 2008-06-06 00:00:00 null [facility] [address] 2008-06-06 00:00:00 null [facility] [address] 2008-06-06 00:00:00 null [facility] [address] 2008-06-06 00:00:00 null [facility] [address] 2008-06-06 00:00:00 null [facility] [address] 2008-06-06 00:00:00 null [facility] [address] 2008-06-06 00:00:00 null [facility] [address] 2008-06-06 00:00:00 null [facility] [address] 2008-06-06 00:00:00 null [facility] [address] 2008-06-06 00:00:00 null [facility] [address] 2008-06-06 00:00:00 null [facility] [address] 2008-06-06 00:00:00 null [facility] [address] 2008-06-06 00:00:00 null [facility] [address] 2008-06-06 00:00:00 null [facility] [address] 2008-06-06 00:00:00 ATENOLOL [facility] [address] 2008-06-06 00:00:00 FLUOXETINE HCL [facility] [address] 2008-06-06 00:00:00 HYDROCHLOROTHIAZIDE [facility] [address] 2008-06-06 00:00:00 BUPROPION HCL [facility] [address] 2008-06-06 00:00:00 AMITRIPTYLINE HCL [facility] [address] 2008-06-06 00:00:00 FLUOXETINE HCL [facility] [address] 2008-06-06 00:00:00 RANITIDINE HCL [facility] [address] 2008-06-06 00:00:00 RANITIDINE HCL [facility] [address] 2008-06-06 00:00:00 CALCITONIN (SALMON) [facility] [address] 2008-06-06 00:00:00 ATENOLOL [facility] [address] 2008-06-06 00:00:00 CALCITONIN (SALMON) [facility] [address] 2008-06-06 00:00:00 AMITRIPTYLINE HCL [facility] [address] 2008-06-06 00:00:00 HYDROCHLOROTHIAZIDE [facility] [address] 2008-06-06 00:00:00 LANSOPRAZOLE [facility] [address] 2008-06-06 00:00:00 BUPROPION HCL [facility] [address] 2008-06-06 00:00:00 ATENOLOL [facility] [address] 2008-06-06 00:00:00 RANITIDINE HCL [facility] [address] 2008-06-06 00:00:00 LANSOPRAZOLE [facility] [address] 2008-06-06 00:00:00 CALCITONIN (SALMON) [facility] [address] 2008-06-06 00:00:00 FLUOXETINE HCL [facility] [address] 2008-06-06 00:00:00 HYDROCHLOROTHIAZIDE [facility] [address] 2008-06-06 00:00:00 AMITRIPTYLINE HCL [facility] [address] 2008-06-06 00:00:00 BUPROPION HCL [facility] [address] 2008-06-06 00:00:00 null [facility] 2008-06-06 00:00:00 null [facility] 2008-06-06 00:00:00 null [facility] 2008-06-06 00:00:00 null [facility] 2008-06-06 00:00:00 null [facility] 2008-06-06 00:00:00 null [facility] 2008-06-06 00:00:00 null [facility] 2008-06-06 00:00:00 null [facility] 2008-06-06 00:00:00 null [facility] 2008-06-06 00:00:00 null [facility] 2008-06-06 00:00:00 null [facility] 2008-06-06 00:00:00 null [facility] 2008-06-06 00:00:00 null [facility] 2008-06-06 00:00:00 null [facility] 2008-06-06 00:00:00 null [facility] 2008-06-06 00:00:00 null [facility] 2008-06-06 00:00:00 ATENOLOL [facility] 2008-06-06 00:00:00 HYDROCHLOROTHIAZIDE [facility] 2008-06-06 00:00:00 BUPROPION HCL [facility] 2008-06-06 00:00:00 AMITRIPTYLINE HCL [facility] 2008-06-06 00:00:00 FLUOXETINE HCL [facility] 2008-06-06 00:00:00 RANITIDINE HCL [facility] 2008-06-06 00:00:00 CALCITONIN (SALMON) [facility] 2008-06-06 00:00:00 LANSOPRAZOLE [facility] 2008-06-06 00:00:00 ATENOLOL [facility] 2008-06-06 00:00:00 RANITIDINE HCL [facility] 2008-06-06 00:00:00 LANSOPRAZOLE [facility] 2008-06-06 00:00:00 CALCITONIN (SALMON) [facility] 2008-06-06 00:00:00 FLUOXETINE HCL [facility] 2008-06-06 00:00:00 HYDROCHLOROTHIAZIDE [facility] 2008-06-06 00:00:00 AMITRIPTYLINE HCL [facility] 2008-06-06 00:00:00 BUPROPION HCL [facility] 2008-06-06 00:00:00 null [facility] [place] [facility] 2008-06-06 00:00:00 null [facility] [place] [facility] 2008-06-06 00:00:00 null [facility] [place] [facility] 2008-06-06 00:00:00 null [facility] [place] [facility] 2008-06-06 00:00:00 null [facility] [place] [facility] 2008-06-06 00:00:00 null [facility] [place] [facility] 2008-06-06 00:00:00 null [facility] [place] [facility] 2008-06-06 00:00:00 null [facility] [place] [facility] 2008-06-06 00:00:00 null [facility] [place] [facility] 2008-06-06 00:00:00 null [facility] [place] [facility] 2008-06-06 00:00:00 null [facility] [place] [facility] 2008-06-06 00:00:00 null [facility] [place] [facility] 2008-06-06 00:00:00 null [facility] [place] [facility] 2008-06-06 00:00:00 null [facility] [place] [facility] 2008-06-06 00:00:00 null [facility] [place] [facility] 2008-06-06 00:00:00 null [facility] [place] [facility] 2008-06-06 00:00:00 ATENOLOL [facility] [place] [facility] 2008-06-06 00:00:00 HYDROCHLOROTHIAZIDE [facility] 2008-06-06 00:00:00 BUPROPION HCL [facility] [place] [facility] 2008-06-06 00:00:00 AMITRIPTYLINE HCL [facility] [place] [facility] 2008-06-06 00:00:00 FLUOXETINE HCL [facility] [place] [facility] 2008-06-06 00:00:00 RANITIDINE HCL [facility] [place] [facility] 2008-06-06 00:00:00 [facility]:00 LANSOPRAZOLE [facility] [place] [facility] 2008-06-06 00:00:00 ATENOLOL [facility] [place] [facility] 2008-06-06 00:00:00 RANITIDINE HCL [facility] [place] [facility] 2008-06-06 00:00:00 LANSOPRAZOLE [facility] [place] [facility] 2008-06-06 00:00:00 CALCITONIN (SALMON) [facility] 2008-06-06 00:00:00 FLUOXETINE HCL [facility] [place] [facility] 2008-06-06 00:00:00 [facility]OTHIAZIDE [facility] 2008-[facility]:00:00 [facility]YLINE HCL [facility] 2008-06-06 00:00:00 BUPROPION HCL [facility] 2008-10-30 00:00:00 null [facility] [address] 2008-10-30 00:00:00 null [facility] [address] 2008-10-30 00:00:00 SULFAMETHOXAZOLE-[facility]IMETHOPRIM [facility] [address] 2008-10-30 00:00:00 SULFAMETHOXAZOLE-TRIMETHOPRIM [facility] [address] 2008-10-30 00:00:00 null [facility] 2008-10-30 00:00:00 null [facility] 2008-10-30 00:00:00 SULFAMETHOXAZOLE-TRIMETHOPRIM [facility] 2008-10-30 00:00:00 SULFAMETHOXAZOLE-TRIMETHOPRIM [facility] 2008-10-30 00:00:00 null [facility] 2008-10-30 00:00:00 null [facility] 2008-10-30 00:00:00 SULFAMETHOXAZOLE-TRIMETHOPRIM [facility] 2008-10-30 00:00:00 SULFAMETHOXAZOLE-TRIMETHOPRIM [facility] 2008-12-04 00:00:00 null [facility] [address] 2008-12-04 00:00:00 null [facility] [address] 2008-12-04 00:00:00 null [facility] [address] 2008-12-04 00:00:00 null [facility] [address] 2008-12-04 00:00:00 null [facility] [address] 2008-12-04 00:00:00 null [facility] [address] 2008-12-04 00:00:00 ALENDRONATE SODIUM [facility] [address] 2008-12-04 00:00:00 ALENDRONATE SODIUM [facility] [address] 2008-12-04 00:00:00 CLINDAMYCIN HCL [facility] [address] 2008-12-04 00:00:00 ERGOCALCIFEROL [facility] [address] 2008-12-04 00:00:00 CLINDAMYCIN HCL [facility] [address] 2008-12-04 00:00:00 CLINDAMYCIN HCL [facility] [address] 2008-12-04 00:00:00 ALENDRONATE SODIUM [facility] [address] 2008-12-04 00:00:00 null [facility] 2008-12-04 00:00:00 null [facility] 2008-12-04 00:00:00 null [facility] 2008-12-04 00:00:00 null [facility] 2008-12-04 00:00:00 null [facility] 2008-12-04 00:00:00 null [facility] 2008-12-04 00:00:00 ALENDRONATE SODIUM [facility] 2008-12-04 00:00:00 CLINDAMYCIN HCL [facility] 2008-12-04 00:00:00 ERGOCALCIFEROL [facility] 2008-12-04 00:00:00 CLINDAMYCIN HCL [facility] 2008-12-04 00:00:00 ALENDRONATE SODIUM [facility] 2008-12-04 00:00:00 null [facility] 2008-12-04 00[facility]00:00 null [facility] 2008-12-04 00:00:00 null [facility] 2008-12-04 00:00:00 null [facility] 2008-12-04 00:00:00 null [facility] 2008-12-04 00:00:00 null [facility] 2008-12-04 00:00:00 ALENDRONATE SODIUM [facility] 2008-12-04 00:00:00 CLINDAMYCIN HCL [facility] 2008-12-04 00:00:00 ERGOCALCIFEROL [facility] 2008-12-04 00:00:00 CLINDAMYCIN HCL [facility] 2008-12-04 00:00:00 ALENDRONATE SODIUM [facility] 2008-12-10 00:00:00 null [facility] [address] 2008-12-10 00:00:00 null [facility] [address] 2008-12-10 00:00:00 ERGOCALCIFEROL [facility] [address] 2008-12-10 00:00:00 null [facility] 2008-12-10 00:00:00 null [facility] 2008-12-10 00:00:00 ERGOCALCIFEROL [facility] 2008-12-10 00:00:00 null [facility] 2008-12-10 00:00:00 null [facility] 2008-12-10 00:00:00 ERGOCALCIFEROL [facility] 2009-02-03 00:00:00 null [facility] [address] 2009-02-03 00:00:00 null [facility] [address] 2009-02-03 00:00:00 null [facility] [address] 2009-02-03 00:00:00 null [facility] [address] 2009-02-03 00:00:00 null [facility] [address] 2009-02-03 00:00:00 null [facility] [address] 2009-02-03 00:00:00 null [facility] [address] 2009-02-03 00:00:00 null [facility] [address] 2009-02-03 00:00:00 CLINDAMYCIN HCL [facility] [address] 2009-02-03 00:00:00 TRIAMCINOLONE ACETONIDE [facility] [address] 2009-02-03 00:00:00 CLINDAMYCIN HCL [facility] [address] 2009-02-03 00:00:00 TRIAMCINOLONE ACETONIDE [facility] [address] 2009-02-03 00:00:00 RANITIDINE HCL [facility] [address] 2009-02-03 00:00:00 RANITIDINE HCL [facility] [address] 2009-02-03 00:00:00 ERGOCALCIFEROL [facility] [address] 2009-02-03 00:00:00 TRIAMCINOLONE ACETONIDE [facility] [address] 2009-02-03 00:00:00 RANITIDINE HCL [facility] [address] 2009-02-03 00:00:00 CLINDAMYCIN HCL [facility] [address] 2009-02-03 00:00:00 null [facility] 2009-02-03 00:00:00 null [facility] 2009-02-03 00:00:00 null [facility] 2009-02-03 00:00:00 null [facility] 2009-02-03 00:00:00 null [facility] 2009-02-03 00:00:00 null [facility] 2009-02-03 00:00:00 null [facility] 2009-02-03 00:00:00 null [facility] 2009-02-03 00:00:00 CLINDAMYCIN HCL [facility] 2009-02-03 00:00:00 TRIAMCINOLONE ACETONIDE [facility] 2009-02-03 00:00:00 RANITIDINE HCL [facility] 2009-02-03 00:00:00 ERGOCALCIFEROL [facility] 2009-02-03 00:00:00 TRIAMCINOLONE ACETONIDE [facility] 2009-02-03 00:00:00 RANITIDINE HCL [facility] 2009-02-03 00:00:00 CLINDAMYCIN HCL [facility] 2009-02-03 00:00:00 null [facility] 2009-02-03 00:00:00 null [facility] 2009-02-03 00:00:00 null [facility] 2009-02-03 00:00:00 null [facility] 2009-02-03 00:00:00 null [facility] 2009-02-03 00:00:00 null [facility] 2009-02-03 00:00:00 null [facility] 2009-02-03 00:00:00 null [facility] 2009-02-03 00:00:00 CLINDAMYCIN HCL [facility]:00:00 TRIAMCINOLONE AC[facility]ONIDE [facility] 2009[facility]03 00:00:00 R[facility]IDINE [facility]CL [facility] 2009[facility]02-03 00:00:00 ERGOCALCIFEROL [facility] 2009-02-03 00:00:00 TRIAMCINOLONE ACETONIDE [facility] 2009[facility]-03 00:00:00 RANITIDINE HCL [facility] 2009-02-03 00:00:00 CLINDAMYCIN HCL [facility] 2009-04-09 00:00:00 null [facility] [address] 2009-04-09 00:00:00 null [facility] [address] 2009-04-09 00:00:00 null [facility] [address] 2009-04-09 00:00:00 null [facility] [address] 2009-04-09 00:00:00 LANSOPRAZOLE [facility] [address] 2009-04-09 00:00:00 LANSOPRAZOLE [facility] [address] 2009-04-09 00:00:00 LANSOPRAZOLE [facility] [address] 2009-04-09 00:00:00 LANSOPRAZOLE [facility] [address] 2009-04-09 00:00:00 LANSOPRAZOLE [facility] [address] 2009-04-09 00:00:00 null [facility] 2009-04-09 00:00:00 null [facility] 2009-04-09 00:00:00 null [facility] 2009-04-09 00:00:00 null [facility] 2009-04-09 00:00:00 LANSOPRAZOLE [facility] 2009-04-09 00:00:00 LANSOPRAZOLE [facility] 2009-04-09 00:00:00 LANSOPRAZOLE [facility] 2009-04-09 00:00:00 LANSOPRAZOLE [facility] 2009-04-09 00:00:00 null [facility] 2009-04-09 00:00:00 null [facility] 2009-04-09 00:00:00 null [facility] 2009-04-09 00:00:00 null [facility] 2009-04-09 00:00:00 LANSOPRAZOLE [facility] 2009-04-09 00:00:00 LANSOPRAZOLE [facility] 2009-04-09 00:00:00 LANSOPRAZOLE [facility]:00:00 LANSOPRAZOLE [facility] 2009-05-19 00:00:00 null [facility] [address] 2009-05-19 00:00:00 null [facility] [address] 2009-05-19 00:00:00 null [facility] [address] 2009-05-19 00:00:00 null [facility] [address] 2009-05-19 00:00:00 SIMVASTATIN [facility] [address] 2009-05-19 00:00:00 CLOTRIMAZOLE-BETAMETHASONE [facility] [address] 2009-05-19 00:00:00 CLOTRIMAZOLE-BETAMETHASONE [facility] [address] 2009-05-19 00:00:00 SIMVASTATIN [facility] [address] 2009-05-19 00:00:00 SIMVASTATIN [facility] [address] 2009-05-19 00:00:00 SIMVASTATIN [facility] [address] 2009-05-19 00:00:00 CLOTRIMAZOLE-BETAMETHASONE [facility] [address] 2009-05-19 00:00:00 null [facility] 2009-05-19 00:00:00 null [facility] 2009-05-19 00:00:00 null [facility] 2009-05-19 00:00:00 null [facility] 2009-05-19 00:00:00 SIMVASTATIN [facility] 2009-05-19 00:00:00 CLOTRIMAZOLE-BETAMETHASONE [facility] 2009-05-19 00:00:00 SIMVASTATIN [facility] 2009-05-19 00:00:00 CLOTRIMAZOLE-BETAMETHASONE [facility] 2009-05-19 00:00:00 null [facility] 2009-05-19 00:00:00 null [facility] 2009-05-19 00:00:00 null [facility] 2009-05-19 00:00:00 null [facility] 2009-05-19 00:00:00 SIMVASTATIN [facility] 2009-05-19 00:00:00 CLOTRIMAZOLE-BETAMETHASONE [facility] 2009-05-19 00:00:00 SIMVASTATIN [facility] 2009-05-19 00:00:00 CLOTRIMAZOLE-BETAMETHASONE [facility] 2009-08-21 00:00:00 null [facility] [address] 2009-08-21 00:00:00 null [facility] [address] 2009-08-21 00:00:00 ALBUTEROL SULFATE AERS [facility] [address] 2009-08-21 00:00:00 null [facility] 2009-08-21 00:00:00 null [facility] 2009-08-21 00:00:00 ALBUTEROL SULFATE AERS [facility] 2009-08-21 00:00:00 null [facility] 2009-08-21 00:00:00 null [facility] 2009-08-21 00:00:00 [facility]OL [facility] 2010-05-20 00:00:00 null [facility] [address] 2010-05-20 00:00:00 null [facility] [address] 2010-05-20 00:00:00 null [facility] [address] 2010-05-20 00:00:00 null [facility] [address] 2010-05-20 00:00:00 ATENOLOL [facility] [address] 2010-05-20 00:00:00 METOPROLOL TARTRATE [facility] [address] 2010-05-20 00:00:00 METOPROLOL TARTRATE [facility] [address] 2010-05-20 00:00:00 ATENOLOL [facility] [address] 2010-05-20 00:00:00 ATENOLOL [facility] [address] 2010-05-20 00:00:00 METOPROLOL TARTRATE [facility] [address] 2010-05-20 00:00:00 null [facility] 2010-05-20 00:00:00 null [facility] 2010-05-20 00:00:00 null [facility] 2010-05-20 00:00:00 null [facility] 2010-05-20 00:00:00 ATENOLOL [facility] 2010-05-20 00:00:00 METOPROLOL TARTRATE [facility] 2010-05-20 00:00:00 ATENOLOL [facility] 2010-05-20 00:00:00 METOPROLOL TARTRATE [facility] 2010-05-20 00:00:00 null [facility] 2010-05-20 00:00:00 null [facility] 2010-05-20 00:00:00 null [facility] 2010-05-20 00:00:00 null [facility] 2010-05-20 00:00:00 ATENOLOL [facility] 2010-05-20 00:00:00 METOPROLOL TARTRATE [facility] 2010-05-20 00:00:00 ATENOLOL [facility] 2010-05-20 00:00:00 METOPROLOL TARTRATE [facility] 2010-05-22 00:00:00 null [facility] [address] 2010-05-22 00:00:00 null [facility] [address] 2010-05-22 00:00:00 null [facility] [address] 2010-05-22 00:00:00 null [facility] [address] 2010-05-22 00:00:00 LISINOPRIL [facility] [address] 2010-05-22 00:00:00 METOPROLOL TARTRATE [facility] [address] 2010-05-22 00:00:00 METOPROLOL TARTRATE [facility] [address] 2010-05-22 00:00:00 LISINOPRIL [facility] [address] 2010-05-22 00:00:00 LISINOPRIL [facility] [address] 2010-05-22 00:00:00 METOPROLOL TARTRATE [facility] [address] 2010-05-22 00:00:00 null [facility] 2010-05-22 00:00:00 null [facility] 2010-05-22 00:00:00 null [facility] 2010-05-22 00:00:00 null [facility] 2010-05-22 00:00:00 LISINOPRIL [facility] 2010-05-22 00:00:00 METOPROLOL TARTRATE [facility] 2010-05-22 00:00:00 LISINOPRIL [facility] 2010-05-22 00:00:00 METOPROLOL TARTRATE [facility] 2010-05-22 00:00:00 null [facility] 2010-05-22 00:00:00 null [facility] 2010-05-22 00:00:00 null [facility] 2010-05-22 00:00:00 null [facility] 2010-05-22 00:00:00 LISINOPRIL [facility] 2010-05-22 00:00:00 METOPROLOL TARTRATE [facility] 2010-05-22 00:00:00 LISINOPRIL [facility] 2010-05-22 00:00:00 METOPROLOL TARTRATE [facility] 2010-05-24 00:00:00 null [facility] [address] 2010-05-24 00:00:00 null [facility] [address] 2010-05-24 00:00:00 CIPROFLOXACIN HCL [facility] [address] 2010-05-24 00:00:00 CIPROFLOXACIN HCL [facility] [address] 2010-05-24 00:00:00 CIPROFLOXACIN HCL [facility] [address] 2010-05-24 00:00:00 null [facility] 2010-05-24 00:00:00 null [facility] 2010-05-24 00:00:00 CIPROFLOXACIN HCL [facility] 2010-05-24 00:00:00 CIPROFLOXACIN HCL [facility] 2010-05-24 00:00:00 null [facility] 2010-05-24 00:00:00 null [facility] 2010-05-24 00:00:00 CIPROFLOXACIN HCL [facility] 2010-05-24 00:00:00 CIPROFLOXACIN HCL [facility] 2010-05-31 00:00:00 null [facility] [address] 2010-05-31 00:00:00 null [facility] [address] 2010-05-31 00:00:00 CIPROFLOXACIN HCL [facility] [address] 2010-05-31 00:00:00 CIPROFLOXACIN HCL [facility] [address] 2010-05-31 00:00:00 CIPROFLOXACIN HCL [facility] [address] 2010-05-31 00:00:00 null [facility] 2010-05-31 00:00:00 null [facility] 2010-05-31 00:00:00 CIPROFLOXACIN HCL [facility] 2010-05-31 00:00:00 CIPROFLOXACIN HCL [facility] 2010-05-31 00:00:00 null [facility] 2010-05-31 00:00:00 null [facility] 2010-05-31 00:00:00 CIPROFLOXACIN HCL [facility] 2010-05-31 00:00:00 CIPROFLOXACIN HCL [facility] 2010-06-03 00:00:00 null [facility] [address] 2010-06-03 00:00:00 null [facility] [address] 2010-06-03 00:00:00 DONEPEZIL HCL [facility] [address] 2010-06-03 00:00:00 DONEPEZIL HCL [facility] [address] 2010-06-03 00:00:00 DONEPEZIL HCL [facility] [address] 2010-06-03 00:00:00 null [facility] 2010-06-03 00:00:00 null [facility] 2010-06-03 00:00:00 DONEPEZIL HCL [facility] 2010-06-03 00:00:00 DONEPEZIL HCL [facility] 2010-06-03 00:00:00 null [facility] 2010-06-03 00:00:00 null [facility] 2010-06-03 00:00:00 DONEPEZIL HCL [facility] 2010-06-03 00:00:00 DONEPEZIL HCL [facility] 2010-07-01 00:00:00 null [facility] [address] 2010-07-01 00:00:00 null [facility] [address] 2010-07-01 00:00:00 null [facility] [address] 2010-07-01 00:00:00 null [facility] [address] 2010-07-01 00:00:00 null [facility] [address] 2010-07-01 00:00:00 null [facility] [address] 2010-07-01 00:00:00 null [facility] [address] 2010-07-01 00:00:00 null [facility] [address] 2010-07-01 00:00:00 FLUTICASONE[facility]EROL [facility] [address] 2010-07-01 00:00:00 ALBUTEROL-IPRATROPIUM [facility] [address] 2010-07-01 00:00:00 ASPIRIN [facility] [address] 2010-07-01 00:00:00 ASPIRIN [facility] [address] 2010-07-01 00:00:00 DONEPEZIL [facility]IDE [facility] [address] 2010-07-01 00:00:00 DONEPEZIL [facility]LORIDE [facility] [address] 2010-07-01 00:00:00 FLUTICASONE-SALMETEROL [facility] [address] 2010-07-01 00:00:00 DONEPEZIL [facility]ORIDE [facility] [address] 2010-07-01 00:00:00 DONEPEZIL [facility]ORIDE [facility] [address] 2010-07-01 00:00:00 ASPIRIN [facility] [address] 2010-07-01 00:00:00 ALBUTEROL-IPRATROPIUM [facility] [address] 2010-07-01 00:00:00 FLUTICASONE-[facility]METEROL [facility] [address] 2010-07-01 00:00:00 DONEPEZIL HYDROCHLORIDE [facility] [address] 2010-07-01 00:00:00 null [facility] 2010-07-01 00:00:00 null [facility] 2010-07-01 00:00:00 null [facility] 2010-07-01 00:00:00 null [facility] 2010-07-01 00:00:00 null [facility] 2010-07-01 00:00:00 null [facility] 2010-07-01 00:00:00 null [facility] 2010-07-01 00:00:00 null [facility] 2010-07-01 00:00:00 FLUTICASONE-SALMETEROL [facility] 2010-07-01 00:00:00 ALBUTEROL-IPRATROPIUM [facility] 2010-07-01 00:00:00 ASPIRIN [facility] 2010-07-01 00:00:00 DONEPEZIL HYDROCHLORIDE [facility] 2010-07-01 00:00:00 ASPIRIN [facility] 2010-07-01 00:00:00 FLUTICASONE-SALMETEROL [facility] 2010-07-01 00:00:00 DONEPEZIL HYDROCHLORIDE [facility] 2010-07-01 00:00:00 null [facility] 2010-07-01 00:00:00 null [facility] 2010-07-01 00:00:00 null [facility] 2010-07-01 00:00:00 null [facility] 2010-07-01 00[facility]00:00 null [facility] 2010-07-01 00:00:00 null [facility] 2010-07-01 00:00:00 null [facility] 2010-07-01 00:00:00 null [facility] 2010-07-01 00:00:00 FLUTICASONE-SALMETEROL [facility] 2010-07-01 00:00:00 ALBUTEROL-IPRATROPIUM [facility] 2010-07-01 00:00:00 ASPIRIN [facility] 2010-07-01 00:00:00 DONEPEZIL [facility]ORIDE [facility] 2010-07-01 00:00:00 ASPIRIN [facility] 2010-07-01 00:00:00 FLUTICASONE-SALMETEROL [facility] 2010-07-01 00:00:00 DONEPEZIL [facility]CHLORIDE [facility] 2010-08-09 00:00:00 null [facility] [address] 2010-08-09 00:00:00 null [facility] [address] 2010-08-09 00:00:00 FLUOXETINE HCL [facility] [address] 2010-08-09 00:00:00 FLUOXETINE HCL [facility] [address] 2010-08-09 00:00:00 FLUOXETINE HCL [facility] [address] 2010-08-09 00:00:00 null [facility] 2010-08-09 00:00:00 null [facility] 2010-08-09 00:00:00 FLUOXETINE HCL [facility] 2010-08-09 00:00:00 FLUOXETINE HCL [facility] 2010-08-09 00:00:00 null [facility] 2010-08-09 00:00:00 null [facility] 2010-08-09 00:00:00 FLUOXETINE HCL [facility] 2010-08-09 00:00:00 FLUOXETINE HCL [facility] 2010-11-08 00:00:00 null [facility] [address] 2010-11-08 00:00:00 null [facility] [address] 2010-11-08 00:00:00 HYDROCHLOROTHIAZIDE [facility] [address] 2010-11-08 00:00:00 HYDROCHLOROTHIAZIDE [facility] [address] 2010-11-08 00:00:00 HYDROCHLOROTHIAZIDE [facility] [address] 2010-11-08 00:00:00 null [facility] 2010-11-08 00:00:00 null [facility] 2010-11-08 00:00:00 HYDROCHLOROTHIAZIDE [facility] 2010-11-08 00:00:00 HYDROCHLOROTHIAZIDE [facility] 2010-11-08 00:00:00 null [facility] 2010-11-08 00:00:00 null [facility] 2010-11-08 00:00:00 HYDROCHLOROTHIAZIDE [facility] 2010-11-08 00:00:00 HYDROCHLOROTHIAZIDE [facility] 2010-12-23 00:00:00 null [facility] [address] 2010-12-23 00:00:00 null [facility] [address] 2010-12-23 00:00:00 null [facility] [address] 2010-12-23 00:00:00 null [facility] [address] 2010-12-23 00:00:00 null [facility] [address] 2010-12-23 00:00:00 null [facility] [address] 2010-12-23 00:00:00 VARENICLINE TARTRATE [facility] [address] 2010-12-23 00:00:00 VARENICLINE TARTRATE [facility] [address] 2010-12-23 00:00:00 ESOMEPRAZOLE MAGNESIUM [facility] [address] 2010-12-23 00:00:00 ESOMEPRAZOLE MAGNESIUM [facility] [address] 2010-12-23 00:00:00 VARENICLINE TARTRATE [facility] [address] 2010-12-23 00:00:00 VARENICLINE TARTRATE [facility] [address] 2010-12-23 00:00:00 ESOMEPRAZOLE MAGNESIUM [facility] [address] 2010-12-23 00:00:00 VARENICLINE T[facility]TRATE [facility] [address] 2010-12-23 00:00:00 VARENICLINE TARTRATE [facility] [address] 2010-12-23 00:00:00 null [facility] 2010-12-23 00:00:00 null [facility] 2010-12-23 00:00:00 null [facility] 2010-12-23 00:00:00 null [facility] 2010-12-23 00:00:00 null [facility] 2010-12-23 00:00:00 null [facility] 2010-12-23 00:00:00 VARENICLINE TARTRATE [facility] 2010-12-23 00:00:00 VARENICLINE TARTRATE [facility] 2010-12-23 00:00:00 ESOMEPRAZOLE MAGNESIUM [facility] 2010-12-23 00:00:00 ESOMEPRAZOLE MAGNESIUM [facility] 2010-12-23 00:00:00 VARENICLINE TARTRATE [facility] 2010-12-23 00:00:00 VARENICLINE TARTRATE [facility] 2010-12-23 00:00:00 null [facility] 2010-12-23 00:00:00 null [facility] 2010-12-23 00:00:00 null [facility] 2010-12-23 00:00:00 null [facility] 2010-12-23 00:00:00 null [facility] 2010-12-23 00:00:00 null [facility] 2010-12-23 00:00:00 VARENICLINE TARTRATE [facility] 2010-12-23 00:00:00 VARENICLINE TARTRATE [facility] 2010-12-23 00:00:00 ESOMEPRAZOLE MAGNESIUM [facility] 2010-12-23 00:00:00 ESOMEPRAZOLE MAGNESIUM [facility] 2010-12-23 00:00:00 VARENICLINE TARTRATE [facility] 2010-12-23 00:00:00 VARENICLINE TARTRATE [facility] 2011-08-05 00:00:00 null [facility] [address] 2011-08-05 00:00:00 null [facility] [address] 2011-08-05 00:00:00 PREDNISONE [facility] [address] 2011-08-05 00:00:00 PREDNISONE [facility] [address] 2011-08-05 00:00:00 PREDNISONE [facility] [address] 2011-08-05 00:00:00 null [facility] 2011-08-05 00:00:00 null [facility] 2011-08-05 00:00:00 PREDNISONE [facility] 2011-08-05 00:00:00 PREDNISONE [facility] 2011-08-05 00:00:00 null [facility] [place] [facility] 2011-08-05 00:00:00 null [facility] [place] [facility] 2011-08-05 00:00:00 PREDNISONE [facility] [place] 2011-08-05 00:00:00 PREDNISONE [facility] [place] 2011-08-09 00:00:00 null [facility] [address] 2011-08-09 00:00[facility] [address] 2011-08-09 00:00:00 NITROFURANTOIN MONOHYD [facility] [address] 2011-08-09 00:00:00 NITROFURANTOIN [facility]D [facility] [address] 2011-08-09 00:00:00 NITROFURANTOIN [facility]OHYD [facility] [address] 2011-08-09 00:00:00 null [facility] 2011-08-09 00:00:00 [facility] 2011-08-09 00:00:00 NITROFURANTOIN MONOHYD [facility]CRO [facility] 2011-08-09 00:00:00 NITROFURANTOIN MONOHYD MACRO [facility] 2011-08-09 00:00:00 null [facility] [place] [facility] 2011-08-09 00:00:00 null [facility] [place] 2011-08-09 00:00:00 NITROFURANTOIN MONOHYD MACRO [facility] 2011-08-09 00:00:00 NITROFURANTOIN MONOHYD MACRO [facility] 2011-09-20 00:00:00 null [facility] [address] 2011-09-20 00:00:00 null [facility] [address] 2011-09-20 00:00:00 OLANZAPINE [facility] [address] 2011-09-20 00:00:00 OLANZAPINE [facility] [address] 2011-09-20 00:00:00 OLANZAPINE [facility] [address] 2011-09-20 00:00:00 null [facility] 2011-09-20 00:00:00 null [facility] 2011-09-20 00:00:00 OLANZAPINE [facility] 2011-09-20 00:00:00 OLANZAPINE [facility] 2011-09-20 00:00:00 null [facility]:00:00 null [facility] 2011-09-20 00:00:00 OLANZAPINE [facility] [place] [facility] 2011-09-20 00:00:00 OLANZAPINE [facility] [place] [facility] 2011-09-27 00:00:00 null [facility] [address] 2011-09-27 00:00:00 null [facility] [address] 2011-09-27 00:00:00 OLANZAPINE [facility] [address] 2011-09-27 00:00:00 OLANZAPINE [facility] [address] 2011-09-27 00:00:00 OLANZAPINE [facility] [address] 2011-09-27 00:00:00 null [facility] 2011-09-27 00:00:00 null [facility] 2011-09-27 00:00:00 OLANZAPINE [facility] 2011-09-27 00:00:00 OLANZAPINE [facility] 2011-09-27 00:00:00 null [facility] [place] [facility] 2011-09-27 00:00:00 null [facility] 2011-09-27 00:00:00 OLANZAPINE [facility] [place] [facility] 2011-09-27 00:00:00 OLANZAPINE [facility] 2011-12-09 00:00:00 null [facility] [address] 2011-12-09 00:00:00 null [facility] [address] 2011-12-09 00:00:00 OLANZAPINE [facility] [address] 2011-12-09 00:00:00 OLANZAPINE [facility] [address] 2011-12-09 00:00:00 OLANZAPINE [facility] [address] 2011-12-09 00:00:00 null [facility] 2011-12-09 00:00:00 null [facility] 2011-12-09 00:00:00 OLANZAPINE [facility] 2011-12-09 00:00:00 OLANZAPINE [facility] 2011-12-09 00:00:00 null [facility] 2011-12-09 00:00:00 null [facility] 2011-12-09 00:00:00 OLANZAPINE [facility] 2011-12-09 00:00:00 OLANZAPINE [facility] 2012-01-05 00:00:00 null [facility] [address] 2012-01-05 00:00:00 null [facility] [address] 2012-01-05 00:00:00 ERYTHROMYCIN [facility] [address] 2012-01-05 00:00:00 ERYTHROMYCIN [facility] [address] 2012-01-05 00:00:00 ERYTHROMYCIN [facility] [address] 2012-01-05 00:00:00 null [facility] 2012-01-05 00:00:00 null [facility] 2012-01-05 00:00:00 ERYTHROMYCIN [facility] 2012-01-05 00:00:00 ERYTHROMYCIN [facility] 2012-01-05 00:00:00 null [facility] [place] [facility] 2012-01-05 00:00:00 null [facility] 2012-01-05 00:00:00 ERYTHROMYCIN [facility] 2012-01-05 00:00:00 ERYTHROMYCIN [facility] 2012-01-24 00:00:00 null [facility] [address] 2012-01-24 00:00:00 null [facility] [address] 2012-01-24 00:00:00 ACETAMINOPHEN-CODEINE [facility] [address] 2012-01-24 00:00:00 ACETAMINOPHEN-CODEINE [facility] [address] 2012-01-24 00:00:00 ACETAMINOPHEN-CODEINE [facility] [address] 2012-01-24 00:00:00 null [facility] 2012-01-24 00:00:00 null [facility] 2012-01-24 00:00:00 ACETAMINOPHEN-CODEINE [facility] 2012-01-24 00:00:00 ACETAMINOPHEN-CODEINE [facility] 2012-01-24 00:00:00 null [facility] [place] [facility] 2012-01-24 00:00:00 null [facility] [place] [facility] 2012-01-24 00:00:00 ACETAMINOPHEN-CODEINE [facility] P [facility]ary [facility] 2012-01-24 00:00:00 ACETAMINOPHEN-CODEINE [facility] P [facility] 2012-02-21 00:00:00 null [facility] [address] 2012-02-21 00:00:00 null [facility] [address] 2012-02-21 00:00:00 ZOSTER VACCINE LIVE [facility] [address] 2012-02-21 00:00:00 ZOSTER VACCINE LIVE [facility] [address] 2012-02-21 00:00:00 null [facility] 2012-02-21 00:00:00 null [facility] 2012-02-21 00:00:00 ZOSTER VACCINE LIVE [facility] 2012-02-21 00:00:00 ZOSTER VACCINE LIVE [facility] 2012-02-21 00:00:00 null [facility] [place] [facility] 2012-02-21 00:00:00 null [facility] [place] [facility] 2012-02-21 00:00:00 ZOSTER VACCINE LIVE [facility] [place] [facility] 2012-02-21 00:00:00 ZOSTER VACCINE LIVE [facility] [place] [facility] 2012-03-06 00:00:00 null [facility] [address] 2012-03-06 00:00:00 null [facility] [address] 2012-03-06 00:00:00 [facility] [address] 2012-03-06 00:00:00 [facility] [address] 2012-03-06 00:00:00 null [facility] 2012-03-06 00:00:00 [facility] 2012-03-06 00:00:00 [facility] 2012-03-06 00:00:00 [facility] 2012-03-06 00:00:00 [facility] [place] [facility] 2012-03-06 00:00:00 null [facility] [place] [facility] 2012-03-06 00:00:00 [facility] [place] [facility] 2012-03-06 00:00:00 [facility] [place] [facility] 2012-07-20 00:00:00 [facility] [address] 2012-07-20 00:00:00 null [facility] [address] 2012-07-20 00:00:00 KETOCONAZOLE [facility] [address] 2012-07-20 00:00:00 KETOCONAZOLE [facility] [address] 2012-07-20 00:00:00 null [facility] 2012-07-20 00:00:00 null [facility] 2012-07-20 00:00:00 KETOCONAZOLE [facility] 2012-07-20 00:00:00 KETOCONAZOLE [facility] 2012-07-20 00:00:00 null [facility] [place] [facility] 2012-07-20 00:00:00 null [facility] [place] [facility] 2012-07-20 00:00:00 KETOCONAZOLE [facility] [place] [facility] 2012-07-20 00:00:00 KETOCONAZOLE [facility] [place] [facility] 2012-08-31 00:00:00 null [facility] [address] 2012-08-31 00:00:00 null [facility] [address] 2012-08-31 00:00:00 ACETAMINOPHEN-CODEINE [facility] [address] 2012-08-31 00:00:00 ACETAMINOPHEN-CODEINE [facility] [address] 2012-08-31 00:00:00 ACETAMINOPHEN-CODEINE [facility] [address] 2012-08-31 00:00:00 null [facility] 2012-08-31 00:00:00 null [facility] 2012-08-31 00:00:00 ACETAMINOPHEN-CODEINE [facility] 2012-08-31 00:00:00 ACETAMINOPHEN-CODEINE [facility] 2012-08-31 00:00:00 null [facility] 2012-08-31 00:00:00 null [facility] 2012-08-31 00:00:00 ACETAMINOPHEN-CODEINE [facility] 2012-08-31 00:00:00 ACETAMINOPHEN-CODEINE [facility] 2012-09-21 00:00:00 null [facility] [address] 2012-09-21 00:00:00 null [facility] [address] 2012-09-21 00:00:00 null [facility] [address] 2012-09-21 00:00:00 null [facility] [address] 2012-09-21 00:00:00 PREDNISONE [facility] [address] 2012-09-21 00:00:00 LEVALBUTEROL TARTRATE [facility] [address] 2012-09-21 00:00:00 PREDNISONE [facility] [address] 2012-09-21 00:00:00 PREDNISONE [facility] [address] 2012-09-21 00:00:00 LEVALBUTEROL TARTRATE [facility] [address] 2012-09-21 00:00:00 null [facility] 2012-09-21 00:00:00 null [facility] 2012-09-21 00:00:00 null [facility] 2012-09-21 00:00:00 null [facility] 2012-09-21 00:00:00 PREDNISONE [facility] 2012-09-21 00:00:00 LEVALBUTEROL TARTRATE [facility] 2012-09-21 00:00:00 PREDNISONE [facility] 2012-09-21 00:00:00 LEVALBUTEROL TARTRATE [facility] 2012-09-21 00:00:00 null [facility] [place] [facility] 2012-09-21 00:00:00 null [facility] [place] [facility] 2012-09-21 00:00:00 null [facility] [place] [facility] 2012-09-21 00:00:00 null [facility] [place] [facility] 2012-09-21 00:00:00 PREDNISONE [facility] [place] [facility] 2012-09-21 00:00:00 LEVALBUTEROL TARTRATE [facility] [place] [facility] 2012-09-21 00:00:00 PREDNISONE [facility] [place] [facility] 2012-09-21 00:00:00 LEVALBUTEROL TARTRATE [facility] [place] [facility] 2013-01-03 00:00:00 null [facility] [address] 2013-01-03 00:00:00 null [facility] [address] 2013-01-03 00:00:00 ASPIRIN [facility] [address] 2013-01-03 00:00:00 [facility] [address] 2013-01-03 00:00:00 [facility]IRIN [facility] [address] 2013-01-03 00:00:00 null [facility] 2013-[facility]-03 [facility]:00[facility] 2013-01-03 00:00:00 ASPIRIN [facility] 2013-01-03 00:00:00 [facility] 2013-01-03 00:00:00 null [facility] [place] [facility] 2013-01-03 00:00:00 null [facility] 2013-01-03 00:00:00 [facility]IRIN [facility] 2013-01-03 00:00:00 ASPIRIN [facility] 2013-03-13 00:00:00 Atenolol 25 MG Oral Tablet 2013-03-13 00:00:00 Hydrochlorothiazide 12.5 MG Oral Capsule 2013-03-13 00:00:00 Fluoxetine 20 MG Oral Capsule 2013-03-13 00:00:00 lansoprazole 30 MG Enteric Coated Capsule 2013-03-13 00:00:00 Ranitidine 75 MG Oral Tablet 2013-03-13 00:00:00 sennosides, HALFWAY 8.6 MG Oral Tablet 2013-03-13 00:00:00 Amitriptyline Hydrochloride 100 MG Oral Tablet 2013-03-13 00:00:00 12 HR Bupropion Hydrochloride 150 MG Extended Release Tablet [Wellbutrin] 2013-03-13 00:00:00 Atenolol 25 MG Oral Tablet [facility] 2013-03-13 00:00:[address]iazide 12.[address] [facility] Capsule 2013-03-13 00:00:00 Fluoxetine 20 MG Oral Capsule [facility] 2013-03-13 00:00:00 lansoprazole 30 MG Enteric Coated [facility] Capsule 2013-03-13 00:00:00 Ranitidine 75 MG Oral Tablet [facility] 2013-03-13 00:00:00 sennosides, HALFWAY 8.6 MG Oral Tablet [facility] 2013-03-13 00:00:00 Amitriptyline Hydrochloride 100 MG [facility] Oral Tablet 2013-03-13 00:00:00 12 HR Bupropion Hydrochloride 150 [facility] MG Extended Release Tablet [Wellbutrin] 2013-03-13 00:00:00 Atenolol 25 MG Oral Tablet [facility] 2013-03-13 00:00:[address] Hydrochlorothiazide 12.[address] [facility] 2013-03-13 00:00:00 Fluoxetine 20 [facility] 2013-03-13 00:00:00 lansoprazole 30 MG Enteric Coated [facility] Capsule 2013-03-13 00:00:00 Ranitidine 75 MG Oral Tablet [facility] 2013-03-13 00:00:00 sennosides, HALFWAY 8.6 MG Oral Tablet [facility] 2013-03-13 00:00:00 Amitriptyline Hydrochloride 100 MG [facility] Oral Tablet 2013-03-13 00:00:00 12 HR Bupropion Hydrochloride 150 [facility] MG Extended Release Tablet [Wellbutrin] 2013-03-13 00:00:00 Atenolol [facility] 2013-03-13 00:00:00 Hydrochlorothiazide [facility] 2013-03-13 00:00:00 Fluoxetine Hcl [facility] 2013-03-13 00:00:00 Lansoprazole [facility] 2013-03-13 00:00:00 Ranitidine Hcl [facility] 2013-03-13 00:00:00 Senna [facility] 2013-03-13 00:00:00 Amitriptyline Hcl [facility] 2013-03-13 00:00:00 Bupropion Hcl [facility] 2013-03-14 00:00:00 Simvastatin 40 MG Oral Tablet 2013-03-14 00:00:00 Lisinopril 20 MG Oral Tablet 2013-03-14 00:00:00 Aspirin 81 MG Chewable Tablet 2013-03-14 00:00:00 Esomeprazole 1.33 MG/ML Oral Suspension [Nexium] 2013-03-14 00:00:00 24 HR metoprolol succinate 100 MG Extended Release Tablet 2013-03-14 00:00:00 Donepezil hydrochloride 5 MG Oral Tablet 2013-03-14 00:00:00 Simvastatin 40 MG Oral Tablet [facility] 2013-03-14 00:00:00 Lisinopril 20 MG Oral Tablet [facility] 2013-03-14 00:00:00 Aspirin 81 MG Chewable Tablet [facility] 2013-03-14 00:00:00 Esomeprazole 1.33 MG/ML Oral [facility] Suspension [Nexium] 2013-03-14 00:00:00 24 HR metoprolol succinate 100 MG [facility] Extended Release Tablet 2013-03-14 00:00:00 Donepezil hydrochloride 5 MG Oral [facility] Tablet 2013-03-14 00:00:00 Simvastatin 40 MG [facility] 2013-03-14 00:00:00 Lisinopril 20 MG Oral Tablet [facility] 2013-03-14 00:00:00 Aspirin 81 MG Chewable Tablet [facility] 2013-03-14 00:00:00 Esomeprazole 1.33 MG/ML Oral [facility] Suspension [Nexium] 2013-03-14 00:00:00 24 HR metoprolol succinate 100 MG [facility] Extended Release Tablet 2013-03-14 00:00:00 Donepezil hydrochloride 5 MG Oral [facility] Tablet 2013-03-14 00:00:00 Simvastatin [facility] 2013-03-14 00:00:00 Lisinopril [facility] 2013-03-14 00:00:00 Aspirin [facility] 2013-03-14 00:00:00 Esomeprazole Magnesium [facility] 2013-03-14 00:00:00 Metoprolol Succinate [facility] 2013-03-14 00:00:00 Donepezil [facility] 2013-04-27 00:00:00 Lisinopril 10 MG Oral Tablet 2013-04-27 00:00:00 Metoprolol Tartrate 100 MG Oral Tablet 2013-04-27 00:00:00 Lisinopril 10 MG Oral Tablet [facility] 2013-04-27 00:00:00 Metoprolol Tartrate 100 MG Oral [facility] Tablet 2013-04-27 00:00:00 Lisinopril 10 MG Oral Tablet [facility] 2013-04-27 00:00:00 Metoprolol Tartrate 100 MG Oral [facility] Tablet 2013-04-27 00:00:00 Lisinopril [facility] 2013-04-27 00:00:00 Metoprolol Tartrate [facility] 2013-05-16 00:00:00 [facility] [address] 2013-05-16 00:00:00 [facility] [address] 2013-05-16 00:00:00 CIPROFLOXACIN HCL [facility] [address] 2013-05-16 00:00:00 CIPROFLOXACIN HCL [facility] [address] 2013-05-16 00:00:00 null [facility] 2013-05-16 00:00:00 null [facility] 2013-05-16 00:00:00 CIPROFLOXACIN HCL [facility] 2013-05-16 00:00:00 CIPROFLOXACIN HCL [facility] 2013-05-16 00:00:00 null [facility] [place] [facility] 2013-05-16 00:00:00 null [facility] [place] [facility] 2013-05-16 00:00:00 CIPROFLOXACIN HCL [facility] [place] [facility] 2013-05-16 00:00:00 CIPROFLOXACIN HCL [facility] [place] [facility] 2013-05-20 00:00:00 [facility] [address] 2013-05-20 00:00:00 null [facility] [address] 2013-05-20 00:00:00 [facility] [address] 2013-05-20 00:00:00 [facility]UL[facility]OX[facility]OLE-[facility] [address] 2013-05-20 00:00:00 [facility] [address] 2013-05-20 00:00:00 null [facility] 2013-05-20 00:00:00 null [facility] Care [facility] 2013-05-20 00:00:00 [facility] 2013-05-20 00:00:00 [facility] 2013-05-20 00:00:00 null [facility] 2013-05-20 00:00:00 null [facility] 2013-05-20 00:00:00 [facility] 2013-05-20 00:00:00 [facility] 2013-05-30 00:00:00 null [facility] [address] 2013-05-30 00:00:00 null [facility] [address] 2013-05-30 00:00:00 null [facility] [address] 2013-05-30 00:00:00 null [facility] [address] 2013-05-30 00:00:00 NYSTATIN [facility] [address] 2013-05-30 00:00:00 NYSTATIN [facility] [address] 2013-05-30 00:00:00 [facility] [address] 2013-05-30 00:00:00 [facility] [address] 2013-05-30 00:00:00 NYSTATIN [facility] [address] 2013-05-30 00:00:00 [facility] [address] 2013-05-30 00:00:00 null [facility] 2013-05-30 00:00:00 null [facility] 2013-05-30 00:00:00 null [facility] [facility] 2013-05-30 00:00:00 null [facility] 2013-05-30 00:00:00 NYSTATIN [facility] 2013-05-30 00:00:00 [facility]LE[facility] 2013-05-30 00:00:00 NYSTATIN [facility] 2013-05-30 00:00:00 [facility]:00:00 null [facility] 2013-05-30 00:00:00 null [facility] 2013-05-30 00:00:00 null [facility] 2013-05-30 00:00:00 null [facility] 2013-05-30 00:00:00 [facility]STATIN [facility] 2013-05-30 00:00:00 [place]STATIN [facility]:00:00 SULFAMETHOXAZOLE-TR[facility]ETHOPRIM [facility] 2013-[facility]-31 00:00:00 null [facility] [address] 2013-05-31 00:00:00 null [facility] [address] 2013-05-31 00:00:00 null [facility] [address] 2013-05-31 00:00:00 null [facility] [address] 2013-05-31 00:00:00 FLUCONAZOLE [facility] [address] 2013-05-31 00:00:00 [place]STAT[place] [facility] [address] 2013-05-31 00:00:00 FLUCONAZOLE [facility] [address] 2013-05-31 00:00:00 [place]STATIN [facility] [address] 2013-05-31 00:00:00 FLUCONAZOLE [facility] [address] 2013-05-31 00:00:00 [place]STATIN [facility] [address] 2013-05-31 00:00:00 null [facility] 2013-05-31 00:00:00 null [facility] 2013-05-31 00:00:00 null [facility] 2013-05-31 00:00:00 null [facility] 2013-05-31 00:00:00 FLUCONAZOLE [facility] 2013-05-31 00:00:00 NYSTATIN [facility] 2013-05-31 00:00:00 FLUCONAZOLE [facility] 2013-05-31 00:00:00 NYSTATIN [facility] 2013-05-31 00:00:00 null [facility] 2013-05-31 00:00:00 null [facility] 2013-05-31 00:00:00 null [facility] 2013-05-31 00:00:00 null [facility] 2013-05-31 00:00:00 FLUCONAZOLE [facility] 2013-05-31 00:00:00 [place]STATIN [facility] 2013-05-31 00:00:00 FLUCONAZOLE [facility] 2013-05-31 00:00:00 [place]STATIN [facility] 2013-06-25 00:00:00 null [facility] [address] 2013-06-25 00:00:00 null [facility] [address] 2013-06-25 00:00:00 [id number] [facility] [address] 2013-06-25 00:00:00 [id number] [facility] [address] 2013-06-25 00:00:00 null [facility] 2013-06-25 00:00:00 null [facility] 2013-06-25 00:00:00 [id number] [facility] 2013-06-25 00:00:00 [id number] [facility] 2013-06-25 00:00:00 null [facility] 2013-06-25 00:00:00 null [facility] 2013-06-25 00:00:00 [id number] [facility] 00:00:00 null [facility] [address] 2013-07-08 00:00:00 null [facility] [address] 2013-07-08 00:00:00 CARBIDOPA-LEVODOPA [facility] [address] 2013-07-08 00:00:00 CARBIDOPA-LEVODOPA [facility] [address] 2013-07-08 00:00:00 CARBIDOPA-LEVODOPA [facility] [address] 2013-07-08 00:00:00 null [facility] 2013-07-08 00:00:00 null [facility] 2013-07-08 00:00:00 CARBIDOPA-LEVODOPA [facility] 2013-07-08 00:00:00 CARBIDOPA-LEVODOPA [facility] 2013-07-08 00:00:00 null [facility] 2013-07-08 00:00:00 null [facility] 2013-07-08 00:00:00 CARBIDOPA-LEVODOPA [facility] 2013-07-08 00:00:00 CARBIDOPA-LEVODOPA [facility] 2013-07-16 00:00:00 null [facility] [address] 2013-07-16 00:00:00 null [facility] [address] 2013-07-16 00:00:00 AMITRIPTYLINE HCL [facility] [address] 2013-07-16 00:00:00 AMITRIPTYLINE HCL [facility] [address] 2013-07-16 00:00:00 AMITRIPTYLINE HCL [facility] [address] 2013-07-16 00:00:00 null [facility] 2013-07-16 00:00:00 null [facility] 2013-07-16 00:00:00 AMITRIPTYLINE HCL [facility] 2013-07-16 00:00:00 AMITRIPTYLINE HCL [facility] 2013-07-16 00:00:00 null [facility] 2013-07-16 00:00:00 null [facility] 2013-07-16 00:00:00 AMITRIPTYLINE HCL [facility] 2013-07-16 00:00:00 AMITRIPTYLINE HCL [facility] 2013-07-22 00:00:00 null [facility] [address] 2013-07-22 00:00:00 null [facility] [address] 2013-07-22 00:00:00 IPRATROPIUM-ALBUTEROL [facility] [address] 2013-07-22 00:00:00 IPRATROPIUM-ALBUTEROL [facility] [address] 2013-07-22 00:00:00 IPRATROPIUM-ALBUTEROL [facility] [address] 2013-07-22 00:00:00 null [facility] 2013-07-22 00:00:00 null [facility] 2013-07-22 00:00:00 IPRATROPIUM-ALBUTEROL [facility] 2013-07-22 00:00:00 IPRATROPIUM-ALBUTEROL [facility] 2013-07-22 00:00:00 null [facility] 2013-07-22 00:00:00 null [facility] [place] [facility] 2013-07-22 00:00:00 IPRATROPIUM-ALBUTEROL [facility] [place] [facility] 2013-07-22 00:00:00 IPRATROPIUM-ALBUTEROL [facility] 2013-07-29 00:00:00 null [facility] [address] 2013-07-29 00:00:00 null [facility] [address] 2013-07-29 00:00:00 DEXTROMETHORPHAN-[facility]UAIFENESIN [facility] [address] 2013-07-29 00:00:00 DEXTROMETHORPHAN-GUAIFENESIN [facility] [address] 2013-07-29 00:00:00 DEXTROMETHORPHAN-GUAIFENESIN [facility] [address] 2013-07-29 00:00:00 null [facility] 2013-07-29 00:00:00 null [facility] 2013-07-29 00:00:00 DEXTROMETHORPHAN-GUAIFENESIN [facility] 2013-07-29 00:00:00 null [facility] 2013-07-29 00:00:00 null [facility] 2013-07-29 00:00:00 DEXTROMETHORPHAN-GUAIFENESIN [facility] 2013-08-08 00:00:00 null [facility] [address] 2013-08-08 00:00:00 null [facility] [address] 2013-08-08 00:00:00 null [facility] [address] 2013-08-08 00:00:00 null [facility] [address] 2013-08-08 00:00:00 ALBUTEROL SULFATE [facility] [address] 2013-08-08 00:00:00 IPRATROPIUM BROMIDE [facility] [address] 2013-08-08 00:00:00 ALBUTEROL SULFATE [facility] [address] 2013-08-08 00:00:00 IPRATROPIUM BROMIDE [facility] [address] 2013-08-08 00:00:00 ALBUTEROL SULFATE [facility] [address] 2013-08-08 00:00:00 IPRATROPIUM BROMIDE [facility] [address] 2013-08-08 00:00:00 null [facility] 2013-08-08 00:00:00 null [facility] 2013-08-08 00:00:00 null [facility] 2013-08-08 00:00:00 null [facility] 2013-08-08 00:00:00 IPRATROPIUM BROMIDE [facility] 2013-08-08 00:00:00 ALBUTEROL SULFATE [facility] 2013-08-08 00:00:00 ALBUTEROL SULFATE [facility] 2013-08-08 00:00:00 IPRATROPIUM BROMIDE [facility] 2013-08-08 00:00:00 null [facility] 2013-08-08 00:00:00 null [facility] 2013-08-08 00:00:00 null [facility] 2013-08-08 00:00:00 null [facility] 2013-08-08 00:00:00 IPRATROPIUM BROMIDE [facility] 2013-08-08 00:00:00 ALBUTEROL SULFATE [facility] 2013-08-08 00:00:00 ALBUTEROL SULFATE [facility] 2013-08-08 00:00:00 IPRATROPIUM BROMIDE [facility] 2013-09-04 00:00:00 null [facility] [address] 2013-09-04 00:00:00 null [facility] [address] 2013-09-04 00:00:00 null [facility] [address] 2013-09-04 00:00:00 null [facility] [address] 2013-09-04 00:00:00 NADOLOL [facility] [address] 2013-09-04 00:00:00 LISINOPRIL [facility] [address] 2013-09-04 00:00:00 LISINOPRIL [facility] [address] 2013-09-04 00:00:00 NADOLOL [facility] [address] 2013-09-04 00:00:00 NADOLOL [facility] [address] 2013-09-04 00:00:00 LISINOPRIL [facility] [address] 2013-09-04 00:00:00 null [facility] 2013-09-04 00:00:00 null [facility] 2013-09-04 00:00:00 null [facility] 2013-09-04 00:00:00 null [facility] 2013-09-04 00:00:00 NADOLOL [facility] 2013-09-04 00:00:00 LISINOPRIL [facility] 2013-09-04 00:00:00 NADOLOL [facility] 2013-09-04 00:00:00 LISINOPRIL [facility] 2013-09-04 00:00:00 null [facility] 2013-09-04 00:00:00 null [facility] 2013-09-04 00:00:00 null [facility] 2013-09-04 00:00:00 null [facility] 2013-09-04 00:00:00 NADOLOL [facility] 2013-09-04 00:00:00 LISINOPRIL [facility] 2013-09-04 00:00:00 NADOLOL [facility] 2013-09-04 00:00:00 LISINOPRIL [facility] 2013-09-11 00:00:00 null [facility] [address] 2013-09-11 00:00:00 null [facility] [address] 2013-09-11 00:00:00 AMITRIPTYLINE HCL [facility] [address] 2013-09-11 00:00:00 AMITRIPTYLINE HCL [facility] [address] 2013-09-11 00:00:00 AMITRIPTYLINE HCL [facility] [address] 2013-09-11 00:00:00 null [facility] 2013-09-11 00:00:00 null [facility] 2013-09-11 00:00:00 AMITRIPTYLINE HCL [facility] 2013-09-11 00:00:00 AMITRIPTYLINE HCL [facility] 2013-09-11 00:00:00 null [facility] 2013-09-11 00:00:00 null [facility] [place] 2013-09-11 00:00:00 AMITRIPTYLINE HCL [facility] 2013-09-11 00:00:00 AMITRIPTYLINE HCL [facility] 2013-09-19 00:00:00 null [facility] [address] 2013-09-19 00:00:00 null [facility] [address] 2013-09-19 00:00:00 AMITRIPTYLINE HCL [facility] [address] 2013-09-19 00:00:00 AMITRIPTYLINE HCL [facility] [address] 2013-09-19 00:00:00 AMITRIPTYLINE HCL [facility] [address] 2013-09-19 00:00:00 null [facility] 2013-09-19 00:00:00 null [facility] 2013-09-19 00:00:00 AMITRIPTYLINE HCL [facility] 2013-09-19 00:00:00 AMITRIPTYLINE HCL [facility] 2013-09-19 00:00:00 null [facility] 2013-09-19 00:00:00 null [facility] 2013-09-19 00:00:00 AMITRIPTYLINE HCL [facility] 2013-09-19 00:00:00 AMITRIPTYLINE HCL [facility] 2013-09-30 00:00:00 null [facility] [address] 2013-09-30 00:00:00 null [facility] [address] 2013-09-30 00:00:00 TOPIRAMATE [facility] [address] 2013-09-30 00:00:00 TOPIRAMATE [facility] [address] 2013-09-30 00:00:00 TOPIRAMATE [facility] [address] 2013-09-30 00:00:00 null [facility] 2013-09-30 00:00:00 null [facility] 2013-09-30 00:00:00 TOPIRAMATE [facility] 2013-09-30 00:00:00 TOPIRAMATE [facility] 2013-09-30 00:00:00 null [facility] 2013-09-30 00:00:00 null [facility] 2013-09-30 00:00:00 TOPIRAMATE [facility] 2013-09-30 00:00:00 TOPIRAMATE [facility] 2013-10-12 00:00:00 prednisolone acetate 10 MG/ML Ophthalmic Suspension 2013-10-12 00:00:00 Albuterol 0.833 MG/ML / Ipratropium [place] 0.167 MG/ML Inhalant Solution 2013-10-12 00:00:00 topiramate 25 MG Oral Tablet 2013-10-12 00:00:00 Acetaminophen 325 MG Oral Tablet 2013-10-12 00:00:00 moxifloxacin 5 MG/ML Ophthalmic Solution 2013-10-12 00:00:00 Ketorolac Tromethamine 4.5 MG/ML Ophthalmic Solution 2013-10-12 00:00:00 prednisolone acetate 10 MG/ML [facility] Ophthalmic Suspension 2013-10-12 00:00:00 Albuterol 0.833 MG/ML / formerly [facility] Ipratropium [place] 0.167 MG/ML Inhalant Solution 2013-10-12 00:00:00 topiramate 25 MG Oral Tablet [facility] 2013-10-12 00:00:00 Acetaminophen [address] [facility] 2013-10-12 00:00:00 moxifloxacin 5 MG/ML Ophthalmic [facility] Solution 2013-10-12 00:00:00 Ketorolac Tromethamine 4.5 MG/ML [facility] Ophthalmic Solution 2013-10-12 00:00:00 [facility]one acetate [facility] 2013-10-12 00:00:00 Albuterol 0.833 MG/ML / [facility] Ipratropium [place] 0.167 MG/ML Inhalant Solution 2013-10-12 00:00:00 topiramate 25 MG Oral Tablet [facility] 2013-10-12 00:00:00 Acetaminophen 325 MG Oral Tablet [facility] 2013-10-12 00:00:00 moxifloxacin 5 MG/ML Ophthalmic [facility] Solution 2013-10-12 00:00:00 Ketorolac Tromethamine 4.5 MG/ML [facility] Ophthalmic Solution 2013-10-12 00:00:00 Prednisolone 1% Ophth Drops [facility] 2013-10-12 00:00:00 Ipratropium/Albuterol [facility] 2013-10-12 00:00:00 Topiramate [facility] 2013-10-12 00:00:00 Acetaminophen [facility] 2013-10-12 00:00:00 Moxifloxacin Hcl [facility] 2013-10-12 00:00:00 Ketorolac 0.45% [facility]hth D[facility] 2013-10-14 00:00:00 null [facility] [address] 2013-10-14 00:00:00 null [facility] [address] 2013-10-14 00:00:00 null [facility] [address] 2013-10-14 00:00:00 null [facility] [address] 2013-10-14 00:00:00 IBUPROFEN [facility] [address] 2013-10-14 00:00:00 HYDROCODONE-ACETAMINOPHEN [facility] [address] 2013-10-14 00:00:00 HYDROCODONE-ACETAMINOPHEN [facility] [address] 2013-10-14 00:00:00 IBUPROFEN [facility] [address] 2013-10-14 00:00:00 IBUPROFEN [facility] [address] 2013-10-14 00:00:00 HYDROCODONE-ACETAMINOPHEN [facility] [address] 2013-10-14 00:00:00 null [facility] 2013-10-14 00:00:00 null [facility] 2013-10-14 00:00:00 null [facility] 2013-10-14 00:00:00 null [facility] 2013-10-14 00:00:00 IBUPROFEN [facility] 2013-10-14 00:00:00 HYDROCODONE-ACETAMINOPHEN [facility] 2013-10-14 00:00:00 IBUPROFEN [facility] 2013-10-14 00:00:00 HYDROCODONE-ACETAMINOPHEN [facility] 2013-10-14 00:00:00 null [facility] 2013-10-14 00:00:00 null [facility] 2013-10-14 00:00:00 null [facility] 2013-10-14 00:00:00 null [facility] 2013-10-14 00:00:00 IBUPROFEN [facility] 2013-10-14 00:00:00 HYDROCODONE-ACETAMINOPHEN [facility] 2013-10-14 00:00:00 IBUPROFEN [facility] 2013-10-14 00:00:00 HYDROCODONE-ACETAMINOPHEN [facility] 2013-10-21 00:00:00 null [facility] [address] 2013-10-21 00:00:00 null [facility] [address] 2013-10-21 00:00:00 AMITRIPTYLINE HCL [facility] [address] 2013-10-21 00:00:00 AMITRIPTYLINE HCL [facility] [address] 2013-10-21 00:00:00 AMITRIPTYLINE HCL [facility] [address] 2013-10-21 00:00:00 AMITRIPTYLINE HCL [facility] [address] 2013-10-21 00:00:00 null [facility] 2013-10-21 00:00:00 null [facility] 2013-10-21 00:00:00 AMITRIPTYLINE HCL [facility] 2013-10-21 00:00:00 AMITRIPTYLINE HCL [facility] 2013-10-21 00:00:00 null [facility] 2013-10-21 00:00:00 null [facility] 2013-10-21 00:00:00 AMITRIPTYLINE HCL [facility] 2013-10-21 00:00:00 AMITRIPTYLINE HCL [facility] 2013-11-18 00:00:00 null [facility] [address] 2013-11-18 00:00:00 null [facility] [address] 2013-11-18 00:00:00 METOPROLOL SUCCINATE [facility] [address] 2013-11-18 00:00:00 METOPROLOL SUCCINATE [facility] [address] 2013-11-18 00:00:00 METOPROLOL SUCCINATE [facility] [address] 2013-11-18 00:00:00 null [facility] 2013-11-18 00:00:00 null [facility] 2013-11-18 00:00:00 METOPROLOL SUCCINATE [facility] 2013-11-18 00:00:00 METOPROLOL SUCCINATE [facility] 2013-11-18 00:00:00 null [facility] 2013-11-18 00:00:00 null [facility] 2013-11-18 00:00:00 METOPROLOL SUCCINATE [facility] 2013-11-18 00:00:00 METOPROLOL SUCCINATE [facility] 2013-12-05 00:00:00 null [facility] [address] 2013-12-05 00:00:00 null [facility] [address] 2013-12-05 00:00:00 [id number] [facility] [address] 2013-12-05 00:00:00 [id number] [facility] [address] 2013-12-05 00:00:00 null [facility] 2013-12-05 00:00:00 null [facility] 2013-12-05 00:00:00 [id number]-COD [facility]-05 [facility]:00:00 null [facility]00 [facility] 00:00:00 [id number] [facility] 2014-02-20 00:00:00 null [facility] [address] 2014-02-20 00:00:00 null [facility] [address] 2014-02-20 00:00:00 [facility]AS[facility]OL [facility] [address] 2014-02-20 00:00:00 FLUTICASONE-SALMETEROL [facility] [address] 2014-02-20 00:00:00 FLUTICASONE-SALMETEROL [facility] [address] 2014-02-20 00:00:00 null [facility] 2014-02-20 00:00:00 null [facility] 2014-02-20 00:00:00 FL[facility]ASONE[facility]OL [facility] 2014-02-20 00:00:00 FLUTICASONE-SALMETEROL [facility] 2014-02-20 00:00:00 null [facility] 2014-02-20 00:00:00 null [facility] 2014-02-20 00:00:00 FLUTICASONE-SALMETEROL [facility] 00:00:00 FLUTICASONE-SALMETEROL [facility] 2014-06-16 00:00:00 null [facility] [address] 2014-06-16 00:00:00 null [facility] [address] 2014-06-16 00:00:00 null [facility] [address] 2014-06-16 00:00:00 null [facility] [address] 2014-06-16 00:00:00 NYSTATIN [facility] [address] 2014-06-16 00:00:00 NYSTATIN [facility] [address] 2014-06-16 00:00:00 NYSTATIN [facility] [address] 2014-06-16 00:00:00 NYSTATIN [facility] [address] 2014-06-16 00:00:00 NYSTATIN [facility] [address] 2014-06-16 00:00:00 NYSTATIN [facility] [address] 2014-06-16 00:00:00 null [facility] 2014-06-16 00:00:00 null [facility] 2014-06-16 00:00:00 null [facility] 2014-06-16 00:00:00 null [facility] 2014-06-16 00:00:00 NYSTATIN [facility] 2014-06-16 00:00:00 NYSTATIN [facility] 2014-06-16 00:00:00 NYSTATIN [facility] [facility] 2014-06-16 00:00:00 NYSTATIN [facility] 2014-06-16 00:00:00 null [facility] 2014-06-16 00:00:00 null [facility] 2014-06-16 00:00:00 null [facility] 2014-06-16 00:00:00 null [facility] 2014-06-16 00:00:00 NYSTATIN [facility] 2014-06-16 00:00:00 NYSTATIN [facility] 2014-06-16 00:00:00 NYSTATIN [facility] 2014-06-16 00:00:00 NYSTATIN [facility] 2014-07-07 00:00:00 null [facility] [address] 2014-07-07 00:00:00 null [facility] [address] 2014-07-07 00:00:00 BUPROPION HCL [facility] [address] 2014-07-07 00:00:00 BUPROPION HCL [facility] [address] 2014-07-07 00:00:00 BUPROPION HCL [facility] [address] 2014-07-07 00:00:00 null [facility] 2014-07-07 00:00:00 null [facility] 2014-07-07 00:00:00 BUPROPION HCL [facility] 2014-07-07 00:00:00 BUPROPION HCL [facility] 2014-07-07 00:00:00 null [facility] 2014-07-07 00:00:00 null [facility] 2014-07-07 00:00:00 BUPROPION HCL [facility] 2014-07-07 00:00:00 BUPROPION HCL [facility] 2014-08-29 00:00:00 null [facility] [address] 2014-08-29 00:00:00 null [facility] [address] 2014-08-29 00:00:00 FERROUS GLUCONATE [facility] [address] 2014-08-29 00:00:00 FERROUS GLUCONATE [facility] [address] 2014-08-29 00:00:00 FERROUS GLUCONATE [facility] [address] 2014-08-29 00:00:00 null [facility] 2014-08-29 00:00:00 null [facility] 2014-08-29 00:00:00 FERROUS GLUCONATE [facility] 2014-08-29 00:00:00 FERROUS GLUCONATE [facility] 2014-08-29 00:00:00 null [facility] 2014-08-29 00:00:00 null [facility] 2014-08-29 00:00:00 FERROUS GLUCONATE [facility] 2014-08-29 00:00:00 FERROUS GLUCONATE [facility] 2014-09-05 00:00:00 null [facility] [address] 2014-09-05 00:00:00 null [facility] [address] 2014-09-05 00:00:00 FERROUS SULFATE [facility] [address] 2014-09-05 00:00:00 FERROUS SULFATE [facility] [address] 2014-09-05 00:00:00 FERROUS SULFATE [facility] [address] 2014-09-05 00:00:00 null [facility] 2014-09-05 00:00:00 null [facility] 2014-09-05 00:00:00 FERROUS SULFATE [facility] 2014-09-05 00:00:00 FERROUS SULFATE [facility] 2014-09-05 00:00:00 null [facility] 2014-09-05 00:00:00 null [facility] 2014-09-05 00:00:00 FERROUS SULFATE [facility] 2014-09-05 00:00:00 FERROUS SULFATE [facility] 2015-09-10 00:00:00 Ibuprofen 600 MG Oral Tablet 2015-09-10 00:00:00 Ibuprofen 600 MG Oral Tablet [facility] 2015-09-10 00:00:00 Ibuprofen 600 MG Oral Tablet [facility] 2015-09-10 00:00:00 Ibuprofen [facility] 2015-10-28 00:00:00 null [facility] [address] 2015-10-28 00:00:00 null [facility] [address] 2015-10-28 00:00:00 null [facility] [address] 2015-10-28 00:00:00 null [facility] [address] 2015-10-28 00:00:00 null [facility] [address] 2015-10-28 00:00:00 null [facility] [address] 2015-10-28 00:00:00 null [facility] [address] 2015-10-28 00:00:00 null [facility] [address] 2015-10-28 00:00:00 null [facility] [address] 2015-10-28 00:00:00 null [facility] [address] 2015-10-28 00:00:00 null [facility] [address] 2015-10-28 00:00:00 null [facility] [address] 2015-10-28 00:00:00 null [facility] [address] 2015-10-28 00:00:00 null [facility] [address] 2015-10-28 00:00:00 ACETAMINOPHEN [facility] [address] 2015-10-28 00:00:00 AMLODIPINE BESYLATE [facility] [address] 2015-10-28 00:00:00 CARVEDILOL [facility] [address] 2015-10-28 00:00:00 DOCUSATE CALCIUM [facility] [address] 2015-10-28 00:00:00 PSYLLIUM [facility] [address] 2015-10-28 00:00:00 CARVEDILOL [facility] [address] 2015-10-28 00:00:00 SENNOSIDES [facility] [address] 2015-10-28 00:00:00 SENNOSIDES [facility] [address] 2015-10-28 00:00:00 SENNOSIDES [facility] [address] 2015-10-28 00:00:00 ACETAMINOPHEN [facility] [address] 2015-10-28 00:00:00 DOCUSATE CALCIUM [facility] [address] 2015-10-28 00:00:00 AMLODIPINE BESYLATE [facility] [address] 2015-10-28 00:00:00 DOCUSATE SODIUM [facility] [address] 2015-10-28 00:00:00 DOCUSATE SODIUM [facility] [address] 2015-10-28 00:00:00 PSYLLIUM [facility] [address] 2015-10-28 00:00:00 DOCUSATE CALCIUM [facility] [address] 2015-10-28 00:00:00 DOCUSATE SODIUM [facility] [address] 2015-10-28 00:00:00 ACETAMINOPHEN [facility] [address] 2015-10-28 00:00:00 AMLODIPINE BESYLATE [facility] [address] 2015-10-28 00:00:00 CARVEDILOL [facility] [address] 2015-10-28 00:00:00 null [facility] 2015-10-28 00:00:00 null [facility] 2015-10-28 00:00:00 null [facility] 2015-10-28 00:00:00 null [facility] 2015-10-28 00:00:00 null [facility] 2015-10-28 00:00:00 null [facility] 2015-10-28 00:00:00 null [facility] 2015-10-28 00:00:00 null [facility] 2015-10-28 00:00:00 null [facility] 2015-10-28 00:00:00 null [facility] 2015-10-28 00:00:00 null [facility] 2015-10-28 00:00:00 null [facility] 2015-10-28 00:00:00 null [facility] 2015-10-28 00:00:00 null [facility] 2015-10-28 00:00:00 ACETAMINOPHEN [facility] 2015-10-28 00:00:00 AMLODIPINE BESYLATE [facility] 2015-10-28 00:00:00 CARVEDILOL [facility] 2015-10-28 00:00:00 DOCUSATE CALCIUM [facility] 2015-10-28 00:00:00 PSYLLIUM [facility] 2015-10-28 00:00:00 SENNOSIDES [facility] 2015-10-28 00:00:00 SENNOSIDES [facility] 2015-10-28 00:00:00 DOCUSATE SODIUM [facility] 2015-10-28 00:00:00 PSYLLIUM [facility] 2015-10-28 00:00:00 DOCUSATE CALCIUM [facility] 2015-10-28 00:00:00 DOCUSATE SODIUM [facility] 2015-10-28 00:00:00 ACETAMINOPHEN [facility] 2015-10-28 00:00:00 AMLODIPINE BESYLATE [facility] 2015-10-28 00:00:00 CARVEDILOL [facility] 2015-10-28 00:00:00 null [facility] 2015-10-28 00:00:00 null [facility] 2015-10-28 00:00:00 null [facility] 2015-10-28 00:00:00 null [facility] 2015-10-28 00:00:00 null [facility] 2015-10-28 00:00:00 null [facility] 2015-10-28 00:00:00 null [facility] 2015-10-28 00:00:00 null [facility] 2015-10-28 00:00:00 null [facility] 2015-10-28 00:00:00 null [facility] 2015-10-28 00:00:00 null [facility] 2015-10-28 00:00:00 null [facility] 2015-10-28 00:00:00 null [facility] 2015-10-28 00:00:00 null [facility] 2015-10-28 00:00:00 ACETAMINOPHEN [facility] 2015-10-28 00:00:00 AMLODIPINE BESYLATE [facility] [place] [facility] 2015-10-28 00:00:00 CARVEDILOL [facility] 2015-10-28 00:00:00 DOCUSATE CALCIUM [facility] 2015-10-28 00:00:00 PSYLLIUM [facility] 2015-10-28 00:00:00 SENNOSIDES [facility] 2015-10-28 00:00:00 SENNOSIDES [facility] 2015-10-28 00:00:00 DOCUSATE SODIUM [facility] [place] [facility] 2015-10-28 00:00:00 PSYLLIUM [facility] [place] [facility] 2015-10-28 00:00:00 DOCUSATE CALCIUM [facility] [place] [facility] 2015-10-28 00:00:00 DOCUSATE SODIUM [facility] [place] [facility] 2015-10-28 00:00:00 ACETAMINOPHEN [facility] [place] [facility] 2015-10-28 00:00:00 AMLODIPINE BESYLATE [facility] [place] [facility] 2015-10-28 00:00:00 CARVEDILOL [facility] [place] [facility] 2015-12-29 00:00:00 null [facility] [address] 2015-12-29 00:00:00 null [facility] [address] 2015-12-29 00:00:00 null [facility] 2015-12-29 00:00:00 null [facility] 2015-12-29 00:00:00 null [facility] 2015-12-29 00:00:00 null [facility] 2016-03-25 00:00:00 null [facility] [address] 2016-03-25 00:00:00 null [facility] [address] 2016-03-25 00:00:00 null [facility] [address] 2016-03-25 00:00:00 null [facility] [address] 2016-03-25 00:00:00 null [facility] [address] 2016-03-25 00:00:00 VARENICLINE TARTRATE [facility] [address] 2016-03-25 00:00:00 VARENICLINE TARTRATE [facility] [address] 2016-03-25 00:00:00 VARENICLINE TARTRATE [facility] [address] 2016-03-25 00:00:00 VARENICLINE TARTRATE [facility] [address] 2016-03-25 00:00:00 null [facility] [address] 2016-03-25 00:00:00 VARENICLINE TARTRATE [facility] [address] 2016-03-25 00:00:00 VARENICLINE TARTRATE [facility] [address] 2016-03-25 00:00:00 null [facility] 2016-03-25 00:00:00 null [facility] 2016-03-25 00:00:00 null [facility] 2016-03-25 00:00:00 null [facility] 2016-03-25 00:00:00 null [facility] 2016-03-25 00:00:00 VARENICLINE TARTRATE [facility] 2016-03-25 00:00:00 VARENICLINE TARTRATE [facility] 2016-03-25 00:00:00 null [facility]:00:00 VARENICLINE TARTRATE [facility] 2016-03-25 00:00:00 VARENICLINE TARTRATE [facility] 2016-03-25 00:00:00 null [facility] 2016-03-25 00:00:00 null [facility] [place] 2016-03-25 00:00:00 null [facility] [place] 2016-03-25 00:00:00 null [facility] 2016-03-25 00:00:00 null [facility] [facility] 2016-03-25 00:00:00 VARENICLINE TARTRATE [facility] [place] [facility] 2016-03-25 00:00:00 VARENICLINE TARTRATE [facility] [place] [facility] 2016-03-25 00:00:00 null [facility] [place] [facility] 2016-03-25 00:00:00 VARENICLINE TARTRATE [facility] 2016-03-25 00:00:00 VAR[facility]ICLINE [facility] 2016-10-10 00:00:00 Amlodipine 5 MG Oral Tablet 2016-10-10 00:00:00 carvedilol 3.125 MG Oral Tablet 2016-10-10 00:00:00 Amlodipine 5 MG Oral Tablet [facility] 2016-10-10 00:00:00 carvedilol 3.125 MG Oral Tablet [facility] 2016-10-10 00:00:00 Amlodipine 5 MG Oral Tablet [facility] 2016-10-10 00:00:00 carvedilol 3.125 MG Oral Tablet [facility] 2016-10-10 00:00:00 Amlodipine [facility] 2016-10-10 00:00:00 Carvedilol [facility] 2016-10-12 00:00:00 Carbidopa 25 MG / Levodopa 100 MG Oral Tablet 2016-10-12 00:00:00 Cholecalciferol 1000 UNT Oral Capsule 2016-10-12 00:00:00 Esomeprazole 20 MG Enteric Coated Capsule 2016-10-12 00:00:00 24 HR metoprolol succinate 25 MG Extended Release Tablet 2016-10-12 00:00:00 Donepezil hydrochloride 10 MG Oral Tablet 2016-10-12 00:00:00 Carbidopa 25 MG / Levodopa 100 MG [facility] Oral Tablet 2016-10-12 00:00:00 Cholecalciferol 1000 UNT Oral [facility] Capsule 2016-10-12 00:00:00 Esomeprazole 20 MG Enteric Coated [facility] Capsule 2016-10-12 00:00:00 24 HR metoprolol succinate [address] [facility] Extended Release Tablet 2016-10-12 00:00:00 Donepezil hydrochloride 10 MG Oral [facility] Tablet 2016-10-12 00:00:00 Carbidopa 25 MG / Levodopa 100 MG [facility] Oral Tablet 2016-10-12 00:00:00 Cholecalciferol 1000 UNT Oral [facility] Capsule 2016-10-12 00:00:00 Esomeprazole 20 MG Enteric Coated [facility] Capsule 2016-10-12 00:00:00 24 HR metoprolol succinate 25 MG [facility] Extended Release Tablet 2016-10-12 00:00:00 Donepezil hydrochloride 10 MG Oral [facility] Tablet 2016-10-12 00:00:00 Carbidopa/Levodopa [facility] 2016-10-12 00:00:00 Cholecalciferol (Vitamin D3) [facility] 2016-10-12 00:00:00 Esomeprazole Magnesium [facility] 2016-10-12 00:00:00 Metoprolol Succinate [facility] 2016-10-12 00:00:00 Donepezil Hcl [facility] 2016-11-07 00:00:00 null 2016-11-07 00:00:00 null [facility] 2016-11-07 00:00:00 [facility] 2016-11-07 00:00[facility]00 [facility]-12[facility]14 00:00:00 null [facility] [address] 2016-12-14 00:00:00 null [facility] [address] 2016-12-14 00:00:00 NADOLOL [facility] [address] 2016-12-14 00:00:00 NADOLOL [facility] [address] 2016-12-14 00:00:00 NADOLOL [facility] [address] 2016-12-14 00:00:00 null [facility] 2016-12-14 00:00:00 null [facility] 2016-12-14 00:00:00 NADOLOL [facility] 2016-12-14 00:00:00 NADOLOL [facility] 2016-12-14 00:00:00 null [facility] [place] [facility] 2016-12-14 00:00:00 null [facility] [place] [facility] 2016-12-14 00:00:00 NADOLOL [facility] [place] [facility] 2016-12-14 00:00:00 NADOLOL [facility] [place] [facility] 2017-05-01 00:00:00 Naproxen 375 MG Oral Tablet 2017-05-01 00:00:00 Naproxen 375 MG Oral Tablet [facility] 2017-05-01 00:00:00 Naproxen 375 MG Oral Tablet [facility] 2017-05-01 00:00:00 [facility] 2017-12-18 00:00:00 null [facility] [address] 2017-12-18 00:00:00 null [facility] [address] 2017-12-18 00:00:00 null [facility] [address] 2017-12-18 00:00:00 null [facility] [address] 2017-12-18 00:00:00 null [facility] [address] 2017-12-18 00:00:00 null [facility] [address] 2017-12-18 00:00:00 null [facility] [address] 2017-12-18 00:00:00 null [facility] [address] 2017-12-18 00:00:00 null [facility] [address] 2017-12-18 00:00:00 null [facility] [address] 2017-12-18 00:00:00 AMLODIPINE BESYLATE [facility] [address] 2017-12-18 00:00:00 LISINOPRIL [facility] [address] 2017-12-18 00:00:00 DONEPEZIL HCL [facility] [address] 2017-12-18 00:00:00 DOCUSATE SODIUM [facility] [address] 2017-12-18 00:00:00 MELATONIN [facility] [address] 2017-12-18 00:00:00 DOCUSATE SODIUM [facility] [address] 2017-12-18 00:00:00 AMLODIPINE BESYLATE [facility] [address] 2017-12-18 00:00:00 LISINOPRIL [facility] [address] 2017-12-18 00:00:00 DONEPEZIL HCL [facility] [address] 2017-12-18 00:00:00 null [facility] 2017-12-18 00:00:00 null [facility] 2017-12-18 00:00:00 null [facility] 2017-12-18 00:00:00 null [facility] 2017-12-18 00:00:00 null [facility] 2017-12-18 00:00:00 null [facility] 2017-12-18 00:00:00 null [facility] 2017-12-18 00:00:00 null [facility] 2017-12-18 00:00:00 null [facility] 2017-12-18 00:00:00 null [facility] 2017-12-18 00:00:00 AMLODIPINE BESYLATE [facility] 2017-12-18 00:00:00 LISINOPRIL [facility] 2017-12-18 00:00:00 DONEPEZIL HCL [facility] 2017-12-18 00:00:00 DOCUSATE SODIUM [facility] 2017-12-18 00:00:00 MELATONIN [facility] 2017-12-18 00:00:00 DOCUSATE SODIUM [facility] 2017-12-18 00:00:00 AMLODIPINE BESYLATE [facility] 2017-12-18 00:00:00 LISINOPRIL [facility] 2017-12-18 00:00:00 DONEPEZIL HCL [facility] 2017-12-18 00:00:00 null [facility] 2017-12-18 00:00:00 null [facility] 2017-12-18 00:00:00 null [facility] 2017-12-18 00:00:00 null [facility] 2017-12-18 00:00:00 null [facility] 2017-12-18 00:00:00 null [facility] 2017-12-18 00:00:00 null [facility] [place] [facility] 2017-12-18 00:00:00 null [facility] [place] [facility] 2017-12-18 00:00:00 null [facility] [place] [facility] 2017-12-18 00:00:00 null [facility] [place] [facility] 2017-12-18 00:00:00 AMLODIPINE BESYLATE [facility] [place] [facility] 2017-12-18 00:00:00 LISINOPRIL [facility] [place] [facility] 2017-12-18 00:00:00 DONEPEZIL HCL [facility] [place] [facility] 2017-12-18 00:00:00 DOCUSATE SODIUM [facility] [place] [facility] 2017-12-18 00:00:00 MELATONIN [facility] [place] [facility] 2017-12-18 00:00:00 DOCUSATE SODIUM [facility] [place] [facility] 2017-12-18 00:00:00 AMLODIPINE BESYLATE [facility] 2017-12-18 00:00:00 LISINOPRIL [facility] [place] [facility] 2017-12-18 00:00:00 DONEPEZIL HCL [facility] [place] [facility] 2017-12-21 00:00:00 null [facility] [address] 2017-12-21 00:00:00 null [facility] [address] 2017-12-21 00:00:00 [facility] [address] 2017-12-21 00:00:00 SUL[facility]AMETHOXAZOLE-[facility]OP[facility]IM [facility] [address] 2017-12-21 00:00:00 [facility] 2017-12-21 00:00[facility] 2017-12-21 00:00:00 [facility] 2017-12-21 00:00:00 [facility] 2017-12-21 00:00:00 null [facility] [place] [facility] 2017-12-21 00:00:00 [facility] 2017-12-21 00:00:00 [facility]:00:00 null [facility] [address] 2018-03-20 00:00:00 null [facility] [address] 2018-03-20 00:00:00 null [facility] [address] 2018-03-20 00:00:00 null [facility] [address] 2018-03-20 00:00:00 VERAPAMIL HCL [facility] [address] 2018-03-20 00:00:00 CARBIDOPA-LEVODOPA [facility] [address] 2018-03-20 00:00:00 CARBIDOPA-LEVODOPA [facility] [address] 2018-03-20 00:00:00 VERAPAMIL HCL [facility] [address] 2018-03-20 00:00:00 null [facility] 2018-03-20 00:00:00 null [facility] 2018-03-20 00:00:00 null [facility] 2018-03-20 00:00:00 null [facility] 2018-03-20 00:00:00 VERAPAMIL HCL [facility] 2018-03-20 00:00:00 CARBIDOPA-LEVODOPA [facility] 2018-03-20 00:00:00 CARBIDOPA-LEVODOPA [facility] 2018-03-20 00:00:00 VERAPAMIL HCL [facility] 2018-03-20 00:00:00 null [facility] [place] [facility] 2018-03-20 00:00:00 null [facility] [place] [facility] 2018-03-20 00:00:00 null [facility] [place] [facility] 2018-03-20 00:00:00 null [facility] [place] [facility] 2018-03-20 00:00:00 VERAPAMIL HCL [facility] [place] [facility] 2018-03-20 00:00:00 CARBIDOPA-LEVODOPA [facility] [place] [facility] 2018-03-20 00:00:00 CARBIDOPA-LEVODOPA [facility] [place] [facility] 2018-03-20 00:00:00 VERAPAMIL HCL [facility] [place] [facility] 2018-03-23 00:00:00 null [facility] [address] 2018-03-23 00:00:00 null [facility] [address] 2018-03-23 00:00:00 [facility] [address] 2018-03-23 00:00:00 [facility] [address] 2018-03-23 00:00:00 null [facility] 2018-03-23 00:00:00 null [facility] 2018-03-23 00:00:00 [facility] 2018-03-23 00:00:00 [facility] 2018-03-23 00:00:00 null [facility] [place] [facility] 2018-03-23 00:00:00 null [facility] [place] [facility] 2018-03-23 00:00:00 [facility] 2018-03-23 00:00:00 [facility] 2018-03-30 00:00:00 null [facility] gustavo [address] 2018-03-30 00:00:00 null [facility] gustavo [address] 2018-03-30 00:00:00 CIPROFLOXACIN HCL [facility] gustavo [address] 2018-03-30 00:00:00 CIPROFLOXACIN HCL [facility] gustavo [address] 2018-03-30 00:00:00 null [facility] gustavo Care [facility] 2018-03-30 00:00:00 null [facility] gustavo Care [facility] 2018-03-30 00:00:00 CIPROFLOXACIN HCL [facility] gustavo Care [facility] 2018-03-30 00:00:00 CIPROFLOXACIN HCL [facility] 2018-03-30 00:00:00 null [facility] gustavo [facility] 2018-03-30 00:00:00 null [facility] gustavo Care [facility] 2018-03-30 00:00:[address] 2018-03-30 00:00:[address] [facility] 2018-05-13 00:00:00 Ondansetron 4 MG Disintegrating Tablet 2018-05-13 00:00:00 Ondansetron 4 MG Disintegrating [facility] Tablet 2018-05-13 00:00:00 Ondansetron 4 MG Disintegrating [facility] Tablet 2018-05-13 00:00:00 Ondansetron Odt [facility] 2018-06-17 00:00:00 Amlodipine 5 MG Oral Tablet 2018-06-17 00:00:00 Acetaminophen 500 MG Oral Tablet 2018-06-17 00:00:00 Melatonin 5 MG Oral Tablet 2018-06-17 00:00:00 Lisinopril 20 MG Oral Tablet 2018-06-17 00:00:00 Amlodipine 5 MG Oral Tablet [facility] 2018-06-17 00:00:00 Acetaminophen [address] [facility] 2018-06-17 00:00:00 Melatonin 5 MG Oral Tablet [facility] 2018-06-17 00:00:00 Lisinopril 20 MG Oral Tablet [facility] 2018-06-17 00:00:00 Amlodipine 5 MG Oral Tablet [facility] 2018-06-17 00:00:00 Acetaminophen 500 MG Oral Tablet [facility] 2018-06-17 00:00:00 Melatonin 5 MG Oral Tablet [facility] 2018-06-17 00:00:00 Lisinopril 20 MG Oral Tablet [facility] 2018-06-17 00:00:00 Amlodipine [facility] 2018-06-17 00:00:00 Acetaminophen [facility] 2018-06-17 00:00:00 Melatonin [facility] 2018-06-17 00:00:00 Lisinopril [facility] 2018-06-18 00:00:00 atorvastatin 10 MG Oral Tablet 2018-06-18 00:00:00 atorvastatin 10 MG Oral Tablet [facility] 2018-06-18 00:00:00 atorvastatin 10 MG Oral Tablet [facility] 2018-06-18 00:00:00 Atorvastatin [facility] 2018-07-09 00:00:00 null [facility] 2018-07-09 00:00:00 null [facility] 2018-07-09 00:00:00 null [facility] 2018-07-09 00:00:00 null [facility] 2018-07-09 00:00:00 null [facility] 2018-07-09 00:00:00 null [facility] 2018-07-09 00:00:00 ATORVASTATIN CALCIUM [facility] Pr imary Care [facility] 2018-07-09 00:00:00 FOSFOMYCIN TROMETHAMINE [facility] 2018-07-09 00:00:00 POLYETHYLENE GLYCOL 3350 [facility] 2018-07-09 00:00:00 POLYETHYLENE GLYCOL 3350 [facility] 2018-07-09 00:00:00 ATORVASTATIN CALCIUM [facility] 2018-[facility]-09 00:00:00 FOSFOMYCIN TROMETHAMINE [facility] 2018-07-09 00:00:00 null [facility] 2018-07-09 00:00:00 null [facility] 2018-07-09 00:00:00 null [facility] 2018-07-09 00:00:00 null [facility] 2018-07-09 00:00:00 null [facility] 2018-07-09 00:00:00 null [facility] 2018-07-09 00:00:00 ATORVASTATIN CALCIUM [facility] Pr imary Care [facility] 2018-07-09 00:00:00 FOSFOMYCIN [facility]ETHAMINE [facility] 2018-07-09 00:00:00 POLYETHYLENE GLYCOL 3350 [facility] 2018-07-09 00:00:00 POLYETHYLENE GLYCOL 3350 [facility] 2018-07-09 00:00:00 ATORVASTATIN CALCIUM [facility] Pr imary Care [facility] 2018-07-09 00:00:00 FOSFOMYCIN TROMETHAMINE [facility] 2018-07-09 00:00:00 POLYETHYLENE GLYCOL 3350 [facility] 2018-08-22 00:00:00 null 2018-08-22 00:00:00 null [facility] 2018-08-22 00:00:00 null [facility] 2018-08-22 00:00:00 null [facility] 2018-08-22 00:00:00 NITROFURANTOIN MONOHYD MACRO [facility] 2018-08-22 00:00:00 NITROFURANTOIN MONOHYD MACRO [facility] 2018-08-22 00:00:00 null [facility] 2018-08-22 00:00:00 null [facility] gust[facility] Care [facility] 2018-08-22 00:00:00 NITROFURANTOIN MONOHYD MACRO [facility] 2018-08-22 00:00:00 NITROFURANTOIN MONOHYD MACRO [facility] Primary [facility] 2018-08-22 00:00:00 null [facility] 2018-08-22 00:00:00 Nitrofurantoin Monohyd/M-Cryst [facility] 2018-09-02 00:00:00 Phenazopyridine hydrochloride 200 MG Oral Tablet 2018-09-02 00:00:00 Phenazopyridine hydrochloride 200 [facility] MG Oral Tablet 2018-09-02 00:00:00 Phenazopyridine hydrochloride 200 [facility] MG Oral Tablet 2018-09-02 00:00:00 Phenazopyridine Hcl [facility] 2019-04-04 00:00:00 cefdinir 300 MG Oral Capsule 2019-04-04 00:00:00 cefdinir 300 MG Oral Capsule [facility] 2019-04-04 00:00:00 Cefdinir [facility] 2019-04-05 00:00:00 null [facility] gust[facility] Care [facility] 2019-04-05 00:00:00 null [facility] gust[facility] Care [facility] 2019-04-05 00:00:00 CEFDINIR [facility] gustavo Care [facility] 2019-04-05 00:00:00 CEFDINIR [facility] gust[facility] Care [facility] 2019-04-05 00:00:00 null [facility] gust[facility] Care [facility] 2019-04-05 00:00:00 null [facility] [place] [facility] 2019-04-05 00:00:00 CEFDINIR [facility] [facility] 2019-04-05 00:00:00 CEFDINIR [facility] [place] [facility] 2019-05-25 00:00:00 Naproxen 375 MG Oral Tablet 2019-05-25 00:00:00 Cephalexin 500 MG Oral Capsule [Keflex] 2019-05-25 00:00:00 Naproxen 375 MG Oral Tablet [facility] 2019-05-25 00:00:00 Cephalexin 500 [facility]apsule [facility] [Keflex] 2019-05-25 00:00:00 Naproxen [facility] 2019-05-25 00:00:00 Cephalexin [facility] 2019-05-27 00:00:00 null [facility] 2019-05-27 00:00:00 null [facility] 2019-05-27 00:00:00 null [facility] 2019-05-27 00:00:00 null [facility] 2019-05-27 00:00:00 CEPHALEXIN [facility] 2019-05-27 00:00:00 NAPROXEN [facility] 2019-05-27 00:00:00 NAPROXEN [facility] 2019-05-27 00:00:00 CEPHALEXIN [facility] 2019-05-27 00:00:00 null [facility] [place] [facility] 2019-05-27 00:00:00 null [facility] [place] [facility] 2019-05-27 00:00:00 null [facility] [place] [facility] 2019-05-27 00:00:00 null [facility] [place] [facility] 2019-05-27 00:00:00 CEPHALEXIN [facility] gust[facility] Care [facility] 2019-05-27 00:00:00 [facility]EN [facility]:00:00 NAPROXEN [facility] 2019-05-27 00:00:00 [facility]IN [facility] 2019-06-09 00:00:00 Ciprofloxacin 500 MG Oral Tablet [Cipro] 2019-06-09 00:00:00 Ciprofloxacin 500 MG Oral Tablet [facility] [Cipro] 2019-06-09 00:00:00 Ciprofloxacin Hcl [facility] 2019-06-28 00:00:00 cefdinir 300 MG Oral Capsule 2019-06-28 00:00:00 null [facility] 2019-06-28 00:00:00 null [facility] 2019-06-28 00:00:00 CEFDINIR [facility] Prim gust[facility] Care [facility] 2019-06-28 00:00:00 [facility]INIR [facility] 2019-06-28 00:00:00 null [facility] Prim gustavo Care [facility] 2019-06-28 00:00:00 null [facility] Prim gust[facility] Care [facility] 2019-06-28 00:00:00 CEFDINIR [facility] [place] [facility] 2019-06-28 00:00:00 [facility]FDINIR [facility] Prim gust[facility] Care [facility] 2019-06-28 00:00:00 cefdinir 300 MG Oral Capsule [facility]alth 2019-06-28 00:00:00 [facility]dinir [facility] 2019-06-30 00:00:00 null 2019-06-30 00:00:00 null [facility] 2019-06-30 00:00:00 Nitrofurantoin Monohyd/M-Cryst [facility] 2019-07-13 00:00:00 null [facility]:00:00 null [facility] [place] [facility] 2019-07-13 00:00:00 null [facility] [place] [facility] 2019-07-13 00:00:00 null [facility] [place] [facility] 2019-07-13 00:00:00 null [facility] [place] [facility] 2019-07-13 00:00:00 null [facility] [place] [facility] 2019-07-13 00:00:00 null [facility] [place] [facility] 2019-07-13 00:00:00 null [facility] [place] [facility] 2019-07-13 00:00:00 null [facility] [place] [facility] 2019-07-13 00:00:00 null [facility] [place] [facility] 2019-07-13 00:00:00 null [facility] [place] [facility] 2019-07-13 00:00:00 null [facility] [place] [facility] 2019-07-13 00:00:00 null [facility] [place] [facility] 2019-07-13 00:00:00 null [facility] [place] [facility] 2019-07-13 00:00:00 null [facility] [place] [facility] 2019-07-13 00:00:00 null [facility] [place] [facility] 2019-07-13 00:00:00 null [facility] [place] [facility] 2019-07-13 00:00:00 null [facility] [place] [facility] 2019-07-13 00:00:00 null [facility] [place] [facility] 2019-07-13 00:00:00 null [facility] [place] [facility] 2019-07-13 00:00:00 null [facility] [place] [facility] 2019-07-13 00:00:00 null [facility] [place] [facility] 2019-07-13 00:00:00 null [facility] [place] [facility] 2019-07-13 00:00:00 null [facility] [place] [facility] 2019-07-13 00:00:00 ATORVASTATIN CALCIUM [facility] Pr imary [facility] [place] [facility] 2019-07-13 00:00:00 LISINOPRIL [facility] [place] [facility] 2019-07-13 00:00:00 CARBIDOPA-LEVODOPA [facility] [place] [facility] 2019-07-13 00:00:00 IPRATROPIUM BROMIDE [facility] Alyson [facility]il[facility] [place] [facility] 2019-07-13 00:00:00 ALBUTEROL SULFATE [facility] [place] [facility] 2019-07-13 00:00:00 MELATONIN [facility] [place] [facility] 2019-07-13 00:00:00 POLYETHYLENE GLYCOL 3350 [facility] [place] [facility] 2019-07-13 00:00:00 DONEPEZIL HCL [facility] [place] [facility] 2019-07-13 00:00:00 DOCUSATE SODIUM [facility] [place] [facility] 2019-07-13 00:00:00 ACETAMINOPHEN [facility] [place] [facility] 2019-07-13 00:00:00 NAPROXEN [facility] [place] [facility] 2019-07-13 00:00:00 SENNOSIDES [facility] [place] [facility] 2019-07-13 00:00:00 DOCUSATE SODIUM [facility] [place] [facility] 2019-07-13 00:00:00 CARBIDOPA-LEVODOPA [facility] [place] [facility] 2019-07-13 00:00:00 NAPROXEN [facility] [place] [facility] 2019-07-13 00:00:00 MELATONIN [facility] [place] [facility] 2019-07-13 00:00:00 POLYETHYLENE GLYCOL 3350 [facility] [place] [facility] 2019-07-13 00:00:00 ACETAMINOPHEN [facility] [place] [facility] 2019-07-13 00:00:00 LISINOPRIL [facility] [place] [facility] 2019-07-13 00:00:00 ATORVASTATIN CALCIUM [facility] Pr imary [facility] [place] [facility] 2019-07-13 00:00:00 ALBUTEROL SULFATE [facility] [place] [facility] 2019-07-13 00:00:00 IPRATROPIUM BROMIDE [facility] 2019-07-13 00:00:00 POL[facility]ETHYLENE GLYCOL [facility] [place] [facility] 2019-07-13 00:00:00 DONEPEZIL HCL [facility] [place] [facility] 2019-07-18 00:00:00 null [facility] [place] [facility] 2019-07-18 00:00:00 null [facility] [place] [facility] 2019-07-18 00:00:00 null [facility] [place] [facility] 2019-07-18 00:00:00 null [facility] [place] [facility] 2019-07-18 00:00:00 HYDROCODONE-ACETAMINOPHEN [facility] [facility] 2019-07-18 00:00:00 [facility] [place] [facility] 2019-07-18 00:00:00 [facility] [place] [facility] 2019-07-18 00:00:00 HYDROCODONE-ACETAMINOPHEN [facility] [place] [facility] 2019-07-22 00:00:00 null [facility] [place] [facility] 2019-07-22 00:00:00 null [facility] [place] [facility] 2019-07-22 00:00:00 null [facility] [facility] 2019-07-22 00:00:00 null [facility] [place] [facility] 2019-07-22 00:00:00 NEBULIZERS [facility] [place] [facility] 2019-07-22 00:00:00 RESPIRATORY THERAPY SUPPLIES [facility] 2019-08-15 00:00:00 null [facility] 2019-08-15 00:00:00 null [facility] 2019-08-15 00:00:00 ESCITALOPRAM OXALATE [facility]:00:00 ESCITALOPRAM OXALATE [facility] Pr [facility] 2019-08-21 00:00:00 Docusate Sodium 100 MG Oral [facility] Caps[facility] 2019-08-21 00:00:00 Naproxen 250 MG Oral Tablet [facility] 2019-08-21 00:00:00 Acetaminophen 500 MG Oral Tablet [facility] 2019-08-21 00:00:00 Melatonin 3 MG Oral Tablet [facility] 2019-08-21 00:00:00 sennosides, HALFWAY 8.6 MG Oral Tablet [facility] 2019-08-21 00:00:00 Escitalopram 10 MG Oral Tablet [facility] 2019-08-21 00:00:00 Albuterol 0.83 MG/ML Inhalant [facility] 2019-08-21 00:00:00 Ipratropium [place] 0[facility]/ML [facility] Inhal[facility] Solution 2019-08-21 00:00:00 Docusate Sodium [facility] 2019-08-21 00:00:00 Naproxen [facility] 2019-08-21 00:00:00 Acetaminophen [facility] 2019-08-21 00:00:00 Melatonin [facility] 2019-08-21 00:00:00 Senna [facility] 2019-08-21 00:00:00 Albuterol [facility] 2019-08-21 00:00:00 Ipratropium [facility] 2019-08-23 00:00:00 null [facility] 2019-08-23 00:00:00 null [facility] 2019-08-23 00:00:00 null [facility] [facility] 2019-08-23 00:00:00 null [facility] [place] [facility] 2019-08-23 00:00:00 ACETAMINOPHEN [facility] [place] [facility] 2019-08-23 00:00:00 ACETAMINOPHEN [facility] [facility] 2019-08-23 00:00:00 ACETAMINOPHEN [facility] [place] [facility] 2019-08-23 00:00:00 ACETAMINOPHEN [facility] [place] [facility] 2019-10-02 00:00:00 null [facility] 2019-10-02 00:00:00 Nitrofurantoin Monohyd/M-Cryst [facility] 2019-11-04 00:00:00 null [facility] [place] [facility] 2019-11-04 00:00:00 null [facility] [place] [facility] 2019-11-04 00:00:00 PREDNISONE [facility] [facility] 2019-11-04 00:00:00 PREDNISONE [facility] [place] [facility] 2019-11-11 00:00:00 null [facility] [facility] 2019-11-11 00:00:00 null [facility] [place] [facility] 2019-11-11 00:00:00 null [facility] [place] [facility] 2019-11-11 00:00:00 null [facility] 2019-11-11 00:00:00 ESCITALOPRAM OXALATE [facility] Pr [facility] [place] [facility] 2019-11-11 00:00:00 DIMETHICONE [facility] [facility] 2019-11-11 00:00:00 DIMETHICONE [facility] [facility] 2019-11-11 00:00:00 ESCITALOPRAM OXALATE [facility] Pr [facility] [place] [facility] 2019-12-16 00:00:00 Melatonin 3 MG Oral Tablet [facility] 2019-12-16 00:00:00 dimethicone 13 MG/ML Topical Cream [facility] 2019-12-16 00:00:00 sennosides, HALFWAY 8.6 MG Oral Tablet [facility] 2019-12-16 00:00:00 Lisinopril 20 MG Oral Tablet [facility] ospital 2019-12-16 00:00:00 Albuterol 0.83 MG/ML Inhalant [facility] Solution 2019-12-16 00:00:00 200 ACTUAT Ipratropium [place] [facility] 0.017 MG/ACTUAT Metered Dose Inhaler 2019-12-16 00:00:00 Donepezil hydrochloride 10 MG Oral Is [facility] Tablet 2019-12-23 00:00:00 Docusate Sodium [address] [facility] spital Capsule 2019-12-23 00:00[facility] 8.6 MG Oral Tablet [facility] 2019-12-23 00:00:00 Acetaminophen 325 MG Oral Tablet [facility] 2019-12-23 00:00:00 Acetaminophen 325 MG / Hydrocodone [facility] Bitartrate 5 MG Oral Tablet 2019-12-23 00:00:00 POLYETHYLENE GLYCOL 3350 142 MG/ML [facility] Oral Solution 2020 00:00:00 Ondansetron Odt [facility] 2020-03-12 00:00:00 Magnesium Citrate [facility] 2020-03-12 00:00:00 Citalopram [facility] 2020-03-12 00:00:00 Senna [facility] 2020-03-12 00:00:00 Fentanyl 12 Mcg Patch [facility] 2020-03-12 00:00:00 Ipratropium [facility] 2020-03-12 00:00:00 Polyethylene [facility]col [facility] 2020-03-13 00:00:00 Prednisone [facility] 2020-03-27 00:00:00 Nitrofurantoin [facility] 2020-04-10 00:00:00 Ciprofloxacin Hcl [facility] Procedures Results Social History date description facility [id number] Ex-smoker (finding) [facility] date description facility 2012-09-28 00:00:00 Smoker, current status unknown [facility] [address] date description facility 2013-09-04 00:00:00 [facility] [address] date description facility 2014-02-10 00:00:00 [facility] [address] date description facility 2014-02-20 00:00:00 [facility] [address] date description facility 2015-01-21 00:00:00 [facility] date description facility 2015-11-13 00:00:00 Current [facility] date description facility 2015-12-29 00:00:00 Current [facility] date description facility 2016-03-25 00:00:00 Current every day smoker [facility] date description facility 2016-12-14 00:00:00 Current [facility]oker [facility] date description facility 2017-01-30 00:00:00 Current [facility] sm[facility] date description facility 2017-12-18 00:00:00 Former smoker [facility] gustavo [facility] [address] date description facility 2018-03-20 00:00:00 Current [facility] smoker [facility] date description facility 2018-03-23 00:00:00 Current [facility] smoker [facility] date description facility 2018-04-05 00:00:00 Current every [facility] smoker [facility] date description facility 2018-05-22 00:00:00 Current [facility] smoker [facility] date description facility 2018-07-09 00:00:00 Current [facility] smoker [facility] date description facility 2019-07-11 00:00:00 Former smoker [facility] [place] [facility] date description facility 2019-07-18 00:00:00 Former smoker [facility] date description facility 2019-11-20 00:00:00 [facility] date description facility 2019-11-26 00:00:00 [facility] date description facility [phone] Ex-smoker ([facility]) [facility] date description facility 2012-09-28 00:00:00 Smoker, current status unknown [facility] [address] date description facility 2013-09-04 00:00:00 Current every day smoker [facility] [address] date description facility 2014-02-10 00:00:00 Current every day smoker [facility] [address] date description facility 2014-02-20 00:00:00 Current every day smoker [facility] [address] date description facility 2015-01-21 00:00:00 Current every day smoker [facility] date description facility 2015-11-13 00:00:00 Current every day smoker [facility] date description facility 2015-12-29 00:00:00 Current every day smoker [facility] date description facility 2016-03-25 00:00:00 Current every day smoker [facility] date description facility 2016-12-14 00:00:00 Current [facility] day smoker [facility] [facility] date description facility 2017-01-30 00:00:00 Current every day smoker [facility] date description facility 2017-12-18 00:00:00 [facility] [address] date description facility 2018-03-20 00:00:00 Current every day smoker [facility] date description facility 2018-03-23 00:00:00 Current every day smoker [facility] date description facility 2018-04-05 00:00:00 Current every day smoker [facility] date description facility 2018-05-22 00:00:00 Current every day smoker [facility] date description facility 2018-07-09 00:00:00 [facility] date description facility 2019-07-11 00:00:00 [facility] date description facility 2019-07-18 00:00:00 [facility] date description facility 2019-11-20 00:00:00 [facility] date description facility 2019-11-26 00:00:00 [facility] date description facility [phone]
== END 2020-04-10 20:50 | disposition home or self-care (01) ==
LOC: ED 18:36
DX: N30.21 Other chronic cystitis with hematuria (principal); I10 Essential (primary) hypertension; F03.90 Unspecified dementia, unspecified severity, without behavioral disturbance, psychotic disturbance, mood disturbance, and anxiety; F17.200 Nicotine dependence, unspecified, uncomplicated
CPT/HCPCS: 81001; 87086; 87181; 99283; A9270; 81003

== ENCOUNTER 2020-08-14 09:50 | Outpatient (CLI) | payer MEDICARE, OTHER ==
--- NOTE | 2020-08-14 16:33 | CONSULTATION NOTE ---
Palliative Care Follow Up - Referral Referring Provider: Mariana Hills PA-C Time of Visit: 5932-2495 Referral setting: Assisted living Referral Reason: Parkinson's Disease with dementia/Advanced Care Planning - Information Sources Records reviewed: Previous records reviewed History/Review of Systems obtained from: Patient, Family (son, Jaiden), Nursing Exam limitations: Clinical condition (Advanced Dementia) - History of Present Illness Update Brief HPI Update: This is an 80-year-old female who is [facility] and [facility] to be reestablished with palliative care services for Parkinson's disease and Parkinson's disease dementia with behavioral disturbances. She is seen in her room with her son, Jaiden present. The patient was previously residing with her spouse, Irwin who was her primary caregiver. She had frequent emergency department visits at [facility] in March 2019. As the patient's spouse also has declining memory the patient's son Jaiden and his , Eryn intervened and they transitioned the patient to [place]. She was residing at [facility] living in early 2019 and then transition to [place]. At [place] she sustained a fall and had a fracture and then was seen and evaluated at [facility]. After her hospitalization at [facility] she was discharged to rehabilitation facility in [place]. After she was discharged from the rehabilitation in [place] she transferred back to live with her son and ilkvmzpz-tr-cjo all within her home until May 2020. The patient's son, Jaiden reports that the behaviors and increased caregiving needs were too much to provide during the day and therefore decision was made to transfer the [facility] to [facility]. They have been working to try to get additional financial assistance with alone to care for the cost of the patient stay at home place but are meeting resistance. The patient's son, Jaiden reports that her managed memory started to decline approximately 5 years ago. The patient has sustained 2 separate instances of intraprenchymal hemorrhage in 2015 and 2017. The patient's daughter, Anila resided with the patient and her spouse, Irwin caring for them for approximately 12 months until October 2018 when the patient's spouse "drove Martha out" and the patient and daughter remain estranged. Caregiving staff reports that she has tearful episodes and evidence of anxiety. Patient is seen in her bedroom, well-groomed with her walker in place of her. She is engaged been unable to fully follow the conversation. Much improved from last evaluation by this PASSENGER SOLICITOR in July 2019. 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 Social History - Living Situation Living arrangement: Assisted living Support System: [facility] into [facility] in May 2020. She remains to her spouse that she met in the .Her spouse, Irwin has his own memory problems And the patient son and [id number] are overseeing care for her spouse as well. The patient has 3 children from a prior partner, 2 boys and one girl. Her son Jaylon is her eldest child. Her [id number] is deemed as healthcare power of privacy attorney, Eryn. Eryn's contact number is [phone]. 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 Medications/Allergies - Medications Home Medications: Ambulatory Orders Medication Instructions Recorded Confirmed Donepezil HCl 10 mg PO DAILY 10/12/16 08/14/20 lisinopriL [Lisinopril] 20 mg PO DAILY 06/17/18 08/14/20 Acetaminophen 500 mg PO BID PRN 08/21/19 08/14/20 Citalopram [CeleXA] 20 mg PO DAILY 03/12/20 08/14/20 Ipratropium [Atrovent] 1 inh PO QID 03/12/20 08/14/20 Multivitamin 1 tab PO DAILY 03/12/20 08/14/20 Senna [Senokot] 8.6 mg PO BID 03/12/20 08/14/20 polyethylene glycoL 3350 17 gm PO DAILY 03/12/20 08/14/20 [Polyethylene Glycol 3350] Magnesium Oxide [Magnesium] 250 mg PO DAILY 08/14/20 08/14/20 - Allergies Allergies/Adverse Reactions: Allergies Allergy/AdvReac Type Severity Reaction Status Date / Time divalproex sodium AdvReac Unknown Verified 08/14/20 16:48 [From Depakote] Review of Systems - Constitutional Constitutional: reports: Other (weight 127lb on 07/28/20). denies: Fever - Eyes Eyes: denies: Blurred vision - Ears, Nose & Throat Ears, Nose & Throat: reports: Hearing loss, Dentures. denies: Dry mouth - Cardiovascular Cardiovascular: denies: Chest pain, Edema - Respiratory Respiratory: denies: Cough, SOB at rest - Gastrointestinal Gastrointestinal: reports: Good appetite. denies: Abdominal pain, Constipation, Vomiting - Genitourinary Genitourinary: reports: Incontinence. denies: Dysuria - Musculoskeletal Musculoskeletal: reports: Assistive devices (ambulates with walker). denies: Joint pain - Integumentary Integumentary: denies: Rash - Neurological Neurological: reports: General weakness, Memory problems - Psychiatric Psychiatric: reports: Depression, Anxiety, Hallucinations (reports to seeing people in the room that she knows are not present but is not frightened by this) - Endocrine Endocrine: denies: Hypothyroidism - Hematologic/Lymphatic Hematologic/Lymph: reports: Recurrent infections (history of UTIs) - All Other Systems All Other Systems: reports: Reviewed and negative (ROS supplemented by caregivers and son, Jaiden as patient is a poor historian due to dementia.) Physical Exam - Vital Signs Temperature: 36.5 C Pulse Rate: 59 O2 Saturation: 96 (on RA) Blood Pressure: 152/85 (left wrist) - Physical Exam General Appearance: positive: No acute distress, Alert, Other (well groomed) Eyes Bilateral: positive: Normal inspection, PERRL ENT: positive: No signs of dehydration, Other (+upper dentures) Neck: positive: Trachea midline Cardiovascular: positive: Regular rate & rhythm Respiratory: positive: No respiratory distress, Breath sounds nml. negative: Rales Abdomen: positive: Non-tender, Soft, Nml bowel sounds. negative: Distended Skin: positive: No symptoms Extremities: positive: No pedal edema, Other (b/l hips nontender to palpation; no ridigity or cogwheeling noted on examination) Neurologic/Psychiatric: positive: Disoriented to place, Disoriented to time, Weakness (generalized), Other (Pleasantly confused and became tearful when her son needed to leave. Ambulates with a broad gait that appears steady with walker.) Palliative Care - POLST Patient has POLST: Yes POLST Status: DNR, Comfort Measures Performance Status: Ambulatory with her walker. No recent falls. Does have a history with fall with fracture in November 2019. Able to self feed. Incontinent of bowel and bladder. FAS T 6E - Palliative Care Discussion: The patient has had a slow, progressive cognitive and functional decline. She unfortunately sustained a fall with a hip fracture in November 2019 and had subsequent rehabilitation after that time. Presently she is overall doing fairly well in her new home environment however, she does display some underlying agitation and anxiety. She is not displaying any aggressive behaviors that were previously demonstrated when the patient was living at home with her son and eqocgpau-[id number]. She is expressing some behavioral disturbances specifically related to hallucinations and her visualizations were normalized to both her and her son during evaluation today. The patient's son reports that ultimately he and his wish for the patient to be comfortable and to have additional support in this setting as they navigate the progression of the patient's Parkinson's disease dementia. Impression and Recommendations - Palliative Care Impression: This is an 80-year-old femaleWith Parkinson's dementia, Parkinson's disease with underlying anxiety and agitation. She is recently transitioned from home to [facility]. Would benefit from further titration of citalopram from 10 mg to 20 mg for management of her anxiety. Goals are focused on comfort. Family expresses some financial concerns as noted below. Palliative care will continue to provide support for pain and symptom management, care coordination and anticipatory guidance. Recommendations/Counseling Done: 1. Anxiety. Patient has underlying anxiety due to her new caregiving situation. She intermittently becomes tearful and anxious per facility staff report. We will increase citalopram from 10 mg to 20 mg. Discussed with the patient's son would regarding purpose, dose and side effects of citalopram and would expect to see a response in 3 to 6 weeks with understanding verbalized. Continue to monitor and support. 2. Parkinson's disease. Fall precautions. No history of dysphagia. Previously was on carbidopa/levodopa. 3. Parkinson's disease dementia with underlying vascular history. Patient is appropriate for memory care given her need for assistance. She is having some behavioral disturbances specifically related to hallucinations. Presently on demand aricept and may benefit from switching to rivastigmine due to her history of parkinson's disease. At this time, her hallucinations are intermittent and she is not frightened by them. We will continue to monitor. If not appropriate to transition to low dose rivastigmine then may consider low-dose quetiapine for comfort. Given the patient's advanced age and comorbidities a gradual decline is expected. 4. History of Intraparenchymal hemorrhage x 2 in 2016 and 2018. Chronic. Supportive care. Continue secondary preventative measures by optimizing BP control. 5. Advance care planning. Patient has most recent POLST as DN AR with comfort measures. The patient's [id number], Eryn his reported to be her DPOA. The son today reports that their ultimate goal is for the patient to be comfortable in her present setting. They expressed some financial concerns in regards to the patient being at [facility]. Will make and enter agency referral to [facility] to provide additional guidance and assistance regarding caregiving cost options that are available to the patient and family. Would also recommend an elderly ball bb shot packer and this is something that [facility] will be able to direct the family on. Total time spent 50 minutes with greater than 50% of this spent in counseling and coordination of care with patient and sonJaiden; review of POC with nursing staff; examination of patient; review of palliative care services; review of pain and symptom management and anticipatory guidance. Disclaimer: The chart note was formulated using voice recognition technology and unfortunately sound alike errors may occur.
== END 2020-08-14 09:51 | disposition home or self-care (01) ==
LOC: PC 09:50
PROVIDERS: ATTEND Nurse Practitioner Family
DX: Z51.5 Encounter for palliative care (principal); F41.9 Anxiety disorder, unspecified; G20 Parkinson's disease; F02.81 Dementia in other diseases classified elsewhere, unspecified severity, with behavioral disturbance; I10 Essential (primary) hypertension; Z87.891 Personal history of nicotine dependence; Z66 Do not resuscitate

== ENCOUNTER 2020-09-08 13:15 | Outpatient (CLI) | payer MEDICARE, OTHER ==
--- NOTE | 2020-09-08 17:16 | CONSULTATION NOTE ---
Palliative Care Follow Up - Referral Referring Provider: LISA Navarro Time of Visit: Initiated 1320 Referral Reason: Parkinson's Disease with dementia - Information Sources Records reviewed: Previous records reviewed History/Review of Systems obtained from: Patient, Nursing (MACHINE MARKER Maikel and caregiver) Exam limitations: Clinical condition (Advanced Dementia) - History of Present Illness Update Brief HPI Update: This is an 80-year-old female who is seen in follow-up today at [facility] due to Parkinson's disease dementia with behavioral disturbances with underlying anxiety and labile mood. When patient was last evaluated in late July 2020 her citalopram was increased from 10 mg to 20 mg. Staff report that she continues to have tearful episodes intermittently. For example, today at lunch she was tearful and was able to be redirected. She continues to fixate on her son, Jaiden and her need to visit him "down the road." During evaluation today, she did comment that Jaiden's car was outside but was unable to describe the color or model. She has been on citalopram and appears for some time. May benefit from transitioning to a another SSRI for a trial if continues to not be adequately effective. The patient also is easily frustrated with tasks. Her memory decline began approximately 5 years ago. The patient is seen sitting in the common area, well groomed and watching television. She is able to be engaged and ambulates with her Rollator. Past Medical History: Past medical history of Parkinson's disease, COPD, depression, anxiety, Parkinson's disease dementia, hyperlipidemia, hypertension, tremor, history of tobacco abuse, CVA (2016 and 2018 intraparenchymal hemorrhage), left hip fracture and repair 11/2019. Social History - Living Situation Living arrangement: Assisted living Support System: The [facility] into [facility] in May 2020. She remains to her spouse that she met in the .Her spouse, Irwin has his own memory problems And the patient son and [id number] are overseeing care for her spouse as well. The patient has 3 children from a prior partner, 2 boys and one girl. Her son Jaylon is her eldest child. Her hotckcst-ng-jje is deemed as healthcare power of city attorney, Eryn. Eryn's contact number is [phone]. 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 Her granddaughter is a caregiver at [facility]. Medications/Allergies - Medications Home Medications: Ambulatory Orders Medication Instructions Recorded Confirmed Donepezil HCl 10 mg PO DAILY 10/12/16 08/14/20 lisinopriL [Lisinopril] 20 mg PO DAILY 06/17/18 08/14/20 Acetaminophen 650 mg PO TID 08/21/19 08/14/20 Citalopram [CeleXA] 20 mg PO DAILY 03/12/20 08/14/20 Ipratropium [Atrovent] 1 inh PO QID 03/12/20 08/14/20 Multivitamin 1 tab PO DAILY 03/12/20 08/14/20 Senna [Senokot] 8.6 mg PO BID 03/12/20 08/14/20 polyethylene glycoL 3350 17 gm PO DAILY 03/12/20 08/14/20 [Polyethylene Glycol 3350] Magnesium Oxide [Magnesium] 250 mg PO DAILY 08/14/20 08/14/20 Acetaminophen [Aphen] 650 mg PO Q6H PRN 09/08/20 09/08/20 Bisacodyl Supp [Dulcolax Supp] 10 mg TN DAILY PRN MDD if no BM 09/08/20 09/08/20 after MOM Magnesium Hydroxide [Milk of PO DAILY PRN 09/08/20 Magnesia] - Allergies Allergies/Adverse Reactions: Allergies Allergy/AdvReac Type Severity Reaction Status Date / Time divalproex sodium AdvReac Unknown Verified 08/14/20 16:48 [From [facility]] Review of Systems - Constitutional Constitutional: reports: Weight stable (weight 127lb). denies: Fever - Eyes Eyes: denies: Irritation - Ears, Nose & Throat Ears, Nose & Throat: reports: Hearing loss, Dentures - Cardiovascular Cardiovascular: denies: Chest pain - Respiratory Respiratory: denies: Cough, SOB at rest - Gastrointestinal Gastrointestinal: reports: Good appetite. denies: Constipation, Vomiting - Genitourinary Genitourinary: reports: Incontinence. denies: Dysuria - Musculoskeletal Musculoskeletal: reports: Assistive devices (ambulates with walker). denies: Joint pain - Integumentary Integumentary: reports: Dryness - Neurological Neurological: reports: General weakness, Memory problems - Psychiatric Psychiatric: reports: Depression, Anxiety, Hallucinations (previously reported) - Endocrine Endocrine: denies: Diabetes type 2 - Hematologic/Lymphatic Hematologic/Lymph: reports: Recurrent infections (history of UTIs) - All Other Systems All Other Systems: reports: Reviewed and negative (ROS supplemented by caregivers and JAIRON Ko as patient is a poor historian due to dementia.) Physical Exam - Vital Signs Temperature: 36.6 C Pulse Rate: 61 O2 Saturation: 96 (on RA at rest) Blood Pressure: 148/88 (left wrist cuff) - Physical Exam General Appearance: positive: No acute distress, Alert, Other (well groomed) Eyes Bilateral: positive: Normal inspection ENT: positive: No signs of dehydration, Other (+upper dentures) Neck: positive: Trachea midline Cardiovascular: positive: Regular rate & rhythm, No murmur Respiratory: positive: No respiratory distress, Breath sounds nml Abdomen: positive: Non-tender, Soft, Nml bowel sounds Skin: positive: No symptoms Extremities: positive: No pedal edema, Other ( no ridigity or cogwheeling noted on examination) Neurologic/Psychiatric: positive: Disoriented to place, Disoriented to time, Weakness (generalized; ambulates with a broad based gait with walker), Other (Pleasantly confused with no tearfulness noted) Palliative Care - POLST Patient has POLST: Yes POLST Status: DNR, Comfort Measures Pain: No pain Constipation: No, Managed - Palliative Care Discussion: The patient has had a slow, progressive cognitive and functional decline. She is not expressing aggressive behaviors however does have a recent history of hallucinations and lability mood related more towards depressive symptoms. Her citalopram was recently increased from 10 mg to 20 mg daily with out a huge note in her improvement of the lability of her mood. Would potentially benefit from a either transitioning to another SSRI or potentially switching her Aricept to Exelon to assist with herLability of mood and hallucinations due to her Parkinson's disease dementia. Impression and Recommendations - Palliative Care Impression: This is in 80-year-old female with Parkinson's dementia, Parkinson's disease with underlying anxiety and mood lability swinging more towards depressive symptoms. Her citalopram was increased from 10 mg to 20 mg with improvement of her anxiety but not her lability in mood. Would benefit from further medication adjustment optimize the patient's comfort as the goal is to focus on comfort. Palliative care will continue to provide support for pain and symptom management, care coordination and anticipatory guidance. Recommendations/Counseling Done: 1. Anxiety with mood lability. Underlying dementia is contributing. Per staff report there has not been large gains in improving the patient's mood lability with an increase of citalopram from 10 mg to 20 mg. However, it has not been a full 6-8 weeks at the present time to determine full effect.May consider transitioning to another SSRI for management as the patient has been on citalopram for a number of years upon review of her medical record. We will need to discuss with patient's family and DPOA before making that transition. Given she is having some mood lability may benefit from transitioning from donepezil to rivastigmine for behavior disturbances. 2. Parkinson's disease dementia with underlying vascular history. Presently in a memory care unit due to her increasing needs. Again, may benefit from transitioning to rivastigmine for management of her mood lability and underlying hallucinations. Continue to monitor and discuss with DPOA regarding transition. l CPT 53816 Plan of care reviewed with facility Joseph DE LA O with questions answered and addressed. Message left for patient's [id number]-vck, Eryn who is DPOA at [phone] to discuss plan of care and to optimize the patient's comfort with medication adjustment. Awaiting return call. Disclaimer: The chart note was formulated using voice recognition technology and unfortunately sound alike errors may occur.
== END 2020-09-08 13:16 | disposition home or self-care (01) ==
LOC: PC 13:15
PROVIDERS: ATTEND Nurse Practitioner Family
DX: Z51.5 Encounter for palliative care (principal); G20 Parkinson's disease; F02.81 Dementia in other diseases classified elsewhere, unspecified severity, with behavioral disturbance; F41.9 Anxiety disorder, unspecified; Z79.899 Other long term (current) drug therapy; Z86.73 Personal history of transient ischemic attack (TIA), and cerebral infarction without residual deficits; Z87.891 Personal history of nicotine dependence; Z66 Do not resuscitate

== ENCOUNTER 2020-09-15 07:05 | Outpatient (CLI) | payer MEDICARE, OTHER | END 2020-09-15 07:06 | disposition critical access hospital (66) | LOC: EMS 07:05 | DX: M25.552 Pain in left hip (principal); W19.XXXA Unspecified fall, initial encounter; Y92.001 Dining room of unspecified non-institutional (private) residence as the place of occurrence of the external cause | CPT/HCPCS: A0425; A0429 ==

== ENCOUNTER 2020-09-15 07:22 | Emergency (ER) | payer MEDICARE, OTHER ==
[2020-09-15 07:52] VITALS: BP 140/79
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
--- NOTE | 2020-09-15 08:21 | XRAY Report ---
PROCEDURE: Hip w/Pelvis 2-3V LT INDICATIONS: fall/pain TECHNIQUE: AP pelvis with lateral view(s) of the left hip(s). COMPARISON: None. FINDINGS: Bones: Post internal fixation changes are noted in right femoral neck and proximal left femoral shaf t. No gross hardware loosening or failure is seen. Alignment of left hip is anatomic. No acute fractu re or dislocation. No evidence of avascular necrosis of femoral head. Bilateral hip joint osteophytic changes are seen. There is cortical irregularity involving left superior pubic ramus concerning for a slightly displaced fracture in this area. No suspicious bony lesions. Soft tissues: The visualized bowel gas pattern is normal. No suspicious soft tissue calcifications. IMPRESSION: 1. Prior fixation of left proximal femoral shaft and femoral neck with anatomic left hip alignment. N o gross hardware complication. No acute left hip fracture or dislocation. No evidence of avascular ne crosis of femoral head. 2. Suggestion of a slightly displaced fracture involving left superior pubic ramus. Reviewed by: Dakotah Mckeon MD on 09/15/2020 8:19 AM PDT Approved by: Dakotah Mckeon MD on 09/15/2020 8:19 AM PDT Station ID: [id number]
== END 2020-09-15 09:24 | disposition home or self-care (01) ==
LOC: EDUNIT# → ED 07:22
DX: S32.502A Unspecified fracture of left pubis, initial encounter for closed fracture (principal); S70.02XA Contusion of left hip, initial encounter; W03.XXXA Other fall on same level due to collision with another person, initial encounter; Y92.099 Unspecified place in other non-institutional residence as the place of occurrence of the external cause; I10 Essential (primary) hypertension; Z87.891 Personal history of nicotine dependence
CPT/HCPCS: 99283; 99284

== ENCOUNTER 2020-09-15 09:23 | Outpatient (CLI) | payer MEDICARE, OTHER | END 2020-09-15 09:24 | disposition home or self-care (01) | LOC: EMS 09:23 | PROVIDERS: ATTEND Emergency Medicine | DX: F03.90 Unspecified dementia, unspecified severity, without behavioral disturbance, psychotic disturbance, mood disturbance, and anxiety (principal) | CPT/HCPCS: A0425; A0428 ==

== ENCOUNTER 2020-10-21 08:45 | Outpatient (CLI) | payer MEDICARE, OTHER ==
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
== END 2020-10-21 08:46 | disposition home or self-care (01) ==
LOC: PC 08:45
PROVIDERS: ATTEND Nurse Practitioner Family
DX: Z51.5 Encounter for palliative care (principal); G20 Parkinson's disease; F02.81 Dementia in other diseases classified elsewhere, unspecified severity, with behavioral disturbance; G52.8 Disorders of other specified cranial nerves; F41.9 Anxiety disorder, unspecified; Z79.899 Other long term (current) drug therapy; Z66 Do not resuscitate

== ENCOUNTER 2020-11-04 21:23 | Outpatient (CLI) | payer MEDICARE, OTHER | END 2020-11-04 21:24 | disposition short-term general hospital (02) | LOC: EMS 21:23 | DX: S01.112A Laceration without foreign body of left eyelid and periocular area, initial encounter (principal); R04.0 Epistaxis; M79.602 Pain in left arm; M79.601 Pain in right arm; M54.9 Dorsalgia, unspecified; M79.605 Pain in left leg; M79.604 Pain in right leg; W01.0XXA Fall on same level from slipping, tripping and stumbling without subsequent striking against object, initial encounter; Y93.01 Activity, walking, marching and hiking; Y92.198 Other place in other specified residential institution as the place of occurrence of the external cause | CPT/HCPCS: A0425; A0427 ==

== ENCOUNTER 2022-11-22 11:58 | Outpatient (CLI) | payer MEDICARE, OTHER | END 2022-11-22 23:59 | disposition critical access hospital (66) | LOC: EMS 11:58 | DX: S00.83XA Contusion of other part of head, initial encounter (principal); M25.511 Pain in right shoulder; R19.7 Diarrhea, unspecified; R39.89 Other symptoms and signs involving the genitourinary system; R03.1 Nonspecific low blood-pressure reading; W18.30XA Fall on same level, unspecified, initial encounter; Y92.099 Unspecified place in other non-institutional residence as the place of occurrence of the external cause | CPT/HCPCS: A0425; A0429 ==

== ENCOUNTER 2022-11-22 12:16 | Emergency (ER) | payer MEDICARE, OTHER ==
--- NOTE | 2022-11-22 12:32 | ED Physician Documentation ---
PD HPI Fall - Stated complaint Stated Complaint: R SHOULDER PX/GLF - History obtained from History obtained from: Patient, EMS - History of Present Illness Mechanism of injury: Tripped Fall distance: Standing position Where injury occurred: Home Timing - onset: Today Injury(ies) location: Head, Right Upper Extremity, Left Uppper Extremity Quality of pain: Pain Associated symptoms: AMS (similar to always). No: LOC Symptoms improve with: Rest Worsens with: Movement, Palpation Contributing factors: No: Anticoagulated, Intoxicated Similar symptoms before: Diagnosis (fall uti) Recently seen: Not recently seen - Additional information Additional information: Eryn Joseph is an 82-year-old female with a history of dementia Parkinson's disease hypertension hyperlipidemia COPD and depression. She is a resident of [facility] and today she was noted to have a witnessed fall. She was using her walker and tripped. She was seen to fall to hit her head and she was never knocked unconscious. She has some pain to the left forehead with some bruising and she denies pain elsewhere. She does have some pain in her shoulder she is not really able to tell me even which shoulder it is. 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 : None HEENT: None Psych: Depression Musculoskeletal: Osteoarthritis Derm: None - Past Surgical History Past Surgical History: Yes Ortho: Other /GYMNASTIC TEACHER: Hysterectomy Cardiovascular: Other HEENT: Cataracts - Present Medications Home Medications: Ambulatory Orders Medication Instructions Recorded Confirmed lisinopriL [Lisinopril] 20 mg PO DAILY 06/17/18 09/15/20 Acetaminophen 650 mg PO TID 08/21/19 09/15/20 Citalopram [CeleXA] 20 mg PO DAILY 03/12/20 09/15/20 Ipratropium [Atrovent] 1 inh PO QID 03/12/20 09/15/20 Multivitamin 1 tab PO DAILY 03/12/20 09/15/20 Senna [Senokot] 8.6 mg PO BID 03/12/20 09/15/20 polyethylene glycoL 3350 17 gm PO DAILY 03/12/20 09/15/20 [Polyethylene Glycol 3350] Magnesium Oxide [Magnesium] 250 mg PO DAILY 08/14/20 09/15/20 Acetaminophen [Aphen] 650 mg PO Q6H PRN 09/08/20 09/15/20 Bisacodyl Supp [Dulcolax Supp] 10 mg GA DAILY PRN MDD if no BM 09/08/20 09/15/20 after MOM Magnesium Hydroxide [Milk of 30 ml ORAL DAILY 09/08/20 09/15/20 Magnesia] Albuterol Sulfate 3 ml IH Q4HR PRN 09/15/20 09/15/20 Loperamide [Imodium] 4 mg PO QID PRN MDD 8 capules in 09/15/20 09/15/20 24hrs Melatonin 3 mg PO HS 09/15/20 09/15/20 QUEtiapine [SEROquel] 12.5 mg PO QPM 10/27/20 10/27/20 Rivastigmine [Exelon] 1.5 mg PO BID 10/27/20 10/27/20 - Allergies Allergies/Adverse Reactions: Allergies Allergy/AdvReac Type Severity Reaction Status Date / Time diazepam AdvReac Unknown Verified 10/27/20 07:05 divalproex sodium AdvReac Unknown Verified 09/15/20 07:38 [From Depakote] - Social History Does the pt smoke?: No Smoking Status: Former smoker Does the pt drink ETOH?: Yes Does the pt have substance abuse?: No - Immunizations Immunizations are current?: Yes - POLST Patient has POLST: Yes POLST Status: Full Code (POLST was updated in [facility] when she had hemorrhagic CVA in 09/06) PD ED PE NORMAL - Vitals Vital signs reviewed: Yes - General General: No acute distress, Well developed/nourished, Other (smiles and interacts with minimal latency) - HEENT HEENT: PERRL, EOMI, Other (There is ) - Neck Neck: Supple, no meningeal sign, Other (mild tenderness to the mid cervical spine otherwise normal ROM) - Cardiac Cardiac: RRR, No murmur - Respiratory Respiratory: No respiratory distress, Clear bilaterally - Abdomen Abdomen: Soft, Non tender - Back Back: No CVA TTP, No spinal TTP - Derm Derm: Normal color, Warm and dry, No rash - Extremities Extremities: No deformity, No edema - Neuro Neuro: Normal speech, Other (deficit with L facial droop noted similar to prior ) Eye Opening: Spontaneous Motor: Obeys Commands Verbal: Confused GCS Score: 14 - Psych Psych: Normal mood, Normal affect Results - Vitals Vitals: Vital Signs - 24 hr 11/22/22 12:21 Temperature 36.5 C Heart Rate 69 Respiratory 18 Rate Blood Pressure 130/65 O2 Saturation 96 Oxygen O2 Source [] Nasal cannula O2 Source Room air - Labs Labs: Laboratory Tests 11/22/22 15:02 Urine Color YELLOW Urine Clarity CLOUDY Urine pH 8.5 H Ur Specific Lacey 1.015 Urine Protein NEGATIVE Urine Glucose (UA) NEGATIVE Urine Ketones NEGATIVE Urine Occult Blood NEGATIVE Urine Nitrite NEGATIVE Urine Bilirubin NEGATIVE Urine Urobilinogen 0.2 (NORMAL) Ur Leukocyte Esterase MODERATE H Urine RBC None Seen Urine WBC 4-5 Ur Squamous Epith Cells RARE Squamous Urine Crystals 3-5 Triple Phosphate Urine Bacteria Many H Ur Microscopic Review INDICATED Urine Culture Comments INDICATED - Rads (name of study) Shoulders Relevant Findings:: Prelim report reviewed (Impression: No acute bony abnormality.), EMP independent interpretation of test CT neck Relevant Findings:: Prelim report reviewed (Impression: Negative for acute cervical spine fracture. Multilevel cervical spine degenerative changes can be seen.), EMP independent interpretation of test CT head Relevant Findings:: Prelim report reviewed (Impression: Stable head CT, without findings of hemorrhage or other acute intracranial abnormality. Stable asymmetry of the lateral ventricles noted.), EMP independent interpretation of test PD Medical Decision Making - ED course Complexity details: reviewed old records, reviewed results, re-evaluated patient, considered differential, d/w patient ED course: 79-year-old Eryn Joseph had a witnessed ground-level mechanical fall from tripping. She was noted to have bruising to her forehead.She had no loss of consciousness associated with the fall and she has had no vomiting or nausea. She is an unreliable historian. We scanned her head and neck without specific findings. She was complaining of some pain to her shoulder. I was unable to tell from history with the patient or physical exam which shoulder was even bothering her. She seemed to have some stiffness to both shoulders so we took x-rays of both shoulders without evidence of a fracture. Departure - Departure Disposition: 01 Home, Self Care Clinical Impression: Accidental fall Qualifiers: Encounter type: initial encounter Qualified Code(s): W19.XXXA - Unspecified fall, initial encounter Shoulder strain Qualifiers: Encounter type: initial encounter Laterality: unspecified laterality Qualified Code(s): S46.919A - Strain of unspecified muscle, fascia and tendon at shoulder and upper arm level, unspecified arm, initial encounter Contusion Qualifiers: Encounter type: initial encounter Contusion area: head Contusion of head detail: periocular area Laterality: left Qualified Code(s): S00.12XA - Contusion of left eyelid and periocular area, initial encounter Condition: Stable Instructions: ED Mechanical Fall Follow-Up: Swathi Candelario ARNP, [employer] [Provider Admit Priv/Credential] - Comments: Eryn, today we found a bruise to your forehead no evidence of a fracture to your neck or your shoulders. We did not find any fracture in your neck.
[2022-11-22 12:38] VITALS: BP 130/65
--- NOTE | 2022-11-22 14:26 | XRAY Report ---
PROCEDURE: Shoulder 1 View BILAT INDICATIONS: shoulder pain after fall TECHNIQUE: single AP views of the bilateral shoulder were acquired. COMPARISON: 09/29/2021 FINDINGS: Bones: No acute fractures or dislocations. Stable appearance of chronic fracture deformity of the ri ght mid humerus. No suspicious bony lesions. Visualized ribs appear intact. Degenerative changes of the bilateral acromioclavicular joints are noted. Coracoclavicular and coronal clavicular intervals a re maintained on the AP view. Soft tissues: No suspicious soft tissue calcifications. IMPRESSION: No acute bony abnormality. Reviewed by: Cliff Dodson MD on 11/22/2022 2:25 PM PDT Approved by: Cliff Dodson MD on 11/22/2022 2:25 PM PDT Station ID: [id number]
[2022-11-22 15:25] LABS: BILIRUBIN,URINE NEGATIVE (NEGATIVE); GLUCOSE, URINE (UA) NEGATIVE (NEGATIVE); KETONES,URINE (UA) NEGATIVE (NEGATIVE); LEUKOCYTE ESTERASE, URINE MODERATE (NEGATIVE); NITRITE,URINE NEGATIVE (NEGATIVE); OCCULT BLOOD,URINE NEGATIVE (NEGATIVE); PH,URINE 8.5 PH (5.0-7.5); PROTEIN,URINE NEGATIVE (NEGATIVE); UROBILINOGEN,URINE 0.2 (NORMAL) E.U./dL (NORMAL)
[2022-11-22 15:29] LABS: CLARITY,URINE CLOUDY (CLEAR)
--- NOTE | 2022-11-22 15:38 | CT Report ---
PROCEDURE: HEAD WO INDICATIONS: fall head injury headache TECHNIQUE: Noncontrast 4.5 mm thick angled axial sections acquired from the foramen magnum to the vertex. For r adiation dose reduction, the following was used: automated exposure control, adjustment of mA and/or kV according to patient size. COMPARISON: 09/29/2021. Correlation is also made with the accompanying cervical spine CT. Correlation is made with prior brain MRI, the FINDINGS: Image quality: Excellent. CSF spaces: Basal cisterns are patent. No extra-axial fluid collections. Stable asymmetry can be se en of the ventricles, with the right lateral ventricle larger than the left. Brain: No midline shift . No intracranial masses or hemorrhage. Gatica-white matter interface is normal. Skull and face: Calvarium and visualized facial bones are intact, without suspicious lesions. Sinuses: Visualized sinuses and mastoids are clear. IMPRESSION: Stable head CT, without findings of hemorrhage or other acute intracranial abnormality. Stable asymmetry of the lateral ventricles noted. Reviewed by: Len Conrad MD on 11/22/2022 2:37 PM BILL Approved by: Len Conrad MD on 11/22/2022 2:37 PM BILL Station ID: [id number]
[2022-11-22 15:40] LABS: BACTERIA,URINE Many /HPF (None Seen); CRYSTALS,URINE 3-5 Triple Phosphate /LPF; RBC,URINE None Seen /HPF (0-5); SQUAMOUS EPITHELIAL CELL,UR RARE Squamous (<= Few)
--- NOTE | 2022-11-22 15:40 | CT Report ---
PROCEDURE: CERVICAL SPINE WO INDICATIONS: fall head injury neck pain. TECHNIQUE: Noncontrast 3 mm thick sections acquired from the skull base to the T4 level. Sagittal and coronal r eformats were then constructed. For radiation dose reduction, the following was used: automated exp osure control, adjustment of mA and/or kV according to patient size. COMPARISON: 09/29/2021. Correlation is also made with the accompanying head CT. FINDINGS: Image quality: Excellent. Bones: No fractures or dislocations. Visualized superior ribs are intact. Focal degenerative change can be seen involving the C1-C2 interface anteriorly. There is at least mod erate disc space narrowing seen at C3-C4 and C4-C5, with moderate disc space narrowing at C5-C6. Mode rate to severe disc space narrowing is seen at C6-C7. Milder degenerative changes are seen elsewhere. Soft tissues: Prevertebral soft tissues are normal in thickness. No paravertebral hematomas. No ap ical pneumothoraces. Atherosclerotic calcification is seen. Calcification can be seen of the lateral thyroid, which is similar to the prior examination and considered to be benign. IMPRESSION: Negative for acute cervical spine fracture. Multilevel cervical spine degenerative changes can be seen. Reviewed by: Len Conrad MD on 11/22/2022 2:39 PM BILL Approved by: Len Conrad MD on 11/22/2022 2:39 PM BILL Station ID: [id number]
--- NOTE | 2022-11-24 11:49 | ED Physician Documentation ---
ED Addendum - Addendum Addendum: 11/24/22 11:48 Urine culture + e.coli. Will treat with keflex. Rx [email or web address] Departure - Departure Disposition: 01 Home, Self Care Clinical Impression: Accidental fall Qualifiers: Encounter type: initial encounter Qualified Code(s): W19.XXXA - Unspecified fall, initial encounter Shoulder strain Qualifiers: Encounter type: initial encounter Laterality: unspecified laterality Qualified Code(s): S46.919A - Strain of unspecified muscle, fascia and tendon at shoulder and upper arm level, unspecified arm, initial encounter Contusion Qualifiers: Encounter type: initial encounter Contusion area: head Contusion of head detail: periocular area Laterality: left Qualified Code(s): S00.12XA - Contusion of left eyelid and periocular area, initial encounter Condition: Stable Instructions: ED Mechanical Fall Follow-Up: Swathi Candelario ARNP, MANA[employer] [Provider Admit Priv/Credential] - Prescriptions: cephALEXin [Keflex] 500 mg PO Q6H #20 cap Comments: Eryn, today we found a bruise to your forehead no evidence of a fracture to your neck or your shoulders. We did not find any fracture in your neck. Discharge Date/Time: 11/22/22 16:13
== END 2022-11-22 16:13 | disposition home or self-care (01) ==
LOC: EDUNIT# → ED 12:16
DX: S46.919A Strain of unspecified muscle, fascia and tendon at shoulder and upper arm level, unspecified arm, initial encounter (principal); S00.12XA Contusion of left eyelid and periocular area, initial encounter; W19.XXXA Unspecified fall, initial encounter; B96.20 Unspecified Escherichia coli [E. coli] as the cause of diseases classified elsewhere; G20 Parkinson's disease; F02.80 Dementia in other diseases classified elsewhere, unspecified severity, without behavioral disturbance, psychotic disturbance, mood disturbance, and anxiety; I10 Essential (primary) hypertension; Z87.891 Personal history of nicotine dependence
CPT/HCPCS: 81001; 81003; 87086; 87181; 99283; 99284

== ENCOUNTER 2022-11-22 16:11 | Outpatient (CLI) | payer MEDICARE, OTHER | END 2022-11-22 23:59 | disposition home or self-care (01) | LOC: EMS 16:11 | PROVIDERS: ATTEND Emergency Medicine | DX: R41.0 Disorientation, unspecified (principal); F03.90 Unspecified dementia, unspecified severity, without behavioral disturbance, psychotic disturbance, mood disturbance, and anxiety | CPT/HCPCS: A0425; A0428 ==